=== PATIENT | female | born 1930 | race Caucasian/White ===

== ENCOUNTER 2016-07-08 09:33 | Emergency (ER) | payer MEDICARE, MEDICAID ==
[2016-07-08 10:26] LABS: Hematocrit 36 % (35-47); Hemoglobin 11.8 g/dl (12.0-16.0); Mean Corpuscular HGB Conc 33 g/dl (31-36); Mean Corpuscular Hemoglobin 29 pg (27-31); Mean Corpuscular Volume 89 fL (80-97); Mean Platelet Volume 9 um3 (7.4-10.4); Red Blood Count 4.03 10^6/ul (4.0-5.4); Red Cell Distribution Width 14 % (10.5-15); White Blood Count 5.6 10^3/ul (3.5-10.8)
[2016-07-08 10:39] LABS: BUN/Creatinine Ratio 20.6 (8-20); EGFR Non-African American 54.7 (>60); Potassium 4.4 mmol/L (3.5-5.0)
[2016-07-08 10:40] LABS: Albumin 3.8 g/dL (3.2-5.2); C Reactive Protein 6.3 mg/L (< 5.00); Calcium 9.4 mg/dL (8.6-10.3); EGFR African American 70.4 (>60); Globulin 3.1 g/dL (2-4); Total Bilirubin 0.4 mg/dL (0.2-1.0); Total Protein 6.9 g/dL (6.4-8.9)
[2016-07-08 10:47] LABS: Urine Bacteria Absent (Absent); Urine Bilirubin Negative (Negative); Urine Glucose Negative (Negative); Urine Nitrite Negative (Negative)
[2016-07-08 12:39] VITALS: BP 162/62
--- NOTE | 2016-07-08 12:41 | ED ---
Eduard Puentes SooYoung, scribed for Saad Haque MD on 07/08/16 at 1001 . GI/ HPI - HPI Summary HPI Summary: A 85 y/o F presents to ED with c/o ongoing urinary retention for past one to two weeks. Associated sx include a few episodes of dysuria. Pt is generally concerned about the retention being symptomatic of something more serious. Last urination was at 0400 and was a nml amount. She's had 3-4 cups of coffee and has not urinated. She states she feels "perfectly comfortable." Denies CP, edema , SOB, hematuria, back or abd pains, fever, chills. Pt sees Dr. Lutz. Non- drinker. - History of Current Complaint Chief Complaint: EDUrogenitalProblems Time Seen by Provider: 07/08/16 09:48 Stated Complaint: UNABLE TO URINATE Hx Obtained From: Patient Onset/Duration: Started Weeks Ago, Still Present Pain Intensity: 4 Associated Signs and Symptoms: Positive: Dysuria - few episodes, Other: - neg: edema, SOB,. Negative: Back Pain, Fever, Hematuria, Chills, Abdominal Pain, Chest Pain - Allergy/Home Medications Allergies/Adverse Reactions: Allergies Allergy/AdvReac Type Severity Reaction Status Date / Time Aspirin Allergy Severe Anaphylatic Verified 09/15/14 02:53 Shock Prochlorperazine Allergy Severe seizure Verified 09/15/14 02:53 [From Compazine] Bee Venom Allergy Anaphylatic Verified 09/15/14 02:53 Shock NSAIDs Allergy Anaphylatic Verified 09/15/14 02:53 Shock DUST AND MOLD Allergy Runny Nose Uncoded 09/15/14 02:53 PMH/Surg Hx/FS Hx/Imm Hx Previously Healthy: No Endocrine/Hematology History: Reports: Hx Diabetes, Hx Thyroid Disease, Hx Anemia Denies: Hx Anticoagulant Therapy Cardiovascular History: Reports: Hx Hypercholesterolemia, Hx Hypertension Denies: Hx Pacemaker/ICD Respiratory History: Reports: Hx Asthma, Hx Chronic Bronchitis, Hx Chronic Obstructive Pulmonary Disease (COPD), Hx Pneumonia, Hx Seasonal Allergies, Hx Sleep Apnea - does not wear bipap at night, Other Respiratory Problems/ Disorders - PNA, SLEEP APNEA GI History: Reports: Other GI Disorders - 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 History: Denies: Hx Kidney Stones, Hx Renal Disease Musculoskeletal History: Reports: Hx Orthopedic Injury - 01/08/2012 R ankle Fx, 03/19/2012 R ankle Fx, 03/21/2012 L ankle Fx, Other Musculoskeletal History - Bilateral rotator cuff injuries, poor use of UE bilateral Denies: Hx Rheumatoid Arthritis, Hx Osteoporosis Sensory History: Reports: Hx Cataracts, Hx Contacts or Glasses - for reading Opthamlomology History: Reports: Hx Cataracts, Hx Contacts or Glasses - for reading Neurological History: Denies: Hx Dementia, Hx Seizures, Other Neuro Impairments/Disorders Psychiatric History: Reports: Hx Anxiety, Hx Depression Denies: Hx Attention Deficit Hyperactivity Disorder, Hx Suicide Attempt, Hx Substance Abuse - Cancer History Hx Chemotherapy: No Hx Radiation Therapy: No - Surgical History Surgery Procedure, Year, and Place: R Ankle fracture, 2011 and 2012 Bilateral. right forearm fx and left forearm fx. left big toe had hammertoe. hysterectomy 1974. nasal polyps 1977 Hx Anesthesia Reactions: No - Immunization History Date of Tetanus Vaccine: Unsure Date of Influenza Vaccine: 2012 Infectious Disease History: Denies: Hx Clostridium Difficile, Hx Hepatitis, Hx Human Immunodeficiency Virus (HIV), Hx Shingles, Hx Tuberculosis, Traveled Outside the [place] in Last 30 Days - Family History Known Family History: Positive: Other - neg Breast CA Family History: No FHx of breast cancer. - Social History Occupation: Retired Lives: [facility] [employer] Alcohol Use: None Hx Substance Use: No Substance Use Type: Reports: None Hx Tobacco Use: Yes Smoking Status (MU): Former Smoker Type: Cigarettes Review of Systems Negative: Fever, Chills Negative: Chest Pain Negative: Abdominal Pain Positive: dysuria - few episodes, other - pos: urinary retention. Negative: hematuria Positive: Other - neg: back pain. Negative: Edema All Other Systems Reviewed And Are Negative: Yes Physical Exam - Summary Physical Exam Summary: The patient is well-nourished in no acute distress and in no acute pain. The skin is warm and dry and skin color reflects adequate perfusion. HEENT: The head is normocephalic and atraumatic. The pupils are equal and reactive. The conjunctivae are clear and without drainage. Nares are patent and without drainage. Mouth reveals moist mucous membranes and the throat is without erythema and exudate. The external ears are intact. The ear canals are patent and without drainage. The tympanic membranes are intact. Neck is supple with full range of motion and non-tender. There are no carotid bruits. There is no neck vein distension. Respiratory: Chest is non-tender. Lungs are clear to auscultation and breath sounds are symmetrical and equal. Cardiovascular: Hear is regular rate and rhythm. There is no murmur or rub auscultated. There is no peripheral edema and pulses are symmetrical and equal. Abdomen: The abdomen is soft and non-tender. There are normal bowel sounds heard in all four quadrants and there is no organomegaly palpated. BLADDER NOT DISTENDED. Musculoskeletal: There is no back pain noted. Extremities are non-tender with full range of motion. There is good capillary refill. MILD PERIPHERAL EDEMA, No calf tenderness elicited. Neurological: Patient is alert and oriented to person, place and time. The patient has symmetrical motor strength in all four extremities. Cranial nerves are grossly intact. Deep tendon reflexes are symmetrical and equal in all four extremities. Psychiatric: The patient has an appropriate affect and does not exhibit any anxiety or depression. Triage Information Reviewed: Yes Vital Signs On Initial Exam: Initial Vitals Temp Pulse Resp BP Pulse Ox 97.1 F 79 16 153/96 99 07/08/16 09:36 07/08/16 09:36 07/08/16 09:36 07/08/16 09:36 07/08/16 09:36 Vital Signs Reviewed: Yes Diagnostics - Vital Signs Vital Signs Temp Pulse Resp BP Pulse Ox 07/08/16 09:36 97.1 F 79 16 153/96 99 - Laboratory Lab Results: Lab Results 07/08/16 07/08/16 07/08/16 Range/Units 10:20 10:20 10:20 WBC 5.6 (3.5-10.8) 10^3/ul RBC 4.03 (4.0-5.4) 10^6/ul Hgb 11.8 L (12.0-16.0) g/dl Hct 36 (35-47) % MCV 89 (80-97) fL MCH 29 (27-31) pg MCHC 33 (31-36) g/dl RDW 14 (10.5-15) % Plt Count 223 (150-450) 10^3/ul MPV 9 (7.4-10.4) um3 Neut % (Auto) 65.0 (38-83) % Lymph % (Auto) 24.4 L (25-47) % Bryan % (Auto) 8.4 (1-9) % Eos % (Auto) 1.2 (0-6) % Baso % (Auto) 1.0 (0-2) % Absolute Neuts (auto) 3.6 (1.5-7.7) 10^3/ul Absolute Lymphs (auto) 1.4 (1.0-4.8) 10^3/ul Absolute Monos (auto) 0.5 (0-0.8) 10^3/ul Absolute Eos (auto) 0.1 (0-0.6) 10^3/ul Absolute Basos (auto) 0.1 (0-0.2) 10^3/ul Absolute Nucleated RBC 0 10^3/ul Nucleated RBC % 0 Sodium 133 (133-145) mmol/L Potassium 4.4 (3.5-5.0) mmol/L Chloride 100 L (101-111) mmol/L Carbon Dioxide 26 (22-32) mmol/L Anion Gap 7 (2-11) mmol/L BUN 20 (6-24) mg/dL Creatinine 0.97 H (0.51-0.95) mg/dL Est GFR ( Amer) 70.4 (>60) Est GFR (Non-Af Amer) 54.7 (>60) BUN/Creatinine Ratio 20.6 H (8-20) Glucose 147 H (70-100) mg/dL Lactic Acid 1.9 (0.5-2.0) mmol/L Calcium 9.4 (8.6-10.3) mg/dL Total Bilirubin 0.40 (0.2-1.0) mg/dL AST 15 (13-39) U/L ALT 13 (7-52) U/L Alkaline Phosphatase 64 (34-104) U/L C-Reactive Protein 6.30 H (< 5.00) mg/L Total Protein 6.9 (6.4-8.9) g/dL Albumin 3.8 (3.2-5.2) g/dL Globulin 3.1 (2-4) g/dL Albumin/Globulin Ratio 1.2 (1-3) Urine Color Urine Appearance Urine pH (5-9) Ur Specific [place] (1.010-1.030) Urine Protein (Negative) Urine Ketones (Negative) Urine Blood (Negative) Urine Nitrate (Negative) Urine Bilirubin (Negative) Urine Urobilinogen (Negative) Ur Leukocyte Esterase (Negative) Urine WBC (Auto) (Absent) Urine RBC (Auto) (Absent) Ur Squamous Epith Cells (Absent) Urine Bacteria (Absent) Urine Glucose (Negative) Urine Ascorbic Acid (Negative) 07/08/16 Range/Units 10:30 WBC (3.5-10.8) 10^3/ul RBC (4.0-5.4) 10^6/ul Hgb (12.0-16.0) g/dl Hct (35-47) % MCV (80-97) fL MCH (27-31) pg MCHC (31-36) g/dl RDW (10.5-15) % Plt Count (150-450) 10^3/ul MPV (7.4-10.4) um3 Neut % (Auto) (38-83) % Lymph % (Auto) (25-47) % Bryan % (Auto) (1-9) % Eos % (Auto) (0-6) % Baso % (Auto) (0-2) % Absolute Neuts (auto) (1.5-7.7) 10^3/ul Absolute Lymphs (auto) (1.0-4.8) 10^3/ul Absolute Monos (auto) (0-0.8) 10^3/ul Absolute Eos (auto) (0-0.6) 10^3/ul Absolute Basos (auto) (0-0.2) 10^3/ul Absolute Nucleated RBC 10^3/ul Nucleated RBC % Sodium (133-145) mmol/L Potassium (3.5-5.0) mmol/L Chloride (101-111) mmol/L Carbon Dioxide (22-32) mmol/L Anion Gap (2-11) mmol/L BUN (6-24) mg/dL Creatinine (0.51-0.95) mg/dL Est GFR ( Amer) (>60) Est GFR (Non-Af Amer) (>60) BUN/Creatinine Ratio (8-20) Glucose (70-100) mg/dL Lactic Acid (0.5-2.0) mmol/L Calcium (8.6-10.3) mg/dL Total Bilirubin (0.2-1.0) mg/dL AST (13-39) U/L ALT (7-52) U/L Alkaline Phosphatase (34-104) U/L C-Reactive Protein (< 5.00) mg/L Total Protein (6.4-8.9) g/dL Albumin (3.2-5.2) g/dL Globulin (2-4) g/dL Albumin/Globulin Ratio (1-3) Urine Color Yellow Urine Appearance Clear Urine pH 6.0 (5-9) Ur Specific [place] 1.012 (1.010-1.030) Urine Protein Negative (Negative) Urine Ketones Negative (Negative) Urine Blood Negative (Negative) Urine Nitrate Negative (Negative) Urine Bilirubin Negative (Negative) Urine Urobilinogen Negative (Negative) Ur Leukocyte Esterase Trace H (Negative) Urine WBC (Auto) Trace(0-5/hpf) (Absent) Urine RBC (Auto) 3+(>10/hpf) H (Absent) Ur Squamous Epith Cells Present H (Absent) Urine Bacteria Absent (Absent) Urine Glucose Negative (Negative) Urine Ascorbic Acid * H (Negative) Result Diagrams: 07/08/16 10:20 07/08/16 10:20 Lab Statement: Any lab studies that have been ordered have been reviewed, and results considered in the medical decision making process. Re-Evaluation - Re-Evaluation 1 Re-Evaluation Time: 12:23 Change: Unchanged Comment: RECHECKED AND REVIEWED LABS/UA. PT WANTS TO START ABX. GIGU Course/Dx - Course Course Of Treatment: Pt is an 85 y/o F with a few episodes of dysuria and concerns about urinary retention over the past two weeks. Last urination was at 0400 and was a nml amount. She is "perfectly comfortable." Denies CP, edema, SOB , hematuria, back or abd pains, fever, chills. UA shows traces of luekocytes esterase, 3+ RBC, and asorbic acid present. CRP is 6.3. Possibly early UTI. Discussed results with pt, she prefers to start the abx. Will D/C home with Nedra and f/u with Dr. Lutz. Pt voiced understanding. - Diagnoses Differential Diagnoses - Female: Dehydration, Urinary Tract Infection, Other - renal failure, urinary retention Provider Diagnoses: UTI (urinary tract infection), Dehydration Discharge - Discharge Plan Condition: Stable Disposition: HOME Prescriptions: Ciprofloxacin TAB* [Cipro 500 MG TAB*] 500 mg PO BID #14 tab Patient Education Materials: Ciprofloxacin (By mouth), Urinary Traction Infection in Older Adults (ED) Referrals: Beckie Prasad [Primary Care Provider] - Arielle Lutz MD [Medical Doctor] - As Soon As Possible Additional Instructions: Please return to the ED if you experience new or worsening symptoms. FOLLOW UP WITH YOUR PRIMARY CARE PROVIDER, DR. LUTZ. Lab Results - Lab Results Lab Results: 07/08/16 07/08/16 07/08/16 10:20 10:20 10:20 WBC 5.6 RBC 4.03 Hgb 11.8 L Hct 36 MCV 89 MCH 29 MCHC 33 RDW 14 Plt Count 223 MPV 9 Neut % (Auto) 65.0 Lymph % (Auto) 24.4 L Bryan % (Auto) 8.4 Eos % (Auto) 1.2 Baso % (Auto) 1.0 Absolute Neuts (auto) 3.6 Absolute Lymphs (auto) 1.4 Absolute Monos (auto) 0.5 Absolute Eos (auto) 0.1 Absolute Basos (auto) 0.1 Absolute Nucleated RBC 0 Nucleated RBC % 0 Sodium 133 Potassium 4.4 Chloride 100 L Carbon Dioxide 26 Anion Gap 7 BUN 20 Creatinine 0.97 H Est GFR ( Amer) 70.4 Est GFR (Non-Af Amer) 54.7 BUN/Creatinine Ratio 20.6 H Glucose 147 H Lactic Acid 1.9 Calcium 9.4 Total Bilirubin 0.40 AST 15 ALT 13 Alkaline Phosphatase 64 C-Reactive Protein 6.30 H Total Protein 6.9 Albumin 3.8 Globulin 3.1 Albumin/Globulin Ratio 1.2 Urine Color Urine Appearance Urine pH Ur Specific [place] Urine Protein Urine Ketones Urine Blood Urine Nitrate Urine Bilirubin Urine Urobilinogen Ur Leukocyte Esterase Urine WBC (Auto) Urine RBC (Auto) Ur Squamous Epith Cells Urine Bacteria Urine Glucose Urine Ascorbic Acid 07/08/16 10:30 WBC RBC Hgb Hct MCV MCH MCHC RDW Plt Count MPV Neut % (Auto) Lymph % (Auto) Bryan % (Auto) Eos % (Auto) Baso % (Auto) Absolute Neuts (auto) Absolute Lymphs (auto) Absolute Monos (auto) Absolute Eos (auto) Absolute Basos (auto) Absolute Nucleated RBC Nucleated RBC % Sodium Potassium Chloride Carbon Dioxide Anion Gap BUN Creatinine Est GFR ( Amer) Est GFR (Non-Af Amer) BUN/Creatinine Ratio Glucose Lactic Acid Calcium Total Bilirubin AST ALT Alkaline Phosphatase C-Reactive Protein Total Protein Albumin Globulin Albumin/Globulin Ratio Urine Color Yellow Urine Appearance Clear Urine pH 6.0 Ur Specific [place] 1.012 Urine Protein Negative Urine Ketones Negative Urine Blood Negative Urine Nitrate Negative Urine Bilirubin Negative Urine Urobilinogen Negative Ur Leukocyte Esterase Trace H Urine WBC (Auto) Trace(0-5/hpf) Urine RBC (Auto) 3+(>10/hpf) H Ur Squamous Epith Cells Present H Urine Bacteria Absent Urine Glucose Negative Urine Ascorbic Acid * H The documentation as recorded by the Eduard mcnamara SooYoung accurately reflects the service I personally performed and the decisions made by , Saad Haque MD.
== END 2016-07-08 12:39 | disposition home or self-care (01) ==
LOC: ED 09:33
DX: N39.0 Urinary tract infection, site not specified (principal); E86.0 Dehydration; R30.0 Dysuria; R33.9 Retention of urine, unspecified; Z87.891 Personal history of nicotine dependence
CPT/HCPCS: 36415; 80053; 81003; 81015; 83605; 85025; 86140; 87086; 99283

== ENCOUNTER 2017-03-01 15:04 | Emergency (ER) | payer MEDICARE, MEDICAID ==
--- NOTE | 2017-03-01 16:19 | RAD ---
HISTORY: Weakness, dizziness COMPARISONS: December 04, 2013 TECHNIQUE: Multiple contiguous axial CT scans were obtained of the head without intravenous contrast. FINDINGS: HEMORRHAGE/INFARCT: There is no hemorrhage or acute infarct. MASSES/SHIFT: There is no mass or shift. EXTRA-AXIAL SPACES: There are no extra-axial fluid collections. SULCI AND VENTRICLES: The sulci and ventricles are normal in size and position for the patient's stated age. CEREBRUM: There is hypoattenuation of the periventricular and subcortical white matter. BRAINSTEM: There are no focal parenchymal abnormalities. CEREBELLUM: There are no focal parenchymal abnormalities. VESSELS: The vessels are grossly normal. PARANASAL SINUSES: There is opacification of the left maxillary sinus with osteitis of the surrounding bone consistent with chronic sinusitis ORBITS: The orbits are unremarkable. BONES AND SOFT TISSUE: No bone or soft tissue abnormalities are noted. OTHER: None IMPRESSION: NO ACUTE INTRACRANIAL PATHOLOGY. CHRONIC SMALL VESSEL ISCHEMIC CHANGES.
--- NOTE | 2017-03-01 16:22 | RAD ---
HISTORY: Weakness, dizziness COMPARISONS: January 28, 2016, September 03, 2014 VIEWS: 1: frontal portable view of the chest at 4:15 PM FINDINGS: LINES AND TUBES: None. CARDIOMEDIASTINAL SILHOUETTE: The cardiomediastinal silhouette is normal for portable technique. PLEURA: The costophrenic angles are sharp. No pleural abnormalities are noted. LUNG PARENCHYMA: There is hyperinflation. There is a questionable, 0.8 cm nodular density overlying the right upper lung. ABDOMEN: The upper abdomen is clear. There is no subphrenic gas. BONES AND SOFT TISSUES: No bone or soft tissue abnormalities are noted. IMPRESSION: COPD WITH QUESTIONABLE RIGHT UPPER LOBE LUNG NODULE. RECOMMEND CORRELATION WITH PA AND LATERAL VIEWS OF THE CHEST OR CT OF THE CHEST
[2017-03-01 16:39] LABS: Hematocrit 38 % (35-47); Mean Corpuscular HGB Conc 34 g/dl (31-36); Mean Corpuscular Hemoglobin 31 pg (27-31); Mean Corpuscular Volume 90 fL (80-97); Mean Platelet Volume 9 um3 (7.4-10.4); Red Blood Count 4.21 10^6/ul (4.0-5.4); Red Cell Distribution Width 14 % (10.5-15); White Blood Count 7.2 10^3/ul (3.5-10.8)
[2017-03-01 16:47] LABS: Albumin 3.9 g/dL (3.2-5.2); BUN/Creatinine Ratio 17.3 (8-20); Calcium 9.4 mg/dL (8.6-10.3); EGFR African American 64.8 (>60); EGFR Non-African American 50.4 (>60); Globulin 3.3 g/dL (2-4); Potassium 4.1 mmol/L (3.5-5.0); Total Bilirubin 0.3 mg/dL (0.2-1.0); Total Protein 7.2 g/dL (6.4-8.9)
[2017-03-01 16:49] LABS: Troponin I 0.01 ng/mL (<0.04)
[2017-03-01] MEDS: NS 0.9% 1000 ML*IV.FLUID IV ONE (17:05)
[2017-03-01 17:58] LABS: Urine Bacteria Absent (Absent); Urine Bilirubin Negative (Negative); Urine Glucose Negative (Negative); Urine Nitrite Negative (Negative)
--- NOTE | 2017-03-01 18:50 | ED ---
Serge Puentes Gabriel, scribed for Sy Menard MD on 03/01/17 at 1548 . Complex/Multi-Sys Presentation - HPI Summary HPI Summary: This patient is a 86 year old F BIBA to [facility] with a chief complaint of weakness since this morning. Patient denies dizziness, ABD pain, n/v/d, rhinorrhea, and sore throat. Patient states she has had a hard time ambulating this morning and felt like she was falling to one side. Patient just recently finished a course on antibiotics for a UTI and lives in a half-way. - History Of Current Complaint Chief Complaint: EDWeakness Time Seen by Provider: 03/01/17 15:33 Hx Obtained From: Patient Onset/Duration: Lasting Hours - this morning, Still Present Timing: Constant Severity Currently: Mild Severity Initially: Mild Associated Signs And Symptoms: Positive: Weakness - Allergies/Home Medications Allergies/Adverse Reactions: Allergies Allergy/AdvReac Type Severity Reaction Status Date / Time Aspirin Allergy Severe Anaphylatic Verified 09/15/14 02:53 Shock Prochlorperazine Allergy Severe seizure Verified 09/15/14 02:53 [From Compazine] Bee Venom Allergy Anaphylatic Verified 09/15/14 02:53 Shock NSAIDs Allergy Anaphylatic Verified 09/15/14 02:53 Shock DUST AND MOLD Allergy Runny Nose Uncoded 09/15/14 02:53 Home Medications: Home Medications Acetaminophen TAB* [Tylenol TAB*] 325 mg PO Q4H PRN 03/01/17 [History Confirmed 03/01/17] Albuterol 2.5MG/3ML (0.083%)* [Ventolin 2.5 MG/3 ML NEB.INDIRA*] 2.5 mg INH Q8HR PRN 03/01/17 [History Confirmed 03/01/17] Alendronate TAB (NF) [Fosamax TAB (NF)] 10 mg PO DAILY 03/01/17 [History Confirmed 03/01/17] Apple Cider Vinegar 1,200 mg PO DAILY 03/01/17 [History Confirmed 03/01/17] [id number]-[id number]-Islc [Calcium & Magnesium + Zin 334-134-5 mg] 2 tab PO DAILY 03/01/17 [History Confirmed 03/01/17] Cranberry (Vaccinium Macrocarp [Cranberry] 810 mg PO DAILY 03/01/17 [History Confirmed 03/01/17] Docusate CAP* [Colace Cap*] 200 mg PO BEDTIME 03/01/17 [History Confirmed ] Epinephrine [Epipen 2-Beck] 0.3 mg IM ONCE PRN 03/01/17 [History Confirmed ] Fluticasone HFA 110 mcg(NF) [Flovent HFA 110 mcg(NF)] 2 puff INH BID 03/01/17 [ History Confirmed 03/01/17] Fluticasone NASAL SPRAY 50MCG* [Flonase NASAL SPRAY 50MCG*] 2 spray BOTH NARES DAILY 03/01/17 [History Confirmed 03/01/17] Levothyroxine TAB* [Synthroid TAB*] 50 mcg PO DAILY 03/01/17 [History Confirmed 03/01/17] Meclizine TAB* [Antivert 12.5 TAB*] 12.5 - 25 mg PO TID 03/01/17 [History Confirmed 03/01/17] Multivitamins/Minerals TAB* [Theragran/minerals TAB*] 1 tab PO DAILY 03/01/17 [ History Confirmed 03/01/17] [place]-3 Fatty Acids (Nf) [Fish Oil (NF)] 350 - 400 mg PO DAILY 03/01/17 [ History Confirmed 03/01/17] Polyethylene Glycol 3350* [Miralax*] 17 gm PO DAILY 03/01/17 [History Confirmed 03/01/17] QUEtiapine TAB* [SEROquel TAB*] 400 mg PO BEDTIME 03/01/17 [History Confirmed ] Saline NASAL SPRAY 0.65%* [Sodium Chloride 0.65% Nasal [place]*] 1 spray BOTH NARES DAILY PRN 03/01/17 [History Confirmed 03/01/17] Sertraline* [Zoloft*] 150 mg PO DAILY 03/01/17 [History Confirmed 03/01/17] Tumeric 500 mg PO DAILY 03/01/17 [History Confirmed 03/01/17] Zinc [Zinc Methionate] 50 mg PO DAILY 03/01/17 [History Confirmed 03/01/17] PMH/Surg Hx/FS Hx/Imm Hx Previously Healthy: No Endocrine/Hematology History: Reports: Hx Diabetes, Hx Thyroid Disease, Hx Anemia Denies: Hx Anticoagulant Therapy Cardiovascular History: Reports: Hx Hypercholesterolemia, Hx Hypertension Denies: Hx Pacemaker/ICD Respiratory History: Reports: Hx Asthma, Hx Chronic Bronchitis, Hx Chronic Obstructive Pulmonary Disease (COPD), Hx Pneumonia, Hx Seasonal Allergies, Hx Sleep Apnea - does not wear bipap at night, Other Respiratory Problems/ Disorders - PNA, SLEEP APNEA GI History: Reports: Other GI Disorders - 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 History: Denies: Hx Kidney Stones, Hx Renal Disease Musculoskeletal History: Reports: Hx Orthopedic Injury - 01/08/2012 R ankle Fx, 03/19/2012 R ankle Fx, 03/21/2012 L ankle Fx, Other Musculoskeletal History - Bilateral rotator cuff injuries, poor use of UE bilateral Denies: Hx Rheumatoid Arthritis, Hx Osteoporosis Sensory History: Reports: Hx Cataracts, Hx Contacts or Glasses - for reading Opthamlomology History: Reports: Hx Cataracts, Hx Contacts or Glasses - for reading Neurological History: Denies: Hx Dementia, Hx Seizures, Other Neuro Impairments/Disorders Psychiatric History: Reports: Hx Anxiety, Hx Depression Denies: Hx Attention Deficit Hyperactivity Disorder, Hx Suicide Attempt, Hx Substance Abuse - Cancer History Hx Chemotherapy: No Hx Radiation Therapy: No - Surgical History Surgery Procedure, Year, and Place: R Ankle fracture, 2011 and 2013 Bilateral. right forearm fx and left forearm fx. left big toe had hammertoe. hysterectomy 1974. nasal polyps 1977 Hx Anesthesia Reactions: No - Immunization History Date of Tetanus Vaccine: Unsure Date of Influenza Vaccine: 2012 Infectious Disease History: No Infectious Disease History: Denies: Hx Clostridium Difficile, Hx Hepatitis, Hx Human Immunodeficiency Virus (HIV), Hx Shingles, Hx Tuberculosis, Traveled Outside the [place] in Last 30 Days - Family History Known Family History: Positive: Other - neg Breast CA Family History: No FHx of breast cancer. - Social History Alcohol Use: None Hx Substance Use: No Substance Use Type: Reports: None Hx Tobacco Use: Yes Smoking Status (MU): Former Smoker Type: Cigarettes Review of Systems Negative: Sore Throat, Nasal Discharge Negative: Abdominal Pain, Vomiting, Diarrhea, Nausea Neurological: Negative - dizziness Positive: Weakness All Other Systems Reviewed And Are Negative: Yes Physical Exam - Summary Physical Exam Summary: Appearance: Well appearing, no pain distress, patient is weight bare but shuffling gate Skin: warm, dry, reflects adequate perfusion Head/face: normal Eyes: EOMI, EMILY Pupils are small but reactive ENT: Mucous membranes are dry Neck: supple, non-tender Respiratory: CTA, breath sounds present. Diminished breath sounds Cardiovascular: RRR, pulses symmetrical, grade 3 murmur Abdomen: non-tender, soft Bowel: present Musculoskeletal: normal, strength/ROM intact, No LE edema Neuro: normal, sensory motor intact, A&Ox3 No focal deficits or weakness Triage Information Reviewed: Yes Vital Signs On Initial Exam: Initial Vitals Temp Pulse Resp BP Pulse Ox 97.5 F 86 18 137/61 98 03/01/17 15:06 03/01/17 15:06 03/01/17 15:06 03/01/17 15:06 03/01/17 15:06 Vital Signs Reviewed: Yes - [place] Coma Scale Coma Scale Total: 15 Diagnostics - Vital Signs Vital Signs Temp Pulse Resp BP Pulse Ox 03/01/17 15:06 97.5 F 86 18 137/61 98 - Laboratory Lab Results: Lab Results 03/01/17 03/01/17 03/01/17 Range/Units 16:20 16:20 16:20 WBC 7.2 (3.5-10.8) 10^3/ul RBC 4.21 (4.0-5.4) 10^6/ul Hgb 13.0 (12.0-16.0) g/dl Hct 38 (35-47) % MCV 90 (80-97) fL MCH 31 (27-31) pg MCHC 34 (31-36) g/dl RDW 14 (10.5-15) % Plt Count 277 (150-450) 10^3/ul MPV 9 (7.4-10.4) um3 Neut % (Auto) 69.1 (38-83) % Lymph % (Auto) 21.1 L (25-47) % Mccreary % (Auto) 8.0 (1-9) % Eos % (Auto) 1.1 (0-6) % Baso % (Auto) 0.7 (0-2) % Absolute Neuts (auto) 5.0 (1.5-7.7) 10^3/ul Absolute Lymphs (auto) 1.5 (1.0-4.8) 10^3/ul Absolute Monos (auto) 0.6 (0-0.8) 10^3/ul Absolute Eos (auto) 0.1 (0-0.6) 10^3/ul Absolute Basos (auto) 0.1 (0-0.2) 10^3/ul Absolute Nucleated RBC 0 10^3/ul Nucleated RBC % 0 Sodium 136 (133-145) mmol/L Potassium 4.1 (3.5-5.0) mmol/L Chloride 103 (101-111) mmol/L Carbon Dioxide 28 (22-32) mmol/L Anion Gap 5 (2-11) mmol/L BUN 18 (6-24) mg/dL Creatinine 1.04 H (0.51-0.95) mg/dL Est GFR ( Amer) 64.8 (>60) Est GFR (Non-Af Amer) 50.4 (>60) BUN/Creatinine Ratio 17.3 (8-20) Glucose 103 H (70-100) mg/dL Lactic Acid 0.9 (0.5-2.0) mmol/L Calcium 9.4 (8.6-10.3) mg/dL Total Bilirubin 0.30 (0.2-1.0) mg/dL AST 16 (13-39) U/L ALT 13 (7-52) U/L Alkaline Phosphatase 71 (34-104) U/L Troponin I 0.01 (<0.04) ng/mL Total Protein 7.2 (6.4-8.9) g/dL Albumin 3.9 (3.2-5.2) g/dL Globulin 3.3 (2-4) g/dL Albumin/Globulin Ratio 1.2 (1-3) Urine Color Urine Appearance Urine pH (5-9) Ur Specific [place] (1.010-1.030) Urine Protein (Negative) Urine Ketones (Negative) Urine Blood (Negative) Urine Nitrate (Negative) Urine Bilirubin (Negative) Urine Urobilinogen (Negative) Ur Leukocyte Esterase (Negative) Urine WBC (Auto) (Absent) Urine RBC (Auto) (Absent) Ur Squamous Epith Cells (Absent) Urine Bacteria (Absent) Urine Glucose (Negative) Urine Ascorbic Acid (Negative) 03/01/17 Range/Units 17:31 WBC (3.5-10.8) 10^3/ul RBC (4.0-5.4) 10^6/ul Hgb (12.0-16.0) g/dl Hct (35-47) % MCV (80-97) fL MCH (27-31) pg MCHC (31-36) g/dl RDW (10.5-15) % Plt Count (150-450) 10^3/ul MPV (7.4-10.4) um3 Neut % (Auto) (38-83) % Lymph % (Auto) (25-47) % Mccreary % (Auto) (1-9) % Eos % (Auto) (0-6) % Baso % (Auto) (0-2) % Absolute Neuts (auto) (1.5-7.7) 10^3/ul Absolute Lymphs (auto) (1.0-4.8) 10^3/ul Absolute Monos (auto) (0-0.8) 10^3/ul Absolute Eos (auto) (0-0.6) 10^3/ul Absolute Basos (auto) (0-0.2) 10^3/ul Absolute Nucleated RBC 10^3/ul Nucleated RBC % Sodium (133-145) mmol/L Potassium (3.5-5.0) mmol/L Chloride (101-111) mmol/L Carbon Dioxide (22-32) mmol/L Anion Gap (2-11) mmol/L BUN (6-24) mg/dL Creatinine (0.51-0.95) mg/dL Est GFR ( Amer) (>60) Est GFR (Non-Af Amer) (>60) BUN/Creatinine Ratio (8-20) Glucose (70-100) mg/dL Lactic Acid (0.5-2.0) mmol/L Calcium (8.6-10.3) mg/dL Total Bilirubin (0.2-1.0) mg/dL AST (13-39) U/L ALT (7-52) U/L Alkaline Phosphatase (34-104) U/L Troponin I (<0.04) ng/mL Total Protein (6.4-8.9) g/dL Albumin (3.2-5.2) g/dL Globulin (2-4) g/dL Albumin/Globulin Ratio (1-3) Urine Color Yellow Urine Appearance Clear Urine pH 6.0 (5-9) Ur Specific [place] 1.012 (1.010-1.030) Urine Protein Negative (Negative) Urine Ketones Negative (Negative) Urine Blood Negative (Negative) Urine Nitrate Negative (Negative) Urine Bilirubin Negative (Negative) Urine Urobilinogen Negative (Negative) Ur Leukocyte Esterase Trace H (Negative) Urine WBC (Auto) Trace(0-5/hpf) (Absent) Urine RBC (Auto) Absent (Absent) Ur Squamous Epith Cells Present H (Absent) Urine Bacteria Absent (Absent) Urine Glucose Negative (Negative) Urine Ascorbic Acid * H (Negative) Result Diagrams: 03/01/17 16:20 03/01/17 16:20 Lab Statement: Any lab studies that have been ordered have been reviewed, and results considered in the medical decision making process. Re-Evaluation - Re-Evaluation First Eval Re-Evaluation Time: 17:01 Change: Unchanged - Patient is still unable to support her own weight. Complex Multi-Symp Course/Dx Course Of Treatment: Pt with recent deterioration and inability to walk. Some "dizziness" and clinically appears dry. Recent UTI. No infectious source found. Dry, hydrated but without much benefit to gait. NIHSS 0, shuffling/wide based gate. High risk for fall. - Diagnoses Provider Diagnoses: Dehydration, Leg weakness, Vertigo - Physician Notifications Discussed Care Of Patient With: Arielle Carr Time Discussed With Above Provider: 18:13 Instructed by Provider To: Other - Dr. Carr was informed of the patient's situation and she believes they should be admitted. Discharge - Discharge Plan Condition: Fair Disposition: ADMITTED TO [facility] Referrals: Arielle Carr MD [Primary Care Provider] - Consult Consult: 1816: We discussed patient care with Dr. Lynn, hospitalist and they agreed to admit The documentation as recorded by the Serge mcnamara Gabriel accurately reflects the service I personally performed and the decisions made by me, Sy Menard MD.
--- NOTE | 2017-03-01 19:40 | ED ---
Roberto Puentes Tiffany, scribed for Jon Leblanc on 03/01/17 at 1915 . Re-Evaluation - Re-Evaluation First Eval Re-Evaluation Time: 17:01 Change: Unchanged - Patient is still unable to support her own weight. Course/Dx - Course Course Of Treatment: Dr. Lynn (hospitalist) evaluated the patient and he recommended discharge. He discussed this with the patient. She is agreeable to be discharged. The patient is stable. - Diagnoses Provider Diagnoses: Dehydration, Leg weakness, Vertigo, Dizziness - Provider Notifications Time Discussed With Above Provider: 18:13 Instructed by Provider To: Other - Dr. Carr was informed of the patient's situation and she believes they should be admitted. The documentation as recorded by the Roberto mcnamara Tiffany accurately reflects the service I personally performed and the decisions made by Deana byrne Emmanuel.
[2017-03-01 21:27] VITALS: BP 112/72
--- NOTE | 2017-03-01 22:19 | CONS ---
[facility] MEDICINE CONSULTATION REPORT: DATE OF CONSULT: 03/01/17 PROVIDER: Mary Garcia NP ATTENDING PHYSICIAN: Dr. Menard in the ER. CONSULTING DOCTOR: Long Lynn MD REASON FOR CONSULT: Weakness. HISTORY OF PRESENT ILLNESS: Ms. Rizzo is an 86-year-old female that presented to the emergency room after at approximately 10 o'clock this morning she developed bilateral leg weakness and had difficulty ambulating. During her emergency room stay, she was given IV fluids and re-hydration. Earlier in the emergency room stay, they attempted to ambulate her and was unsuccessful. In interviewing the patient, she states that she is feeling better, she feels that she has more strength in her legs. We ambulated her with a wheeled walker, which she uses all the time at home. She was able to ambulate in her room and out into the pak with a steady gait unassisted with the wheeled walker. She states that she feels better and would like to go home at this time. She does report that she was recently treated for UTI with Cipro which she finished 2-3 days ago. She states that her urinary symptoms since the treatment have all resolved. She denies any nausea, vomiting or diarrhea. Denies any abdominal pain. Denies any dysuria, frequency, urgency, or burning with urination. She denies any cough or respiratory symptoms. She denies any shortness of breath. She currently states that she feels that she can return home at this time. PAST MEDICAL HISTORY: 1. COPD. 2. Diabetes mellitus. 3. Sleep apnea. 4. History of anxiety, treated. 5. Gastroesophageal reflux disease. 6. Osteoporosis. 7. Hypertension. 8. Allergic rhinitis. 9. Allergy to insects. 10. Restless leg syndrome. 11. History of depression. 12. Recurrent urinary tract infections. PAST SURGICAL HISTORY: Includes: 1. Vaginal hysterectomy. 2. Bilateral cataract extractions. 3. Incision of lipoma on the left arm. 4. Multiple cystoscopies with transurethral collagen injections. 5. Surgery for nasal polyps. 6. Lumpectomy, right breast benign, left breast was also benign. 7. Left foot surgery. HOME MEDICATIONS: 1. Albuterol 2.5 mg inhaler q.8 hours p.r.n. 2. EpiPen 0.3 IM p.r.n. 3. Jbphh-3 fatty acids 350 to 400 mg p.o. daily. 4. Multivitamin 1 tablet p.o. daily. 5. Acetaminophen 325 mg p.o. p.r.n. 6. Saline nasal spray 1 spray both nares p.r.n. daily. 7. Calcium, magnesium and zinc 2 tabs p.o. daily. 8. Cranberry 810 mg p.o. daily. 9. Turmeric 500 mg p.o. daily. 10. Apple cider vinegar 1200 mg p.o. daily. 11. Zinc 50 mg p.o. daily. 12. Docusate 200 mg at bedtime. 13. MiraLAX 17 g p.o. daily. 14. Lisinopril 10 mg p.o. daily. 15. Simvastatin 20 mg p.o. q.p.m. 16. Levothyroxine 50 mcg p.o. daily. 17. Seroquel 400 mg p.o. at bedtime. 18. Fosamax 10 mg p.o. daily. 19. Fluticasone 2 puffs inhaled b.i.d. 20. Sertraline 150 mg p.o. daily. 21. Meclizine 12.5 to 25 mg p.o. t.i.d. 22. Fluticasone nasal spray 50 mcg 2 sprays both nares daily. 23. Singulair 10 mg p.o. daily. 24. Minipress cap 3 mg p.o. at bedtime. 25. Alprazolam Xanax 0.125 p.o. daily p.r.n. ALLERGIES: She is allergic to MOLD, YEAST and DUST. She has allergy to ASPIRIN , PROCHLORPERAZINE, BEE VENOM, NSAIDS caused anaphylactic reaction, COMPAZINE caused Seizures. ASPIRIN caused anaphylaxis. FAMILY HISTORY: Positive for heart disease, stroke and Parkinson's disease. SOCIAL HISTORY: The patient is a former smoker. She quit 11 years old. She does not drink alcohol. She does drink coffee 2 cups of coffee and 2 cups of tea a day. She denies any illicit drug use. REVIEW OF SYSTEMS: She denies any fever, chills or sweats. HEENT: She denies any rhinorrhea, sore throat or ear pain. Cardiac: She has had no chest pain or edema. Respiratory: She denies any shortness of breath or cough or respiratory symptoms. GI: She denies nausea, vomiting or diarrhea. She denies any abdominal pain. : She denies any gross hematuria or dysuria. She denies frequency or burning. Neuro: There is no focal weakness or sensory loss. She denies any visual complaints. She denies any dysphagia. She denies any arthralgias or myalgias. Skin: There are no rashes or lesions. Psych: She denies any depression or anxiety at this time. PHYSICAL EXAM: General: At this time Ms. Rizzo is an 86- year-old female. She is sitting up in bed. She appears to be in no acute distress. She moves all of her extremities. Vital signs: Temperature was 97.5, blood pressure is 163/96, heart rate was 82 , respirations are 16, O2 sat is 96% on room air. HEENT: Head atraumatic normocephalic. EYES: Extraocular eye movements are intact. Oral Mucosa is dry, there appears to be dried pill fragments noted to the soft palate. There is no oropharyngeal erythema. Neck: Supple Heart: S1, S2. There are no murmurs, rubs or gallops and it is regular. Lungs are clear to auscultation bilaterally with no accessory muscle use and good aeration. Abdomen is soft and nontender. Bowel sounds are positive x4. Extremities: She moves all extremities. There is no cyanosis or edema. Neurological: She is alert and oriented x3. There is no facial asymmetry or focal weakness noted. Skin is intact. DIAGNOSTIC STUDIES/LAB DATA: WBC is 7.2, RBC is 4.21, hemoglobin 13, hematocrit 38, platelet count is 277. Sodium is 136, potassium 4.1, chloride 103, carbon dioxide is 28, anion gap is 5, BUN is 18, creatinine is 1.04, glucose is 103, lactic acid 0.9, calcium 9.4. Troponin was 0.01. Urine pH was 6, specific gravity was 1.021. Urine protein, ketones, blood, nitrites, bilirubin, urine bilirubin were all negative. Urine leuko esterase was trace. Urine wbc's were trace. Urine rbc's were absent. Squamous epithelial cells were present. Urine bacteria was negative. Urine glucose was negative and ascorbic acid was high. CT of the head. Radiologist's Impression: There is no acute intracranial pathology, chronic small vessel ischemic changes. Chest x-ray, COPD with right upper lobe lung nodule, recommend correlation with PA and lateral views of the chest or a CT of the chest. Electrocardiogram, she is in a sinus rhythm at a rate of 81. IMPRESSION AND PLAN: Ms. Rizzo is an 86-year-old female that presented to the emergency room today with bilateral lower leg weakness. This started at approximately 10 o'clock this morning. She received IV hydration in the emergency room and reports that she now feels better. An initial attempt to walk the patient earlier in the ER was difficult and she had to walk with assist. I did repeat ambulation evaluation we were able to get her up and walk her in the ER and she was able to ambulate with her wheeled walker unassisted, which she currently uses at home. She states that she feels well enough and strong enough to go home. Our recommendations are as follows: Weakness, questionable dehydration. The patient received IV hydration in the emergency room and she now feels better after the hydration she feels that her strength is improving. She wishes to go home at this time. She walked unassisted with a wheeled walker. I feel at this time she can be discharged home. She has a safety plan. She does currently live at [employer] and she does have on a Life Alert that she wears around her neck. She feels that she is safe to go home. She does have food provided to her by [email or web address]. I recommended to her to increase oral hydration and continue with eating and I also recommended if she felt weak or anything changed to her in the night that she should come back to the emergency room. I recommend that she follow up with her primary care provider, Dr. Arielle Carr, within the next week for reevaluation. She was also notified of chest x-ray findings of a possible nodule in her right upper lung and the need to have follow up evaluation with her primary care provider and possible repeat imaging. TIME SPENT: Approximately 60 minutes were spent on this consultation of this patient, more than half of the time was spent at the bedside reviewing the events leading to her hospital to her visit to the emergency room, performing a physical exam, and reviewing my plan of care. I have discussed this case with Dr. Long Lynn and he is in agreement with my plan. MARY GARCAI, VARNISHING UNIT OPERATOR [id number]/[facility] #: [id number] [facility]ANEOmid
== END 2017-03-01 21:25 | disposition home or self-care (01) ==
LOC: ED 15:04
DX: E86.0 Dehydration (principal); R53.1 Weakness; R42 Dizziness and giddiness; J44.9 Chronic obstructive pulmonary disease, unspecified
CPT/HCPCS: 36415; 70450; 71010; 80053; 81003; 81015; 83605; 84484; 85025; 87040; 87077; 87086; 87186; 93005; 96360; 99283

== ENCOUNTER 2017-03-13 01:53 | Emergency (ER) | payer MEDICAID, MEDICARE ==
[2017-03-13] MEDS ORDERED: NS 0.9% 1000 ML* 1,000 ML IV ONE (02:24)
[2017-03-13] MEDS ORDERED: Loperamide CAP* 2 MG PO ONE (02:24)
[2017-03-13 02:49] LABS: ABS Basophils 0 10^3/ul (0-0.2); ABS Eosinophils 0.1 10^3/ul (0-0.6); ABS Lymphocytes 1.3 10^3/ul (1.0-4.8); ABS Monocytes 0.6 10^3/ul (0-0.8); ABS Neutrophils 3.1 10^3/ul (1.5-7.7); ABS Nucleated RBC 0 10^3/ul; Eosinophil % 2.5 % (0-6); Hematocrit 34 % (35-47); Hemoglobin 11.6 g/dl (12.0-16.0); Lymphocyte % 25.3 % (25-47); Mean Corpuscular HGB Conc 34 g/dl (31-36); Mean Corpuscular Hemoglobin 30 pg (27-31); Mean Corpuscular Volume 90 fL (80-97); Mean Platelet Volume 8 um3 (7.4-10.4); Nucleated Red Blood Cells % 0.1; Platelet Count 237 10^3/ul (150-450); Red Cell Distribution Width 14 % (10.5-15); White Blood Count 5.1 10^3/ul (3.5-10.8)
[2017-03-13 03:16] LABS: EGFR Non-African American 40.4 (>60)
[2017-03-13 04:08] VITALS: BP 128/79
--- NOTE | 2017-03-15 05:59 | ED ---
Serge Puentes Gabriel, scribed for Alvina Beaulieu MD on 03/13/17 at 0229 . GI/ HPI - HPI Summary HPI Summary: This patient is a 86 year old F BIBA to [facility] with a chief complaint of weakness since 1600 yesterday. Patient reports diarrhea and a fall. Patient denies n/v. Patient believes the weakness may be due to dehydration because she has made no effort to replace the water she lost. - History of Current Complaint Chief Complaint: EDWeakness Time Seen by Provider: 03/13/17 02:17 Stated Complaint: GENERAL ILLNESS Hx Obtained From: Patient Onset/Duration: Started Days Ago - 1, Still Present Timing: Constant Severity: Mild Current Severity: Mild Pain Intensity: 0 Associated Signs and Symptoms: Positive: Negative - n/v, Other: - weakness and diarrhea - Allergy/Home Medications Allergies/Adverse Reactions: Allergies Allergy/AdvReac Type Severity Reaction Status Date / Time Aspirin Allergy Severe Anaphylatic Verified 09/15/14 02:53 Shock Prochlorperazine Allergy Severe seizure Verified 09/15/14 02:53 [From Compazine] Bee Venom Allergy Anaphylatic Verified 09/15/14 02:53 Shock NSAIDs Allergy Anaphylatic Verified 09/15/14 02:53 Shock DUST AND MOLD Allergy Runny Nose Uncoded 09/15/14 02:53 PMH/Surg Hx/FS Hx/Imm Hx Endocrine/Hematology History: Reports: Hx Diabetes, Hx Thyroid Disease, Hx Anemia Denies: Hx Anticoagulant Therapy Cardiovascular History: Reports: Hx Hypercholesterolemia, Hx Hypertension Denies: Hx Pacemaker/ICD Respiratory History: Reports: Hx Asthma, Hx Chronic Bronchitis, Hx Chronic Obstructive Pulmonary Disease (COPD), Hx Pneumonia, Hx Seasonal Allergies, Hx Sleep Apnea - does not wear bipap at night, Other Respiratory Problems/ Disorders - PNA, SLEEP APNEA GI History: Reports: Other GI Disorders - 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 History: Denies: Hx Kidney Stones, Hx Renal Disease Musculoskeletal History: Reports: Hx Orthopedic Injury - 01/08/2012 R ankle Fx, 03/19/2012 R ankle Fx, 03/21/2012 L ankle Fx, Other Musculoskeletal History - Bilateral rotator cuff injuries, poor use of UE bilateral Denies: Hx Rheumatoid Arthritis, Hx Osteoporosis Sensory History: Reports: Hx Cataracts, Hx Contacts or Glasses - for reading Opthamlomology History: Reports: Hx Cataracts, Hx Contacts or Glasses - for reading Neurological History: Denies: Hx Dementia, Hx Seizures, Other Neuro Impairments/Disorders Psychiatric History: Reports: Hx Anxiety, Hx Depression Denies: Hx Attention Deficit Hyperactivity Disorder, Hx Suicide Attempt, Hx Substance Abuse - Cancer History Hx Chemotherapy: No Hx Radiation Therapy: No - Surgical History Surgery Procedure, Year, and Place: R Ankle fracture, 2012 and 2013 Bilateral. right forearm fx and left forearm fx. left big toe had hammertoe. hysterectomy 1974. nasal polyps 1977 Hx Anesthesia Reactions: No - Immunization History Date of Tetanus Vaccine: Unsure Date of Influenza Vaccine: 2012 Infectious Disease History: No Infectious Disease History: Denies: Hx Clostridium Difficile, Hx Hepatitis, Hx Human Immunodeficiency Virus (HIV), Hx Shingles, Hx Tuberculosis, Traveled Outside the [place] in Last 30 Days - Family History Known Family History: Positive: Other - neg Breast CA Family History: No FHx of breast cancer. - Social History Alcohol Use: None Hx Substance Use: No Substance Use Type: Reports: None Hx Tobacco Use: Yes Smoking Status (MU): Former Smoker Type: Cigarettes Review of Systems Positive: Diarrhea. Negative: Vomiting, Nausea Positive: Weakness All Other Systems Reviewed And Are Negative: Yes Physical Exam - Summary Physical Exam Summary: VITAL SIGNS: Reviewed. GENERAL: Patient is a well-developed and nourished female who is lying comfortable in the stretcher. Patient is not in any acute respiratory distress. HEAD AND FACE: No signs of trauma. No ecchymosis, hematomas or skull depressions. No sinus tenderness. EYES: PERRLA, EOMI x 2, No injected conjunctiva, no nystagmus. EARS: Hearing grossly intact. Ear canals and tympanic membranes are within normal limits. MOUTH: Oropharynx within normal limits. NECK: Supple, trachea is midline, no adenopathy, no JVD, no carotid bruit, no c- spine tenderness, neck with full ROM. CHEST: Symmetric, no tenderness at palpation LUNGS: Clear to auscultation bilaterally. No wheezing or crackles. CVS: Regular rate and rhythm, S1 and S2 present, no murmurs or gallops appreciated. ABDOMEN: Soft, non-tender. No signs of distention. No rebound no guarding, and no masses palpated. Bowel sounds are hyperactvie EXTREMITIES: FROM in all major joints, no edema, no cyanosis or clubbing. NEURO: Alert and oriented x 3. No acute neurological deficits. Speech is normal and follows commands. SKIN: Dry and warm Triage Information Reviewed: Yes Vital Signs On Initial Exam: Initial Vitals Temp Pulse Resp BP Pulse Ox 97.6 F 91 17 121/68 97 03/13/17 01:59 03/13/17 01:59 03/13/17 01:59 03/13/17 01:59 03/13/17 01:59 Vital Signs Reviewed: Yes - Mona Coma Scale Coma Scale Total: 15 Diagnostics - Vital Signs Vital Signs Temp Pulse Resp BP Pulse Ox 03/13/17 02:07 89 26 122/67 93 03/13/17 01:59 97.6 F 91 17 121/68 97 - Laboratory Result Diagrams: 03/13/17 02:40 03/13/17 02:40 Lab Statement: Any lab studies that have been ordered have been reviewed, and results considered in the medical decision making process. GIGU Course/Dx - Course Assessment/Plan: This patient is a 86 year old F BIBA to [facility] with a chief complaint of weakness since 1600 yesterday. Patient reports diarrhea and a fall. Patient denies n/v. Patient believes the weakness may be due to dehydration because she has made no effort to replace the water she lost.. Test results with no significant abnormalities. Patient will be discharged with follow up PCP in one day. The patient is agreeable with this plan. - Diagnoses Provider Diagnoses: Diarrhea Discharge - Discharge Plan Condition: Stable Disposition: HOME Patient Education Materials: Dehydration (ED), Acute Diarrhea (ED), Chronic Diarrhea (ED) Referrals: Arielle Carr MD [Primary Care Provider] - 1 Day Additional Instructions: RETURN TO EMERGENCY DEPARTMENT FOR ANY NEW OR WORSENING SYMPTOMS The documentation as recorded by the Serge mcnamara Gabriel accurately reflects the service I personally performed and the decisions made by , Alvina Beaulieu MD.
== END 2017-03-13 03:50 | disposition home or self-care (01) ==
LOC: ED 01:53
DX: R19.7 Diarrhea, unspecified (principal); Z87.891 Personal history of nicotine dependence; E11.9 Type 2 diabetes mellitus without complications; Z86.79 Personal history of other diseases of the circulatory system; Z87.09 Personal history of other diseases of the respiratory system
CPT/HCPCS: 36415; 80053; 85025; 96360; 99282; A9270-GY

== ENCOUNTER 2017-05-01 23:30 | Emergency (ER) | payer MEDICARE ==
[2017-05-02] MEDS ORDERED: NS 0.9% 1000 ML* 1,000 ML IV ONE (00:39)
[2017-05-02 01:24] LABS: ABS Basophils 0.1 10^3/ul (0-0.2); ABS Eosinophils 0.1 10^3/ul (0-0.6); ABS Lymphocytes 1.1 10^3/ul (1.0-4.8); ABS Monocytes 0.7 10^3/ul (0-0.8); ABS Neutrophils 6.4 10^3/ul (1.5-7.7); ABS Nucleated RBC 0 10^3/ul; Eosinophil % 0.9 % (0-6); Hematocrit 33 % (35-47); Hemoglobin 11.1 g/dl (12.0-16.0); Lymphocyte % 13.3 % (25-47); Mean Corpuscular HGB Conc 33 g/dl (31-36); Mean Corpuscular Hemoglobin 30 pg (27-31); Mean Corpuscular Volume 91 fL (80-97); Mean Platelet Volume 9 um3 (7.4-10.4); Nucleated Red Blood Cells % 0; Platelet Count 207 10^3/ul (150-450); Red Blood Count 3.67 10^6/ul (4.0-5.4); Red Cell Distribution Width 16 % (10.5-15); White Blood Count 8.3 10^3/ul (3.5-10.8)
[2017-05-02 01:37] LABS: EGFR Non-African American 46.7 (>60)
[2017-05-02 04:21] VITALS: BP 145/63
--- NOTE | 2017-05-02 06:07 | ED ---
Vera Puentes Nilda, scribed for Sy Menard MD on 05/02/17 at 0143 . Neurological HPI - HPI Summary HPI Summary: This patient is an 86 year old F BIBA with a chief complaint of acute constant weakness while sitting in chair at 2130. She states she fell trying to get out of her chair and called EMS. The patient rates the pain 0/10 in severity. Symptoms aggravated by and alleviated by nothing. Patient reports dizziness and that during initial evaluation EMS told her she had decreased BP. Patient denies dysuria, abnormal urinary symptoms, abnormal ROM in UE and LE, head injury, cough, and melena. Medications for HTN, but no blood thinners. - History of Current Complaint Chief Complaint: EDWeakness Stated Complaint: GENERAL WEAKNESS Time Seen by Provider: 05/02/17 00:28 Hx Obtained From: Patient Onset/Duration: Sudden Onset, Started hours ago, Still Present Timing: Constant Neurological Deficit Location: Generalized Pain Intensity: 0 Pain Scale Used: 0-10 Numeric Character: Weak Aggravating: Nothing Alleviating: Nothing Associated Signs and Symptoms: Positive: Weakness, Dizziness - Allergy/Home Medications Allergies/Adverse Reactions: Allergies Allergy/AdvReac Type Severity Reaction Status Date / Time MS Aspirin [Aspirin] Allergy Severe Anaphylatic Verified 09/15/14 02:53 Shock MS Prochlorperazine Allergy Severe seizure Verified 09/15/14 02:53 [From Compazine] MS Bee Venom [Bee Venom] Allergy Anaphylatic Verified 09/15/14 02:53 Shock MS NSAIDs [NSAIDs] Allergy Anaphylatic Verified 09/15/14 02:53 Shock DUST AND MOLD Allergy Runny Nose Uncoded 09/15/14 02:53 PMH/Surg Hx/FS Hx/Imm Hx Endocrine/Hematology History: Reports: Hx Diabetes, Hx Thyroid Disease, Hx Anemia Denies: Hx Anticoagulant Therapy Cardiovascular History: Reports: Hx Hypercholesterolemia, Hx Hypertension Denies: Hx Pacemaker/ICD Respiratory History: Reports: Hx Asthma, Hx Chronic Bronchitis, Hx Chronic Obstructive Pulmonary Disease (COPD), Hx Pneumonia, Hx Seasonal Allergies, Hx Sleep Apnea - does not wear bipap at night, Other Respiratory Problems/ Disorders - PNA, SLEEP APNEA GI History: Reports: Other GI Disorders - 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 History: Denies: Hx Kidney Stones, Hx Renal Disease Musculoskeletal History: Reports: Hx Orthopedic Injury - 01/08/2012 R ankle Fx, 03/19/2012 R ankle Fx, 03/21/2012 L ankle Fx, Other Musculoskeletal History - Bilateral rotator cuff injuries, poor use of UE bilateral Denies: Hx Rheumatoid Arthritis, Hx Osteoporosis Sensory History: Reports: Hx Cataracts, Hx Contacts or Glasses - for reading Opthamlomology History: Reports: Hx Cataracts, Hx Contacts or Glasses - for reading Neurological History: Denies: Hx Dementia, Hx Seizures, Other Neuro Impairments/Disorders Psychiatric History: Reports: Hx Anxiety, Hx Depression Denies: Hx Attention Deficit Hyperactivity Disorder, Hx Suicide Attempt, Hx Substance Abuse - Cancer History Hx Chemotherapy: No Hx Radiation Therapy: No - Surgical History Surgery Procedure, Year, and Place: R Ankle fracture, 2011 and 2013 Bilateral. right forearm fx and left forearm fx. left big toe had hammertoe. hysterectomy 1974. nasal polyps 1977 Hx Anesthesia Reactions: No - Immunization History Date of Tetanus Vaccine: Unsure Date of Influenza Vaccine: 2012 Infectious Disease History: No Infectious Disease History: Denies: Hx Clostridium Difficile, Hx Hepatitis, Hx Human Immunodeficiency Virus (HIV), Hx Shingles, Hx Tuberculosis, Traveled Outside the [place] in Last 30 Days - Family History Known Family History: Positive: Other - neg Breast CA Family History: No FHx of breast cancer. - Social History Alcohol Use: None Hx Substance Use: No Substance Use Type: Reports: None Hx Tobacco Use: Yes Smoking Status (MU): Former Smoker Type: Cigarettes Review of Systems Positive: Other - decreased BP (per EMS) Negative: Cough Positive: Other - negative melena Positive: other - negative abnormal urinary symptoms. Negative: dysuria Negative: Decreased ROM Neurological: Other - dizziness, fall; negative head injury Positive: Weakness All Other Systems Reviewed And Are Negative: Yes Physical Exam - Summary Physical Exam Summary: Appearance: Well appearing, no pain distress Skin: warm, dry, reflects adequate perfusion Head/face: normal Eyes: EOMI, EMILY ENT: normal except for dry mucous membrane Neck: supple, non-tender Respiratory: CTA, breath sounds present Cardiovascular: RRR, pulses symmetrical Abdomen: non-tender, soft Bowel sounds: present Musculoskeletal: strength/ROM intact, excoriation on left pollard and abrasion Neuro: sensory motor intact, A&Ox3, NIH=0, No focal deficit, Generalized weakness Triage Information Reviewed: Yes Vital Signs On Initial Exam: Initial Vitals Temp Pulse Resp BP Pulse Ox 97.3 F 77 20 106/44 94 05/01/17 23:41 05/01/17 23:41 05/01/17 23:41 05/01/17 23:41 05/01/17 23:41 Vital Signs Reviewed: Yes Diagnostics - Vital Signs Vital Signs Temp Pulse Resp BP Pulse Ox 05/01/17 23:43 77 94 05/01/17 23:41 97.3 F 77 20 106/44 94 - Laboratory Lab Results: Lab Results 05/02/17 Range/Units 01:02 WBC 8.3 (3.5-10.8) 10^3/ul RBC 3.67 L (4.0-5.4) 10^6/ul Hgb 11.1 L (12.0-16.0) g/dl Hct 33 L (35-47) % MCV 91 (80-97) fL MCH 30 (27-31) pg MCHC 33 (31-36) g/dl RDW 16 H (10.5-15) % Plt Count 207 (150-450) 10^3/ul MPV 9 (7.4-10.4) um3 Neut % (Auto) 77.3 (38-83) % Lymph % (Auto) 13.3 L (25-47) % [place] % (Auto) 7.9 (1-9) % Eos % (Auto) 0.9 (0-6) % Baso % (Auto) 0.6 (0-2) % Absolute Neuts (auto) 6.4 (1.5-7.7) 10^3/ul Absolute Lymphs (auto) 1.1 (1.0-4.8) 10^3/ul Absolute Monos (auto) 0.7 (0-0.8) 10^3/ul Absolute Eos (auto) 0.1 (0-0.6) 10^3/ul Absolute Basos (auto) 0.1 (0-0.2) 10^3/ul Absolute Nucleated RBC 0 10^3/ul Nucleated RBC % 0 Result Diagrams: 05/02/17 01:02 05/02/17 01:02 Lab Statement: Any lab studies that have been ordered have been reviewed, and results considered in the medical decision making process. - Radiology CXR Radiology Interpretation Completed By: ED Physician - no acute changes, unchanged from previous. - EKG 0037 Cardiac Rate: NL EKG Rhythm: Sinus Rhythm - [address] Segment: Normal EKG Interpretation: nl axis, long QTc at 492 msec NIH Scale - NIH Scale Level of Consciousness: Alert/Keenly Responsive Ask Patient the Month and His/Her Age: Both Correct Ask Pt to Open/Close Eyes and Clerk To Justice/Release Non-Paretic Hand: Both Correctly Best Gaze (Only Horizontal Eye Movement): Normal Visual Field Testing: No Visual Loss Facial Paresis-Pt to Smile & Close Eyes or Grimace Symmetry: Normal/Symmetrical Motor Function - Right Arm: No Drift-Holds 10 Seconds Motor Function - Left Arm: No Drift-Holds 10 Seconds Motor Function - Right Leg: No Drift-Holds 10 Seconds Motor Function - Left Leg: No Drift-Holds 10 Seconds Limb Ataxia-Must be out of Proportion to Weakness Present: Absent Sensory (Use Pinprick to Test Arms/Legs/Trunk/Face): Normal Best Language (Describe Picture, Name Items): No Aphasia Dysarthria (Read Several Words): Normal Extinction and Inattention: No Abnormality Total Score: 0 Re-Evaluation - Re-Evaluation First Eval Re-Evaluation Time: 03:09 Comment: Pt is ambulating, doing well on her feet, and wishes to go home. Pt states she felt back to normal while walking and asks to go home. Course/Dx - Course Course Of Treatment: non-descript gen weakness without focality. Dry MM. Improved significantly in the ED with IVF. Labs at baseline. Up and walking at baseline. Pt wishes to d/c. F/U closely with PMD. Assessment/Plan: An EKG reveals NSR, 79 bpm, nl ST, nl axis, and long QTc at 492 msec. CXR reveals no acute changes, unchanged from previous. - Diagnoses Provider Diagnoses: Generalized weakness, Dehydration, Diabetes mellitus type 2 Discharge - Discharge Plan Condition: Good Disposition: HOME Patient Education Materials: Dehydration (ED), Weakness (ED) Referrals: Arielle Carr MD [Primary Care Provider] - Additional Instructions: Call for an appt first thing in the morning. Return immediately with new symptoms, weakness, fall, worse or other concerns as discussed. The documentation as recorded by the Vera mcnamara Nilda accurately reflects the service I personally performed and the decisions made by Sailaja byrne Kirk, MD.
--- NOTE | 2017-05-02 07:58 | RAD ---
INDICATION: Weakness. COMPARISON: Comparison is made with prior chest x-ray study from March 01, 2017. TECHNIQUE: A portable view of the chest was obtained. FINDINGS: Cardiac and mediastinal contours appear to be within normal limits. The lungs are underinflated and clear. No pleural effusion is seen. IMPRESSION: NO EVIDENCE FOR ACUTE DISEASE.
== END 2017-05-02 03:22 | disposition home or self-care (01) ==
LOC: ED 23:30
DX: R53.1 Weakness (principal); E86.0 Dehydration; E11.9 Type 2 diabetes mellitus without complications; Z87.891 Personal history of nicotine dependence; Z88.6 Allergy status to analgesic agent
CPT/HCPCS: 36415; 71045; 80053; 83605; 83735; 83880; 84443; 84484; 85025; 87502; 93005; 99283

== ENCOUNTER 2017-06-23 15:57 | Inpatient (IN) | payer MEDICARE, MEDICAID ==
--- NOTE | 2017-06-23 20:04 | RAD ---
INDICATION: Preoperative radiograph. Clinical signs of infection at the first metatarsophalangeal joint. COMPARISON: None. TECHNIQUE: 3 views of the left foot were obtained. FINDINGS: Postsurgical changes include medullary screws spanning the left great toe metatarsophalangeal joint. The bones are diffusely demineralized. There is valgus deformity of the metatarsophalangeal joints involving the second, third and fourth toes. There is no definite acute fracture or dislocation. IMPRESSION: POSTOPERATIVE AND DEGENERATIVE CHANGES DESCRIBED ABOVE.
--- NOTE | 2017-06-23 20:05 | RAD ---
INDICATION: Preoperative chest x-ray. COMPARISON: Most recent comparison chest x-rays dated May 02, 2017 TECHNIQUE: PA and lateral views of the chest were obtained. FINDINGS: The heart and mediastinum are normal in size and contour. The lungs are grossly clear. There is no evidence of large pleural effusion. Visualized bones are normal for the patient's age. There is no radiographic evidence of free air beneath the diaphragm IMPRESSION: No radiographic evidence of acute cardiopulmonary disease.
[2017-06-23 20:23] LABS: ABS Basophils 0.1 10^3/ul (0-0.2); ABS Eosinophils 0.2 10^3/ul (0-0.6); ABS Lymphocytes 2.1 10^3/ul (1.0-4.8); ABS Monocytes 0.6 10^3/ul (0-0.8); ABS Neutrophils 3.6 10^3/ul (1.5-7.7); ABS Nucleated RBC 0 10^3/ul; Eosinophil % 2.5 % (0-6); Hematocrit 37 % (35-47); Hemoglobin 12.3 g/dl (12.0-16.0); Lymphocyte % 32.1 % (25-47); Mean Corpuscular HGB Conc 33 g/dl (31-36); Mean Corpuscular Hemoglobin 30 pg (27-31); Mean Corpuscular Volume 90 fL (80-97); Mean Platelet Volume 8.5 um3 (7.4-10.4); Nucleated Red Blood Cells % 0.1; Platelet Count 258 10^3/ul (150-450); Red Blood Count 4.08 10^6/ul (4.0-5.4); Red Cell Distribution Width 16 % (10.5-15); White Blood Count 6.5 10^3/ul (3.5-10.8)
[2017-06-23 20:27] LABS: INR 0.92 (0.77-1.02)
[2017-06-23 20:36] LABS: EGFR Non-African American 52.1 (>60)
[2017-06-23] MEDS ORDERED: Vancomycin(*) 1,000 MG in NS 0.9% 250 ML* 250 ML IVPB ONE (20:38)
[2017-06-23] MEDS ORDERED: NS 0.9% 250 ML* 250 ML ONE (20:54)
[2017-06-23] MEDS ORDERED: Vancomycin(*) 1,000 MG BAG/ADDV IVPB ONE (20:58)
[2017-06-23 23:07] LABS: Urine Appearance Clear; Urine Blood Negative (Negative); Urine Color Yellow; Urine Ketones Negative (Negative); Urine Protein Negative (Negative); Urine Specific Gravity 1.017 (1.010-1.030); Urine Urobilinogen Negative (Negative)
[2017-06-23] MEDS ORDERED: ALPRAZolam TAB* 0.25 MG PO PRN (23:32)
[2017-06-23] MEDS ORDERED: Saline NASAL SPRAY 0.65%* BTL BOTH NARES PRN (23:32)
[2017-06-23] MEDS ORDERED: Ondansetron INJ* 2 MG/ML VIAL IV PRN (23:39)
[2017-06-23] MEDS ORDERED: Vancomycin per Pharmacy* NOTE FOLLOW UP SCH (23:45)
--- NOTE | 2017-06-23 23:48 | HP ---
H&P (Free Text) History and Physical: PCP: Candido Carr MD Date/Time: 06/23/20172029 CC: L 1st toe redness, pain HPI: Mrs Rizzo is an 86YO female HX COPD, HTN who reports stubbing her L 1st toe on furniture at home ~10 days ago. It continued to be painful, red, and swollen leading her to see her physical fitness teacher who placed her on amoxicillin clavulanate and then switched to doxycycline after a wound culture obtained grew MRSA. However, she has not adequately responded to treatment and so was advised by her physical fitness teacher to come to the ED for further evaluation and consideration of IV ABX. The situation is complicated by 2 pins in the phalanxes of the toe from an old hammertoe surgery, the head of one which appears to have caused callosities on the toe medially and is associated with a pustule which was unroofed and cultured in the ED. PMedHx COPD on 2L oxygen HS HTN steroid induced hyperglycemia JESENIA not on CPAP hypothyroidism restless leg syndrome GERD depression anxiety seasonal allergies osteoporosis Ambulatory Orders Lisinopril TAB* [Prinivil TAB 10 MG*] 10 mg PO DAILY 01/05/12 Montelukast Sodium TAB* [Singulair TAB*] 10 mg PO DAILY 01/05/12 Prazosin CAP* [Minipress CAP*] 3 mg PO BEDTIME 01/05/12 ALPRAZolam TAB* [Xanax TAB*] 0.125 mg PO DAILY PRN 09/14/14 Simvastatin TAB(NF) [Zocor 20 MG (NF)] 20 mg PO QPM 09/14/14 Acetaminophen TAB* [Tylenol TAB*] 325 mg PO Q4H PRN 03/01/17 Albuterol 2.5MG/3ML (0.083%)* [Ventolin 2.5 MG/3 ML NEB.INDIRA*] 2.5 mg INH Q8HR PRN 03/01/17 Alendronate TAB (NF) [Fosamax TAB (NF)] 10 mg PO DAILY 03/01/17 Calcium Carb/Mag Ox/Zinc Sulf [Calcium & Magnesium + Zin 334-134-5 mg] 2 tab PO DAILY 03/01/17 Cider Vinegar [Apple Cider Vinegar] 1,200 mg PO DAILY 03/01/17 Docusate CAP* [Colace Cap*] 200 mg PO BEDTIME 03/01/17 EPINEPHrine [Epipen 2-Beck] 0.3 mg IM ONCE PRN 03/01/17 Fluticasone HFA 110 mcg(NF) [Flovent HFA 110 mcg(NF)] 2 puff INH BID 03/01/17 Fluticasone NASAL SPRAY 50MCG* [Flonase NASAL SPRAY 50MCG*] 2 spray BOTH NARES DAILY 03/01/17 Multivitamins/Minerals TAB* [Theragran/minerals TAB*] 1 tab PO DAILY 03/01/17 [place]-3 Fatty Acids (Nf) [Fish Oil (NF)] 350 - 400 mg PO DAILY 03/01/17 QUEtiapine TAB* [SEROquel TAB*] 400 mg PO BEDTIME 03/01/17 Saline NASAL SPRAY 0.65%* [Sodium Chloride 0.65% Nasal [place]*] 1 spray BOTH NARES DAILY PRN 03/01/17 Sertraline* [Zoloft*] 150 mg PO DAILY 03/01/17 DOXYcycline CAP(*) [DOXYcycline 100MG CAP(*)] 100 mg PO BID 06/23/17 Levothyroxine TAB* [Synthroid TAB*] 75 mcg PO MOTUWETHFRSA 06/23/17 Levothyroxine TAB* [Synthroid TAB*] 150 mcg PO .Sundays06/23/17 Zinc 50 mg PO DAILY 06/23/17 Allergies MS Aspirin [Aspirin] Allergy (Severe, Verified 09/15/14 02:53) Anaphylatic Shock MS Prochlorperazine [From Compazine] Allergy (Severe, Verified 09/15/14 02:53) seizure MS Bee Venom [Bee Venom] Allergy (Verified 09/15/14 02:53) Anaphylatic Shock MS NSAIDs [NSAIDs] Allergy (Verified 09/15/14 02:53) Anaphylatic Shock DUST AND MOLD Allergy (Uncoded 09/15/14 02:53) Runny Nose PSurgHx OU cataracts nasal polypectomy hysterectomy lipoma excision LUE hammertoe repair L 1st toe SocHx: quit smoking >20 years ago, no alcohol or recreational drugs; lives at [facility] independent living; DNR trial of intubation code status FamHx: reviewed & non-contributory ROS: as above, otherwise reviewed and all were negative vitals: Vital Signs Temp 36.3 C 06/23/17 23:59 Pulse 81 06/24/17 00:18 Resp 16 06/24/17 00:18 BP 156/60 06/23/17 23:59 Pulse Ox 98 06/24/17 00:18 Constitutional: NAD, normally developed, overweight elderly white female HEENM: atraumatic; sclera/conjunctiva: anicteric/clear; hearing: clinically intact; oropharynx: clear mucosa moist Neck: soft tissue: non-tender; thyroid: normal Pulmonary: clear to auscultation bilaterally, good aeration, no accessory muscle use CV: RR/RR, normal S1S2, no carotid bruit, no jugular venous distention, 2+ B DP/ PT, trace BLE edema Abdominal: soft, non-distended, non-tender, no rebound/guarding/rigidity, normoactive bowel sounds, no hepatosplenomegaly or masses, no costovertebral angle tenderness Musculoskeletal: general: L toes laterally deviated Integumental: L 1st toe lightly erythematous with medial callosities x2 with an unroofed pustule, no induration or active drainage/malodor Psychiatric orientation: AA&O to PPS affect: calm mood: cooperative eye contact: good content: reliable responses: timely insight: fair Testing: Lab Results 06/23/17 06/23/17 06/23/17 Range/Units 20:05 20:05 20:05 WBC 6.5 (3.5-10.8) 10^3/ul RBC 4.08 (4.0-5.4) 10^6/ul Hgb 12.3 (12.0-16.0) g/dl Hct 37 (35-47) % MCV 90 (80-97) fL MCH 30 (27-31) pg MCHC 33 (31-36) g/dl RDW 16 H (10.5-15) % Plt Count 258 (150-450) 10^3/ul MPV 8.5 (7.4-10.4) um3 Neut % (Auto) 55.8 (38-83) % Lymph % (Auto) 32.1 (25-47) % [place] % (Auto) 8.6 H (0-7) % Eos % (Auto) 2.5 (0-6) % Baso % (Auto) 1.0 (0-2) % Absolute Neuts (auto) 3.6 (1.5-7.7) 10^3/ul Absolute Lymphs (auto) 2.1 (1.0-4.8) 10^3/ul Absolute Monos (auto) 0.6 (0-0.8) 10^3/ul Absolute Eos (auto) 0.2 (0-0.6) 10^3/ul Absolute Basos (auto) 0.1 (0-0.2) 10^3/ul Absolute Nucleated RBC 0 10^3/ul Nucleated RBC % 0.1 INR (Anticoag Therapy) 0.92 (0.77-1.02) APTT (26.0-36.3) seconds Sodium 138 L (139-145) mmol/L Potassium 3.9 (3.5-5.0) mmol/L Chloride 103 (101-111) mmol/L Carbon Dioxide 27 (22-32) mmol/L Anion Gap 8 (2-11) mmol/L BUN 24 (6-24) mg/dL Creatinine 1.01 H (0.51-0.95) mg/dL Est GFR ( Amer) 67.0 (>60) Est GFR (Non-Af Amer) 52.1 (>60) BUN/Creatinine Ratio 23.8 H (8-20) Glucose 99 (70-100) mg/dL Lactic Acid (0.5-2.0) mmol/L Calcium 9.2 (8.6-10.3) mg/dL Total Bilirubin 0.30 (0.2-1.0) mg/dL AST 18 (13-39) U/L ALT 14 (7-52) U/L Alkaline Phosphatase 72 (34-104) U/L C-Reactive Protein 5.24 H (< 5.00) mg/L Total Protein 7.1 (6.4-8.9) g/dL Albumin 4.0 (3.2-5.2) g/dL Globulin 3.1 (2-4) g/dL Albumin/Globulin Ratio 1.3 (1-3) Urine Color Urine Appearance Urine pH (5-9) Ur Specific Home (1.010-1.030) Urine Protein (Negative) Urine Ketones (Negative) Urine Blood (Negative) Urine Nitrate (Negative) Urine Bilirubin (Negative) Urine Urobilinogen (Negative) Ur Leukocyte Esterase (Negative) Urine Glucose (Negative) Urine Ascorbic Acid (Negative) 06/23/17 06/23/17 06/24/17 Range/Units 20:05 22:45 00:15 WBC (3.5-10.8) 10^3/ul RBC (4.0-5.4) 10^6/ul Hgb (12.0-16.0) g/dl Hct (35-47) % MCV (80-97) fL MCH (27-31) pg MCHC (31-36) g/dl RDW (10.5-15) % Plt Count (150-450) 10^3/ul MPV (7.4-10.4) um3 Neut % (Auto) (38-83) % Lymph % (Auto) (25-47) % [place] % (Auto) (0-7) % Eos % (Auto) (0-6) % Baso % (Auto) (0-2) % Absolute Neuts (auto) (1.5-7.7) 10^3/ul Absolute Lymphs (auto) (1.0-4.8) 10^3/ul Absolute Monos (auto) (0-0.8) 10^3/ul Absolute Eos (auto) (0-0.6) 10^3/ul Absolute Basos (auto) (0-0.2) 10^3/ul Absolute Nucleated RBC 10^3/ul Nucleated RBC % INR (Anticoag Therapy) (0.77-1.02) APTT 32.8 (26.0-36.3) seconds Sodium (139-145) mmol/L Potassium (3.5-5.0) mmol/L Chloride (101-111) mmol/L Carbon Dioxide (22-32) mmol/L Anion Gap (2-11) mmol/L BUN (6-24) mg/dL Creatinine (0.51-0.95) mg/dL Est GFR ( Amer) (>60) Est GFR (Non-Af Amer) (>60) BUN/Creatinine Ratio (8-20) Glucose (70-100) mg/dL Lactic Acid 0.8 (0.5-2.0) mmol/L Calcium (8.6-10.3) mg/dL Total Bilirubin (0.2-1.0) mg/dL AST (13-39) U/L ALT (7-52) U/L Alkaline Phosphatase (34-104) U/L C-Reactive Protein (< 5.00) mg/L Total Protein (6.4-8.9) g/dL Albumin (3.2-5.2) g/dL Globulin (2-4) g/dL Albumin/Globulin Ratio (1-3) Urine Color Yellow Urine Appearance Clear Urine pH 7.0 (5-9) Ur Specific Home 1.017 (1.010-1.030) Urine Protein Negative (Negative) Urine Ketones Negative (Negative) Urine Blood Negative (Negative) Urine Nitrate Negative (Negative) Urine Bilirubin Negative (Negative) Urine Urobilinogen Negative (Negative) Ur Leukocyte Esterase Negative (Negative) Urine Glucose Negative (Negative) Urine Ascorbic Acid * A (Negative) 06/24/17 Range/Units 00:15 WBC (3.5-10.8) 10^3/ul RBC (4.0-5.4) 10^6/ul Hgb (12.0-16.0) g/dl Hct (35-47) % MCV (80-97) fL MCH (27-31) pg MCHC (31-36) g/dl RDW (10.5-15) % Plt Count (150-450) 10^3/ul MPV (7.4-10.4) um3 Neut % (Auto) (38-83) % Lymph % (Auto) (25-47) % [place] % (Auto) (0-7) % Eos % (Auto) (0-6) % Baso % (Auto) (0-2) % Absolute Neuts (auto) (1.5-7.7) 10^3/ul Absolute Lymphs (auto) (1.0-4.8) 10^3/ul Absolute Monos (auto) (0-0.8) 10^3/ul Absolute Eos (auto) (0-0.6) 10^3/ul Absolute Basos (auto) (0-0.2) 10^3/ul Absolute Nucleated RBC 10^3/ul Nucleated RBC % INR (Anticoag Therapy) (0.77-1.02) APTT (26.0-36.3) seconds Sodium (139-145) mmol/L Potassium (3.5-5.0) mmol/L Chloride (101-111) mmol/L Carbon Dioxide (22-32) mmol/L Anion Gap (2-11) mmol/L BUN 24 (6-24) mg/dL Creatinine 1.07 H (0.51-0.95) mg/dL Est GFR ( Amer) 62.7 (>60) Est GFR (Non-Af Amer) 48.7 (>60) BUN/Creatinine Ratio (8-20) Glucose (70-100) mg/dL Lactic Acid (0.5-2.0) mmol/L Calcium (8.6-10.3) mg/dL Total Bilirubin (0.2-1.0) mg/dL AST (13-39) U/L ALT (7-52) U/L Alkaline Phosphatase (34-104) U/L C-Reactive Protein (< 5.00) mg/L Total Protein (6.4-8.9) g/dL Albumin (3.2-5.2) g/dL Globulin (2-4) g/dL Albumin/Globulin Ratio (1-3) Urine Color Urine Appearance Urine pH (5-9) Ur Specific Home (1.010-1.030) Urine Protein (Negative) Urine Ketones (Negative) Urine Blood (Negative) Urine Nitrate (Negative) Urine Bilirubin (Negative) Urine Urobilinogen (Negative) Ur Leukocyte Esterase (Negative) Urine Glucose (Negative) Urine Ascorbic Acid (Negative) ECG, personally reviewed: NSR rate 71, no ischemia CXR, personally reviewed: IMPRESSION: No radiographic evidence of acute cardiopulmonary disease. XRY L foot, personally reviewed: FINDINGS: Postsurgical changes include medullary screws spanning the left great toe metatarsophalangeal joint. The bones are diffusely demineralized. There is valgus deformity of the metatarsophalangeal joints involving the second, third and fourth toes. There is no definite acute fracture or dislocation. Impression: 86F presenting with L 1st toe infection culture positive for MRSA overlying 2 medullary screws spanning the L 1st MPJ DIAGNOSIS & PLAN Primary L 1st toe infection culture positive for MRSA overlying 2 medullary screws spanning the L 1st MPJ : IV vancomycin : consider bone scan in AM to evaluate for osteomyelitis : blood CX : supportive care Secondary COPD on 2L oxygen HS : continue albuterol, fluticasone HTN : continue lisinopril & prazosin HLD : continue simvastatin hypothyroidism : continue levothyroxine depression : continue quetiapine & sertaline anxiety : continue alprazolam seasonal allergies : continue montelukast Admission Rational: inpatient for IV ABX and IVFs for an infection failed outpatient therapy DVTp: heparin SQ Code Status: DNR/trial of intubation HCP: daughterLeah
[2017-06-23] MEDS: QUEtiapine TAB* 100 MG PO SCH (23:55)
[2017-06-23] MEDS: NS 0.9% 1000 ML* 1,000 ML IV SCH (23:57)
[2017-06-24] MEDS: Albuterol 2.5 MG/3 ML NEB.SOL* (0.083%) INH PRN ×2 (00:05→13:25)
[2017-06-24 01:06] LABS: EGFR Non-African American 48.7 (>60)
[2017-06-24] MEDS: Levothyroxine TAB* 75 MCG TAB PO SCH (05:28)
[2017-06-24] MEDS: Heparin VIAL(*) 5000 UNITS/ML VIAL (FIVE THOUSAND) SUBCUT SCH ×3 (05:29→21:14)
[2017-06-24] MEDS: Omeprazole CAP* 20 MG PO SCH (05:29)
[2017-06-24 07:18] LABS: Hematocrit 34 % (35-47); Hemoglobin 11.8 g/dl (12.0-16.0); Mean Corpuscular HGB Conc 35 g/dl (31-36); Mean Corpuscular Hemoglobin 31 pg (27-31); Mean Corpuscular Volume 89 fL (80-97); Mean Platelet Volume 8.4 um3 (7.4-10.4); Platelet Count 233 10^3/ul (150-450); Red Blood Count 3.83 10^6/ul (4.0-5.4); Red Cell Distribution Width 15 % (10.5-15); White Blood Count 6.2 10^3/ul (3.5-10.8)
[2017-06-24 07:37] LABS: EGFR Non-African American 55.9 (>60)
[2017-06-24] MEDS: Vancomycin(*) 1,000 MG in NS 0.9% 250 ML* 250 ML IVPB SCH ×2 (10:03→21:13)
[2017-06-24] MEDS: Sertraline* 100 MG TAB PO SCH (10:04)
[2017-06-24] MEDS: Montelukast Sodium TAB* 10 MG PO SCH (10:04)
[2017-06-24] MEDS: Lisinopril TAB* 10 MG PO SCH (10:04)
[2017-06-24] MEDS: Atorvastatin* 10 MG TAB PO SCH (18:44)
[2017-06-24] MEDS: ALPRAZolam TAB* 0.25 MG PO PRN (18:57)
[2017-06-24] MEDS: Albuterol 2.5 MG/3 ML NEB.SOL* (0.083%) INH SCH ×2 (19:15→19:20)
[2017-06-24] MEDS: Mometasone 220 MCG MDI INH SCH (19:15)
[2017-06-24] MEDS: Prazosin CAP* 1 MG PO SCH (21:13)
[2017-06-24] MEDS: QUEtiapine TAB* 100 MG PO SCH (21:14)
[2017-06-24] MEDS: Docusate CAP* 100 MG PO SCH (21:14)
[2017-06-25] MEDS: NS 0.9% 1000 ML* 1,000 ML IV SCH (02:06)
[2017-06-25] MEDS: Heparin VIAL(*) 5000 UNITS/ML VIAL (FIVE THOUSAND) SUBCUT SCH ×3 (05:25→22:14)
[2017-06-25] MEDS: Omeprazole CAP* 20 MG PO SCH (05:26)
[2017-06-25] MEDS: Levothyroxine TAB* 75 MCG TAB PO SCH (05:40)
[2017-06-25 06:22] LABS: ABS Basophils 0.1 10^3/ul (0-0.2); ABS Eosinophils 0.2 10^3/ul (0-0.6); ABS Monocytes 0.5 10^3/ul (0-0.8); ABS Neutrophils 3.5 10^3/ul (1.5-7.7); ABS Nucleated RBC 0 10^3/ul; Eosinophil % 2.8 % (0-6); Hematocrit 37 % (35-47); Hemoglobin 12.3 g/dl (12.0-16.0); Mean Corpuscular HGB Conc 33 g/dl (31-36); Mean Corpuscular Hemoglobin 30 pg (27-31); Mean Corpuscular Volume 90 fL (80-97); Mean Platelet Volume 8.7 um3 (7.4-10.4); Nucleated Red Blood Cells % 0.1; Platelet Count 232 10^3/ul (150-450); Red Blood Count 4.12 10^6/ul (4.0-5.4); Red Cell Distribution Width 15 % (10.5-15); White Blood Count 6.1 10^3/ul (3.5-10.8)
[2017-06-25 06:42] LABS: EGFR Non-African American 61.1 (>60)
[2017-06-25 06:44] LABS: Vancomycin Trough 17.5 mcg/mL
[2017-06-25] MEDS: Albuterol 2.5 MG/3 ML NEB.SOL* (0.083%) INH SCH ×2 (07:30→20:16)
[2017-06-25] MEDS ORDERED: Vancomycin Trough Check NOTE FOLLOW UP ONE (08:30)
[2017-06-25] MEDS: Lisinopril TAB* 10 MG PO SCH (08:41)
[2017-06-25] MEDS: Montelukast Sodium TAB* 10 MG PO SCH (08:41)
[2017-06-25] MEDS: Sertraline* 100 MG TAB PO SCH (08:41)
[2017-06-25] MEDS: ALPRAZolam TAB* 0.25 MG PO PRN (08:42)
[2017-06-25] MEDS: Vancomycin(*) 750 MG in NS 0.9% 250 ML* 250 ML IVPB SCH ×2 (10:15→22:19)
[2017-06-25] MEDS: Vancomycin(*) 1,000 MG in NS 0.9% 250 ML* 250 ML IVPB SCH (10:18)
--- NOTE | 2017-06-25 11:43 | ED ---
Louis Puentes Rebecca, scribed for Sy Menard MD on 06/23/17 at 1911 . Lower Extremity - HPI Summary HPI Summary: Pt is an 86 y/o F who presents to ED, referred by her square cutter, c/o L foot swelling and erythema. Sx have been present for 3 days and were initially treated by her square cutter with Augmentin, though she is now on Doxycycline. Reports symptoms are not worsening, but rather persisting. Associated pain is discrete to the L toe and mild, ranked 2/10. Sx aggravated by palpation, alleviated by nothing. Denies fever, chills, diaphoresis, nausea, and CP. Has an appointment with her square cutter on Sunday (4 days from today). PSHx hardware placement 6 years ago in the great toe - pt reports they were supposed to be removed, though they are still in place. No PMHx DM per pt, though nurse' s triage notes "diet controlled diabetes." - History of Current Complaint Chief Complaint: EDExtremityLower Stated Complaint: LT FOOT POSS INFECTION Time Seen by Provider: 06/23/17 19:04 Hx Obtained From: Patient Onset/Duration: Days - 3 days Severity Currently: Mild Pain Intensity: 2 Pain Scale Used: 0-10 Numeric Location: Is Discrete @ - L great toe Associated Signs And Symptoms: Positive: Swelling, Redness Aggravating Factor(s): Other - Palpation Alleviating Factor(s): Nothing - Allergies/Home Medications Allergies/Adverse Reactions: Allergies Allergy/AdvReac Type Severity Reaction Status Date / Time MS Aspirin [Aspirin] Allergy Severe Anaphylatic Verified 06/24/17 04:09 Shock MS Prochlorperazine Allergy Severe seizure Verified 06/24/17 04:09 [From Compazine] MS Bee Venom [Bee Venom] Allergy Anaphylatic Verified 06/24/17 05:14 Shock MS NSAIDs [NSAIDs] Allergy Anaphylatic Verified 06/24/17 04:09 Shock DUST AND MOLD Allergy Mild Runny Nose Uncoded 06/24/17 05:13 Home Medications: Home Medications DOXYcycline CAP(*) [DOXYcycline 100MG CAP(*)] 100 mg PO BID 06/23/17 [History Confirmed 06/23/17] Levothyroxine TAB* [Synthroid TAB*] 75 mcg PO MOTUWETHFRSA 06/23/17 [History Confirmed 06/23/17] Levothyroxine TAB* [Synthroid TAB*] 150 mcg PO .Sundays06/23/17 [History Confirmed 06/23/17] Zinc 50 mg PO DAILY 06/23/17 [History Confirmed 06/23/17] PMH/Surg Hx/FS Hx/Imm Hx Endocrine/Hematology History: Reports: Hx Diabetes, Hx Thyroid Disease, Hx Anemia Denies: Hx Anticoagulant Therapy Cardiovascular History: Reports: Hx Hypercholesterolemia, Hx Hypertension Denies: Hx Pacemaker/ICD Respiratory History: Reports: Hx Asthma, Hx Chronic Bronchitis, Hx Chronic Obstructive Pulmonary Disease (COPD), Hx Pneumonia, Hx Seasonal Allergies, Hx Sleep Apnea - does not wear bipap at night, Other Respiratory Problems/ Disorders - PNA, SLEEP APNEA GI History: Reports: Other GI Disorders - 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 History: Denies: Hx Kidney Stones, Hx Renal Disease Musculoskeletal History: Reports: Hx Orthopedic Injury - 01/08/2012 R ankle Fx, 03/19/2012 R ankle Fx, 03/21/2012 L ankle Fx, Other Musculoskeletal History - Bilateral rotator cuff injuries, poor use of UE bilateral Denies: Hx Rheumatoid Arthritis, Hx Osteoporosis Sensory History: Reports: Hx Cataracts, Hx Contacts or Glasses - for reading Opthamlomology History: Reports: Hx Cataracts, Hx Contacts or Glasses - for reading Neurological History: Denies: Hx Dementia, Hx Seizures, Other Neuro Impairments/Disorders Psychiatric History: Reports: Hx Anxiety, Hx Depression Denies: Hx Attention Deficit Hyperactivity Disorder, Hx Suicide Attempt, Hx Substance Abuse - Cancer History Hx Chemotherapy: No Hx Radiation Therapy: No - Surgical History Surgery Procedure, Year, and Place: R Ankle fracture, 2011 and 2012 Bilateral. right forearm fx and left forearm fx. left big toe had hammertoe. hysterectomy 1974. nasal polyps 1977 Hx Anesthesia Reactions: No - Immunization History Date of Tetanus Vaccine: Unsure Date of Influenza Vaccine: 2012 Infectious Disease History: No Infectious Disease History: Denies: Hx Clostridium Difficile, Hx Hepatitis, Hx Human Immunodeficiency Virus (HIV), Hx Shingles, Hx Tuberculosis, Traveled Outside the [place] in Last 30 Days - Family History Known Family History: Positive: Other - neg Breast CA Family History: No FHx of breast cancer. - Social History Alcohol Use: None Hx Substance Use: No Substance Use Type: Reports: None Hx Tobacco Use: Yes Smoking Status (MU): Former Smoker Type: Cigarettes Review of Systems Negative: Fever, Chills, Skin Diaphoresis Negative: Chest Pain Negative: Nausea Positive: Other - L great toe swelling, erythema, and pain All Other Systems Reviewed And Are Negative: Yes Physical Exam - Summary Physical Exam Summary: Appearance: Well appearing, no pain distress Skin: warm, dry, her left great toe has erythema and warmth through the MTP joint, with a pustule on the lateral aspect of the MTP joint. The pustule was opened with a Q-Tip and there is a void that is about 3 mm in diameter. Head/face: normal Eyes: EOMI, EMILY ENT: normal Neck: supple, non-tender Respiratory: CTA, breath sounds present Cardiovascular: RRR, pulses symmetrical Abdomen: non-tender, soft Bowel Sounds: present Musculoskeletal: normal, strength/ROM intact Neuro: normal, sensory motor intact, A&Ox3 Triage Information Reviewed: Yes Vital Signs On Initial Exam: Initial Vitals Temp Pulse Resp BP Pulse Ox 97.8 F 80 17 142/65 98 06/23/17 16:05 06/23/17 16:05 06/23/17 16:05 06/23/17 16:05 06/23/17 16:05 Vital Signs Reviewed: Yes Diagnostics - Vital Signs Vital Signs Temp Pulse Resp BP Pulse Ox 06/23/17 16:05 97.8 F 80 17 142/65 98 - Laboratory Lab Results: Lab Results 06/23/17 06/23/17 06/23/17 Range/Units 20:05 20:05 20:05 WBC 6.5 (3.5-10.8) 10^3/ul RBC 4.08 (4.0-5.4) 10^6/ul Hgb 12.3 (12.0-16.0) g/dl Hct 37 (35-47) % MCV 90 (80-97) fL MCH 30 (27-31) pg MCHC 33 (31-36) g/dl RDW 16 H (10.5-15) % Plt Count 258 (150-450) 10^3/ul MPV 8.5 (7.4-10.4) um3 Neut % (Auto) 55.8 (38-83) % Lymph % (Auto) 32.1 (25-47) % [place] % (Auto) 8.6 H (0-7) % Eos % (Auto) 2.5 (0-6) % Baso % (Auto) 1.0 (0-2) % Absolute Neuts (auto) 3.6 (1.5-7.7) 10^3/ul Absolute Lymphs (auto) 2.1 (1.0-4.8) 10^3/ul Absolute Monos (auto) 0.6 (0-0.8) 10^3/ul Absolute Eos (auto) 0.2 (0-0.6) 10^3/ul Absolute Basos (auto) 0.1 (0-0.2) 10^3/ul Absolute Nucleated RBC 0 10^3/ul Nucleated RBC % 0.1 INR (Anticoag Therapy) 0.92 (0.77-1.02) Sodium 138 L (139-145) mmol/L Potassium 3.9 (3.5-5.0) mmol/L Chloride 103 (101-111) mmol/L Carbon Dioxide 27 (22-32) mmol/L Anion Gap 8 (2-11) mmol/L BUN 24 (6-24) mg/dL Creatinine 1.01 H (0.51-0.95) mg/dL Est GFR ( Amer) 67.0 (>60) Est GFR (Non-Af Amer) 52.1 (>60) BUN/Creatinine Ratio 23.8 H (8-20) Glucose 99 (70-100) mg/dL Lactic Acid (0.5-2.0) mmol/L Calcium 9.2 (8.6-10.3) mg/dL Total Bilirubin 0.30 (0.2-1.0) mg/dL AST 18 (13-39) U/L ALT 14 (7-52) U/L Alkaline Phosphatase 72 (34-104) U/L C-Reactive Protein 5.24 H (< 5.00) mg/L Total Protein 7.1 (6.4-8.9) g/dL Albumin 4.0 (3.2-5.2) g/dL Globulin 3.1 (2-4) g/dL Albumin/Globulin Ratio 1.3 (1-3) //18 Range/Units 20:05 WBC (3.5-10.8) 10^3/ul RBC (4.0-5.4) 10^6/ul Hgb (12.0-16.0) g/dl Hct (35-47) % MCV (80-97) fL MCH (27-31) pg MCHC (31-36) g/dl RDW (10.5-15) % Plt Count (150-450) 10^3/ul MPV (7.4-10.4) um3 Neut % (Auto) (38-83) % Lymph % (Auto) (25-47) % [place] % (Auto) (0-7) % Eos % (Auto) (0-6) % Baso % (Auto) (0-2) % Absolute Neuts (auto) (1.5-7.7) 10^3/ul Absolute Lymphs (auto) (1.0-4.8) 10^3/ul Absolute Monos (auto) (0-0.8) 10^3/ul Absolute Eos (auto) (0-0.6) 10^3/ul Absolute Basos (auto) (0-0.2) 10^3/ul Absolute Nucleated RBC 10^3/ul Nucleated RBC % INR (Anticoag Therapy) (0.77-1.02) Sodium (139-145) mmol/L Potassium (3.5-5.0) mmol/L Chloride (101-111) mmol/L Carbon Dioxide (22-32) mmol/L Anion Gap (2-11) mmol/L BUN (6-24) mg/dL Creatinine (0.51-0.95) mg/dL Est GFR ( Amer) (>60) Est GFR (Non-Af Amer) (>60) BUN/Creatinine Ratio (8-20) Glucose (70-100) mg/dL Lactic Acid 0.8 (0.5-2.0) mmol/L Calcium (8.6-10.3) mg/dL Total Bilirubin (0.2-1.0) mg/dL AST (13-39) U/L ALT (7-52) U/L Alkaline Phosphatase (34-104) U/L C-Reactive Protein (< 5.00) mg/L Total Protein (6.4-8.9) g/dL Albumin (3.2-5.2) g/dL Globulin (2-4) g/dL Albumin/Globulin Ratio (1-3) Result Diagrams: 06/25/17 05:51 06/25/17 05:51 Lab Statement: Any lab studies that have been ordered have been reviewed, and results considered in the medical decision making process. - Radiology Foot XR Xray Interpretation: No Acute Changes - POSTOPERATIVE AND DEGENERATIVE CHANGES DESCRIBED ABOVE. ED physician reviewed this radiology report. Radiology Interpretation Completed By: Radiologist CXR Xray Interpretation: No Acute Changes - No radiographic evidence of acute cardiopulmonary disease. ED physician reviewed this radiology report. Radiology Interpretation Completed By: Radiologist - EKG 1933 Cardiac Rate: NL - 71 bpm EKG Rhythm: Sinus Rhythm ST Segment: Normal EKG Interpretation: Incomplete LBBB, normal axis, normal ST Lower Extremity Course/Dx - Course Course Of Treatment: pt with known MRSA from outpt culture. On doxycycline. Now with pustule immediately over the head of an implanted screw. Concern for infected hardware. Start IV vanco. Discussed with hospitalist who will admit. - Diagnoses Provider Diagnoses: Cellulitis of left foot, MRSA (methicillin resistant Staphylococcus aureus), Infected hardware in left lower extremity - Physician Notifications Discussed Care Of Patient With: Srinivas Easton Time Discussed With Above Provider: 20:36 Instructed by Provider To: Other - Accepts pt for admission Discharge - Sign-Out/Discharge Documenting (check all that apply): Discharge - Admitted - Discharge Plan Condition: Fair Disposition: ADMITTED TO [facility] documentation as recorded by the Louis mcnamara Rebecca accurately reflects the service I personally performed and the decisions made by , Sy Menard MD.
--- NOTE | 2017-06-25 14:10 | RAD ---
INDICATION: Infection left great toe. Comparison: Correlation is made with prior chest study of the left foot from June 23, 2017. Technique: The patient was given an intravenous injection of 20.8 mCi of technetium 99m HDP, and a 3 phase bone scan was performed with attention to the feet. In addition, whole body images were obtained in the anterior and posterior projections. FINDINGS: There is increased perfusion, blood flow activity and moderately intense activity on delayed images in the region of the left great toe. It is difficult to assess whether this activity centered at the interphalangeal or metatarsophalangeal region on the images obtained. The patient is status post fusion of the left first metatarsal phalangeal joint which is visualized on the x-ray study. There are 2 surgical screws present. There is osteolysis around the distal portion of one of the screws at the level of the lateral base of the proximal phalanx. There is also moderate activity in the right midfoot region on the delayed images likely related to arthritic change. There is also a moderately intense area of activity present laterally in the left ankle region likely within the fibula. Recommend x-ray correlation. There is increased activity present bilaterally within the shoulders right greater than left as well as within the knees suggestive of arthritic change. There is also activity within the region of the paranasal sinuses suspicious for sinusitis. There is normal bilateral renal activity. IMPRESSION: 1. FINDINGS SUGGESTIVE OF OSTEOMYELITIS IN THE LEFT GREAT TOE DESCRIBED ABOVE. 2. INCREASED ACTIVITY IN THE DISTAL LEFT FIBULA, RECOMMEND X-RAY CORRELATION. 3. ACTIVITY WITHIN THE REGION OF THE PARANASAL SINUSES SUGGESTIVE OF SINUSITIS THIS CAN BE EVALUATED WITH X-RAY OR CT IMAGING CLINICALLY NEEDED. 4. INCREASED ACTIVITY WITHIN THE SHOULDERS, KNEES AND RIGHT FOOT MOST CONSISTENT WITH ARTHRITIC CHANGE. CPT II Codes: 3570F
[2017-06-25] MEDS: Atorvastatin* 10 MG TAB PO SCH (18:26)
[2017-06-25] MEDS: Mometasone 220 MCG MDI INH SCH (20:17)
[2017-06-25] MEDS: Docusate CAP* 100 MG PO SCH (22:13)
[2017-06-25] MEDS: QUEtiapine TAB* 100 MG PO SCH (22:13)
[2017-06-25] MEDS: Prazosin CAP* 1 MG PO SCH (22:13)
[2017-06-26 05:19] LABS: ABS Basophils 0.1 10^3/ul (0-0.2); ABS Eosinophils 0.2 10^3/ul (0-0.6); ABS Lymphocytes 1.6 10^3/ul (1.0-4.8); ABS Monocytes 0.5 10^3/ul (0-0.8); ABS Neutrophils 2.8 10^3/ul (1.5-7.7); ABS Nucleated RBC 0 10^3/ul; Eosinophil % 3.3 % (0-6); Hematocrit 33 % (35-47); Hemoglobin 11.3 g/dl (12.0-16.0); Lymphocyte % 31.5 % (25-47); Mean Corpuscular HGB Conc 34 g/dl (31-36); Mean Corpuscular Hemoglobin 30 pg (27-31); Mean Corpuscular Volume 89 fL (80-97); Mean Platelet Volume 8.4 um3 (7.4-10.4); Nucleated Red Blood Cells % 0.1; Platelet Count 210 10^3/ul (150-450); Red Blood Count 3.74 10^6/ul (4.0-5.4); Red Cell Distribution Width 15 % (10.5-15); White Blood Count 5.2 10^3/ul (3.5-10.8)
[2017-06-26] MEDS: Levothyroxine TAB* 75 MCG TAB PO SCH (05:36)
[2017-06-26] MEDS: Heparin VIAL(*) 5000 UNITS/ML VIAL (FIVE THOUSAND) SUBCUT SCH ×3 (05:36→22:46)
[2017-06-26] MEDS: Omeprazole CAP* 20 MG PO SCH (05:36)
[2017-06-26] MEDS: Albuterol 2.5 MG/3 ML NEB.SOL* (0.083%) INH SCH ×2 (07:44→19:49)
[2017-06-26] MEDS: Sertraline* 100 MG TAB PO SCH (09:17)
[2017-06-26] MEDS: NS 0.9% 1000 ML* 1,000 ML IV SCH (09:17)
[2017-06-26] MEDS: Lisinopril TAB* 10 MG PO SCH (09:18)
[2017-06-26] MEDS: Montelukast Sodium TAB* 10 MG PO SCH (09:46)
[2017-06-26] MEDS: Vancomycin(*) 750 MG in NS 0.9% 250 ML* 250 ML IVPB SCH ×2 (10:23→21:13)
[2017-06-26] MEDS: ALPRAZolam TAB* 0.25 MG PO PRN (10:30)
--- NOTE | 2017-06-26 14:18 | RAD ---
Indication: Osteomyelitis at the LEFT great toe. Increased activity on bone scan at the distal LEFT fibula for which x-ray correlation suggested. Comparison: June 25, 2017 bone scan. March 21, 2012 radiographs. Technique: AP and lateral views LEFT lower leg. Report: Healed fracture at the distal metaphysis of the fibula corresponding with acute fracture site on the 2013 radiographs. No new fracture, osteolysis, or osteosclerosis, or periosteal reaction evident. Mild nonfocal soft tissue swelling. Normal articular alignment. 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 IMPRESSION: Increased activity on bone scan from June 25, 2017 is nonspecific. No residual osseous remodeling would be expected from the remote fracture of 2012 to account for the uptake. A new radiographic occult stress reaction or early additional osteomyelitis site are possible.
--- NOTE | 2017-06-26 15:19 | CONS ---
CONSULTATION REPORT: DATE OF CONSULT: 06/26/17 CHIEF COMPLAINT: Left great toe infection. HISTORY OF PRESENT ILLNESS: Ms. Rizzo is an 86-year-old female who presented to [facility] Emergency Room after a 10-day history of a swollen painful left toe. She reports that roughly 10 days ago, she stubbed her toe at home and her left great toe became red and swollen. She went in to see her rollway worker Dr. Richardson who placed her on Augmentin and then switched her to doxycycline after wound culture. Patient was sent into the emergency room after cellulitis crept proximal past the demarcated line. Patient states that she did not have any known fever or chills. Over the past 6 years, she has had intermittent drainage over the medial aspect of her left 1st toe seemingly over the site of 2 screws, which replaced the treatment of hammertoe roughly 6 years ago. The patient states that she has had pain as well as intermittent drainage from this area ever since. She has seen several doctors including rollway worker for this issue, but has never been treated with antibiotics. Patient denies a history of heart attack, stroke, or blood clots. She has had surgery in the past and tolerating the anesthesia without any difficulties. PAST MEDICAL HISTORY: Includes COPD with p.r.n. oxygen; hypertension; steroid- induced hyperglycemia; sleep apnea, not on CPAP; hypothyroidism; rest legs syndrome; depression; anxiety; seasonal allergies and osteoporosis. MEDICATION LIST: The patient states that she lost her medication list at home. She was by Dr. Arielle Carr this morning who she believes can provide a more accurate medication list. ALLERGIES: ASPIRIN, anaphylaxis. COMPAZINE, seizure. BEE VENOM, anaphylaxis. NSAIDS, anaphylaxis. DUST and MOLD, runny nose. PAST SURGICAL HISTORY: Cataracts; nasal polypectomy; hysterectomy; lipoma excision, left upper extremity; hammertoe repair, left 1st toe. Patient any difficulty with anesthesia in the past. SOCIAL HISTORY: Former smoker, quit 20 years ago. No alcohol or drug use. Patient lives at [facility] in the independent living section. She walks independently, though does require use of a walker. REVIEW OF SYSTEMS: Patient denies any fever or chills. HEENT: Denies headache or changes in vision. Cardiac: Denies any chest pain or irregular beats. Respiratory: Denies any shortness of breath. Has COPD at baseline. Denies any cough. : Denies any nausea, vomiting, diarrhea. Neuro: Confirms sensation of bilateral lower extremities is intact. Skin: Confirms erythema and pain of the left great toe. Musculoskeletal: Confirms hammertoe surgery of the left great toe roughly 6 years ago. Hematology: Denies any history of blood clots. PHYSICAL EXAM: Vital Signs: Temperature 98.4 temporal, pulse 72, respiratory rate 18, oxygen saturation 97, blood pressure 150/70. General: Patient is well appearing, she is in no acute distress. Heart: S1 and S2 with grade 2 to 3/6 systolic murmur. Respiratory: Clear to auscultation bilaterally. Left Lower Extremity: Patient's left great toe is with mild erythema throughout the left great toe extending roughly 5 inches distally without any streaking of the foot. Patient is tender over this entire area though not exquisitely so. She does have 2 scabbed over lesions just distal to the MTP, approximately where screw heads are stated to be, though they are not palpable. This area is not currently draining but patient reports that it was draining previously. She is able to wiggle her toes. Capillary refill is brisk within 2 seconds. Dorsalis pedis pulse and posterior tibial pulses are intact 2+. Bilateral calves are supple, nontender without erythema or edema. DIAGNOSTIC STUDIES/LAB DATA: White blood cell count 5.2, hemoglobin 11.3, hematocrit 33, sed rate 33. CRP 4.47. Bone scan of the left lower extremity demonstrates osteomyelitis of the great toe. ASSESSMENT: Osteomyelitis of the left great toe. PLAN: Continue IV antibiotics. ID consultation. We will discuss case with Dr. Long Vines. AGA DOMINGUEZ [id number]/[facility] #: [id number] [place]
--- NOTE | 2017-06-26 16:09 | CONS ---
CONSULTATION REPORT: DATE OF CONSULT: 06/26/17 REQUESTING PHYSICIAN: Dr. Carr. CONSULTING SERVICE: Infectious Disease. REASON FOR CONSULT: Left great toe infection. IMPRESSION: 1. Left great toe cellulitis, myositis and osteomyelitis, chronic and hardware associated infection due to fixation screws present there. A wound culture adjacent to one of the heads of the screws growing methicillin-resistant Staphylococcus aureus. 2. History of left 1st metatarsophalangeal joint fusion a few years ago. 3. Chronic obstructive pulmonary disease. 4. Hypothyroidism. RECOMMENDATIONS: Agree with vancomycin, goal trough 15 to 20 and Orthopedics evaluation for the possibility of incision, debridement and removal of hardware. We discussed she will likely require long course of antibiotics to cover for bone infection and hardware infection. HISTORY OF PRESENT ILLNESS: This is an 86-year-old woman with a history of left 1st MTP joint fusion a few years ago, has had some issues with pain and what she thinks is hardware protrusion over the years and then had the onset of left great toe swelling and redness over the last couple of weeks. She was treated by her supervisor rework, Dr. Alvarado, with Augmentin and then an area on the medial great toe of her MTP joint opened up and drained some purulent fluid, which was sent for culture and is growing MRSA, so she was switched to doxycycline before she came here. Another culture of that wound was taken on admission. The Gram stain shows gram-positive cocci and the culture is growing MRSA. She is tolerating vancomycin while here. The redness is slightly improved. She had a CRP of 5 initially, is down to 4. She had a bone scan that showed some nonspecific uptake in the left great toe. She has had no fevers, chills, or sweats. PAST MEDICAL HISTORY: 1. COPD, on 2 L supplement oxygen. 2. Hypertension. 3. Steroid-induced hyperglycemia. 4. Obstructive sleep apnea, on CPAP. 5. Hypothyroidism. 6. Restless legs syndrome. 7. Gastroesophageal reflux disease. 8. Depression. 9. Anxiety. 10. Seasonal allergies. 11. Osteoporosis. MEDICATIONS: 1. Tylenol. 2. Alprazolam as needed. 3. Lipitor. 4. Docusate. 5. Heparin subcutaneous injection. 6. Levothyroxine. 7. Lisinopril. 8. Singulair. 9. Omeprazole. 10. Prazosin. 11. Quetiapine. 12. Sertraline. 13. Vancomycin 750 mg every 12 hours. ALLERGIES: ASPIRIN. FAMILY HISTORY: No recurrent infections. SOCIAL HISTORY: She lives in [facility]. She is a nonsmoker. No travel. No sick contacts. REVIEW OF SYSTEMS: All negative to a 14-point review of systems except as noted above. PHYSICAL EXAM: Vital Signs: Temperature 37, heart rate 70, respiratory rate 18 , blood pressure 150/70, oxygen saturation 97% on room air. In general, she is awake, not in distress. Neurologic: She is awake, oriented x3. Follows all commands. Sensation is intact to light touch in both feet. HEENT: There is no conjunctival hemorrhage. Oropharynx is without lesions. Neck is supple without mass. Lymph Nodes: There is no inguinal, axillary, or epitrochlear lymphadenopathy. Heart has regular rate and rhythm without murmurs, rubs, or gallops. Lungs are clear to auscultation bilaterally. Abdomen: Soft, nontender, nondistended. There are bowel sounds present. Skin: There is no rash or splinter hemorrhages. Musculoskeletal: There is diffuse edema, erythema, mild warmth of the left great toe and medial 1st MTP joint, which was nontender. There is a small 2 mm open area of the skin with small eschar. There is no crepitus or fluctuance. LABORATORY DATA: Creatinine 0.8. White blood cell count 5, hemoglobin 13, platelets 210. Vancomycin trough 15. Please see impressions and recommendations as outlined above. Thanks for asking me to see Ms. Rizzo in consultation. [id number]/[facility] #: [id number] [facility]
[2017-06-26] MEDS ORDERED: Conjugated Estrogens VAG CM* 42.5 gm TUBE VAGINAL SCH (16:30)
[2017-06-26] MEDS: Atorvastatin* 10 MG TAB PO SCH (17:45)
[2017-06-26] MEDS: Mometasone 220 MCG MDI INH SCH (20:49)
[2017-06-26] MEDS: QUEtiapine TAB* 100 MG PO SCH (21:14)
[2017-06-26] MEDS: Prazosin CAP* 1 MG PO SCH (21:17)
[2017-06-26] MEDS: Docusate CAP* 100 MG PO SCH (21:17)
[2017-06-26] MEDS: Conjugated Estrogens VAG CM* 42.5 gm TUBE VAGINAL SCH (21:21)
[2017-06-27] MEDS: Omeprazole CAP* 20 MG PO SCH (07:10)
[2017-06-27] MEDS: Heparin VIAL(*) 5000 UNITS/ML VIAL (FIVE THOUSAND) SUBCUT SCH ×3 (07:10→22:29)
[2017-06-27] MEDS: Levothyroxine TAB* 75 MCG TAB PO SCH (07:33)
[2017-06-27] MEDS: Albuterol 2.5 MG/3 ML NEB.SOL* (0.083%) INH SCH ×2 (08:16→20:51)
[2017-06-27] MEDS: Sertraline* 100 MG TAB PO SCH (08:53)
[2017-06-27] MEDS: Montelukast Sodium TAB* 10 MG PO SCH (08:53)
[2017-06-27] MEDS: Lisinopril TAB* 10 MG PO SCH (08:53)
[2017-06-27] MEDS ORDERED: Vancomycin Trough Check NOTE FOLLOW UP ONE (09:30)
--- NOTE | 2017-06-27 09:44 | PN ---
Progress Note - Progress Note Date of Service: 06/27/17 SOAP: Subjective: CC: toe infection HPI: 86 year old woman with hx left 1st MTP fusion in distant past now with red great toe and medial forefoot; redness improving. No pain, fever, rash, or diarrhea. Objective: Vital Signs Temp 36.6 C 06/27/17 08:16 Pulse 87 06/27/17 08:16 Resp 21 06/27/17 08:16 BP 150/89 06/27/17 08:16 Pulse Ox 96 06/27/17 08:16 Intake & Output 06/26/17 06/27/17 06/27/17 18:59 06:59 18:59 Intake Total 1317 100 230 Output Total 300 Balance 1317 -200 230 Intake: IV Fluids 547 100 ABX - VANCOMYCIN 272 NS (0.9%) 275 100 Oral 770 0 230 Output: Urine 300 Other: Estimated Void Medium # Bowel Movements 0 # Voids 1 2 General: Awake, no distress HEENT:PERRL, MMM Heart:RRR no murmur Lungs:CTA BL Abd:+BS NTND soft Skin: no rash MSK: Left great toe medial erythema, no edema or tenderness; sensation intact to light touch Microbiology 06/24/17 00:15 Aerobic Blood Culture - Preliminary Blood Venous No Growth Day 3 Anaerobic Blood Culture - Preliminary No Growth Day 3 06/23/17 20:05 Aerobic Blood Culture - Preliminary Blood Venous No Growth Day 3 Anaerobic Blood Culture - Preliminary No Growth Day 3 Assessment: 1. left great toe osteomyelitis, hardware related infection, cellulitis which is improving 2. COPD Plan: 1. continue vancomycin; ortho consultation for ?hardware removal Discussed with Dr Carr 25 minutes floor time >50% in counseling regarding possible need for hardware removal in addition to long chain beamer antibiotics
[2017-06-27] MEDS: Vancomycin(*) 750 MG in NS 0.9% 250 ML* 250 ML IVPB SCH ×2 (10:40→22:29)
--- NOTE | 2017-06-27 12:33 | PN ---
Progress Note - Progress Note Date of Service: 06/27/17 Note: Please see Solange Jean Baptiste's consultation note for full history and physical. I saw and evaluated Ms. Rizzo today. She had a left first MTP fusion years ago. She reports she has had intermittent problems with prominent screw heads. most recently, she had an opening over the screw heads and drainage. This did appear to be purulent drainage per report. She was admitted to the hospital and started on IV antibiotics. A bone scan showed nonspecific uptake in the area of the great toe. Orthopedics was consulted with the request of removing the hardware to help with clearance of the infection. Ms. Rizzo reports that she has wanted a hardware removal for years, and is extremely happy that it is now being addressed. On exam today, there are no skin openings at the hallux. no drainage or purulence. Very minimal erythema. The screw heads are prominently palpable under the skin. I discussed doing a hardware removal and I&D with Ms. Rizzo. She was ecstatic with this. We discussed the risks and benefits of surgery at length. We also discussed the risk of persistent infection and need for further surgery. She expressed her desire to move forward with surgery tomorrow. She will be n.p.o. at midnight. All of her questions were answered. Chetan Mirza MD
[2017-06-27] MEDS: Albuterol 2.5 MG/3 ML NEB.SOL* (0.083%) INH PRN (15:18)
[2017-06-27] MEDS: Atorvastatin* 10 MG TAB PO SCH (17:28)
[2017-06-27] MEDS: ALPRAZolam TAB* 0.25 MG PO PRN ×2 (17:28→22:27)
[2017-06-27] MEDS: Mometasone 220 MCG MDI INH SCH (20:51)
[2017-06-27] MEDS: Docusate CAP* 100 MG PO SCH (22:25)
[2017-06-27] MEDS: QUEtiapine TAB* 100 MG PO SCH (22:25)
[2017-06-27] MEDS: Prazosin CAP* 1 MG PO SCH (22:26)
[2017-06-28] MEDS: Albuterol 2.5 MG/3 ML NEB.SOL* (0.083%) INH PRN ×2 (04:27→17:43)
[2017-06-28] MEDS: Omeprazole CAP* 20 MG PO SCH (06:26)
[2017-06-28] MEDS: Levothyroxine TAB* 75 MCG TAB PO SCH (06:26)
[2017-06-28] MEDS: Albuterol 2.5 MG/3 ML NEB.SOL* (0.083%) INH SCH ×3 (07:54→19:39)
[2017-06-28] MEDS ORDERED: fentaNYL* 50 MCG/ML 2 ML VIAL (100 MCG VIAL) ONE (08:28)
[2017-06-28] MEDS ORDERED: Midazolam* 1 MG/ML 2 ML VIAL (2 MG) ONE (08:28)
[2017-06-28] MEDS ORDERED: Bupivacaine 0.5%* 50 ML VIAL ONE (08:46)
[2017-06-28] MEDS ORDERED: Naloxone* 0.4 MG/ML 1 ML VIAL IV PRN ×2 (08:56→09:53)
[2017-06-28] MEDS ORDERED: Ondansetron INJ* 2 MG/ML VIAL ONE (09:22)
[2017-06-28] MEDS ORDERED: Propofol* 10 MG/ML 20 ML BTL IV PUSH ONE ×2 (09:22)
--- NOTE | 2017-06-28 10:12 | OP ---
Operative Report - Blank - Operative Report Date of Operation: 06/28/17 Note: PATIENT: Clare Rizzo DATE OF : 1930 DATE OF SURGERY: 06/28/2017 SURGEON: Chetan Mirza MD BOAT MASTER: AGA Wasserman, whos assistance was necessary for positioning, retraction, help with instrumentation, and closure. ANESTHESIOLOGIST: Dr. Buckley PREOPERATIVE DIAGNOSIS: Left foot hallux infection with painful and infected retained hardware POSTOPERATIVE DIAGNOSIS: Left foot hallux infection with painful and infected retained hardware OPERATION: 1. Left foot hallux, removal of implants, deep. 2. Left foot hallux irrigation and debridement ANESTHESIA: MAC + local anesthetic IMPLANTS: none implanted. 2 screws removed. TOURNIQUET TIME: Less than 1 hour with an ankle Esmarch tourniquet SPECIMENS: Deep cultures sent to micro ESTIMATED BLOOD LOSS: minimal COMPLICATIONS: none STATUS: Stable from the operating room to the recovery room and then back to the hospital floor INDICATIONS FOR PROCEDURE: Melissa had a prior left 1st MTP fusion. She has had persistent pain at the hardware and developed an infection with a draining sinus tract. Both operative and non operative treatment alternatives were reviewed. Further, the nature and risks of surgery were reviewed in careful detail, in the office as well as the pre-operative holding area. Our discussions regarding the risks of surgery included, but were not limited to, persistent infection, wound problems, nerve injury, neuroma, RSD, persistent symptoms, blood clot, need for further surgery , failure of the surgery, and even the remote chance of catastrophic complication, including loss of limb. DESCRIPTION OF PROCEDURE: The patient was seen in the preoperative holding unit and informed written consent was obtained. The appropriate extremity was marked. The patient was then brought to the operating room and carefully positioned on the operating room table. Anesthesia was induced. All bony prominences were padded with great care. A chlorhexidine based pre-scrub was performed followed by a chloraprep prep and drape in standard sterile fashion. A surgical safety pause was then conducted in which we confirmed the appropriate patient, extremity, planned procedure, availability of equipment, indication and administration of prophylactic antibiotics, and DVT prophylaxis in the form of a compression boot on the non-surgical extremity. We began by placing an ankle Esmarch tourniquet. I utilized fluoroscopy to localize the hardware. A 3 cm incision was made medially at the hallux MTP joint. The incision was carried down to the level of the bone. The screw heads were exposed. The proximal, antegrade screw, was easily removed with a screwdriver. The distal, retrograde screw, and a strip screw head. I utilized a reverse threading bit from the [employer] screw removal set to remove this screw. Fluoroscopy was utilized to confirm that all the hardware was removed in its entirety. I then sharply ellipsed out the draining sinus tract with a 15 blade scalpel. This carried down to level of bone. All nonviable-appearing tissue was sharply excised through the dermal layer, the fascial layer, down to the periosteum and bone. There was no gross purulence. The wounds were then copiously irrigated. After this, all remaining tissue appeared healthy and viable. The bone was of good quality and not obviously osteomyelitic. The wounds were then closed in a layered fashion utilizing 3-0 Monocryl and 3-0 nylon for the skin. A sterile dressing was then applied. The patient was then awakened from anesthesia and transferred to the recovery room in stable condition. There were no complications. All needle and sponge counts were correct at the end of the case. ATTESTATION: I attest I was present and scrubbed and performed the critical portions of the procedure myself. POSTOPERATIVE PLAN: The plan is to remove the sutures in 2 weeks. She will remain heel weightbearing until the sutures are out. Antibiotics will be guided by the infectious disease service.
[2017-06-28] MEDS: Vancomycin(*) 750 MG in NS 0.9% 250 ML* 250 ML IVPB SCH ×2 (11:14→22:37)
[2017-06-28] MEDS: Montelukast Sodium TAB* 10 MG PO SCH (11:19)
[2017-06-28] MEDS: Sertraline* 100 MG TAB PO SCH (11:19)
[2017-06-28] MEDS: Lisinopril TAB* 10 MG PO SCH (11:19)
[2017-06-28] MEDS: ALPRAZolam TAB* 0.25 MG PO PRN (12:18)
--- NOTE | 2017-06-28 14:41 | RAD ---
INDICATION: Left foot removal of hardware. COMPARISON: Comparison is made with a prior x-ray study of the left foot from June 23, 2017. TECHNIQUE: 3.2 seconds of intermittent fluoroscopic guidance were provided and 2 spot films of the left foot were obtained in the operating room. FINDINGS: There has been removal of the 2 surgical screws spanning the first metatarsal-phalangeal joint. IMPRESSION: INTRAOPERATIVE CONTROL FILMS. CPT II Codes: G9500
[2017-06-28] MEDS ORDERED: ALPRAZolam TAB* 0.25 MG ONE (17:52)
[2017-06-28] MEDS: ALPRAZolam TAB* 0.25 MG PO SCH ×2 (17:58→23:32)
[2017-06-28] MEDS: Atorvastatin* 10 MG TAB PO SCH (17:59)
[2017-06-28] MEDS: Mometasone 220 MCG MDI INH SCH (19:39)
[2017-06-28] MEDS: Prazosin CAP* 1 MG PO SCH (20:56)
[2017-06-28] MEDS: QUEtiapine TAB* 100 MG PO SCH (20:56)
[2017-06-28] MEDS: Docusate CAP* 100 MG PO SCH (20:56)
[2017-06-28] MEDS: Conjugated Estrogens VAG CM* 42.5 gm TUBE VAGINAL SCH (20:59)
[2017-06-29] MEDS: NS 0.9% 1000 ML* 1,000 ML IV SCH (04:23)
[2017-06-29] MEDS: Omeprazole CAP* 20 MG PO SCH (06:20)
[2017-06-29] MEDS: ALPRAZolam TAB* 0.25 MG PO SCH ×4 (06:20→23:20)
[2017-06-29] MEDS: Levothyroxine TAB* 75 MCG TAB PO SCH (06:21)
[2017-06-29] MEDS: Albuterol 2.5 MG/3 ML NEB.SOL* (0.083%) INH SCH ×2 (07:24→20:19)
[2017-06-29] MEDS: Sertraline* 100 MG TAB PO SCH (08:11)
[2017-06-29] MEDS: Montelukast Sodium TAB* 10 MG PO SCH (08:11)
[2017-06-29] MEDS: Lisinopril TAB* 10 MG PO SCH (08:11)
--- NOTE | 2017-06-29 08:34 | PN ---
Progress Note - Progress Note Date of Service: 06/29/17 SOAP: Subjective: 86 y/o female s/p I&D, removal of hardware 06/[address] Mirza. Patient in goos spirits, no questions re: surgery, some pain at medial foot, otherwise no complaints/ concerns. VSS, afebrile overnight. Objective: General- Well appearing, NAD, AO Sitting on commode easily. MSK- LLE- DF/PF +, Surgical dressing intact, no drainage, odor noted, neg homans , no induration/ erythema above CHALINO. Vital Signs Temp 98.1 F 06/29/17 07:48 Pulse 74 06/29/17 07:48 Resp 16 06/29/17 08:19 BP 151/64 06/29/17 07:48 Pulse Ox 98 06/29/17 08:19 Intake & Output 06/28/17 06/29/17 06/29/17 18:59 06:59 18:59 Intake Total 860 1562 Output Total 200 Balance 860 1362 Intake: IV Fluids 500 1052 LR 500 NS (0.9%) 1052 IVPB 510 ABX - VANCOMYCIN 510 Oral 360 0 Output: Urine 200 Other: Estimated Void Medium Medium # Bowel Movements 1 Estimated Stool Amount Small # Voids 1 1 Assessment: Stable 86 y/o female s/p I&D, removal of hardware 06/[address] Mirza. Plan: - DVT prophylaxis- able to walk, none needed - Continue PT/ OT - Follow up with Dr. Mirza within 10-14 days - H&H - stable - post-op IV ABX - Vanco for + MRSA wound cx's, blood cx's remain no growth - heel weightbearing Acetaminophen (Tylenol Tab*) 650 mg PO Q6H PRN PRN Reason: FEVER/PAIN Albuterol (Ventolin 2.5 Mg/3 Ml Neb.Sridevi*) 2.5 mg INH Q8HR PRN PRN Reason: SOB/WHEEZING Last Admin: 06/28/17 17:43 Dose: 2.5 mg Albuterol (Ventolin 2.5 Mg/3 Ml Neb.Sridevi*) 2.5 mg INH BID FOUZIA Last Admin: 06/29/17 07:24 Dose: 2.5 mg Alprazolam (Xanax Tab*) 0.25 mg PO Q6H FOUZIA Last Admin: 06/29/17 06:20 Dose: 0.25 mg Atorvastatin Calcium (Lipitor*) 10 mg PO QPM [facility] Last Admin: 06/28/17 17:59 Dose: 10 mg Docusate Sodium (Colace Cap*) 200 mg PO BEDTIME [facility] Last Admin: 06/28/17 20:56 Dose: 200 mg Estrogens Conjugated (Premarin Vag Cream*) 0.5 applic VAGINAL TuThSa@2100 [facility] Last Admin: 06/28/17 20:59 Dose: 0.5 applic Sodium Chloride (Ns 0.9% 1000 Ml*) 1,000 mls @ 50 mls/hr IV PER RATE [facility] Last Admin: 06/29/17 04:23 Dose: 50 mls/hr Vancomycin HCl 750 mg/ Sodium (Chloride) 250 mls @ 166.667 mls/hr IVPB Q12H [facility] Last Admin: 06/28/17 22:37 Dose: 166.667 mls/hr Levothyroxine Sodium (Synthroid Tab*) 75 mcg PO MoTuWeThFrSa@0600 [facility] Last Admin: 06/29/17 06:21 Dose: 75 mcg Levothyroxine Sodium (Synthroid Tab*) 150 mcg PO Rodriguez@0600 [facility] Last Admin: 06/24/17 05:28 Dose: 150 mcg Lisinopril (Prinivil Tab*) 10 mg PO DAILY [facility] Last Admin: 06/29/17 08:11 Dose: 10 mg Mometasone Furoate (Asmanex 220 Mcg Mdi *) 2 puff INH QPM [facility] Last Admin: 06/28/17 19:39 Dose: 2 puff Montelukast Sodium (Singulair Tab*) 10 mg PO DAILY [facility] Last Admin: 06/29/17 08:11 Dose: 10 mg Naloxone HCl (Narcan*) 0.08 mg IV Q2M PRN PRN Reason: severe induced resp depression Stop: 06/29/17 08:55 Naloxone HCl (Narcan*) 0.08 mg IV Q2M PRN PRN Reason: severe induced resp depression Stop: 06/29/17 09:52 Omeprazole (Prilosec Cap*) 20 mg PO DAILY@0600 [facility] Last Admin: 06/29/17 06:20 Dose: 20 mg Ondansetron HCl (Zofran Inj*) 4 mg IV Q6H PRN PRN Reason: NAUSEA Pharmacy Consult (Vancomycin Per Pharmacy*) 1 note FOLLOW UP .VANC PER PHARMACY [facility] Pharmacy Profile Note (Vancomycin Trough Check) 1 note FOLLOW UP 09 ONE Stop: 06/29/17 09:01 Prazosin HCl (Minipress Cap*) 3 mg PO BEDTIME [facility] Last Admin: 06/28/17 20:56 Dose: 3 mg Quetiapine Fumarate (Seroquel Tab*) 400 mg PO BEDTIME [facility] Last Admin: 06/28/17 20:56 Dose: 400 mg Sertraline HCl (Zoloft*) 150 mg PO DAILY [facility] Last Admin: 06/29/17 08:11 Dose: 150 mg Sodium Chloride (Sodium Chloride 0.65% Nasal [place]*) 1 spray BOTH NARES DAILY PRN PRN Reason: CONGESTION Last Admin: 06/29/17 08:11 Dose: 1 spray
[2017-06-29] MEDS ORDERED: Vancomycin Trough Check NOTE FOLLOW UP ONE (09:00)
[2017-06-29 09:21] LABS: EGFR Non-African American 69.2 (>60)
[2017-06-29] MEDS: Vancomycin(*) 500 MG in NS 0.9% 250 ML* 250 ML IVPB SCH ×2 (11:23→23:19)
[2017-06-29] MEDS: Vancomycin(*) 750 MG in NS 0.9% 250 ML* 250 ML IVPB SCH (11:32)
[2017-06-29] MEDS: Albuterol 2.5 MG/3 ML NEB.SOL* (0.083%) INH PRN (16:38)
[2017-06-29] MEDS: Atorvastatin* 10 MG TAB PO SCH (17:59)
[2017-06-29] MEDS: Mometasone 220 MCG MDI INH SCH (20:19)
[2017-06-29] MEDS: Acetaminophen TAB* 325 MG PO PRN (20:41)
[2017-06-29] MEDS: Prazosin CAP* 1 MG PO SCH (20:42)
[2017-06-29] MEDS: Docusate CAP* 100 MG PO SCH (20:42)
[2017-06-29] MEDS: QUEtiapine TAB* 100 MG PO SCH (20:42)
[2017-06-30] MEDS: NS 0.9% 1000 ML* 1,000 ML IV SCH (03:10)
[2017-06-30] MEDS: Acetaminophen TAB* 325 MG PO PRN (05:36)
[2017-06-30] MEDS: ALPRAZolam TAB* 0.25 MG PO SCH ×3 (05:36→20:36)
[2017-06-30] MEDS: Omeprazole CAP* 20 MG PO SCH (05:36)
[2017-06-30] MEDS: Levothyroxine TAB* 75 MCG TAB PO SCH (05:36)
[2017-06-30] MEDS: Lisinopril TAB* 10 MG PO SCH (07:40)
[2017-06-30] MEDS: Sertraline* 100 MG TAB PO SCH (07:40)
[2017-06-30] MEDS: Montelukast Sodium TAB* 10 MG PO SCH (07:40)
--- NOTE | 2017-06-30 09:34 | PN ---
Progress Note - Progress Note Date of Service: 06/30/17 SOAP: Subjective: Pt is doing well. Pain is controlled. Reports SOB d/t COPD, Denies CP, F/C, calf pain Objective: PE: 86 y/o WDWN F NAD, sitting comfortably in bed LLE- dressing changed, inc c/d/i, + DF/PF ankle, calf soft NT, NVI Vital Signs Temp Pulse Resp BP Pulse Ox 97.6 F 75 18 143/58 97 06/30/17 07:34 06/30/17 07:50 06/30/17 07:50 06/30/17 07:34 06/30/17 07:50 Laboratory Results - last 24 hr 06/29/17 08:51 Vancomycin Trough 20.0 Assessment: Stable 86 y/o female left great toe osteomyelitis, s/p I&D, removal of hardware 06/[address] Mirza. POD 2 Plan: - DVT prophylaxis- able to walk, none needed - Continue PT/ OT - Follow up with Dr. Mirza within 10-14 days - post-op IV ABX - Vanco for + MRSA wound cx's, blood cx's remain no growth - heel weightbearing - daily dressing changes - orthopedically stable for DC when medically stable
[2017-06-30] MEDS ORDERED: Albuterol HFA INHALER* 8 gm MDI INH PRN (10:41)
[2017-06-30] MEDS ORDERED: ALPRAZolam TAB* 0.25 MG PO PRN (11:29)
[2017-06-30] MEDS: Albuterol 2.5 MG/3 ML NEB.SOL* (0.083%) INH SCH ×4 (11:43→20:51)
[2017-06-30] MEDS: Vancomycin(*) 500 MG in NS 0.9% 250 ML* 250 ML IVPB SCH ×2 (11:53→23:42)
[2017-06-30] MEDS: Atorvastatin* 10 MG TAB PO SCH (16:42)
[2017-06-30] MEDS: Prazosin CAP* 1 MG PO SCH (20:35)
[2017-06-30] MEDS: QUEtiapine TAB* 100 MG PO SCH (20:35)
[2017-06-30] MEDS: Docusate CAP* 100 MG PO SCH (20:36)
[2017-06-30] MEDS: Mometasone 220 MCG MDI INH SCH (20:37)
[2017-06-30] MEDS: Conjugated Estrogens VAG CM* 42.5 gm TUBE VAGINAL SCH (20:38)
[2017-07-01] MEDS: Levothyroxine TAB* 75 MCG TAB PO SCH (05:53)
[2017-07-01] MEDS: Omeprazole CAP* 20 MG PO SCH (05:53)
[2017-07-01] MEDS: Lisinopril TAB* 10 MG PO SCH (07:42)
[2017-07-01] MEDS: Sertraline* 100 MG TAB PO SCH (07:42)
[2017-07-01] MEDS: Montelukast Sodium TAB* 10 MG PO SCH (07:42)
[2017-07-01] MEDS: Albuterol 2.5 MG/3 ML NEB.SOL* (0.083%) INH SCH ×3 (08:35→17:30)
--- NOTE | 2017-07-01 09:03 | PN ---
Progress Note - Progress Note Date of Service: 07/01/17 SOAP: Subjective: Pt is doing well. Pain controlled. No CP. Improved SOB. No calf pain, F/C. Objective: PE: 86 y/o F NAD, sitting comfortably in bed, A&Ox3 LLE- dressing c/d/i, able DF/PF ankle, calf soft NT, +2 DP pulse, SILT distally Vital Signs Temp Pulse Resp BP Pulse Ox 98.1 F 77 22 154/66 93 07/01/17 07:36 07/01/17 08:39 07/01/17 08:39 07/01/17 07:36 07/01/17 08:39 Assessment: Stable 86 y/o female left great toe osteomyelitis, s/p I&D, removal of hardware 06/[address] Mirza. POD 3 Plan: - DVT prophylaxis- able to walk, none needed - Continue PT/ OT - Follow up with Dr. Mirza within 10-14 days - Cont Abx per ID - heel weightbearing - daily dressing changes - orthopedically stable for DC when medically stable
[2017-07-01] MEDS: NS 0.9% 1000 ML* 1,000 ML IV SCH (09:29)
[2017-07-01 10:56] LABS: EGFR Non-African American 68.2 (>60)
[2017-07-01] MEDS: Vancomycin(*) 500 MG in NS 0.9% 250 ML* 250 ML IVPB SCH ×2 (11:10→23:02)
[2017-07-01 11:17] LABS: Vancomycin Trough 13.7 mcg/mL
[2017-07-01] MEDS: Albuterol 2.5 MG/3 ML NEB.SOL* (0.083%) INH PRN ×3 (13:05→22:32)
[2017-07-01] MEDS: Atorvastatin* 10 MG TAB PO SCH (17:13)
[2017-07-01] MEDS: Mometasone 220 MCG MDI INH SCH (17:30)
[2017-07-01] MEDS: QUEtiapine TAB* 100 MG PO SCH (22:06)
[2017-07-01] MEDS: Prazosin CAP* 1 MG PO SCH (22:06)
[2017-07-01] MEDS: ALPRAZolam TAB* 0.25 MG PO SCH (22:07)
[2017-07-01] MEDS: Docusate CAP* 100 MG PO SCH (22:08)
[2017-07-02] MEDS: Omeprazole CAP* 20 MG PO SCH (05:49)
[2017-07-02] MEDS: Levothyroxine TAB* 75 MCG TAB PO SCH (05:49)
[2017-07-02] MEDS: Albuterol 2.5 MG/3 ML NEB.SOL* (0.083%) INH SCH (06:01)
--- NOTE | 2017-07-02 09:03 | PN ---
Progress Note - Progress Note Date of Service: 07/02/17 SOAP: Subjective: 86 y/o female s/p I&D, removal of hardware 06/[address] Mirza. Patient reports minimal pain, very happy overall with progress. DR. Carreno following. VSS, afebrile overnight. Objective: General- Well appearing, NAD, resting in bed comfortably. MSK- Dressing removed, incision c/d/i, no drainage, minmal erythema around suture sites, no drainage noted, no odor, non-TTP, DP pulse 2+, redressed. Vital Signs Temp 97.2 F 07/02/17 07:56 Pulse 78 07/02/17 10:08 Resp 17 07/02/17 10:08 BP 160/68 07/02/17 07:56 Pulse Ox 93 07/02/17 10:08 Intake & Output 07/01/17 07/02/17 07/02/17 18:59 06:59 18:59 Intake Total 1332 823 350 Balance 1332 823 350 Intake: IV Fluids 233 552 NS (0.9%) 233 552 IVPB 269 271 ABX - VANCOMYCIN 269 271 Oral 830 350 Other: Estimated Void Medium Medium # Bowel Movements 0 # Voids 3 2 Assessment: Stable 86 y/o female s/p I&D, removal of hardware 06/[address] Mirza. Plan: - DVT prophylaxis- able to walk, none needed - Continue PT/ OT - Follow up with Dr. Mirza within 10-14 days - H&H - stable - post-op IV ABX - Vanco for + MRSA wound cx's, blood cx's remain no growth - ID rec'ing 2 weeks vanco followed by [facility]. - heel weightbearing - discussed with patient. - Possible D/C to PMRU Acetaminophen (Tylenol Tab*) 650 mg PO Q6H PRN PRN Reason: FEVER/PAIN Last Admin: 06/30/17 05:36 Dose: 650 mg Albuterol (Ventolin Hfa Inhaler*) 2 puff INH Q4H PRN PRN Reason: SHORTNESS OF BREATH Last Admin: 06/30/17 20:37 Dose: 2 puff Albuterol (Ventolin 2.5 Mg/3 Ml Neb.Sridevi*) 2.5 mg INH 0800,1600 FOUZIA Last Admin: 07/02/17 06:01 Dose: 2.5 mg Albuterol (Ventolin 2.5 Mg/3 Ml Neb.Sridevi*) 2.5 mg INH Q4H PRN PRN Reason: SOB/WHEEZING Last Admin: 07/02/17 10:08 Dose: 2.5 mg Alprazolam (Xanax Tab*) 0.25 mg PO Q6H PRN PRN Reason: ANXIETY Last Admin: 07/02/17 06:02 Dose: 0.25 mg Alprazolam (Xanax Tab*) 0.25 mg PO BEDTIME [facility] Last Admin: 07/01/17 22:07 Dose: 0.25 mg Atorvastatin Calcium (Lipitor*) 10 mg PO QPM [facility] Last Admin: 07/01/17 17:13 Dose: 10 mg Docusate Sodium (Colace Cap*) 200 mg PO BEDTIME [facility] Last Admin: 07/01/17 22:08 Dose: 200 mg Estrogens Conjugated (Premarin Vag Cream*) 0.5 applic VAGINAL TuThSa@2100 [facility] Last Admin: 06/30/17 20:38 Dose: 0.5 applic Sodium Chloride (Ns 0.9% 1000 Ml*) 1,000 mls @ 50 mls/hr IV PER RATE [facility] Last Admin: 07/01/17 09:29 Dose: 50 mls/hr Vancomycin HCl 750 mg/ Sodium (Chloride) 250 mls @ 166.667 mls/hr IVPB Q12H [facility] Levothyroxine Sodium (Synthroid Tab*) 75 mcg PO MoTuWeThFrSa@0600 [facility] Last Admin: 07/02/17 05:49 Dose: 75 mcg Levothyroxine Sodium (Synthroid Tab*) 150 mcg PO Rodriguez@0600 [facility] Last Admin: 07/01/17 05:53 Dose: 150 mcg Lisinopril (Prinivil Tab*) 10 mg PO DAILY [facility] Last Admin: 07/02/17 10:20 Dose: 10 mg Mometasone Furoate (Asmanex 220 Mcg Mdi *) 2 puff INH QPM [facility] Last Admin: 07/01/17 17:30 Dose: 2 puff Montelukast Sodium (Singulair Tab*) 10 mg PO DAILY [facility] Last Admin: 07/02/17 10:20 Dose: 10 mg Omeprazole (Prilosec Cap*) 20 mg PO DAILY@0600 [facility] Last Admin: 07/02/17 05:49 Dose: 20 mg Ondansetron HCl (Zofran Inj*) 4 mg IV Q6H PRN PRN Reason: NAUSEA Pharmacy Consult (Vancomycin Per Pharmacy*) 1 note FOLLOW UP .VANC PER PHARMACY [facility] Prazosin HCl (Minipress Cap*) 3 mg PO BEDTIME [facility] Last Admin: 07/01/17 22:06 Dose: 3 mg Quetiapine Fumarate (Seroquel Tab*) 400 mg PO BEDTIME [facility] Last Admin: 07/01/17 22:06 Dose: 400 mg Sertraline HCl (Zoloft*) 150 mg PO DAILY [facility] Last Admin: 07/02/17 10:21 Dose: 150 mg Sodium Chloride (Sodium Chloride 0.65% Nasal [place]*) 1 spray BOTH NARES DAILY PRN PRN Reason: CONGESTION Last Admin: 06/29/17 08:11 Dose: 1 spray
--- NOTE | 2017-07-02 10:01 | PN ---
Progress Note - Progress Note Date of Service: 07/02/17 SOAP: Subjective: CC: toe infection HPI: 86 year old woman with hx left 1st MTP fusion in distant past admitted with red great toe and medial forefoot; had I&D and hardware removal No pain, fever, rash, or diarrhea. Appetite is good. Objective: Vital Signs Temp 36.2 C 07/02/17 07:56 Pulse 81 07/02/17 07:56 Resp 24 07/02/17 07:56 BP 160/68 07/02/17 07:56 Pulse Ox 92 07/02/17 07:56 Intake & Output 07/01/17 07/02/17 07/02/17 18:59 06:59 18:59 Intake Total 1332 823 350 Balance 1332 823 350 Intake: IV Fluids 233 552 NS (0.9%) 233 552 IVPB 269 271 ABX - VANCOMYCIN 269 271 Oral 830 350 Other: Estimated Void Medium Medium # Bowel Movements 0 # Voids 3 2 General: Awake, no distress HEENT:PERRL, MMM Heart:RRR no murmur Lungs:CTA BL Abd:+BS NTND soft Skin: no rash MSK: Left foot wrapped Laboratory Results - last 24 hr 07/01/17 10:32 BUN 15 Creatinine 0.80 Est GFR ( Amer) 87.7 Est GFR (Non-Af Amer) 68.2 Vancomycin Trough 13.7 Assessment: 1. left great toe chronic osteomyelitis, hardware related infection, cellulitis. Hardware is removed. 2. COPD Plan: 1. continue vancomycin goal tr 15-20 day 11/23; then PO antibiotics for 6 weeks ( doxycycline 100 mg po bid). Discussed with Dr Carr
[2017-07-02] MEDS: Albuterol 2.5 MG/3 ML NEB.SOL* (0.083%) INH PRN (10:08)
[2017-07-02] MEDS: Lisinopril TAB* 10 MG PO SCH (10:20)
[2017-07-02] MEDS: Montelukast Sodium TAB* 10 MG PO SCH (10:20)
[2017-07-02] MEDS: Sertraline* 100 MG TAB PO SCH (10:21)
[2017-07-02] MEDS ORDERED: Vancomycin Trough Check NOTE FOLLOW UP ONE (10:30)
[2017-07-02 12:45] VITALS: BP 153/74
[2017-07-02] MEDS: Vancomycin(*) 500 MG in NS 0.9% 250 ML* 250 ML IVPB SCH (14:04)
[2017-07-02] MEDS ORDERED: Vancomycin(*) 750 MG in NS 0.9% 250 ML* 250 ML IVPB SCH (15:00)
== END 2017-07-02 14:13 | DRG 504 ==
LOC: ED 15:57 → MED 20:37
PROVIDERS: ADMIT Hospitalist; ATTEND Internal Medicine Geriatric Medicine
PROC: 0SPN04Z Removal of Internal Fixation Device from Left Metatarsal-Phalangeal Joint, Open Approach (ICD-10-PCS; 2017-06-28)
PROC: 0QBR0ZZ Excision of Left Toe Phalanx, Open Approach (ICD-10-PCS; principal; 2017-06-28 08:45)
DX: T84.69XA Infection and inflammatory reaction due to internal fixation device of other site, initial encounter (principal); M86.8X8 Other osteomyelitis, other site; E11.69 Type 2 diabetes mellitus with other specified complication; I10 Essential (primary) hypertension; J44.9 Chronic obstructive pulmonary disease, unspecified; K58.9 Irritable bowel syndrome, unspecified; F32.9 Major depressive disorder, single episode, unspecified; F41.9 Anxiety disorder, unspecified; B95.62 Methicillin resistant Staphylococcus aureus infection as the cause of diseases classified elsewhere; G47.33 Obstructive sleep apnea (adult) (pediatric); E03.9 Hypothyroidism, unspecified; K21.9 Gastro-esophageal reflux disease without esophagitis; M81.0 Age-related osteoporosis without current pathological fracture; G25.81 Restless legs syndrome; E78.5 Hyperlipidemia, unspecified; J30.2 Other seasonal allergic rhinitis; Z66 Do not resuscitate; L03.032 Cellulitis of left toe; E66.9 Obesity, unspecified; Z88.6 Allergy status to analgesic agent; Z91.030 Bee allergy status; Z88.8 Allergy status to other drugs, medicaments and biological substances; Z91.048 Other nonmedicinal substance allergy status; Z87.891 Personal history of nicotine dependence; Z99.81 Dependence on supplemental oxygen; Z98.42 Cataract extraction status, left eye; Z98.41 Cataract extraction status, right eye; Z90.710 Acquired absence of both cervix and uterus; Z68.27 Body mass index [BMI] 27.0-27.9, adult; Z98.1 Arthrodesis status
CPT/HCPCS: 36415; 71046; 76000; 78315; 80048; 80053; 80202; 81003; 82565; 83605; 84520; 85025; 85027; 85610; 85652; 85730; 86140; 87040; 87070; 87073; 87077; 87186; 87205; 87640; 87641; 88300; 93005; 94640; 94760; 99283; A9270-GY; A9503; G8978-GP-CJ; G8978-GP-CK; G8979-GP-CH; G8979-GP-CI; G8981-GP-CJ; G8981-GP-CK; G8982-GP-CH; G8982-GP-CI; G8987-GO-CL; G8988-GO-CI; J1644; J2250; J2405; J2704; J3010; J3370

== ENCOUNTER 2017-07-02 10:13 | Inpatient (IN) | payer MEDICARE, MEDICAID ==
[2017-07-02] MEDS ORDERED: Acetaminophen TAB* 325 MG PO PRN (15:49)
[2017-07-02] MEDS ORDERED: Senna TAB PO PRN (15:49)
[2017-07-02] MEDS ORDERED: Magnesium Hydroxide LIQ* 30 ML UDC PO PRN (15:49)
[2017-07-02] MEDS: Albuterol 2.5 MG/3 ML NEB.SOL* (0.083%) INH SCH (17:03)
[2017-07-02] MEDS: Atorvastatin* 10 MG TAB PO SCH (17:18)
[2017-07-02] MEDS: Vancomycin(*) 750 MG in NS 0.9% 250 ML* 250 ML IVPB SCH (17:46)
[2017-07-02] MEDS: Mometasone 220 MCG MDI INH SCH (17:56)
[2017-07-02] MEDS: ALPRAZolam TAB* 0.25 MG PO SCH (19:15)
[2017-07-02] MEDS: Prazosin CAP* 1 MG PO SCH (20:43)
[2017-07-02] MEDS: QUEtiapine TAB* 100 MG PO SCH (20:43)
[2017-07-02] MEDS: Heparin VIAL(*) 5000 UNITS/ML VIAL (FIVE THOUSAND) SUBCUT SCH (20:48)
[2017-07-02] MEDS: Docusate CAP* 100 MG PO SCH (20:48)
[2017-07-02] MEDS: Albuterol 2.5 MG/3 ML NEB.SOL* (0.083%) INH PRN (20:59)
--- NOTE | 2017-07-02 21:07 | HP ---
HISTORY AND PHYSICAL: DATE OF ADMISSION: 07/02/17 REASON FOR ADMISSION: Left foot osteomyelitis. HISTORY OF PRESENT ILLNESS: Clare Rizzo is an 86-year-old female. She has a medical history significant for COPD as well as sleep apnea and gastroesophageal reflux disease. The patient about 6 years ago had surgery on her left foot. She had a fusion of her first toe. She has had pain in her toe ever since. She has seen multiple podiatrists, none of whom have been willing to operate on her. The patient stubbed her left first toe on the furniture at home somewhere around 06/10/17. It continued to be painful, red and swollen. She saw her pasteurizer who placed her on amoxicillin. A wound culture was obtained on 06/20/17, which grew out MRSA. She was switched to doxycycline. By 06/23/17; however, the patient was not responding adequately to antibiotics and was sent to the emergency room for consideration of IV antibiotics. The patient had her original toe fusion done for a hammer toe surgery. The patient was admitted to the hospital. She was seen in consultation by Dr. Garza from the Orthopedics. The feeling of Orthopedics was that she needed IV antibiotics and that Dr. Vines or Kayla should be consulted. The patient was taken to the operating room on 06/28/[address] Garza. She had removal of the implants of her left first great toe along with irrigation and debridement. Postoperatively, the patient was continued on antibiotics. The patient was slow to mobilize, however. She was felt to have physical therapy and occupational therapy needs. She is on day 9 of 14 of vancomycin. She is now being admitted for inpatient rehab since she might return to independent living. PAST MEDICAL HISTORY: Significant for the aforementioned COPD. She is on multiple inhalers at home. She has a history of sleep apnea, but does not use a CPAP. Hypothyroidism, restless leg syndrome, gastroesophageal reflux disease, anxiety. CURRENT MEDICATIONS: Include: 1. Albuterol nebulizer. 2. She is on Xanax. 3. Lipitor. 4. Premarin vaginal cream. 5. Synthroid. 6. Lisinopril. 7. Asmanex. 8. Singulair. 9. Prilosec. 10. IV vancomycin. 11. Minipress. 12. Seroquel. 13. Zoloft. ALLERGIES: The patient has allergy listed to ASPIRIN. SOCIAL HISTORY: She is a nonsmoker, nondrinker. She lives by herself in an apartment in [facility] It is completely accessible. She does have a four wheeled walker that she uses prior to admission. REVIEW OF SYSTEMS: The patient reports no current shortness of breath or chest pain. PHYSICAL EXAMINATION VITAL SIGNS: The patient's temperature is 98.4, blood pressure is 170/65, pulse is 80, respirations 18. HEENT: Her extraocular movements are intact. Tongue is midline. NECK: Supple. LUNGS: Lungs sound clear to auscultation bilaterally. HEART: Heart sounds are regular. S1, S2 are audible. ABDOMEN: Soft and nontender. EXTREMITIES: Her left foot has a wound, which is clean and wrapped. NEUROLOGIC: The patient is awake, alert, and oriented. Muscle strength is about 5/5 except around the right foot and ankle, which is 3/5 secondary to pain. FUNCTIONAL EXAM: The patient transfers with min assist. ASSESSMENT: Osteomyelitis of left foot status post removal of implants. PLAN: Integrate her into a comprehensive and therapeutic rehab program with the following goals: 1. Physical Therapy will work with the patient. They are going to work on functional transfer training and ambulation training with a walker. 2. Occupational Therapy will see the patient, work on her activities of daily living including toileting and toilet transfers. 3. Heparin for DVT prophylaxis. 4. Adequate analgesia. 5. Her bowels will be regulated. 6. We will continue her medications for asthma including the albuterol nebulizer as well as Asmanex. 7. Continue medications for anxiety and depression including Zoloft and Seroquel and Xanax. 8. Continue antibiotics per infectious disease service. 9. Family training as appropriate. 10. Home with appropriate services. ESTIMATED LENGTH OF STAY: 7 to 10 days. [id number]/[facility] #: [id number] [facility]ITAL[facility]
[2017-07-03] MEDS: Albuterol 2.5 MG/3 ML NEB.SOL* (0.083%) INH PRN ×2 (04:46→22:16)
[2017-07-03] MEDS: Vancomycin(*) 750 MG in NS 0.9% 250 ML* 250 ML IVPB SCH ×2 (04:50→17:49)
[2017-07-03] MEDS: ALPRAZolam TAB* 0.25 MG PO PRN ×2 (05:24→13:33)
[2017-07-03] MEDS: Levothyroxine TAB* 75 MCG TAB PO SCH (07:11)
[2017-07-03] MEDS: Omeprazole CAP* 20 MG PO SCH (07:11)
[2017-07-03] MEDS: Sertraline* 50 MG TAB PO SCH (08:55)
[2017-07-03] MEDS: Lisinopril TAB* 10 MG PO SCH (08:55)
[2017-07-03] MEDS: Docusate CAP* 100 MG PO SCH ×2 (08:55→20:58)
[2017-07-03] MEDS: Montelukast Sodium TAB* 10 MG PO SCH (08:55)
[2017-07-03] MEDS: Heparin VIAL(*) 5000 UNITS/ML VIAL (FIVE THOUSAND) SUBCUT SCH ×2 (08:59→21:06)
[2017-07-03] MEDS: Albuterol 2.5 MG/3 ML NEB.SOL* (0.083%) INH SCH ×2 (09:02→16:22)
--- NOTE | 2017-07-03 12:26 | PMRUTEAM ---
PMRU: Team Meeting Current Status: Nursing: Current Status Skin Deviations [Left Lower Incision Foot] Skin Deviations [Bilateral Other Foot] Skin Deviation Description [ drsg intact Left Lower Foot] Skin Deviation Description [ dry skin Bilateral Foot] Bladder Current Status voiding Bowel Current Status last bm 07/01. Nutrition Current Status adequate Medication Current Status needs reinforcement Physical Therapy: Current Status Bed Mobility Assistance Mod Assist Transfer Moblility Assistance Mod Assist Ambulation Assistance Mod Assist Ambulation Assistive Devices Rolling Walker Stairs Assistance Not Tested Occupational Therapy: Current Status Upper Body Dressing Supervision Lower Body Dressing Max Asst Bathing Mod Assist Toileting Max Asst Shower Transfer Contact Guard Assist Rec Therapy: Current Status Summary of Assessment and RT services introduced, assessment to be entered Clinical Impression today. Pt. is very interested in leisure activities while on the unit. Bright and interactive during sessions. Treatment Goals Pt. will engage in leisure activities while on the unit. Treatment Plan Enter RT assessment. Encourage involvement in RT services while on the unit. Social Work: Current Status Discharge Plan return home with home care svs and family support Potential for Family Training TBD Anticipated Discharge Home Destination Discharge With home care svs and family support Nutrition: Current Status Monitoring new admission; nutrition assessment planned 07/12 per NDS protocol. Pt on regular diet; eating relatively well, no skin breakdown, regular BMs, and with unremarkable labs. Initial goals as outlined below. Goals: Occupational Therapy: Initial Goals Goals to be Completed in (Days 7-10 ) Upper Body Bathing Routine Independent Lower Body Bathing Routine Modified Independent with Upper Body Dressing Routine Independent Lower Body Dressing Routine Modified Independent with Toilet Hygeine and Clothing Modified Independent with Management Routine Toilet Transfer Routine Modified Independent with Step-In Shower Transfer Supervision/Set Up Routine Functional Transfers for ADL Modified Independent with Grooming Routine Independent Feeding Routine Independent Nursing: Goals Bladder Goal independent Bowel Goal independent Nutrition Goal 100% of all meals Medication Goal independent Nutrition: Goals Intervention Goals 1. adequate po intake to maintain stable wt, hydration, and lean body mass 2. maintain regular bowel pattern without c/o constipation or diarrhea 3. skin integrity will be maintained without evidence of breakdown Social Work: Goals Discharge Plan return home with home care svs and family support Potential for Family Training TBD Anticipated Discharge Home Destination Discharge With home care svs and family support Care Plan: Care Plan ADL's - Improve/Maintain Start: 07/03/17 12:00 Freq: DAILY Status: Active Target: Protocol: Activity Type Activity Date Activity User E-Sign Co-Sign Detail Recorded Client Recorded Date Recorded By Document 07/03/17 12:00 [id number] [id number] 07/03/17 12:01 [id number] 07/03/17 12:00 PMRU Outcome: ADL's/ADL Transfers Orders/Interventions Occupational Therapy Evaluation & Treatment Communication Tool in Patient Room Patient to receive OT 5x/wk for 60-120 Therex min/day Self Care Management Group Therapy UE/LE ADL's with Assist Yes: mod I ADL Transfers with Assist Yes: mod I Toileting: Transfers,Clothing Management Yes: mod I ,Hygeine w/Assist Light Kitchen/Laundry w/Assist Yes Progression Toward Outcome/Goals Progressing Outcome/Goals Met Pt presents with decreased endurance, SOB with minimal exertion, 2L of O2, balance deficits, L heel WB status, generalized weakness, and limited shoulder abduction (L worse than right) that affect her ability to complete bathing, dressing, toileting, toilet transfers and showering. Pt would benefit from skilled OT intervention as part of an acute rehab protocol to maximize independence with ADLs and ADL transfers. Pt is agreeable to OT POC and PMRU POC. She is excited and grateful to be on the unit. Cardiovascular- Improve/Maintain Start: 07/02/17 18:15 Freq: DAILY Status: Active Target: Protocol: Activity Type Activity Date Activity User E-Sign Co-Sign Detail Recorded Client Recorded Date Recorded By Document 07/03/17 01:16 [id number] [id number] 07/03/17 01:22 [id number] 07/03/17 01:16 PMRU Outcome: Cardiovascular Vital Signs q Shift for 48hrs Then BID Yes Daily Weight Ordered No Current Cardiovascular Outcome/Goal Maintain/ Achieve Baseline HR, BP , Perfusion Maintain/ Achieve Hemodynamic Stability Discharge Planning - Improve/Maintain Start: 07/02/17 18:15 Freq: DAILY Status: Active Target: Protocol: Activity Type Activity Date Activity User E-Sign Co-Sign Detail Recorded Client Recorded Date Recorded By Document 07/03/17 01:16 [id number] [email or web address] 07/03/17 01:22 [id number] 07/03/17 01:16 PMRU Outcome: Discharge Planning Update Patient Family No Outcome/Goals Demonstrates Understanding of Discharge Plan /GI-Improve/Maintain Start: 07/02/17 18:15 Freq: DAILY Status: Active Target: Protocol: Activity Type Activity Date Activity User E-Sign Co-Sign Detail Recorded Client Recorded Date Recorded By Document 07/03/17 01:16 [id number] 07/03/17 01:22 [id number] 07/03/17 01:16 PMRU Outcome: Genitourinary/ Gastrointestinal Genitourinary- Outcome/Goals Maintain/ Achieve Urinary Continence Gastrointestinal-Outcome/Goals Maintain/ Achieve Bowel Regularity in Accordance with Pt's Baseline Prevent Constipation Neurological- Improve/Maintain Start: 07/02/17 18:15 Freq: DAILY Status: Active Target: Protocol: Activity Type Activity Date Activity User E-Sign Co-Sign Detail Recorded Client Recorded Date Recorded By Document 07/03/17 01:16 [id number] [id number] 07/03/17 01:22 [id number] 07/03/17 01:16 PMRU Outcome: Neurological Weakness/Aphasia Weakness Left Side Outcome/Goals Maintain/ Achieve Baseline Neurological Status Maintain/ Improve Strength/ROM Respiratory - Improve/Maintain Start: 07/02/17 18:15 Freq: DAILY Status: Active Target: Protocol: Activity Type Activity Date Activity User E-Sign Co-Sign Detail Recorded Client Recorded Date Recorded By Document 07/03/17 01:16 [id number] 07/03/17 01:22 [id number] 07/03/17 01:16 PMRU Outcome: Respiratory Does Patient Have a Trach No Outcome/Goals Maintain/ Improve O2 Sat per MD Order Maintain/ Improve Activity Tolerance Outcome/Goals Met Comment O2 in place at 2L Safety- Improve/Maintain Start: 07/02/17 18:15 Freq: DAILY Status: Active Target: Protocol: Activity Type Activity Date Activity User E-Sign Co-Sign Detail Recorded Client Recorded Date Recorded By Document 07/03/17 01:16 [id number] [id number] 07/03/17 01:22 [id number] 07/03/17 01:16 PMRU Outcome: Safety Outcome/Goals Remain Free of Injury or Harm Prevent Falls/ Injury Medicine Note: Length of Stay: 7 days Anticipated Discharge Destination: Home Tentative Discharge Date: July 10, 2017 Discharged to: Home
--- NOTE | 2017-07-03 16:30 | PN ---
Progress Note Date of Service: 07/03/17 Note: ANYA STAUFFER was visited. Therapy notes read and reviewed. I met with Anya. She notes SOB. Her daughter thinks she is more SOB than usual. She was not on anticoagulation on the floor. Will order CTA. Verified MOLST with patient. Current Medications: Active Medications Generic Name Dose Route Start Last Admin Trade Name Freq PRN Reason Stop Dose Admin Acetaminophen 650 mg 07/02/17 15:49 Tylenol Tab* PO Q6H PRN FEVER/PAIN Albuterol 2.5 mg 07/03/17 08:00 07/03/17 16:22 Ventolin 2.5 Mg/3 Ml Neb.Sridevi* INH 2.5 mg 0800,1600 FOUZIA Administration Albuterol 2.5 mg 07/02/17 16:27 07/03/17 04:46 Ventolin 2.5 Mg/3 Ml Neb.Sridevi* INH 2.5 mg Q4H PRN Administration SOB/WHEEZING Alprazolam 0.25 mg 07/02/17 21:00 07/02/17 19:15 Xanax Tab* PO 0.25 mg 2100 FOUZIA Administration Alprazolam 0.25 mg 07/02/17 19:51 07/03/17 13:33 Xanax Tab* PO 0.25 mg Q8H PRN Administration ANXIETY Atorvastatin Calcium 10 mg 07/02/17 17:00 07/02/17 17:18 Lipitor* PO 10 mg 1700 FOUZIA Administration Docusate Sodium 100 mg 07/02/17 21:00 07/03/17 08:55 Colace Cap* PO 100 mg BID FOUZIA Administration Estrogens Conjugated 0.5 applic 07/03/17 21:00 Premarin Vag Cream* VAGINAL TuThSa@2100 [facility] Heparin Sodium (Porcine) 1 ml 07/03/17 06:00 07/03/17 07:08 Heparin Flush Picc/Ml/Cvc(*) FLUSH 1 ml 0600,1800 [facility] Administration Protocol Heparin Sodium (Porcine) 5,000 units 07/02/17 21:00 07/03/17 08:59 Heparin Vial(*) SUBCUT 5,000 units Q12HR FOUZIA Administration Vancomycin HCl 750 mg/ Sodium 250 mls @ 166.667 mls/hr 07/02/17 17:00 04:50 Chloride IVPB 166.667 mls/hr Q12H FOUZIA Administration As Directed Levothyroxine Sodium 75 mcg 07/03/17 06:00 07/03/17 07:11 Synthroid Tab* PO 75 mcg MoTuWeThFrSa@0600 FOUZIA Administration Levothyroxine Sodium 150 mcg 07/08/17 06:00 Synthroid Tab* PO Rodriguez@0600 FOUZIA Lisinopril 10 mg 07/03/17 09:00 07/03/17 08:55 Prinivil Tab* PO 10 mg DAILY FOUZIA Administration Magnesium Hydroxide 30 ml 07/02/17 15:49 Milk Of Magnesia Liq* PO Q6H PRN CONSTIPATION Mometasone Furoate 2 puff 07/02/17 18:00 07/02/17 17:56 Asmanex 220 Mcg Mdi * INH 2 puff QPM FOUZIA Administration Montelukast Sodium 10 mg 07/03/17 09:00 07/03/17 08:55 Singulair Tab* PO 10 mg DAILY FOUZIA Administration Omeprazole 20 mg 07/03/17 06:00 07/03/17 07:11 Prilosec Cap* PO 20 mg DAILY@0600 FOUZIA Administration Pharmacy Profile Note 1 note 07/04/17 16:30 Vancomycin Trough Check FOLLOW UP 07/04/17 16:31 1030 ONE Prazosin HCl 3 mg 07/02/17 21:00 07/02/17 20:43 Minipress Cap* PO 3 mg 2100 FOUZIA Administration Quetiapine Fumarate 400 mg 07/02/17 21:00 07/02/17 20:43 Seroquel Tab* PO 400 mg BEDTIME FOUZIA Administration Senna 2 tab 07/02/17 15:49 Senokot Tab* PO BEDTIME PRN CONSTIPATION Sertraline HCl 150 mg 07/03/17 09:00 07/03/17 08:55 Zoloft* PO 150 mg DAILY FOUZIA Administration Vital Signs: Vital Signs Temp Pulse Resp BP Pulse Ox 98.2 F 77 20 175/90 97 07/03/17 16:19 07/03/17 16:24 07/03/17 16:24 07/03/17 16:19 07/03/17 16:24 Exam: LUNGS: Decreased air movement HEART: Reg rhythm ABDOMEN: Soft EXTREMITIES: Left foot wound clean NEUROLOGIC: alert, able to move 4 extremities, no focal weakness Assessment/Plan: 1. Left foot osteomyelitis, s/p removal of hardware: IV Vanco, day 12/23, then doxycycline, per Dr. Damon. PT/OT. Heel WB 2. COPD: Albuterol nebs/Asmanex 3. SOB: Will check CTA of chest. May need pulm consult if CTA neg 4. DVT Prophylaxis: Heparin S/Q 5. Advanced Directives: Has MOLST. DNR 6. Hypothyroidism: Synthroid 7. Anxiety: Xanax PRN/Seroquel/Zoloft 07/03/17 16:34
[2017-07-03] MEDS ORDERED: Iodixanol* (CONTRAST) 320 MG/ML 100 ML SDV IV ONE (16:39)
[2017-07-03] MEDS: Atorvastatin* 10 MG TAB PO SCH (16:52)
--- NOTE | 2017-07-03 18:04 | RAD ---
Indication: COPD. Foot surgery Contrast: Administered 69.1 ml of VISAPAQUE 320 mg/ml CTA of the chest was performed after IV contrast administration. Coronal and sagittal reconstructed images were obtained. The pulmonary arterial tree is well opacified. There are no filling defects present to suggest pulmonary embolus. The thoracic aorta demonstrates no evidence of aneurysmal dilatation or aortic dissection. No significant mediastinal or hilar adenopathy is noted. Cardiomegaly is noted. Bilateral pleural effusions are noted. IVs or atelectasis is noted. There is alveolar and interstitial edema present. Underlying CHF and vascular congestion should BE considered. The visualized abdominal organs are unremarkable. IMPRESSION: No evidence of pulmonary embolus is noted. Bilateral pleural effusion with chronic interstitial disease as well as alveolar consolidation which May represent CHF.
[2017-07-03] MEDS: Mometasone 220 MCG MDI INH SCH (19:50)
[2017-07-03] MEDS: QUEtiapine TAB* 100 MG PO SCH (20:56)
[2017-07-03] MEDS: Prazosin CAP* 1 MG PO SCH (20:56)
[2017-07-03] MEDS: ALPRAZolam TAB* 0.25 MG PO SCH (20:58)
[2017-07-03] MEDS: Conjugated Estrogens VAG CM* 42.5 gm TUBE VAGINAL SCH (21:04)
[2017-07-04] MEDS: Albuterol 2.5 MG/3 ML NEB.SOL* (0.083%) INH PRN ×3 (04:36→21:24)
[2017-07-04] MEDS: Vancomycin(*) 750 MG in NS 0.9% 250 ML* 250 ML IVPB SCH ×2 (05:05→16:43)
[2017-07-04 05:34] LABS: ABS Basophils 0 10^3/ul (0-0.2); ABS Eosinophils 0.2 10^3/ul (0-0.6); ABS Lymphocytes 1.6 10^3/ul (1.0-4.8); ABS Monocytes 0.7 10^3/ul (0-0.8); ABS Neutrophils 4.6 10^3/ul (1.5-7.7); ABS Nucleated RBC 0 10^3/ul; Eosinophil % 3.3 % (0-6); Hematocrit 31 % (35-47); Hemoglobin 10.4 g/dl (12.0-16.0); Lymphocyte % 22.1 % (25-47); Mean Corpuscular HGB Conc 33 g/dl (31-36); Mean Corpuscular Hemoglobin 30 pg (27-31); Mean Corpuscular Volume 90 fL (80-97); Mean Platelet Volume 9.5 um3 (7.4-10.4); Nucleated Red Blood Cells % 0; Platelet Count 203 10^3/ul (150-450); Red Blood Count 3.48 10^6/ul (4.0-5.4); Red Cell Distribution Width 15 % (10.5-15); White Blood Count 7.1 10^3/ul (3.5-10.8)
[2017-07-04 05:52] LABS: EGFR Non-African American 70.2 (>60)
[2017-07-04] MEDS: Omeprazole CAP* 20 MG PO SCH (06:50)
[2017-07-04] MEDS: Levothyroxine TAB* 75 MCG TAB PO SCH (06:50)
[2017-07-04] MEDS: Sertraline* 50 MG TAB PO SCH (07:34)
[2017-07-04] MEDS: Docusate CAP* 100 MG PO SCH ×2 (07:34→21:01)
[2017-07-04] MEDS: Lisinopril TAB* 10 MG PO SCH (07:34)
[2017-07-04] MEDS: Montelukast Sodium TAB* 10 MG PO SCH (07:34)
[2017-07-04] MEDS: Heparin VIAL(*) 5000 UNITS/ML VIAL (FIVE THOUSAND) SUBCUT SCH ×2 (07:38→21:02)
[2017-07-04] MEDS: Albuterol 2.5 MG/3 ML NEB.SOL* (0.083%) INH SCH ×2 (07:51→15:45)
[2017-07-04] MEDS ORDERED: Furosemide TAB* 20 MG PO ONE (10:15)
[2017-07-04] MEDS ORDERED: Vancomycin Trough Check NOTE FOLLOW UP ONE (16:30)
[2017-07-04] MEDS: Atorvastatin* 10 MG TAB PO SCH (16:43)
--- NOTE | 2017-07-04 18:29 | PN ---
Progress Note Date of Service: 07/04/17 Note: ANYA STAUFFER was visited. Therapy notes read and reviewed. She was SOB yesterday and since arrival on Sunday. A CTA of the chest did not show a PE, did suggest some volume overload. She was given Lasix and is starting to diurese. Sounds better today Current Medications: Active Medications Generic Name Dose Route Start Last Admin Trade Name Freq PRN Reason Stop Dose Admin Acetaminophen 650 mg 07/02/17 15:49 Tylenol Tab* PO Q6H PRN FEVER/PAIN Albuterol 2.5 mg 07/03/17 08:00 07/04/17 15:45 Ventolin 2.5 Mg/3 Ml Neb.Sridevi* INH 2.5 mg 0800,1600 FOUZIA Administration Albuterol 2.5 mg 07/02/17 16:27 07/04/17 14:07 Ventolin 2.5 Mg/3 Ml Neb.Sridevi* INH 2.5 mg Q4H PRN Administration SOB/WHEEZING Alprazolam 0.25 mg 07/02/17 21:00 07/03/17 20:58 Xanax Tab* PO 0.25 mg 2100 FOUZIA Administration Alprazolam 0.25 mg 07/02/17 19:51 07/03/17 13:33 Xanax Tab* PO 0.25 mg Q8H PRN Administration ANXIETY Atorvastatin Calcium 10 mg 07/02/17 17:00 07/04/17 16:43 Lipitor* PO 10 mg 1700 FOUZIA Administration Docusate Sodium 100 mg 07/02/17 21:00 07/04/17 07:34 Colace Cap* PO 100 mg BID FOUZIA Administration Estrogens Conjugated 0.5 applic 07/03/17 21:00 07/03/17 21:04 Premarin Vag Cream* VAGINAL 0.5 applic TuThSa@2100 FOUZIA Administration Furosemide 40 mg 07/05/17 09:00 Lasix Tab* PO DAILY FOUZIA Heparin Sodium (Porcine) 1 ml 07/03/17 06:00 07/04/17 06:48 Heparin Flush Picc/Ml/Cvc(*) FLUSH 1 ml 0600,1800 FOUZIA Administration Protocol Heparin Sodium (Porcine) 5,000 units 07/02/17 21:00 07/04/17 07:38 Heparin Vial(*) SUBCUT 5,000 units Q12HR FOUZIA Administration Vancomycin HCl 750 mg/ Sodium 250 mls @ 166.667 mls/hr 07/02/17 17:00 16:43 Chloride IVPB 166.667 mls/hr Q12H FOUZIA Administration As Directed Levothyroxine Sodium 75 mcg 07/03/17 06:00 07/04/17 06:50 Synthroid Tab* PO 75 mcg MoTuWeThFrSa@0600 FOUZIA Administration Levothyroxine Sodium 150 mcg 07/08/17 06:00 Synthroid Tab* PO Rodriguez@0600 FOUZIA Lisinopril 10 mg 07/03/17 09:00 07/04/17 07:34 Prinivil Tab* PO 10 mg DAILY FOUZIA Administration Magnesium Hydroxide 30 ml 07/02/17 15:49 Milk Of Magnesia Liq* PO Q6H PRN CONSTIPATION Mometasone Furoate 2 puff 07/02/17 18:00 07/03/17 19:50 Asmanex 220 Mcg Mdi * INH 2 puff QPM FOUZIA Administration Montelukast Sodium 10 mg 07/03/17 09:00 07/04/17 07:34 Singulair Tab* PO 10 mg DAILY FOUZIA Administration Omeprazole 20 mg 07/03/17 06:00 07/04/17 06:50 Prilosec Cap* PO 20 mg DAILY@0600 FOUZIA Administration Prazosin HCl 3 mg 07/02/17 21:00 07/03/17 20:56 Minipress Cap* PO 3 mg 2100 FOUZIA Administration Quetiapine Fumarate 400 mg 07/02/17 21:00 07/03/17 20:56 Seroquel Tab* PO 400 mg BEDTIME FOUZIA Administration Senna 2 tab 07/02/17 15:49 Senokot Tab* PO BEDTIME PRN CONSTIPATION Sertraline HCl 150 mg 07/03/17 09:00 07/04/17 07:34 Zoloft* PO 150 mg DAILY FOUZIA Administration Vital Signs: Vital Signs Temp Pulse Resp BP Pulse Ox 98.4 F 80 22 169/78 97 07/04/17 16:37 07/04/17 16:37 07/04/17 16:37 07/04/17 16:37 07/04/17 18:08 Lab Results: Laboratory Results - last 24 hr 07/04/17 07/04/17 07/04/17 04:50 04:50 16:05 WBC 7.1 RBC 3.48 L Hgb 10.4 L Hct 31 L MCV 90 MCH 30 MCHC 33 RDW 15 Plt Count 203 MPV 9.5 Neut % (Auto) 64.2 Lymph % (Auto) 22.1 L [place] % (Auto) 9.8 H Eos % (Auto) 3.3 Baso % (Auto) 0.6 Absolute Neuts (auto) 4.6 Absolute Lymphs (auto) 1.6 Absolute Monos (auto) 0.7 Absolute Eos (auto) 0.2 Absolute Basos (auto) 0 Absolute Nucleated RBC 0 Nucleated RBC % 0 Sodium 140 Potassium 3.5 Chloride 107 Carbon Dioxide 24 Anion Gap 9 BUN 12 Creatinine 0.78 Est GFR ( Amer) 90.3 Est GFR (Non-Af Amer) 70.2 BUN/Creatinine Ratio 15.4 Glucose 131 H Calcium 8.8 Total Bilirubin 0.50 AST 16 ALT 36 Alkaline Phosphatase 80 Total Protein 6.3 L Albumin 3.5 Globulin 2.8 Albumin/Globulin Ratio 1.3 Vancomycin Trough 14.1 Exam: LUNGS: Better air movement, some basilar rales on left HEART: Reg rhythm ABDOMEN: Soft EXTREMITIES: Left foot wound clean NEUROLOGIC: alert, able to move 4 extremities, no focal weakness Assessment/Plan: 1. Left foot osteomyelitis, s/p removal of hardware: IV Vanco, day 01/23, then doxycycline, per Dr. Damon. PT/OT. Heel WB 2. COPD: Albuterol nebs/Asmanex 3. SOB: CTA of chest as noted. Will diurese and look for improvement. May need pulm consult 4. DVT Prophylaxis: Heparin S/Q 5. Advanced Directives: Has MOLST. DNR 6. Hypothyroidism: Synthroid 7. Anxiety: Xanax PRN/Seroquel/Zoloft 8. CHF: diuresis 07/04/17 18:30
[2017-07-04] MEDS: Mometasone 220 MCG MDI INH SCH (18:33)
[2017-07-04] MEDS: QUEtiapine TAB* 100 MG PO SCH (21:01)
[2017-07-04] MEDS: Prazosin CAP* 1 MG PO SCH (21:01)
[2017-07-04] MEDS: ALPRAZolam TAB* 0.25 MG PO SCH (21:02)
[2017-07-05] MEDS: Vancomycin(*) 750 MG in NS 0.9% 250 ML* 250 ML IVPB SCH ×2 (04:06→16:37)
[2017-07-05] MEDS: Omeprazole CAP* 20 MG PO SCH (06:28)
[2017-07-05] MEDS: Levothyroxine TAB* 75 MCG TAB PO SCH (06:28)
[2017-07-05] MEDS: Montelukast Sodium TAB* 10 MG PO SCH (07:40)
[2017-07-05] MEDS: Albuterol 2.5 MG/3 ML NEB.SOL* (0.083%) INH SCH ×2 (07:40→17:01)
[2017-07-05] MEDS: Sertraline* 50 MG TAB PO SCH (07:40)
[2017-07-05] MEDS: Lisinopril TAB* 10 MG PO SCH (07:40)
[2017-07-05] MEDS: Docusate CAP* 100 MG PO SCH ×2 (07:40→20:11)
[2017-07-05] MEDS: Heparin VIAL(*) 5000 UNITS/ML VIAL (FIVE THOUSAND) SUBCUT SCH ×2 (07:42→20:21)
[2017-07-05] MEDS: Furosemide TAB* 40 MG PO SCH (08:09)
[2017-07-05] MEDS: ALPRAZolam TAB* 0.25 MG PO PRN (10:35)
[2017-07-05] MEDS: Atorvastatin* 10 MG TAB PO SCH (16:37)
[2017-07-05] MEDS: Albuterol 2.5 MG/3 ML NEB.SOL* (0.083%) INH PRN (16:55)
--- NOTE | 2017-07-05 17:04 | PN ---
Progress Note Date of Service: 07/05/17 Note: ANYA STAUFFER was visited. Therapy notes read and reviewed. Her breathing is much better after diuresis. She no longer feels the choking feeling when she walks. Will check BMP in am. Her BP has been running high Current Medications: Active Medications Generic Name Dose Route Start Last Admin Trade Name Freq PRN Reason Stop Dose Admin Acetaminophen 650 mg 07/02/17 15:49 Tylenol Tab* PO Q6H PRN FEVER/PAIN Albuterol 2.5 mg 07/03/17 08:00 07/05/17 17:01 Ventolin 2.5 Mg/3 Ml Neb.Sridevi* INH 2.5 mg 0800,1600 FOUZIA Administration Albuterol 2.5 mg 07/02/17 16:27 07/04/17 21:24 Ventolin 2.5 Mg/3 Ml Neb.Sridevi* INH 2.5 mg Q4H PRN Administration SOB/WHEEZING Alprazolam 0.25 mg 07/02/17 21:00 07/04/17 21:02 Xanax Tab* PO 0.25 mg 2100 FOUZIA Administration Alprazolam 0.25 mg 07/02/17 19:51 07/05/17 10:35 Xanax Tab* PO 0.25 mg Q8H PRN Administration ANXIETY Amlodipine Besylate 5 mg 07/06/17 09:00 Norvasc Tab* PO DAILY FOUZIA Atorvastatin Calcium 10 mg 07/02/17 17:00 07/05/17 16:37 Lipitor* PO 10 mg 1700 FOUZIA Administration Docusate Sodium 100 mg 07/02/17 21:00 07/05/17 07:40 Colace Cap* PO 100 mg BID FOUZIA Administration Estrogens Conjugated 0.5 applic 07/03/17 21:00 07/03/17 21:04 Premarin Vag Cream* VAGINAL 0.5 applic TuThSa@2100 FOUZIA Administration Furosemide 40 mg 07/05/17 09:00 07/05/17 08:09 Lasix Tab* PO 40 mg DAILY FOUZIA Administration Heparin Sodium (Porcine) 1 ml 07/03/17 06:00 07/05/17 06:26 Heparin Flush Picc/Ml/Cvc(*) FLUSH 1 ml 0600,1800 FOUZIA Administration Protocol Heparin Sodium (Porcine) 5,000 units 07/02/17 21:00 07/05/17 07:42 Heparin Vial(*) SUBCUT 5,000 units Q12HR FOUZIA Administration Vancomycin HCl 750 mg/ Sodium 250 mls @ 166.667 mls/hr 07/02/17 17:00 16:37 Chloride IVPB 166.667 mls/hr Q12H FOUZIA Administration As Directed Levothyroxine Sodium 75 mcg 07/03/17 06:00 07/05/17 06:28 Synthroid Tab* PO 75 mcg MoTuWeThFrSa@0600 FOUZIA Administration Levothyroxine Sodium 150 mcg 07/08/17 06:00 Synthroid Tab* PO Rodriguez@0600 FOUZIA Lisinopril 10 mg 07/03/17 09:00 07/05/17 07:40 Prinivil Tab* PO 10 mg DAILY FOUZIA Administration Magnesium Hydroxide 30 ml 07/02/17 15:49 Milk Of Magnesia Liq* PO Q6H PRN CONSTIPATION Mometasone Furoate 2 puff 07/02/17 18:00 07/04/17 18:33 Asmanex 220 Mcg Mdi * INH 2 puff QPM FOUZIA Administration Montelukast Sodium 10 mg 07/03/17 09:00 07/05/17 07:40 Singulair Tab* PO 10 mg DAILY FOUZIA Administration Omeprazole 20 mg 07/03/17 06:00 07/05/17 06:28 Prilosec Cap* PO 20 mg DAILY@0600 FOUZIA Administration Prazosin HCl 3 mg 07/02/17 21:00 07/04/17 21:01 Minipress Cap* PO 3 mg 2100 FOUZIA Administration Quetiapine Fumarate 400 mg 07/02/17 21:00 07/04/17 21:01 Seroquel Tab* PO 400 mg BEDTIME FOUZIA Administration Senna 2 tab 07/02/17 15:49 Senokot Tab* PO BEDTIME PRN CONSTIPATION Sertraline HCl 150 mg 07/03/17 09:00 07/05/17 07:40 Zoloft* PO 150 mg DAILY FOUZIA Administration Vital Signs: Vital Signs Temp Pulse Resp BP Pulse Ox 98.3 F 73 28 182/79 95 07/05/17 16:31 07/05/17 16:31 07/05/17 16:31 07/05/17 16:31 07/05/17 16:31 Exam: LUNGS: Better air movement, some basilar rales on left HEART: Reg rhythm ABDOMEN: Soft EXTREMITIES: Left foot wound clean NEUROLOGIC: alert, able to move 4 extremities, no focal weakness Assessment/Plan: 1. Left foot osteomyelitis, s/p removal of hardware: IV Vanco, day 02/22, then doxycycline, per Dr. Damon. PT/OT. Heel WB 2. COPD: Albuterol nebs/Asmanex 3. SOB: CTA of chest as noted. Improving after diuresis. 4. DVT Prophylaxis: Heparin S/Q 5. Advanced Directives: Has MOLST. DNR 6. Hypothyroidism: Synthroid 7. Anxiety: Xanax PRN/Seroquel/Zoloft 8. CHF: diuresis 9. HTN: add norvasc 07/05/17 17:04 07/05/17 17:05
[2017-07-05] MEDS: Mometasone 220 MCG MDI INH SCH (18:21)
[2017-07-05] MEDS: Prazosin CAP* 1 MG PO SCH (20:11)
[2017-07-05] MEDS: QUEtiapine TAB* 100 MG PO SCH (20:11)
[2017-07-05] MEDS: ALPRAZolam TAB* 0.25 MG PO SCH (20:11)
[2017-07-05] MEDS: Conjugated Estrogens VAG CM* 42.5 gm TUBE VAGINAL SCH (20:20)
[2017-07-06] MEDS: Vancomycin(*) 750 MG in NS 0.9% 250 ML* 250 ML IVPB SCH ×2 (05:20→17:06)
[2017-07-06] MEDS: Levothyroxine TAB* 75 MCG TAB PO SCH (05:46)
[2017-07-06] MEDS: Omeprazole CAP* 20 MG PO SCH (05:46)
[2017-07-06 07:07] LABS: EGFR Non-African American 61.9 (>60)
[2017-07-06] MEDS: amLODIPine TAB* 5 MG PO SCH (07:34)
[2017-07-06] MEDS: Lisinopril TAB* 10 MG PO SCH (07:34)
[2017-07-06] MEDS: Docusate CAP* 100 MG PO SCH ×2 (07:34→21:01)
[2017-07-06] MEDS: Montelukast Sodium TAB* 10 MG PO SCH (07:34)
[2017-07-06] MEDS: Sertraline* 50 MG TAB PO SCH (07:35)
[2017-07-06] MEDS: Heparin VIAL(*) 5000 UNITS/ML VIAL (FIVE THOUSAND) SUBCUT SCH ×2 (07:37→21:01)
[2017-07-06] MEDS: Furosemide TAB* 40 MG PO SCH (07:43)
[2017-07-06] MEDS: Albuterol 2.5 MG/3 ML NEB.SOL* (0.083%) INH SCH ×2 (08:09→15:55)
[2017-07-06] MEDS: ALPRAZolam TAB* 0.25 MG PO PRN (11:07)
--- NOTE | 2017-07-06 11:46 | PN ---
Progress Note - Progress Note Date of Service: 07/06/17 SOAP: Subjective: CC: toe infection HPI: 86 year old woman with hx left 1st MTP fusion in distant past admitted with red great toe and medial forefoot; had I&D and hardware removal. No pain, fever, rash, or diarrhea. Appetite is good. Making progress with PT. Objective: Vital Signs Temp 36.7 C 07/06/17 05:55 Pulse 76 07/06/17 08:05 Resp 20 07/06/17 11:07 BP 156/70 07/06/17 05:55 Pulse Ox 97 07/06/17 05:55 Intake & Output 07/05/17 07/06/17 07/06/17 18:59 06:59 18:59 Intake Total 720 240 Output Total 1 Balance 720 -1 240 Intake: Oral 720 240 Output: # Incontinent Voids 1 Other: Estimated Void Medium Large Large Estimated Stool Amount Medium # Voids 1 1 General: Awake, no distress HEENT:PERRL, MMM Heart:RRR no murmur Lungs:CTA BL Abd:+BS NTND soft Skin: no rash MSK: Left toe no erythema; incision intact Laboratory Results - last 24 hr 07/06/17 06:16 Sodium 142 Potassium 3.7 Chloride 105 Carbon Dioxide 31 Anion Gap 6 BUN 11 Creatinine 0.87 Est GFR ( Amer) 79.6 Est GFR (Non-Af Amer) 61.9 BUN/Creatinine Ratio 12.6 Glucose 128 H Calcium 8.8 Assessment: 1. left great toe chronic osteomyelitis, hardware related infection, cellulitis. Hardware is removed. 2. COPD Plan: 1. continue vancomycin goal tr 15-20 day ; then doxycycline 100 mg po bid for 6 weeks 25 minutes floor time >50% discussing antibiotic plans and monitoring for her toe infection
--- NOTE | 2017-07-06 15:54 | PN ---
Progress Note Date of Service: 07/06/17 Note: ANYA STAUFFER was visited. Therapy notes read and reviewed. She is breathing better. Discussed her case with the therapy staff. She will not make it home by July 10. New d/c date is July 13. Appreciate Dr. Damon's note Current Medications: Active Medications Generic Name Dose Route Start Last Admin Trade Name Freq PRN Reason Stop Dose Admin Acetaminophen 650 mg 07/02/17 15:49 07/06/17 11:06 Tylenol Tab* PO 650 mg Q6H PRN Administration FEVER/PAIN Albuterol 2.5 mg 07/03/17 08:00 07/06/17 08:09 Ventolin 2.5 Mg/3 Ml Neb.Sridevi* INH 2.5 mg 0800,1600 FOUZIA Administration Albuterol 2.5 mg 07/02/17 16:27 07/04/17 21:24 Ventolin 2.5 Mg/3 Ml Neb.Sridevi* INH 2.5 mg Q4H PRN Administration SOB/WHEEZING Alprazolam 0.25 mg 07/02/17 21:00 07/05/17 20:11 Xanax Tab* PO 0.25 mg 2100 FOUZIA Administration Alprazolam 0.25 mg 07/02/17 19:51 07/06/17 11:07 Xanax Tab* PO 0.25 mg Q8H PRN Administration ANXIETY Amlodipine Besylate 5 mg 07/06/17 09:00 07/06/17 07:34 Norvasc Tab* PO 5 mg DAILY FOUZIA Administration Atorvastatin Calcium 10 mg 07/02/17 17:00 07/05/17 16:37 Lipitor* PO 10 mg 1700 FOUZIA Administration Docusate Sodium 100 mg 07/02/17 21:00 07/06/17 07:34 Colace Cap* PO 100 mg BID FOUZIA Administration Doxycycline Hyclate 100 mg 07/07/17 21:00 Vibramycin Cap(*) PO BID FOUZIA Estrogens Conjugated 0.5 applic 07/03/17 21:00 07/05/17 20:20 Premarin Vag Cream* VAGINAL 0.5 applic TuThSa@2100 FOUZIA Administration Furosemide 40 mg 07/05/17 09:00 07/06/17 07:43 Lasix Tab* PO 40 mg DAILY FOUZIA Administration Heparin Sodium (Porcine) 1 ml 07/03/17 06:00 07/06/17 07:18 Heparin Flush Picc/Ml/Cvc(*) FLUSH 1 ml 0600,1800 FOUZIA Administration Protocol Heparin Sodium (Porcine) 5,000 units 07/02/17 21:00 07/06/17 07:37 Heparin Vial(*) SUBCUT 5,000 units Q12HR FOUZIA Administration Vancomycin HCl 750 mg/ Sodium 250 mls @ 166.667 mls/hr 07/02/17 17:00 05:20 Chloride IVPB 07/07/17 12:00 166.667 mls/hr Q12H FOUZIA Administration As Directed Levothyroxine Sodium 75 mcg 07/03/17 06:00 07/06/17 05:46 Synthroid Tab* PO 75 mcg MoTuWeThFrSa@0600 FOUZIA Administration Levothyroxine Sodium 150 mcg 07/08/17 06:00 Synthroid Tab* PO Rodriguez@0600 FOUZIA Lisinopril 10 mg 07/03/17 09:00 07/06/17 07:34 Prinivil Tab* PO 10 mg DAILY FOUZIA Administration Magnesium Hydroxide 30 ml 07/02/17 15:49 Milk Of Magnesia Liq* PO Q6H PRN CONSTIPATION Mometasone Furoate 2 puff 07/02/17 18:00 07/05/17 18:21 Asmanex 220 Mcg Mdi * INH 2 puff QPM FOUZIA Administration Montelukast Sodium 10 mg 07/03/17 09:00 07/06/17 07:34 Singulair Tab* PO 10 mg DAILY FOUZIA Administration Omeprazole 20 mg 07/03/17 06:00 07/06/17 05:46 Prilosec Cap* PO 20 mg DAILY@0600 FOUZIA Administration Prazosin HCl 3 mg 07/02/17 21:00 07/05/17 20:11 Minipress Cap* PO 3 mg 2100 FOUZIA Administration Quetiapine Fumarate 400 mg 07/02/17 21:00 07/05/17 20:11 Seroquel Tab* PO 400 mg BEDTIME FOUZIA Administration Senna 2 tab 07/02/17 15:49 Senokot Tab* PO BEDTIME PRN CONSTIPATION Sertraline HCl 150 mg 07/03/17 09:00 07/06/17 07:35 Zoloft* PO 150 mg DAILY FOUZIA Administration Vital Signs: Vital Signs Temp Pulse Resp BP Pulse Ox 98.1 F 76 20 156/70 97 07/06/17 05:55 07/06/17 08:05 07/06/17 14:20 07/06/17 05:55 07/06/17 05:55 Lab Results: Laboratory Results - last 24 hr 07/06/17 06:16 Sodium 142 Potassium 3.7 Chloride 105 Carbon Dioxide 31 Anion Gap 6 BUN 11 Creatinine 0.87 Est GFR ( Amer) 79.6 Est GFR (Non-Af Amer) 61.9 BUN/Creatinine Ratio 12.6 Glucose 128 H Calcium 8.8 Exam: LUNGS: Good air movement, some basilar rales on left HEART: Reg rhythm ABDOMEN: Soft EXTREMITIES: Left foot wound clean NEUROLOGIC: alert, able to move 4 extremities, no focal weakness Assessment/Plan: 1. Left foot osteomyelitis, s/p removal of hardware: IV Vanco, day 13/14, then doxycycline, per Dr. Damon. PT/OT. Heel WB 2. COPD: Albuterol nebs/Asmanex 3. SOB: CTA of chest as noted. Improving after diuresis. 4. DVT Prophylaxis: Heparin S/Q 5. Advanced Directives: Has MOLST. DNR 6. Hypothyroidism: Synthroid 7. Anxiety: Xanax PRN/Seroquel/Zoloft 8. CHF: diuresis 9. HTN: add norvasc 07/06/17 15:54
[2017-07-06] MEDS: Atorvastatin* 10 MG TAB PO SCH (17:04)
[2017-07-06] MEDS: Mometasone 220 MCG MDI INH SCH (20:57)
[2017-07-06] MEDS: ALPRAZolam TAB* 0.25 MG PO SCH (21:00)
[2017-07-06] MEDS: Prazosin CAP* 1 MG PO SCH (21:02)
[2017-07-06] MEDS: QUEtiapine TAB* 100 MG PO SCH (21:02)
[2017-07-07] MEDS: Vancomycin(*) 750 MG in NS 0.9% 250 ML* 250 ML IVPB SCH (04:57)
[2017-07-07] MEDS: Omeprazole CAP* 20 MG PO SCH (05:17)
[2017-07-07] MEDS: Levothyroxine TAB* 75 MCG TAB PO SCH (05:18)
[2017-07-07] MEDS: Albuterol 2.5 MG/3 ML NEB.SOL* (0.083%) INH SCH ×2 (07:56→15:07)
[2017-07-07] MEDS: Docusate CAP* 100 MG PO SCH ×2 (08:46→22:03)
[2017-07-07] MEDS: amLODIPine TAB* 5 MG PO SCH (08:46)
[2017-07-07] MEDS: Heparin VIAL(*) 5000 UNITS/ML VIAL (FIVE THOUSAND) SUBCUT SCH ×2 (08:46→22:07)
[2017-07-07] MEDS: Montelukast Sodium TAB* 10 MG PO SCH (08:46)
[2017-07-07] MEDS: Furosemide TAB* 40 MG PO SCH (08:46)
[2017-07-07] MEDS: Lisinopril TAB* 10 MG PO SCH (08:46)
[2017-07-07] MEDS: Sertraline* 50 MG TAB PO SCH (08:46)
--- NOTE | 2017-07-07 12:38 | PN ---
Progress Note Date of Service: 07/07/17 Note: ANYA STAUFFER was visited. Therapy notes read and reviewed. She is finished with IV Vanco per Dr. Damon. Now on PO Doxycycline. Her breathing is slowly improving Current Medications: Active Medications Generic Name Dose Route Start Last Admin Trade Name Freq PRN Reason Stop Dose Admin Acetaminophen 650 mg 07/02/17 15:49 07/06/17 11:06 Tylenol Tab* PO 650 mg Q6H PRN Administration FEVER/PAIN Albuterol 2.5 mg 07/03/17 08:00 07/07/17 07:56 Ventolin 2.5 Mg/3 Ml Neb.Sridevi* INH 2.5 mg 0800,1600 FOUZIA Administration Albuterol 2.5 mg 07/02/17 16:27 07/04/17 21:24 Ventolin 2.5 Mg/3 Ml Neb.Sridevi* INH 2.5 mg Q4H PRN Administration SOB/WHEEZING Alprazolam 0.25 mg 07/02/17 21:00 07/06/17 21:00 Xanax Tab* PO 0.25 mg 2100 FOUZIA Administration Alprazolam 0.25 mg 07/02/17 19:51 07/06/17 11:07 Xanax Tab* PO 0.25 mg Q8H PRN Administration ANXIETY Amlodipine Besylate 5 mg 07/06/17 09:00 07/07/17 08:46 Norvasc Tab* PO 5 mg DAILY FOUZIA Administration Atorvastatin Calcium 10 mg 07/02/17 17:00 07/06/17 17:04 Lipitor* PO 10 mg 1700 FOUZIA Administration Docusate Sodium 100 mg 07/02/17 21:00 07/07/17 08:46 Colace Cap* PO 100 mg BID FOUZIA Administration Doxycycline Hyclate 100 mg 07/07/17 21:00 Vibramycin Cap(*) PO BID FOUZIA Estrogens Conjugated 0.5 applic 07/03/17 21:00 07/05/17 20:20 Premarin Vag Cream* VAGINAL 0.5 applic TuThSa@2100 FOUZIA Administration Furosemide 40 mg 07/05/17 09:00 07/07/17 08:46 Lasix Tab* PO 40 mg DAILY FOUZIA Administration Heparin Sodium (Porcine) 1 ml 07/03/17 06:00 07/07/17 06:40 Heparin Flush Picc/Ml/Cvc(*) FLUSH 1 ml 0600,1800 FOUZIA Administration Protocol Heparin Sodium (Porcine) 5,000 units 07/02/17 21:00 07/07/17 08:46 Heparin Vial(*) SUBCUT 5,000 units Q12HR FOUZIA Administration Levothyroxine Sodium 75 mcg 07/03/17 06:00 07/07/17 05:18 Synthroid Tab* PO 75 mcg MoTuWeThFrSa@0600 FOUZIA Administration Levothyroxine Sodium 150 mcg 07/08/17 06:00 Synthroid Tab* PO Rodriguez@0600 FOUZIA Lisinopril 10 mg 07/03/17 09:00 07/07/17 08:46 Prinivil Tab* PO 10 mg DAILY FOUZIA Administration Magnesium Hydroxide 30 ml 07/02/17 15:49 Milk Of Magnesia Liq* PO Q6H PRN CONSTIPATION Mometasone Furoate 2 puff 07/02/17 18:00 07/06/17 20:57 Asmanex 220 Mcg Mdi * INH 2 puff QPM FOUZIA Administration Montelukast Sodium 10 mg 07/03/17 09:00 07/07/17 08:46 Singulair Tab* PO 10 mg DAILY FOUZIA Administration Omeprazole 20 mg 07/03/17 06:00 07/07/17 05:17 Prilosec Cap* PO 20 mg DAILY@0600 FOUZIA Administration Prazosin HCl 3 mg 07/02/17 21:00 07/06/17 21:02 Minipress Cap* PO 3 mg 2100 FOUZIA Administration Quetiapine Fumarate 400 mg 07/02/17 21:00 07/06/17 21:02 Seroquel Tab* PO 400 mg BEDTIME FOUZIA Administration Senna 2 tab 07/02/17 15:49 Senokot Tab* PO BEDTIME PRN CONSTIPATION Sertraline HCl 150 mg 07/03/17 09:00 07/07/17 08:46 Zoloft* PO 150 mg DAILY FOUZIA Administration Vital Signs: Vital Signs Temp Pulse Resp BP Pulse Ox 97.8 F 80 17 160/57 97 07/07/17 05:20 07/07/17 07:58 07/07/17 08:00 07/07/17 05:20 07/07/17 08:00 Exam: LUNGS: Good air movement, some basilar rales on left HEART: Reg rhythm ABDOMEN: Soft EXTREMITIES: Left foot wound clean NEUROLOGIC: alert, able to move 4 extremities, no focal weakness Assessment/Plan: 1. Left foot osteomyelitis, s/p removal of hardware: Finished IV Vanco, now on doxycycline, per Dr. Damon. PT/OT. Heel WB 2. COPD: Albuterol nebs/Asmanex 3. SOB: CTA of chest as noted. Improving after diuresis. 4. DVT Prophylaxis: Heparin S/Q 5. Advanced Directives: Has MOLST. DNR 6. Hypothyroidism: Synthroid 7. Anxiety: Xanax PRN/Seroquel/Zoloft 8. CHF: diuresis 9. HTN: added norvasc 07/07/17 12:38
[2017-07-07] MEDS: Atorvastatin* 10 MG TAB PO SCH (17:07)
[2017-07-07] MEDS: Mometasone 220 MCG MDI INH SCH (17:40)
[2017-07-07] MEDS: Conjugated Estrogens VAG CM* 42.5 gm TUBE VAGINAL SCH (20:30)
[2017-07-07] MEDS: ALPRAZolam TAB* 0.25 MG PO SCH (22:03)
[2017-07-07] MEDS: Prazosin CAP* 1 MG PO SCH (22:04)
[2017-07-07] MEDS: DOXYcycline CAP(*) 100 MG PO SCH (22:04)
[2017-07-07] MEDS: QUEtiapine TAB* 100 MG PO SCH (22:05)
[2017-07-08] MEDS ORDERED: Levothyroxine TAB* 150 MCG TAB PO SCH (06:00)
[2017-07-08] MEDS: Omeprazole CAP* 20 MG PO SCH (06:19)
[2017-07-08] MEDS: Albuterol 2.5 MG/3 ML NEB.SOL* (0.083%) INH SCH ×2 (08:01→15:35)
--- NOTE | 2017-07-08 08:19 | PN ---
Progress Note Date of Service: 07/08/17 Note: ANYA STAUFFER was visited. Nursing notes read and reviewed. She is breathing a little easier. Current Medications: Active Medications Generic Name Dose Route Start Last Admin Trade Name Freq PRN Reason Stop Dose Admin Acetaminophen 650 mg 07/02/17 15:49 07/06/17 11:06 Tylenol Tab* PO 650 mg Q6H PRN Administration FEVER/PAIN Albuterol 2.5 mg 07/03/17 08:00 07/08/17 08:01 Ventolin 2.5 Mg/3 Ml Neb.Sridevi* INH 2.5 mg 0800,1600 FOUZIA Administration Albuterol 2.5 mg 07/02/17 16:27 07/04/17 21:24 Ventolin 2.5 Mg/3 Ml Neb.Sridevi* INH 2.5 mg Q4H PRN Administration SOB/WHEEZING Alprazolam 0.25 mg 07/02/17 21:00 07/07/17 22:03 Xanax Tab* PO 0.25 mg 2100 FOUZIA Administration Alprazolam 0.25 mg 07/02/17 19:51 07/06/17 11:07 Xanax Tab* PO 0.25 mg Q8H PRN Administration ANXIETY Amlodipine Besylate 5 mg 07/06/17 09:00 07/07/17 08:46 Norvasc Tab* PO 5 mg DAILY FOUZIA Administration Atorvastatin Calcium 10 mg 07/02/17 17:00 07/07/17 17:07 Lipitor* PO 10 mg 1700 FOUZIA Administration Docusate Sodium 100 mg 07/02/17 21:00 07/07/17 22:03 Colace Cap* PO 100 mg BID FOUZIA Administration Doxycycline Hyclate 100 mg 07/07/17 21:00 07/07/17 22:04 Vibramycin Cap(*) PO 100 mg BID FOUZIA Administration Estrogens Conjugated 0.5 applic 07/03/17 21:00 07/07/17 20:30 Premarin Vag Cream* VAGINAL 0.5 applic TuThSa@2100 FOUZIA Administration Furosemide 40 mg 07/05/17 09:00 07/07/17 08:46 Lasix Tab* PO 40 mg DAILY FOUZIA Administration Heparin Sodium (Porcine) 1 ml 07/03/17 06:00 07/08/17 06:20 Heparin Flush Picc/Ml/Cvc(*) FLUSH 1 ml 0600,1800 FOUZIA Administration Protocol Heparin Sodium (Porcine) 5,000 units 07/02/17 21:00 07/07/17 22:07 Heparin Vial(*) SUBCUT 5,000 units Q12HR FOUZIA Administration Levothyroxine Sodium 75 mcg 07/03/17 06:00 07/07/17 05:18 Synthroid Tab* PO 75 mcg MoTuWeThFrSa@0600 FOUZIA Administration Levothyroxine Sodium 150 mcg 07/08/17 06:00 07/08/17 06:19 Synthroid Tab* PO 150 mcg Rodriguez@0600 FOUZIA Administration Lisinopril 10 mg 07/03/17 09:00 07/07/17 08:46 Prinivil Tab* PO 10 mg DAILY FOUZIA Administration Magnesium Hydroxide 30 ml 07/02/17 15:49 Milk Of Magnesia Liq* PO Q6H PRN CONSTIPATION Mometasone Furoate 2 puff 07/02/17 18:00 07/07/17 17:40 Asmanex 220 Mcg Mdi * INH 2 puff QPM FOUZIA Administration Montelukast Sodium 10 mg 07/03/17 09:00 07/07/17 08:46 Singulair Tab* PO 10 mg DAILY FOUZIA Administration Omeprazole 20 mg 07/03/17 06:00 07/08/17 06:19 Prilosec Cap* PO 20 mg DAILY@0600 FOUZIA Administration Prazosin HCl 3 mg 07/02/17 21:00 07/07/17 22:04 Minipress Cap* PO 3 mg 2100 FOUZIA Administration Quetiapine Fumarate 400 mg 07/02/17 21:00 07/07/17 22:05 Seroquel Tab* PO 400 mg BEDTIME FOUZIA Administration Senna 2 tab 07/02/17 15:49 Senokot Tab* PO BEDTIME PRN CONSTIPATION Sertraline HCl 150 mg 07/03/17 09:00 07/07/17 08:46 Zoloft* PO 150 mg DAILY FOUZIA Administration Vital Signs: Vital Signs Temp Pulse Resp BP Pulse Ox 98.5 F 80 14 146/62 95 07/08/17 06:27 07/08/17 08:02 07/08/17 08:02 07/08/17 06:37 07/08/17 08:02 Exam: LUNGS: Good air movement, some basilar rales on left HEART: Reg rhythm ABDOMEN: Soft EXTREMITIES: Left foot wound clean NEUROLOGIC: alert, able to move 4 extremities, no focal weakness Assessment/Plan: 1. Left foot osteomyelitis, s/p removal of hardware: On doxycycline, per Dr. Damon. PT/OT. Heel WB 2. COPD: Albuterol nebs/Asmanex 3. SOB: CTA of chest as noted. Improving after diuresis. 4. DVT Prophylaxis: Heparin S/Q 5. Advanced Directives: Has MOLST. DNR 6. Hypothyroidism: Synthroid 7. Anxiety: Xanax PRN/Seroquel/Zoloft 8. CHF: diuresis 9. HTN: added norvasc 07/08/17 08:20
[2017-07-08] MEDS: DOXYcycline CAP(*) 100 MG PO SCH ×2 (09:16→21:24)
[2017-07-08] MEDS: Sertraline* 50 MG TAB PO SCH (09:16)
[2017-07-08] MEDS: Montelukast Sodium TAB* 10 MG PO SCH (09:16)
[2017-07-08] MEDS: Docusate CAP* 100 MG PO SCH ×2 (09:16→21:24)
[2017-07-08] MEDS: Lisinopril TAB* 10 MG PO SCH (09:16)
[2017-07-08] MEDS: amLODIPine TAB* 5 MG PO SCH (09:16)
[2017-07-08] MEDS: Furosemide TAB* 40 MG PO SCH (09:16)
[2017-07-08] MEDS: Heparin VIAL(*) 5000 UNITS/ML VIAL (FIVE THOUSAND) SUBCUT SCH ×2 (09:22→21:25)
[2017-07-08] MEDS: Atorvastatin* 10 MG TAB PO SCH (16:56)
[2017-07-08] MEDS: Mometasone 220 MCG MDI INH SCH (17:46)
[2017-07-08] MEDS: QUEtiapine TAB* 100 MG PO SCH (21:22)
[2017-07-08] MEDS: ALPRAZolam TAB* 0.25 MG PO SCH (21:23)
[2017-07-08] MEDS: Prazosin CAP* 1 MG PO SCH (21:24)
[2017-07-09] MEDS: Levothyroxine TAB* 75 MCG TAB PO SCH (05:32)
[2017-07-09] MEDS: Omeprazole CAP* 20 MG PO SCH (05:32)
[2017-07-09] MEDS: Docusate CAP* 100 MG PO SCH ×2 (08:50→20:18)
[2017-07-09] MEDS: Furosemide TAB* 40 MG PO SCH (08:50)
[2017-07-09] MEDS: amLODIPine TAB* 5 MG PO SCH (08:50)
[2017-07-09] MEDS: DOXYcycline CAP(*) 100 MG PO SCH ×2 (08:50→20:17)
[2017-07-09] MEDS: Lisinopril TAB* 10 MG PO SCH (08:50)
[2017-07-09] MEDS: Montelukast Sodium TAB* 10 MG PO SCH (08:50)
[2017-07-09] MEDS: Sertraline* 50 MG TAB PO SCH (08:50)
[2017-07-09] MEDS: Heparin VIAL(*) 5000 UNITS/ML VIAL (FIVE THOUSAND) SUBCUT SCH ×2 (08:50→20:22)
[2017-07-09] MEDS: Albuterol 2.5 MG/3 ML NEB.SOL* (0.083%) INH SCH ×2 (09:05→15:45)
--- NOTE | 2017-07-09 16:51 | PN ---
Progress Note Date of Service: 07/09/17 Note: ANYA STAUFFER was visited. Therapy notes read and reviewed. She seems to be breathing well. She feels pretty good. Current Medications: Active Medications Generic Name Dose Route Start Last Admin Trade Name Freq PRN Reason Stop Dose Admin Acetaminophen 650 mg 07/02/17 15:49 07/06/17 11:06 Tylenol Tab* PO 650 mg Q6H PRN Administration FEVER/PAIN Albuterol 2.5 mg 07/03/17 08:00 07/09/17 15:45 Ventolin 2.5 Mg/3 Ml Neb.Sridevi* INH 2.5 mg 0800,1600 FOUZIA Administration Albuterol 2.5 mg 07/02/17 16:27 07/04/17 21:24 Ventolin 2.5 Mg/3 Ml Neb.Sridevi* INH 2.5 mg Q4H PRN Administration SOB/WHEEZING Alprazolam 0.25 mg 07/02/17 21:00 07/08/17 21:23 Xanax Tab* PO 0.25 mg 2100 FOUZIA Administration Alprazolam 0.25 mg 07/02/17 19:51 07/06/17 11:07 Xanax Tab* PO 0.25 mg Q8H PRN Administration ANXIETY Amlodipine Besylate 5 mg 07/06/17 09:00 07/09/17 08:50 Norvasc Tab* PO 5 mg DAILY FOUZIA Administration Atorvastatin Calcium 10 mg 07/02/17 17:00 07/08/17 16:56 Lipitor* PO 10 mg 1700 FOUZIA Administration Docusate Sodium 100 mg 07/02/17 21:00 07/09/17 08:50 Colace Cap* PO 100 mg BID FOZUIA Administration Doxycycline Hyclate 100 mg 07/07/17 21:00 07/09/17 08:50 Vibramycin Cap(*) PO 100 mg BID FOUZIA Administration Estrogens Conjugated 0.5 applic 07/03/17 21:00 07/07/17 20:30 Premarin Vag Cream* VAGINAL 0.5 applic TuThSa@2100 FOUZIA Administration Furosemide 40 mg 07/05/17 09:00 07/09/17 08:50 Lasix Tab* PO 40 mg DAILY FOUZIA Administration Heparin Sodium (Porcine) 1 ml 07/03/17 06:00 07/09/17 05:32 Heparin Flush Picc/Ml/Cvc(*) FLUSH 1 ml 0600,1800 FOUZIA Administration Protocol Heparin Sodium (Porcine) 5,000 units 07/02/17 21:00 07/09/17 08:50 Heparin Vial(*) SUBCUT 5,000 units Q12HR FOUZIA Administration Levothyroxine Sodium 75 mcg 07/03/17 06:00 07/09/17 05:32 Synthroid Tab* PO 75 mcg MoTuWeThFrSa@0600 FOUZIA Administration Levothyroxine Sodium 150 mcg 07/08/17 06:00 07/08/17 06:19 Synthroid Tab* PO 150 mcg Rodriguez@0600 FOUZIA Administration Lisinopril 10 mg 07/03/17 09:00 07/09/17 08:50 Prinivil Tab* PO 10 mg DAILY FOUZIA Administration Magnesium Hydroxide 30 ml 07/02/17 15:49 Milk Of Magnesia Liq* PO Q6H PRN CONSTIPATION Mometasone Furoate 2 puff 07/02/17 18:00 07/08/17 17:46 Asmanex 220 Mcg Mdi * INH 2 puff QPM FOUZIA Administration Montelukast Sodium 10 mg 07/03/17 09:00 07/09/17 08:50 Singulair Tab* PO 10 mg DAILY FOUZIA Administration Omeprazole 20 mg 07/03/17 06:00 07/09/17 05:32 Prilosec Cap* PO 20 mg DAILY@0600 FOUZIA Administration Prazosin HCl 3 mg 07/02/17 21:00 07/08/17 21:24 Minipress Cap* PO 3 mg 2100 FOUZIA Administration Quetiapine Fumarate 400 mg 07/02/17 21:00 07/08/17 21:22 Seroquel Tab* PO 400 mg BEDTIME FOUZIA Administration Senna 2 tab 07/02/17 15:49 Senokot Tab* PO BEDTIME PRN CONSTIPATION Sertraline HCl 150 mg 07/03/17 09:00 07/09/17 08:50 Zoloft* PO 150 mg DAILY FOUZIA Administration Vital Signs: Vital Signs Temp Pulse Resp BP Pulse Ox 98.0 F 68 24 136/62 97 07/09/17 16:19 07/09/17 16:19 07/09/17 16:19 07/09/17 16:19 07/09/17 16:19 Exam: LUNGS: Good air movement, some basilar rales on left HEART: Reg rhythm ABDOMEN: Soft EXTREMITIES: Left foot wound clean NEUROLOGIC: alert, able to move 4 extremities, no focal weakness Assessment/Plan: 1. Left foot osteomyelitis, s/p removal of hardware: On doxycycline, per Dr. Damon. PT/OT. Heel WB 2. COPD: Albuterol nebs/Asmanex 3. SOB: CTA of chest as noted. Improving after diuresis. 4. DVT Prophylaxis: Heparin S/Q 5. Advanced Directives: Has MOLST. DNR 6. Hypothyroidism: Synthroid 7. Anxiety: Xanax PRN/Seroquel/Zoloft 8. CHF: diuresis 9. HTN: added norvasc 07/09/17 16:52
[2017-07-09] MEDS: Atorvastatin* 10 MG TAB PO SCH (17:27)
[2017-07-09] MEDS: Mometasone 220 MCG MDI INH SCH (19:01)
[2017-07-09] MEDS: QUEtiapine TAB* 100 MG PO SCH (20:17)
[2017-07-09] MEDS: Prazosin CAP* 1 MG PO SCH (20:17)
[2017-07-10] MEDS: Omeprazole CAP* 20 MG PO SCH (05:48)
[2017-07-10] MEDS: Levothyroxine TAB* 75 MCG TAB PO SCH (05:48)
[2017-07-10] MEDS: Albuterol 2.5 MG/3 ML NEB.SOL* (0.083%) INH SCH ×2 (08:21→15:01)
[2017-07-10] MEDS: Furosemide TAB* 40 MG PO SCH (08:34)
[2017-07-10] MEDS: Heparin VIAL(*) 5000 UNITS/ML VIAL (FIVE THOUSAND) SUBCUT SCH ×2 (08:34→20:25)
[2017-07-10] MEDS: amLODIPine TAB* 5 MG PO SCH (08:34)
[2017-07-10] MEDS: Docusate CAP* 100 MG PO SCH ×2 (08:34→20:26)
[2017-07-10] MEDS: DOXYcycline CAP(*) 100 MG PO SCH ×2 (08:34→20:25)
[2017-07-10] MEDS: Montelukast Sodium TAB* 10 MG PO SCH (08:35)
[2017-07-10] MEDS: Lisinopril TAB* 10 MG PO SCH (08:35)
[2017-07-10] MEDS: Sertraline* 50 MG TAB PO SCH (08:35)
--- NOTE | 2017-07-10 12:35 | PMRUTEAM ---
PMRU: Team Meeting Current Status: Nursing: Current Status Skin Deviations [Left Lower Incision Foot] Skin Deviations [Bilateral Other Foot] Skin Deviation Description [ drsg in place, healing well, sutures in place Left Lower Foot] Skin Deviation Description [ dusky Bilateral Foot] Bladder Current Status voiding Bowel Current Status last bm 07/09 Nutrition Current Status adequate Medication Current Status needs reinforcement Physical Therapy: Current Status Bed Mobility Assistance Supervision Transfer Moblility Assistance Supervision Transfer/Bed Mobility Rolling Walker Recommended Devices Ambulation Assistance Supervision Ambulation Assistive Devices Rolling Walker Number of Feet Patient 150' Ambulated Stairs Assistance Supervision Stairs Recommended Devices Two Rails Number of Stairs 5 Curb Not Tested Occupational Therapy: Current Status Upper Body Dressing Supervision Lower Body Dressing Min Assist Bathing Contact Guard Assist Toileting Min Assist Toilet Transfer Contact Guard Assist Shower Transfer Contact Guard Assist Eating Ind with Adaptive Equip Rec Therapy: Current Status Summary of Assessment and Pt. has been bright and engaged in leisure Clinical Impression sessions on the unit. Pt. enjoys watching TV and working on word puzzles in the afternoons. Treatment Goals Pt. will engage in leisure activities while on the unit. Treatment Plan Encourage involvement in RT services while on the unit. Social Work: Current Status Discharge Plan return home with home care svs Potential for Family Training n/a Anticipated Discharge Home Destination Discharge With home care svs from [facility] Nutrition: Current Status Monitoring Pt on regular diet, continues to eat well (75-100 % of meals). Regular BMs (last BM 07/09). No skin breakdown per nursing assessments. No new labs since last note. Initial goals as outlined below; will follow and provide initial nutrition assessment per protocol (07/12). Goals: Physical Therapy: Initial Goals Bed Mobility Assistance Independent Transfer Mobility Assistance Independent Transfer/Bed Mobility Rolling Walker Recommended Devices Ambulation Independent Ambulation Recommended Devices Rolling Walker Ambulation Distance 150 Stairs Assistance Independent Stair Recommended Devices Two Rails Number of Stairs 5 Physical Therapy: Updated Goals Bed Mobility Assistance Independent Transfer Mobility Assistance Independent Transfer/Bed Mobility Rolling Walker Recommended Devices Ambulation Assistance Independent Ambulation Assistive Devices Rolling Walker Ambulation Distance (ft) 150 Stairs Assistance Independent Stairs Recommended Devices Two Rails Number of Stairs 5 Occupational Therapy: Initial Goals Goals to be Completed in (Days 7-10 ) Upper Body Bathing Routine Independent Lower Body Bathing Routine Modified Independent with Upper Body Dressing Routine Independent Lower Body Dressing Routine Modified Independent with Toilet Hygeine and Clothing Modified Independent with Management Routine Toilet Transfer Routine Modified Independent with Step-In Shower Transfer Supervision/Set Up Routine Functional Transfers for ADL Modified Independent with Grooming Routine Independent Feeding Routine Independent Nursing: Goals Bladder Goal independent Bowel Goal independent Nutrition Goal 100% of all meals Medication Goal independent Nutrition: Goals Intervention Goals 1. adequate po intake to maintain stable wt, hydration, and lean body mass 2. maintain regular bowel pattern without c/o constipation or diarrhea 3. skin integrity will be maintained without evidence of breakdown Social Work: Goals Discharge Plan return home with home care svs Potential for Family Training n/a Anticipated Discharge Home Destination Discharge With home care svs from [facility] Care Plan: Care Plan ADL's - Improve/Maintain Start: 07/03/17 12:00 Freq: DAILY@1200 Status: Active Target: Protocol: Activity Type Activity Date Activity User E-Sign Co-Sign Detail Recorded Client Recorded Date Recorded By Document 07/09/17 14:27 [id number] [id number] 07/09/17 14:27 [id number] 07/09/17 14:27 PMRU Outcome: ADL's/ADL Transfers Orders/Interventions Occupational Therapy Evaluation & Treatment Communication Tool in Patient Room Patient to receive OT 5x/wk for 60-120 Therex min/day Self Care Management Group Therapy UE/LE ADL's with Assist Yes: mod I ADL Transfers with Assist Yes: mod I Toileting: Transfers,Clothing Management Yes: mod I ,Hygeine w/Assist Light Kitchen/Laundry w/Assist Yes Progression Toward Outcome/Goals Progressing Outcome/Goals Met Pt made notable gains with LB dressing and bathing today. Endurance improving slightly. [ End ] Cardiovascular- Improve/Maintain Start: 07/02/17 18:15 Freq: DAILY@1200 Status: Active Target: Protocol: Activity Type Activity Date Activity User E-Sign Co-Sign Detail Recorded Client Recorded Date Recorded By Document 07/09/17 23:39 [id number] [id number] 07/09/17 23:39 [id number] 07/09/17 23:39 PMRU Outcome: Cardiovascular Vital Signs q Shift for 48hrs Then BID Yes Daily Weight Ordered No Current Cardiovascular Outcome/Goal Maintain/ Achieve Baseline HR, BP , Perfusion Free of Abnormal Cardiac Symptoms Progression Toward Outcome/Goal Progressing Discharge Planning - Improve/Maintain Start: 07/02/17 18:15 Freq: DAILY@1200 Status: Active Target: Protocol: Activity Type Activity Date Activity User E-Sign Co-Sign Detail Recorded Client Recorded Date Recorded By Document 07/08/17 19:37 [id number] [email or web address] 07/08/17 19:38 [id number] 07/08/17 19:37 PMRU Outcome: Discharge Planning Update Patient Family No Outcome/Goals Demonstrates Understanding of Discharge Plan Progression Toward Outcome/Goals Progressing /GI-Improve/Maintain Start: 07/02/17 18:15 Freq: DAILY@1200 Status: Active Target: Protocol: Activity Type Activity Date Activity User E-Sign Co-Sign Detail Recorded Client Recorded Date Recorded By Document 07/09/17 23:39 [id number] [email or web address] 07/09/17 23:39 [id number] 07/09/17 23:39 PMRU Outcome: Genitourinary/ Gastrointestinal Genitourinary- Outcome/Goals Remain Free of Hospital- Acquired UTI Gastrointestinal-Outcome/Goals Maintain/ Achieve Bowel Regularity in Accordance with Pt's Baseline Prevent Constipation Laxatives as Ordered Progression Toward Outcome/Goals - Progressing Progression Toward Outcome/Goals - GI Progressing Mobility- Improve/Maintain Start: 07/02/17 18:15 Freq: DAILY@1200 Status: Active Target: Protocol: Activity Type Activity Date Activity User E-Sign Co-Sign Detail Recorded Client Recorded Date Recorded By Document 07/07/17 18:00 [id number] [email or web address] 07/08/17 09:55 [id number] 07/07/17 18:00 PMRU Outcome: Mobility Physical Therapy Evaluation and Yes Treatment Activity OOB with Assistance Yes WBAT Yes Device Yes Assistance Yes Patient to be seen 5x/wk for 60-120 min/ Therex day for: Mobility Training Gait Training Balance Outcome/Goals Maintain/ Achieve Baseline Mobility Status Improve Mobility Status Demonstrates Proper Use of Assistive Devices Free from Complications of Immobility Progression Toward Outcome/Goals Progressing Bed Mobility Yes: independent Transfers Yes: independent with rolling walker Gait x ft Yes: independent with rolling walker 150' Up/Down Stairs Yes: independent up/ down 5 stairs Neurological- Improve/Maintain Start: 07/02/17 18:15 Freq: DAILY@1200 Status: Active Target: Protocol: Activity Type Activity Date Activity User E-Sign Co-Sign Detail Recorded Client Recorded Date Recorded By Document 07/09/17 23:39 [id number] [id number] 07/09/17 23:39 [id number] 07/09/17 23:39 PMRU Outcome: Neurological Weakness/Aphasia Weakness Left Side Outcome/Goals Maintain/ Achieve Baseline Neurological Status Maintain/ Improve Strength/ROM Progression Toward Outcome/Goals Progressing Respiratory - Improve/Maintain Start: 07/02/17 18:15 Freq: DAILY@1200 Status: Active Target: Protocol: Activity Type Activity Date Activity User E-Sign Co-Sign Detail Recorded Client Recorded Date Recorded By Document 07/09/17 23:39 [id number] [email or web address] 07/09/17 23:39 [id number] 07/09/17 23:39 PMRU Outcome: Respiratory Does Patient Have a Trach No Outcome/Goals Maintain/ Improve O2 Sat per MD Order Maintain/ Improve Baseline Respiratory Status Maintain/ Improve Activity Tolerance Prevent Pneumonia/ Atelectasis Progression Toward Outcome/Goals Progressing Safety- Improve/Maintain Start: 07/02/17 18:15 Freq: DAILY@1200 Status: Complete Target: Protocol: Activity Type Activity Date Activity User E-Sign Co-Sign Detail Recorded Client Recorded Date Recorded By Document 07/06/17 09:32 [id number] [id number] 07/06/17 09:33 [id number] 07/06/17 09:32 PMRU Outcome: Safety Outcome/Goals Remain Free of Injury or Harm Prevent Falls/ Injury Progression Toward Outcome/Goals Progressing Outcome/Goals Met Remain Free of Injury or Harm Medicine Note: Length of Stay: 3 days Anticipated Discharge Destination: Home Tentative Discharge Date: 07/13/17 Discharged to: home
--- NOTE | 2017-07-10 16:25 | PN ---
Progress Note Date of Service: 07/10/17 Note: ANYA STAUFFER was visited. Therapy notes read and reviewed. She was discussed in interdisicplinary team rounds. Breathing better. Will check on whether she needs home oxygen Current Medications: Active Medications Generic Name Dose Route Start Last Admin Trade Name Freq PRN Reason Stop Dose Admin Acetaminophen 650 mg 07/02/17 15:49 07/06/17 11:06 Tylenol Tab* PO 650 mg Q6H PRN Administration FEVER/PAIN Albuterol 2.5 mg 07/03/17 08:00 07/10/17 15:01 Ventolin 2.5 Mg/3 Ml Neb.Sridevi* INH 2.5 mg 0800,1600 FOUZIA Administration Albuterol 2.5 mg 07/02/17 16:27 07/04/17 21:24 Ventolin 2.5 Mg/3 Ml Neb.Sridevi* INH 2.5 mg Q4H PRN Administration SOB/WHEEZING Amlodipine Besylate 5 mg 07/06/17 09:00 07/10/17 08:34 Norvasc Tab* PO 5 mg DAILY FOUZIA Administration Atorvastatin Calcium 10 mg 07/02/17 17:00 07/09/17 17:27 Lipitor* PO 10 mg 1700 FOUZIA Administration Docusate Sodium 100 mg 07/02/17 21:00 07/10/17 08:34 Colace Cap* PO 100 mg BID FOUZIA Administration Doxycycline Hyclate 100 mg 07/07/17 21:00 07/10/17 08:34 Vibramycin Cap(*) PO 100 mg BID FOUZIA Administration Estrogens Conjugated 0.5 applic 07/03/17 21:00 07/07/17 20:30 Premarin Vag Cream* VAGINAL 0.5 applic TuThSa@2100 FOUZIA Administration Furosemide 40 mg 07/05/17 09:00 07/10/17 08:34 Lasix Tab* PO 40 mg DAILY FOUZIA Administration Heparin Sodium (Porcine) 1 ml 07/03/17 06:00 07/10/17 05:48 Heparin Flush Picc/Ml/Cvc(*) FLUSH 1 ml 0600,1800 FOUZIA Administration Protocol Heparin Sodium (Porcine) 5,000 units 07/02/17 21:00 07/10/17 08:34 Heparin Vial(*) SUBCUT 5,000 units Q12HR FOUZIA Administration Levothyroxine Sodium 75 mcg 07/03/17 06:00 07/10/17 05:48 Synthroid Tab* PO 75 mcg MoTuWeThFrSa@0600 FOUZIA Administration Levothyroxine Sodium 150 mcg 07/08/17 06:00 07/08/17 06:19 Synthroid Tab* PO 150 mcg Rodriguez@0600 FOUZIA Administration Lisinopril 10 mg 07/03/17 09:00 07/10/17 08:35 Prinivil Tab* PO 10 mg DAILY FOUZIA Administration Magnesium Hydroxide 30 ml 07/02/17 15:49 Milk Of Magnesia Liq* PO Q6H PRN CONSTIPATION Mometasone Furoate 2 puff 07/02/17 18:00 07/09/17 19:01 Asmanex 220 Mcg Mdi * INH 2 puff QPM FOUZIA Administration Montelukast Sodium 10 mg 07/03/17 09:00 07/10/17 08:35 Singulair Tab* PO 10 mg DAILY FOUZIA Administration Omeprazole 20 mg 07/03/17 06:00 07/10/17 05:48 Prilosec Cap* PO 20 mg DAILY@0600 FOUZIA Administration Prazosin HCl 3 mg 07/02/17 21:00 07/09/17 20:17 Minipress Cap* PO 3 mg 2100 FOUZIA Administration Quetiapine Fumarate 400 mg 07/02/17 21:00 07/09/17 20:17 Seroquel Tab* PO 400 mg BEDTIME FOUZIA Administration Senna 2 tab 07/02/17 15:49 Senokot Tab* PO BEDTIME PRN CONSTIPATION Sertraline HCl 150 mg 07/03/17 09:00 07/10/17 08:35 Zoloft* PO 150 mg DAILY OFUZIA Administration Vital Signs: Vital Signs Temp Pulse Resp BP Pulse Ox 98.1 F 75 28 138/55 91 07/10/17 16:12 07/10/17 16:12 07/10/17 16:12 07/10/17 16:12 07/10/17 16:12 Exam: LUNGS: Good air movement, some basilar rales on left HEART: Reg rhythm ABDOMEN: Soft EXTREMITIES: Left foot wound clean NEUROLOGIC: alert, able to move 4 extremities, no focal weakness Assessment/Plan: 1. Left foot osteomyelitis, s/p removal of hardware: On doxycycline, per Dr. Damon. PT/OT. Heel WB 2. COPD: Albuterol nebs/Asmanex 3. SOB: CTA of chest as noted. Improving after diuresis. 4. DVT Prophylaxis: Heparin S/Q 5. Advanced Directives: Has MOLST. DNR 6. Hypothyroidism: Synthroid 7. Anxiety: Xanax PRN/Seroquel/Zoloft 8. CHF: diuresis 9. HTN: added norvasc 07/10/17 16:25
[2017-07-10] MEDS: Atorvastatin* 10 MG TAB PO SCH (17:00)
[2017-07-10] MEDS: Mometasone 220 MCG MDI INH SCH (17:14)
[2017-07-10] MEDS: Conjugated Estrogens VAG CM* 42.5 gm TUBE VAGINAL SCH (20:25)
[2017-07-10] MEDS: Prazosin CAP* 1 MG PO SCH (20:25)
[2017-07-10] MEDS: QUEtiapine TAB* 100 MG PO SCH (20:26)
[2017-07-11] MEDS: Omeprazole CAP* 20 MG PO SCH (06:01)
[2017-07-11] MEDS: Levothyroxine TAB* 75 MCG TAB PO SCH (06:02)
[2017-07-11 06:45] LABS: ABS Basophils 0 10^3/ul (0-0.2); ABS Eosinophils 0.3 10^3/ul (0-0.6); ABS Lymphocytes 1.8 10^3/ul (1.0-4.8); ABS Monocytes 0.7 10^3/ul (0-0.8); ABS Neutrophils 5.3 10^3/ul (1.5-7.7); ABS Nucleated RBC 0 10^3/ul; Eosinophil % 3.5 % (0-6); Hematocrit 37 % (35-47); Hemoglobin 12.3 g/dl (12.0-16.0); Lymphocyte % 22.2 % (25-47); Mean Corpuscular HGB Conc 33 g/dl (31-36); Mean Corpuscular Hemoglobin 30 pg (27-31); Mean Corpuscular Volume 89 fL (80-97); Nucleated Red Blood Cells % 0; Platelet Count 247 10^3/ul (150-450); Red Blood Count 4.14 10^6/ul (4.0-5.4); Red Cell Distribution Width 15 % (10.5-15); White Blood Count 8.1 10^3/ul (3.5-10.8)
[2017-07-11 07:03] LABS: EGFR Non-African American 50.4 (>60)
[2017-07-11] MEDS: DOXYcycline CAP(*) 100 MG PO SCH ×2 (08:28→20:59)
[2017-07-11] MEDS: Sertraline* 50 MG TAB PO SCH (08:28)
[2017-07-11] MEDS: Lisinopril TAB* 10 MG PO SCH (08:28)
[2017-07-11] MEDS: Heparin VIAL(*) 5000 UNITS/ML VIAL (FIVE THOUSAND) SUBCUT SCH ×2 (08:28→21:00)
[2017-07-11] MEDS: amLODIPine TAB* 5 MG PO SCH (08:28)
[2017-07-11] MEDS: Docusate CAP* 100 MG PO SCH ×2 (08:28→20:59)
[2017-07-11] MEDS: Montelukast Sodium TAB* 10 MG PO SCH (08:28)
[2017-07-11] MEDS: Furosemide TAB* 40 MG PO SCH (08:28)
[2017-07-11] MEDS: Albuterol 2.5 MG/3 ML NEB.SOL* (0.083%) INH SCH ×2 (09:03→17:21)
[2017-07-11] MEDS ORDERED: ALPRAZolam TAB* 0.25 MG PO PRN (15:16)
[2017-07-11] MEDS: Mometasone 220 MCG MDI INH SCH (16:45)
[2017-07-11] MEDS: Atorvastatin* 10 MG TAB PO SCH (17:04)
[2017-07-11] MEDS: Albuterol 2.5 MG/3 ML NEB.SOL* (0.083%) INH PRN (17:24)
--- NOTE | 2017-07-11 18:07 | PN ---
Progress Note Date of Service: 07/11/17 Note: ANYA STAUFFER was visited. Therapy notes read and reviewed. She wishes to go home tomorrow. I spoke with therapists and they think she is ready. She is off oxygen. BUN/Cr rising and will stop Lasix Current Medications: Active Medications Generic Name Dose Route Start Last Admin Trade Name Freq PRN Reason Stop Dose Admin Acetaminophen 650 mg 07/02/17 15:49 07/06/17 11:06 Tylenol Tab* PO 650 mg Q6H PRN Administration FEVER/PAIN Albuterol 2.5 mg 07/03/17 08:00 07/11/17 17:21 Ventolin 2.5 Mg/3 Ml Neb.Sridevi* INH Not Given 0800,1600 FOUZIA Albuterol 2.5 mg 07/02/17 16:27 07/11/17 17:24 Ventolin 2.5 Mg/3 Ml Neb.Sridevi* INH 2.5 mg Q4H PRN Administration SOB/WHEEZING Alprazolam 0.25 mg 07/11/17 15:16 07/11/17 15:35 Xanax Tab* PO 0.25 mg Q8H PRN Administration ANXIETY Amlodipine Besylate 5 mg 07/06/17 09:00 07/11/17 08:28 Norvasc Tab* PO 5 mg DAILY FOUZIA Administration Atorvastatin Calcium 10 mg 07/02/17 17:00 07/11/17 17:04 Lipitor* PO 10 mg 1700 FOUZIA Administration Docusate Sodium 100 mg 07/02/17 21:00 07/11/17 08:28 Colace Cap* PO 100 mg BID FOUZIA Administration Doxycycline Hyclate 100 mg 07/07/17 21:00 07/11/17 08:28 Vibramycin Cap(*) PO 100 mg BID FOUZIA Administration Estrogens Conjugated 0.5 applic 07/03/17 21:00 07/10/17 20:25 Premarin Vag Cream* VAGINAL 0.5 applic TuThSa@2100 FOUZIA Administration Heparin Sodium (Porcine) 1 ml 07/03/17 06:00 07/11/17 06:01 Heparin Flush Picc/Ml/Cvc(*) FLUSH 1 ml 0600,1800 FOUZIA Administration Protocol Heparin Sodium (Porcine) 5,000 units 07/02/17 21:00 07/11/17 08:28 Heparin Vial(*) SUBCUT 5,000 units Q12HR FOUZIA Administration Levothyroxine Sodium 75 mcg 07/03/17 06:00 07/11/17 06:02 Synthroid Tab* PO 75 mcg MoTuWeThFrSa@0600 FOUZIA Administration Levothyroxine Sodium 150 mcg 07/08/17 06:00 07/08/17 06:19 Synthroid Tab* PO 150 mcg Rodriguez@0600 FOUZIA Administration Lisinopril 10 mg 07/03/17 09:00 07/11/17 08:28 Prinivil Tab* PO 10 mg DAILY FOUZIA Administration Magnesium Hydroxide 30 ml 07/02/17 15:49 Milk Of Magnesia Liq* PO Q6H PRN CONSTIPATION Mometasone Furoate 2 puff 07/02/17 18:00 07/11/17 16:45 Asmanex 220 Mcg Mdi * INH 2 puff QPM FOUZIA Administration Montelukast Sodium 10 mg 07/03/17 09:00 07/11/17 08:28 Singulair Tab* PO 10 mg DAILY FOUZIA Administration Omeprazole 20 mg 07/03/17 06:00 07/11/17 06:01 Prilosec Cap* PO 20 mg DAILY@0600 FOUZIA Administration Prazosin HCl 3 mg 07/02/17 21:00 07/10/17 20:25 Minipress Cap* PO 3 mg 2100 FOUZIA Administration Quetiapine Fumarate 400 mg 07/02/17 21:00 07/10/17 20:26 Seroquel Tab* PO 400 mg BEDTIME FOUZIA Administration Senna 2 tab 07/02/17 15:49 Senokot Tab* PO BEDTIME PRN CONSTIPATION Sertraline HCl 150 mg 07/03/17 09:00 07/11/17 08:28 Zoloft* PO 150 mg DAILY FOUZIA Administration Vital Signs: Vital Signs Temp Pulse Resp BP Pulse Ox 98.2 F 79 24 136/60 98 07/11/17 15:00 07/11/17 15:00 07/11/17 15:35 07/11/17 15:00 07/11/17 16:00 Lab Results: Laboratory Results - last 24 hr 07/11/17 07/11/17 06:27 06:27 WBC 8.1 RBC 4.14 Hgb 12.3 Hct 37 MCV 89 MCH 30 MCHC 33 RDW 15 Plt Count 247 MPV 9.0 Neut % (Auto) 65.8 Lymph % (Auto) 22.2 L [place] % (Auto) 8.2 H Eos % (Auto) 3.5 Baso % (Auto) 0.3 Absolute Neuts (auto) 5.3 Absolute Lymphs (auto) 1.8 Absolute Monos (auto) 0.7 Absolute Eos (auto) 0.3 Absolute Basos (auto) 0 Absolute Nucleated RBC 0 Nucleated RBC % 0 Sodium 142 Potassium 4.2 Chloride 105 Carbon Dioxide 28 Anion Gap 9 BUN 29 H Creatinine 1.04 H Est GFR ( Amer) 64.8 Est GFR (Non-Af Amer) 50.4 BUN/Creatinine Ratio 27.9 H Glucose 124 H Calcium 9.4 Total Bilirubin 0.30 AST 23 ALT 27 Alkaline Phosphatase 94 Total Protein 7.2 Albumin 4.0 Globulin 3.2 Albumin/Globulin Ratio 1.3 Exam: LUNGS: Clear HEART: Reg rhythm ABDOMEN: Soft EXTREMITIES: Left foot wound clean NEUROLOGIC: alert, able to move 4 extremities, no focal weakness Assessment/Plan: 1. Left foot osteomyelitis, s/p removal of hardware: On doxycycline, per Dr. Damon. PT/OT. Heel WB 2. COPD: Albuterol nebs/Asmanex 3. SOB: CTA of chest as noted. Improved after diuresis. 4. DVT Prophylaxis: Heparin S/Q 5. Advanced Directives: Has MOLST. DNR 6. Hypothyroidism: Synthroid 7. Anxiety: Xanax PRN/Seroquel/Zoloft 8. CHF: diuresis successful. D/C Lasix 9. HTN: added norvasc 07/11/17 18:08
[2017-07-11] MEDS: Prazosin CAP* 1 MG PO SCH (21:00)
[2017-07-11] MEDS: QUEtiapine TAB* 100 MG PO SCH (21:00)
[2017-07-12] MEDS: Omeprazole CAP* 20 MG PO SCH (05:10)
[2017-07-12] MEDS: Levothyroxine TAB* 75 MCG TAB PO SCH (05:10)
[2017-07-12 05:17] VITALS: BP 140/68
[2017-07-12] MEDS: Docusate CAP* 100 MG PO SCH (09:11)
[2017-07-12] MEDS: Heparin VIAL(*) 5000 UNITS/ML VIAL (FIVE THOUSAND) SUBCUT SCH (09:11)
[2017-07-12] MEDS: amLODIPine TAB* 5 MG PO SCH (09:11)
[2017-07-12] MEDS: DOXYcycline CAP(*) 100 MG PO SCH (09:11)
[2017-07-12] MEDS: Lisinopril TAB* 10 MG PO SCH (09:11)
[2017-07-12] MEDS: Sertraline* 50 MG TAB PO SCH (09:12)
[2017-07-12] MEDS: Montelukast Sodium TAB* 10 MG PO SCH (09:12)
[2017-07-12] MEDS: Albuterol 2.5 MG/3 ML NEB.SOL* (0.083%) INH SCH (11:00)
--- NOTE | 2017-07-13 10:52 | DS ---
CC: Dr. Arielle Carr * DISCHARGE SUMMARY: DATE OF ADMISSION: 07/02/17 DATE OF DISCHARGE: 07/12/17 DISCHARGE DIAGNOSES: 1. Osteomyelitis of left foot, status post removal of hardware. 2. Chronic obstructive pulmonary disease. 3. Congestive heart failure. 4. Hypothyroidism. 5. Anxiety. 6. Sleep apnea. 7. Restless leg syndrome. 8. Gastroesophageal reflux disease. HISTORY OF ILLNESS AND HOSPITAL COURSE: For complete history of the events leading up to her rehab stay, please see the history and physical dictated by me on 07/02/17. While on the rehab unit, the patient continued her treatment for osteomyelitis. She finished up with her IV vancomycin and was switched over to oral doxycycline. The patient began doxycycline on 07/07/17 and is to remain on it for 6 weeks. The patient was quite short of breath on admission. A CT angiogram was done to rule out a pulmonary embolus. No pulmonary embolus was seen. However, there was alveolar and interstitial edema present. It was felt that these findings were consistent with underlying congestive heart failure and vascular congestion. The patient was subsequently put on Lasix and diuresed significantly. She was able to get off supplemental oxygen and her breathing improved a great deal. The patient was seen by both Physical and Occupational Therapy and made good gains with both disciplines. With physical therapy at the time of admission, the patient required max assist to do a transfer. She was mod assist to ambulate, was able to ambulate about 2 feet with occupational therapy. She was max assist for lower body dressing, supervision for upper body dressing, max assist for toileting, min assist for toilet transfers. By the time of discharge, the patient was independent in transfers, independently ambulating 150 feet with a rolling four-wheeled walker. She was independent in toilet transfers, independent in toileting. The patient was discharged home to her apartment in [facility] on 07/12/17. DISCHARGE DIET: Heart healthy. DISCHARGE MEDICATIONS: 1. Albuterol nebulizer 2.5 mg at 8 o'clock in the morning and 4 p.m. 2. Xanax 0.25 mg every 8 hours as needed. 3. Norvasc 5 mg daily. 4. Premarin vaginal cream, applied vaginally Tuesdays, and Saturdays. 5. Doxycycline 100 mg orally twice a day. 6. Synthroid 150 mcg orally on Kevyn mornings. 7. Synthroid 75 mcg daily on Sunday, Sunday, Sunday, . Sunday and Sunday mornings. 8. Lisinopril 10 mg daily. 9. Singulair 10 mg daily. 10. Omeprazole 20 mg daily. 11. Minipress 3 mg at bedtime. 12. Seroquel 400 mg at bedtime. 13. Zoloft 150 mg daily. SERVICES AFTER DISCHARGE: Through visiting nurse service. The patient will have home nursing and home physical therapy. Followup with Dr. Arielle Carr in 1 to [address] Reji Damon in [address] Long Walden in 1 week. [id number]/[facility] #: [id number] MTDD
== END 2017-07-12 13:00 | disposition home health service (06) | DRG 541 ==
LOC: PMRU 14:05
PROVIDERS: ADMIT Physical Medicine & Rehabilitation; ATTEND Physical Medicine & Rehabilitation
PROC: F07Z5ZZ Bed Mobility Treatment (ICD-10-PCS; principal; 2017-07-02)
PROC: F07Z9ZZ Gait Training/Functional Ambulation Treatment (ICD-10-PCS; 2017-07-02)
PROC: F07Z8ZZ Transfer Training Treatment (ICD-10-PCS; 2017-07-02)
PROC: F08Z0ZZ Bathing/Showering Techniques Treatment (ICD-10-PCS; 2017-07-02)
PROC: F08Z1ZZ Dressing Techniques Treatment (ICD-10-PCS; 2017-07-02)
PROC: F08Z3ZZ Feeding/Eating Treatment (ICD-10-PCS; 2017-07-02)
DX: M86.8X7 Other osteomyelitis, ankle and foot (principal); Z47.2 Encounter for removal of internal fixation device; J44.9 Chronic obstructive pulmonary disease, unspecified; I50.9 Heart failure, unspecified; E03.9 Hypothyroidism, unspecified; F41.9 Anxiety disorder, unspecified; G47.30 Sleep apnea, unspecified; G25.81 Restless legs syndrome; K21.9 Gastro-esophageal reflux disease without esophagitis; Z79.899 Other long term (current) drug therapy; Z88.6 Allergy status to analgesic agent; R06.02 Shortness of breath; Z66 Do not resuscitate; I11.0 Hypertensive heart disease with heart failure
CPT/HCPCS: 36415; 71275; 80048; 80053; 80202; 85025; 94640; 94760; A9270-GY; J1644; J3370; Q9967

== ENCOUNTER 2017-07-15 00:33 | Emergency (ER) | payer MEDICARE, MEDICAID ==
[2017-07-15 01:18] VITALS: BP 112/49
--- NOTE | 2017-07-15 01:21 | ED ---
Herminia Puentes Emily, scribed for Alvina Beaulieu MD on 07/15/17 at 0103 . Complex/Multi-Sys Presentation - HPI Summary HPI Summary: This patient is an 86 year old F BIBA to [facility] with a chief complaint of slurred speech that began [employer]. The patient rates the pain 0/10 in severity. Symptoms aggravated by nothing. Symptoms alleviated by nothing. Pt reports that neighbor called EMS for not being herself tonight. Pt reports taking 400 mg of Seroquel, and that is the reason for her symptoms. - History Of Current Complaint Chief Complaint: EDGeneral Time Seen by Provider: 07/15/17 00:43 Hx Obtained From: Patient Onset/Duration: Sudden Onset, Lasting Hours, Resolved Timing: Constant Severity Currently: Mild Severity Initially: Mild Aggravating Factor(s): Nothing Alleviating Factor(s): Nothing - Allergies/Home Medications Allergies/Adverse Reactions: Allergies Allergy/AdvReac Type Severity Reaction Status Date / Time aspirin Allergy Severe Anaphylatic Verified 06/25/17 11:44 Shock bee venom protein (honey bee) Allergy Severe Anaphylatic Verified 06/25/17 11:44 Shock NSAIDS (Non-Steroidal Allergy Severe Anaphylatic Verified 06/25/17 11:44 Anti-Inflamma Shock prochlorperazine Allergy Severe SEIZURE Verified 06/25/17 11:44 DUST AND MOLD Allergy Mild Runny Nose Uncoded 06/24/17 05:13 PMH/Surg Hx/FS Hx/Imm Hx Previously Healthy: No Endocrine/Hematology History: Reports: Hx Diabetes, Hx Thyroid Disease, Hx Anemia Denies: Hx Anticoagulant Therapy Cardiovascular History: Reports: Hx Hypercholesterolemia, Hx Hypertension Denies: Hx Pacemaker/ICD Respiratory History: Reports: Hx Asthma, Hx Chronic Bronchitis, Hx Chronic Obstructive Pulmonary Disease (COPD), Hx Pneumonia, Hx Seasonal Allergies, Hx Sleep Apnea - does not wear bipap at night, Other Respiratory Problems/ Disorders - PNA, SLEEP APNEA GI History: Reports: Other GI Disorders - 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 History: Denies: Hx Kidney Stones, Hx Renal Disease Musculoskeletal History: Reports: Hx Orthopedic Injury - 01/08/2012 R ankle Fx, 03/19/2012 R ankle Fx, 03/21/2012 L ankle Fx, Other Musculoskeletal History - Bilateral rotator cuff injuries, poor use of UE bilateral Denies: Hx Rheumatoid Arthritis, Hx Osteoporosis Sensory History: Reports: Hx Cataracts, Hx Contacts or Glasses - for reading Denies: Hx Hearing Aid Opthamlomology History: Reports: Hx Cataracts, Hx Contacts or Glasses - for reading Neurological History: Denies: Hx Dementia, Hx Seizures, Other Neuro Impairments/Disorders Psychiatric History: Reports: Hx Anxiety, Hx Depression Denies: Hx Attention Deficit Hyperactivity Disorder, Hx Suicide Attempt, Hx Substance Abuse - Cancer History Hx Chemotherapy: No Hx Radiation Therapy: No - Surgical History Surgery Procedure, Year, and Place: R Ankle fracture, 2012 and 2013 Bilateral. right forearm fx and left forearm fx. left big toe had hammertoe. hysterectomy 1974. nasal polyps 1977 Hx Anesthesia Reactions: No - Immunization History Date of Tetanus Vaccine: Unsure Date of Influenza Vaccine: 2012 Infectious Disease History: No Infectious Disease History: Denies: Hx Clostridium Difficile, Hx Hepatitis, Hx Human Immunodeficiency Virus (HIV), Hx Shingles, Hx Tuberculosis, Traveled Outside the [place] in Last 30 Days - Family History Known Family History: Positive: Other - neg Breast CA Family History: No FHx of breast cancer. - Social History Occupation: Retired Lives: Alone Alcohol Use: None Hx Substance Use: No Substance Use Type: Reports: None Hx Tobacco Use: Yes Smoking Status (MU): Former Smoker Type: Cigarettes Review of Systems Negative: Fever Positive: Slurred Speech All Other Systems Reviewed And Are Negative: Yes Physical Exam - Summary Physical Exam Summary: VITAL SIGNS: Reviewed. GENERAL: ~Patient is a well-developed and nourished female who is lying comfortable in the stretcher. Patient is not in any acute respiratory distress. HEAD AND FACE: No signs of trauma. No ecchymosis, hematomas or skull depressions. No sinus tenderness. EYES: PERRLA, EOMI x 2, No injected conjunctiva, no nystagmus. EARS: Hearing grossly intact. Ear canals and tympanic membranes are within normal limits. MOUTH: Oropharynx within normal limits. NECK: Supple, trachea is midline, no adenopathy, no JVD, no carotid bruit, no c- spine tenderness, neck with full ROM. CHEST: Symmetric, no tenderness at palpation LUNGS: Decreased breath sounds bilaterally. No wheezing or crackles. CVS: Regular rate and rhythm, S1 and S2 present, no murmurs or gallops appreciated. ABDOMEN: Soft, non-tender. No signs of distention. No rebound no guarding, and no masses palpated. Bowel sounds are normal. EXTREMITIES: FROM in all major joints, no edema, no cyanosis or clubbing. Hussain bandage on her L ankle NEURO: Alert and oriented x 3. No acute neurological deficits. Speech is normal and follows commands. SKIN: Dry and warm Triage Information Reviewed: Yes Vital Signs On Initial Exam: Initial Vitals Temp Pulse Resp BP Pulse Ox 97.3 F 86 19 126/65 90 07/15/17 00:40 07/15/17 00:40 07/15/17 00:40 07/15/17 00:40 07/15/17 00:40 Vital Signs Reviewed: Yes Diagnostics - Vital Signs Vital Signs Temp Pulse Resp BP Pulse Ox 07/15/17 00:40 97.3 F 86 19 126/65 90 - Laboratory Lab Statement: Any lab studies that have been ordered have been reviewed, and results considered in the medical decision making process. Complex Multi-Symp Course/Dx Course Of Treatment: Took Seroquel, neighbor woke her up. Pt has no complaints and is anxious to go home. I will discharge her home. - Diagnoses Provider Diagnoses: Medication adverse effect Discharge - Sign-Out/Discharge Documenting (check all that apply): Discharge/Admit/Transfer - Discharge home - Discharge Plan Condition: Stable Disposition: HOME Referrals: Arielle Carr MD [Primary Care Provider] - 2 Days Additional Instructions: RETURN TO THE EMERGENCY DEPARTMENT FOR NEW OR WORSENING SYMPTOMS The documentation as recorded by the Herminia mcnamara Emily accurately reflects the service I personally performed and the decisions made by me, Alvina Beaulieu MD.
== END 2017-07-15 01:19 | disposition home or self-care (01) ==
LOC: ED 00:33
DX: T43.595A Adverse effect of other antipsychotics and neuroleptics, initial encounter (principal); Y92.9 Unspecified place or not applicable
CPT/HCPCS: 99282

== ENCOUNTER 2017-07-20 14:34 | Emergency (ER) | payer MEDICAID, MEDICARE ==
[2017-07-20] MEDS ORDERED: NS 0.9% 1000 ML* 1,000 ML IV ONE (15:19)
--- NOTE | 2017-07-20 15:45 | RAD ---
Indication: Weakness. Single frontal view of the chest performed at 1534 hours was reviewed. Comparison is made with previous exam dated June 23, 2017.. No mediastinal shift is noted. Heart is of normal size and configuration. Interstitial edema consistent with vascular congestion is noted. No alveolar consolidation is noted. IMPRESSION: MILD VASCULAR CONGESTION.
[2017-07-20 15:58] LABS: ABS Basophils 0.1 10^3/ul (0-0.2); ABS Eosinophils 0.2 10^3/ul (0-0.6); ABS Lymphocytes 1.2 10^3/ul (1.0-4.8); ABS Monocytes 0.8 10^3/ul (0-0.8); ABS Neutrophils 7.8 10^3/ul (1.5-7.7); ABS Nucleated RBC 0 10^3/ul; Eosinophil % 1.5 % (0-6); Hematocrit 37 % (35-47); Hemoglobin 12.6 g/dl (12.0-16.0); Lymphocyte % 11.9 % (25-47); Mean Corpuscular HGB Conc 34 g/dl (31-36); Mean Corpuscular Hemoglobin 30 pg (27-31); Mean Corpuscular Volume 88 fL (80-97); Mean Platelet Volume 9.3 um3 (7.4-10.4); Nucleated Red Blood Cells % 0; Platelet Count 272 10^3/ul (150-450); Red Blood Count 4.21 10^6/ul (4.0-5.4); Red Cell Distribution Width 15 % (10.5-15); White Blood Count 10.1 10^3/ul (3.5-10.8)
--- NOTE | 2017-07-20 16:09 | RAD ---
INDICATION: Weakness COMPARISON: CT brain March 01, 2017 TECHNIQUE: Noncontrast axial source images were acquired from the skull base to the vertex. FINDINGS: Ventricles/sulci: There is cortical atrophy with compensatory dilatation of the CSF spaces. Brain parenchyma: There is periventricular and subcortical white matter change compatible with chronic ischemia. Intracranial hemorrhage:None. Extra-axial spaces: There are no abnormal extra axial fluid collections or evidence of extra-axial mass. Calvarium: There is no calvarial fracture or other calvarial abnormality. Scalp: There is no evidence of scalp or extracalvarial soft tissue abnormality. Paranasal sinuses/mastoid: The paranasal sinuses and mastoid air cells are clear. Other: None. IMPRESSION: NO ACUTE INTRACRANIAL FINDINGS. 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
[2017-07-20 16:20] LABS: EGFR Non-African American 48.2 (>60)
[2017-07-20 17:43] LABS: Urine Appearance Cloudy; Urine Blood Negative (Negative); Urine Color Yellow; Urine Ketones Trace (Negative); Urine Protein Negative (Negative); Urine Specific Gravity 1.012 (1.010-1.030); Urine Urobilinogen Negative (Negative)
[2017-07-20] MEDS ORDERED: Sulfamethox/Trimethoprim DS 800/160* TAB PO ONE (18:16)
--- NOTE | 2017-07-20 18:27 | ED ---
Bowen Puentes Angela, scribed for Manuel Angeles MD on 07/20/17 at 1521 . Adult Trauma - HPI Summary HPI Summary: This pt is a 86 y/o female presenting to [facility] via EMS for a fall today. Pt reports she was talking to one of her friends and was moving to a chair when she fell down. Pt notes head strike. Denies LOC. She states she is able to remember everything about her fall. Pt currently c/o headache. Denies dizziness , lightheadedness, chest pain, SOB. Pt lives in an apartment at [facility]. Today she states she had milk and half a PB&J sandwich. Denies tobacco and alcohol use. Per nurse's note, pt is currently on Doxycycline for a recent foot injury. PMHx includes thyroid disease, diabetes, HTN. - History of Current Complaint Chief Complaint: EDGeneral Stated Complaint: FALL Hx Obtained From: Patient Mechanism of Injury: Fall Loss of Consciousness: no loss of consciousness Onset/Duration: Started Hours Ago, Traumatic, Still Present Current Severity: Mild Pain Intensity: 0 Pain Scale Used: 0-10 Numeric Location: Head Aggravating Factor(s): Nothing Alleviating Factor(s): Nothing Associated Signs & Symptoms: Positive: Other: - NEG: dizziness. Negative: Loss of Consciousness - Additional Pertinent History Primary Care Physician: [id number] - Allergy/Home Medications Allergies/Adverse Reactions: Allergies Allergy/AdvReac Type Severity Reaction Status Date / Time aspirin Allergy Severe Anaphylatic Verified 06/25/17 11:44 Shock bee venom protein (honey bee) Allergy Severe Anaphylatic Verified 06/25/17 11:44 Shock NSAIDS (Non-Steroidal Allergy Severe Anaphylatic Verified 06/25/17 11:44 Anti-Inflamma Shock prochlorperazine Allergy Severe SEIZURE Verified 06/25/17 11:44 DUST AND MOLD Allergy Mild Runny Nose Uncoded 06/24/17 05:13 Home Medications: Home Medications Acetaminophen TAB* [Tylenol TAB*] 650 mg PO Q4H PRN 07/20/17 [History Confirmed 07/20/17] Albuterol 2.5MG/3ML (0.083%)* [Ventolin 2.5 MG/3 ML NEB.INDIRA*] 2.5 mg INH TID PRN 07/20/17 [History Confirmed 07/20/17] Albuterol HFA INHALER* [Ventolin HFA Inhaler*] 2 puff INH Q4H PRN 07/20/17 [ History Confirmed 07/20/17] Cetirizine* [ZyrTEC 10 MG TAB*] 10 mg PO DAILY 07/20/17 [History Confirmed 07/20] Cholecalciferol (Vitamin D3) [Vitamin D3] 1,000 unit PO EVERY OTHER DAY [History Confirmed 07/20/17] Clobetasol Propionate/Emoll [Clobetasol Propionate Emo] 0.05 % TOPICAL BID 07/20 [History Confirmed 07/20/17] Cranberry 800 mg PO DAILY 07/20/17 [History Confirmed 07/20/17] Meclizine TAB* [Antivert 12.5 TAB*] 12.5 - 25 mg PO TID 07/20/17 [History Confirmed 07/20/17] OXcarbazepine TAB(*) [Trileptal 300 mg TAB(*)] 900 mg PO BEDTIME 07/20/17 [ History Confirmed 07/20/17] Polyethylene Glycol 3350* [Miralax*] 17 gm PO DAILY PRN 07/20/17 [History Confirmed 07/20/17] Turmeric Root Extract [Turmeric] 500 mg PO DAILY 07/20/17 [History Confirmed 01/27] traMADol TAB* [Ultram*] 50 mg PO Q4HR PRN 07/20/17 [History Confirmed 07/20/17] PMH/Surg Hx/FS Hx/Imm Hx Endocrine/Hematology History: Reports: Hx Diabetes, Hx Thyroid Disease, Hx Anemia Denies: Hx Anticoagulant Therapy Cardiovascular History: Reports: Hx Hypercholesterolemia, Hx Hypertension Denies: Hx Pacemaker/ICD Respiratory History: Reports: Hx Asthma, Hx Chronic Bronchitis, Hx Chronic Obstructive Pulmonary Disease (COPD), Hx Pneumonia, Hx Seasonal Allergies, Hx Sleep Apnea - does not wear bipap at night, Other Respiratory Problems/ Disorders - PNA, SLEEP APNEA GI History: Reports: Hx Gastroesophageal Reflux Disease, Other GI Disorders - 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 History: Denies: Hx Kidney Stones, Hx Renal Disease Musculoskeletal History: Reports: Hx Orthopedic Injury - 01/08/2012 R ankle Fx, 03/19/2012 R ankle Fx, 03/21/2012 L ankle Fx, Other Musculoskeletal History - Bilateral rotator cuff injuries, poor use of UE bilateral Denies: Hx Rheumatoid Arthritis, Hx Osteoporosis Sensory History: Reports: Hx Cataracts, Hx Contacts or Glasses - for reading Denies: Hx Hearing Aid Opthamlomology History: Reports: Hx Cataracts, Hx Contacts or Glasses - for reading Neurological History: Denies: Hx Dementia, Hx Seizures, Other Neuro Impairments/Disorders Psychiatric History: Reports: Hx Anxiety, Hx Depression Denies: Hx Attention Deficit Hyperactivity Disorder, Hx Suicide Attempt, Hx Substance Abuse - Cancer History Hx Chemotherapy: No Hx Radiation Therapy: No - Surgical History Surgery Procedure, Year, and Place: R Ankle fracture, 2011 and 2012 Bilateral. right forearm fx and left forearm fx. left big toe had hammertoe. hysterectomy 1974. nasal polyps 1977 Hx Anesthesia Reactions: No - Immunization History Date of Tetanus Vaccine: Unsure Date of Influenza Vaccine: 2012 Infectious Disease History: No Infectious Disease History: Denies: Hx Clostridium Difficile, Hx Hepatitis, Hx Human Immunodeficiency Virus (HIV), Hx Shingles, Hx Tuberculosis, Traveled Outside the [place] in Last 30 Days - Family History Known Family History: Positive: Other - neg Breast CA Family History: No FHx of breast cancer. - Social History Alcohol Use: None Hx Substance Use: No Substance Use Type: Reports: None Hx Tobacco Use: Yes Smoking Status (MU): Former Smoker Type: Cigarettes Amount Used/How Often: 1ppd Length of Time of Smoking/Using Tobacco: 5-6 years Have You Smoked in the Last Year: No Review of Systems Negative: Fever, Chills Negative: Erythema Negative: Sore Throat Negative: Chest Pain Negative: Shortness Of Breath, Cough Negative: Abdominal Pain, Vomiting, Nausea Negative: dysuria, hematuria Negative: Myalgia, Edema Negative: Rash Neurological: Other - NEG: dizziness, lightheadedness Positive: Headache All Other Systems Reviewed And Are Negative: Yes Physical Exam - Summary Physical Exam Summary: Constitutional: Well-developed, Well-nourished, Alert, Cooperative Skin: Warm, Dry HENT: Normocephalic; No Racoons eyes; No coello's sign; No abrasion; No contusion; No hemotympanum; No maxilla facial tenderness or instability; Dentition are smooth; No dental trauma; No trismus. Dry mucous membranes. Eyes: EOM normal, PERRL Neck: Trachea is midline. No stridor; No JVD; No step off; No posterior cervical spine tenderness Cardio: Rhythm regular, rate normal Heart sounds normal; Intact distal pulses; The pedal pulses are 2+ and symmetric. Radial pulses are 2+ and symmetric. Pulmonary/Chest wall: Effort normal; Breath sounds normal; Equal chest rise; No flail segment; No rib tenderness; No sternal tenderness Abd: Soft, Appearance normal. No distension; No tenderness; No palpable pulsatile mass; No Cullens sign; No Galindo-Turners sign Musculoskeletal: Full ROM and no tenderness at hips, ankles, shoulders, elbows and knees; No joint swelling; No vertebral body tenderness; No paraspinal tenderness; No step off or deformity of the spine; Pelvis is stable to lateral compression and rock Neuro: Alert, Oriented x3, Strength 5/5 all extremities. : No blood at urethral meatus Psych: Mood and affect Normal Triage Information Reviewed: Yes Vital Signs On Initial Exam: Initial Vitals Pulse BP Pulse Ox 81 161/65 93 07/20/17 14:42 07/20/17 14:42 07/20/17 14:42 Vital Signs Reviewed: Yes - Mona Coma Scale Best Eye Response: 4 - Spontaneous Best Motor Response: 6 - Obeys Commands Best Verbal Response: 5 - Oriented Coma Scale Total: 15 Diagnostics - Vital Signs Vital Signs Temp Pulse Resp BP Pulse Ox 07/20/17 14:50 98.1 F 80 20 161/65 93 07/20/17 14:42 81 161/65 93 - Laboratory Result Diagrams: 07/20/17 15:39 07/20/17 15:39 Lab Statement: Any lab studies that have been ordered have been reviewed, and results considered in the medical decision making process. - Radiology Chest XR Xray Interpretation: Positive (See Comments) - IMPRESSION: Mild vascular congestion. Dr. Angeles has reviewed this radiology report. Radiology Interpretation Completed By: Radiologist - CT Brain CT CT Interpretation: No Acute Changes - IMPRESSION: No acute intracranial findings. Age-related atrophy with chronic microvascular ischemic changes. Dr. Angeles has reviewed this radiology report. CT Interpretation Completed By: Radiologist - EKG 15:26 Cardiac Rate: NL - at 81 bpm EKG Rhythm: Sinus Rhythm EKG Interpretation: No STEMI. Re-Evaluation - Re-Evaluation First Eval Re-Evaluation Time: 18:16 Change: Improved Comment: Pt is alert and oriented. She ambulated well in the department without difficulty. She is requesting to go home. Adult Trauma Course/Dx - Course Assessment/Plan: Pt is a 86 y/o female who presents for a fall today. Pt reports she was talking to one of her friends and was moving to a chair when she fell down. Pt notes head strike. Denies LOC. She states she is able to remember everything about her fall. Pt currently c/o headache. Denies dizziness , lightheadedness, chest pain, SOB. Pt lives in an apartment at [facility]. Today she states she had milk and half a PB&J sandwich. Urinalysis is consistent with UTI. Chest XR shows mild vascular congestion. Brain CT reveals no acute intracranial findings. Age-related atrophy with chronic microvascular ischemic changes. In the ED course the pt was given IV fluids. Pt was ambulated in the department without any difficulty. She is requesting to go home, she reports she feels well enough to go home. There are no signs of sepsis. Pt will be discharged home with follow up from Dr. Carr in 2-3 days. She was given a prescription for Bactrim. - Diagnoses Provider Diagnoses: UTI (urinary tract infection), Fall Discharge - Sign-Out/Discharge Documenting (check all that apply): Discharge/Admit/Transfer - Discharge - Discharge Plan Condition: Stable Disposition: HOME Prescriptions: Sulfamethox/Trimethoprim DS* [Bactrim DS 800/160 TAB*] 1 tab PO BID #14 tab Patient Education Materials: Urinary Tract Infection in Women (ED), Fall Prevention for Older Adults (ED) Referrals: Arielle Carr MD [Primary Care Provider] - 2 Days (in 2-3 days.) Additional Instructions: Follow up with Dr. Carr in 2-3 days. RETURN TO THE EMERGENCY DEPARTMENT FOR CHANGING OR WORSENING SYMPTOMS. The documentation as recorded by the Bowen mcnamara Angela accurately reflects the service I personally performed and the decisions made by me, Manuel Angeles MD.
[2017-07-20 18:55] VITALS: BP 174/79
--- NOTE | 2017-07-23 07:28 | PN ---
Progress Note - Progress Note Date of Service: 07/20/17 Note: Pt. was seen in ER 07/20 after a fall. She was dx with UTI and placed on Bactrim. Urine culture today to growing 75-10K proteus susceptible to bactrim. No change in treatment plan needed.
== END 2017-07-20 18:53 | disposition home or self-care (01) ==
LOC: ED 14:34
DX: N39.0 Urinary tract infection, site not specified (principal); R51 Headache; Z91.81 History of falling; Z87.891 Personal history of nicotine dependence
CPT/HCPCS: 36415; 70450; 71045; 80053; 81003; 81015; 83605; 83735; 84443; 84484; 85025; 87077; 87086; 87186; 93005; 99284; A9270-GY

== ENCOUNTER 2017-07-21 11:55 | Inpatient (IN) | payer MEDICARE, MEDICAID ==
[2017-07-21 13:03] LABS: ABS Basophils 0.1 10^3/ul (0-0.2); ABS Eosinophils 0.1 10^3/ul (0-0.6); ABS Lymphocytes 1.4 10^3/ul (1.0-4.8); ABS Monocytes 0.9 10^3/ul (0-0.8); ABS Neutrophils 8.4 10^3/ul (1.5-7.7); ABS Nucleated RBC 0 10^3/ul; Hematocrit 38 % (35-47); Hemoglobin 12.7 g/dl (12.0-16.0); Lymphocyte % 12.5 % (25-47); Mean Corpuscular HGB Conc 34 g/dl (31-36); Mean Corpuscular Hemoglobin 30 pg (27-31); Mean Corpuscular Volume 89 fL (80-97); Nucleated Red Blood Cells % 0; Platelet Count 296 10^3/ul (150-450); Red Blood Count 4.26 10^6/ul (4.0-5.4); Red Cell Distribution Width 15 % (10.5-15); White Blood Count 10.9 10^3/ul (3.5-10.8)
[2017-07-21] MEDS ORDERED: Sulfamethox/Trimethoprim DS 800/160* TAB PO ONE (13:19)
[2017-07-21 13:21] LABS: EGFR Non-African American 52.1 (>60)
[2017-07-21] MEDS ORDERED: Albuterol 2.5 MG/3 ML NEB.SOL* (0.083%) INH ONE (13:21)
--- NOTE | 2017-07-21 13:53 | RAD ---
Indication: Weakness. Single frontal view of the chest performed at 1333 hours was reviewed. Comparison is made with previous exam dated July 20, 2017. No mediastinal shift is noted. Interstitial edema consistent with vascular congestion is noted. No pleural fluid is identified. IMPRESSION: INTERSTITIAL EDEMA CONSISTENT WITH VASCULAR CONGESTION.
[2017-07-21 14:11] LABS: Urine Appearance Cloudy; Urine Blood Negative (Negative); Urine Color Yellow; Urine Ketones Negative (Negative); Urine Protein Negative (Negative); Urine Specific Gravity 1.015 (1.010-1.030); Urine Urobilinogen Negative (Negative)
[2017-07-21] MEDS ORDERED: EPINEPHrine AMP 1 MG/ML IM PRN (17:51)
[2017-07-21] MEDS ORDERED: Polyethylene Glycol 3350* 17 GM PACKET PO PRN (17:54)
[2017-07-21] MEDS ORDERED: Saline NASAL SPRAY 0.65%* BTL BOTH NARES PRN (17:56)
[2017-07-21] MEDS ORDERED: Acetaminophen TAB* 325 MG PO PRN (17:57)
[2017-07-21] MEDS ORDERED: traMADol TAB* 50 MG PO PRN (17:58)
[2017-07-21] MEDS ORDERED: ALPRAZolam TAB* 0.25 MG PO PRN (17:59)
[2017-07-21] MEDS: cefTRIAXone* 1 GM in NS 0.9% 50 ML BAG IVPB SCH (19:34)
--- NOTE | 2017-07-21 20:39 | HP ---
HISTORY AND PHYSICAL: DATE OF ADMISSION: 07/21/17 HISTORY OF PRESENT ILLNESS: Clare Rizzo is an 86-year-old woman admitted with weakness and probable urinary tract infection. The patient has not been feeling well, is very weak. She has had some slight dysuria, but otherwise no significant symptoms of a urinary tract infection. 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 She was treated with vancomycin and then with doxycycline. She was transferred on 07/02/17 to the [facility] unit for rehabilitation. She remained there until 07/12/17. During that admission, she had hypertension and amlodipine was added to her regimen. Previous to that, she was taking lisinopril 10 mg daily. After getting home, she has been in the emergency room on 07/15/17 and 07/20/17, and then again today. She has had 2 falls. On 07/15/17 when she came in to the emergency room, she apparently had taken her bedtime medications and was slow to respond with slow speech and a neighbor called the ambulance. She then came back to the ER yesterday where she was diagnosed with a urinary tract infection. She had fallen. Prior to that, she had gone to [facility] where she was diagnosed with a rib injury but not a fracture. The patient tells me she has fallen twice since being home, the first time she had been to the toilet, stood up to wash her hands at the sink and collapsed against the sink down to the floor. She was able to get herself up. The fall yesterday occurred after she had been standing for about 20 minutes, talking to the disease case manager and nurse at [facility] where she lives. She then turned to get something across the room and lost her balance while walking. She thinks she does not drink enough water. Yesterday, she did not think she need to be admitted and went home. Today, she felt she really could not care for herself. Her daughter, who is a nurse practitioner in the [place] area, told her to go back to the emergency room, which she did. She had been given a prescription for Bactrim for the urinary tract infection, but apparently it was not called in, so she was unable to pick it up and so she came back to the emergency room. She is being admitted at this time. PAST MEDICAL HISTORY: Otherwise significant for the following medical problems: 1. Hypertension (see above). 2. COPD, using nebulizer, recently says she has not been using Flovent. 3. Osteomyelitis from the toe infection as noted above. She is currently on long- term doxycycline. 4. Diet-controlled type 2 diabetes mellitus. 5. History of sleep apnea. 6. History of anxiety. 7. Gastroesophageal reflux disease. 8. Osteoporosis. 9. Allergic rhinitis. 10. History of nightmares. 11. History of restless legs syndrome. 12. History of depression. PAST SURGICAL HISTORY: Prior surgeries include: 1. Vaginal hysterectomy. 2. Bilateral cataract extractions. 3. Excision of lipoma, left arm. 4. Multiple cystoscopies. 5. Transurethral collagen injections. 6. Surgery for nasal polyps. 7. Lumpectomy, right breast, benign; left breast, benign. 8. Left foot surgeries, initially for placement of hardware and subsequently for removal of hardware. CURRENT MEDICATIONS: As follows: 1. Doxycycline 100 mg twice a day. 2. Amlodipine 5 mg daily. 3. Montelukast 10 mg daily. 4. Sertraline 150 mg daily. 5. Levothyroxine 75 mcg 6 days a week and 150 mcg once a week. 6. Alprazolam 0.25 mg one half twice a day and p.r.n. 7. Prazosin 3 mg at h.s. 8. Oxcarbazepine 300 mg 3 at h.s. 9. Lisinopril 10 mg daily. 10. Quetiapine 400 mg q.h.s. 11. Simvastatin 20 mg q.p.m. 12. Alendronate 10 mg daily. 13. Flovent 110 2 puffs twice a day. Pt says she has not been using this recently however. 14. Premarin cream 3 times a week. 15. Also had had various OTC medications in the past including senna, docusate , cranberry, zinc, miralax, turmeric, apple cider vinegar capsules, .omega 3, calcium -magnesium-zinc, vitamins. ALLERGIES: 1. ASPIRIN caused anaphylactic shock. 2. PROCHLORPERAZINE caused seizure. 3. BEE VENOM (anaphylactic shock). 4. NSAIDS (anaphylactic shock). 5. DUST and MOLD (runny nose). HABITS: Tobacco, former smoker, quit over 20 years ago. EtOH, none. FAMILY HISTORY: Noncontributory. SOCIAL AND PERSONAL HISTORY: The patient is . She lives alone at [facility] in an independent unit. She is DNR with a MOLST form. REVIEW OF SYSTEMS: Generally, she is not feeling well. Her appetite is good. Her weight is stable. She denied fevers, chills, or sweats. She feels generally weak. Skin: Negative. HEENT: Negative. Heme: Negative. Endocrine : See above. Breasts: Negative. Nodes: Negative. Chest: See above. Cardiovascular: See above. GI: See above. She had been slightly constipated recently, but her bowel movements are okay now. Musculoskeletal: See above. Neuro: See above. Psychiatric: See above. PHYSICAL EXAMINATION GENERAL: She is an elderly white female, pleasant and cooperative, in no acute distress. Face looks slightly flushed. I do not think she has had her medications today. VITAL SIGNS: Initial blood pressure 184/81, pulse 91, respirations 29, O2 sat 92%, temp 98.9. SKIN: Warm and dry. HEENT: Atraumatic, normocephalic. Full EOMs. Mucous membranes moist. NECK: Supple. CHEST: Clear with slightly diminished breath sounds. HEART: Normal S1, S2. Grade 1 to 2/6 systolic murmur. ABDOMEN: Soft, nontender. There are no masses or organomegaly. Bowel sounds are active. EXTREMITIES: Without cyanosis, clubbing, or edema. Her region of the left great toe is slightly erythematous and tender, but markedly improved from prior to surgery. NEUROLOGIC: Without gross focal or lateralizing signs. DIAGNOSTIC STUDIES/LAB DATA: WBC 10.9, H and H 12.7/38, MCV 89, PLT 296,000. PTT 29.5. Sodium 133, potassium 4.8, chloride 100, CO2 26, BUN and creatinine 23/1.01, glucose 182. Lactic acid 1.4. Rest of a comprehensive metabolic panel was abnormal for an alkaline phosphatase slightly elevated at 106. Troponin was 0. BNP 116. CRP 44.87, which is up from what it was on 06/25/17 when it was 4.47. TSH normal at 1.03. EKG showed normal sinus rhythm. Voltage is increased, otherwise no significant changes since the previous record of 12 lead. Chest x-ray showed interstitial edema consistent with vascular congestion, but on my review of the x-ray, there does not show any significant change, could be scarring. IMPRESSION AND PLAN: The patient with weakness. The 2 main reasons I can see for her being weak or the addition of amlodipine, which might caused her to have orthostatic changes. The other possibility is the urinary tract infection. I am starting her on ceftriaxone. She did get 1 dose of trimethoprim sulfa in the ER. I will follow her C-reactive protein. Orthostatic blood pressures are going to be checked. We will have a physical therapy evaluation. She is DNR per her previous wishes. We will decide on DVT prophylaxis dependent on her course and if she is able to be ambulatory. [id number]/CPS #: [id number] MTDD
[2017-07-21] MEDS ORDERED: Conjugated Estrogens VAG CM* 42.5 gm TUBE VAGINAL SCH (21:00)
[2017-07-21] MEDS: QUEtiapine TAB* 100 MG PO SCH (21:00)
[2017-07-21] MEDS: OXcarbazepine TAB(*) 300 MG PO SCH (21:13)
[2017-07-21] MEDS: Atorvastatin* 10 MG TAB PO SCH (21:14)
[2017-07-21] MEDS: ALPRAZolam TAB* 0.25 MG PO SCH (21:14)
[2017-07-21] MEDS: Prazosin CAP* 1 MG PO SCH (21:15)
[2017-07-21] MEDS: Docusate CAP* 100 MG PO SCH (21:18)
[2017-07-21] MEDS: Albuterol HFA INHALER* 8 gm MDI INH PRN (22:14)
--- NOTE | 2017-07-21 23:47 | ED ---
Nicolas Puentes Elizabeth, scribed for Ghada Bundy MD on 07/21/17 at 1258 . Complex/Multi-Sys Presentation - HPI Summary HPI Summary: This patient is a 86 year old F BIBA to [facility] with a chief complaint of weakness for 1 day. Pt was seen in [facility] 07/20/[address] Angeles and pt requested to be discharged home during that visit. Dr. Angeles discharged the patient with a diagnosis of UTI and with a prescription for Bactrim. Patient notes that she is unable to take care of herself due to weakness and says she was able to fill her prescription at [facility] as it was not called in. (Review of discharge record shows a prescription for Bactrim on the record) Patient reports constipation and shortness of breath. Patient says she forgot to use her nebulizer this morning. Patient denies fever, abd pain, vomiting, or any falls since yesterday. Patient reports that she ate this morning. Pt is able to get up to ambulate to a bedside commode in the ED with assistance and use of a walker. Patient lives by herself in an apartment at [facility]. When in room for initial encounter, O2 was 97%, HR was 91 and BP was 180/79. - History Of Current Complaint Chief Complaint: EDWeakness Time Seen by Provider: 07/21/17 12:28 Hx Obtained From: Patient, EMS Onset/Duration: Gradual Onset, Lasting Days, Worse Since - today Timing: Constant Severity Currently: Moderate Severity Initially: Mild Location: Negative Aggravating Factor(s): nothing Alleviating Factor(s): nothing Associated Signs And Symptoms: Positive: Weakness, SOB - chronic, pt forgot to use her nebulizer this morning, Dysuria. Negative: Vomiting, Fever Related History: Other - was dx'ed UTI in ED yesterday - Allergies/Home Medications Allergies/Adverse Reactions: Allergies Allergy/AdvReac Type Severity Reaction Status Date / Time aspirin Allergy Severe Anaphylatic Verified 07/21/17 12:05 Shock bee venom protein (honey bee) Allergy Severe Anaphylatic Verified 07/21/17 12:05 Shock NSAIDS (Non-Steroidal Allergy Severe Anaphylatic Verified 07/21/17 12:05 Anti-Inflamma Shock prochlorperazine Allergy Severe SEIZURE Verified 07/21/17 12:05 DUST AND MOLD Allergy Mild Runny Nose Uncoded 07/21/17 12:05 PMH/Surg Hx/FS Hx/Imm Hx Previously Healthy: No Endocrine/Hematology History: Reports: Hx Diabetes, Hx Thyroid Disease, Hx Anemia, Other Endocrine/Hematological Disorders - osteopenia Denies: Hx Anticoagulant Therapy Cardiovascular History: Reports: Hx Congestive Heart Failure - diastolic , Hx Hypercholesterolemia, Hx Hypertension, Hx Valvular Heart Disease - aortic stenosis, mitral regurg , Other Cardiovascular Problems/Disorders - incomplete LBBB Denies: Hx Pacemaker/ICD Respiratory History: Reports: Hx Asthma, Hx Chronic Bronchitis, Hx Chronic Obstructive Pulmonary Disease (COPD), Hx Pneumonia, Hx Seasonal Allergies GI History: Reports: Hx Gastroesophageal Reflux Disease History: Denies: Hx Kidney Stones, Hx Renal Disease Musculoskeletal History: Reports: Hx Orthopedic Injury - 01/08/2012 R ankle Fx, 03/19/2012 R ankle Fx, 03/21/2012 L ankle Fx, Other Musculoskeletal History - Bilateral rotator cuff injuries; osteomyelitis left ankle Denies: Hx Rheumatoid Arthritis, Hx Osteoporosis Sensory History: Reports: Hx Cataracts, Hx Contacts or Glasses - for reading Denies: Hx Hearing Aid Opthamlomology History: Reports: Hx Cataracts, Hx Contacts or Glasses - for reading Neurological History: Denies: Hx Dementia, Hx Seizures, Other Neuro Impairments/Disorders Psychiatric History: Reports: Hx Anxiety, Hx Depression, Other Psychiatric Issues/Disorders - hx nightmares Denies: Hx Attention Deficit Hyperactivity Disorder, Hx Suicide Attempt, Hx Substance Abuse - Cancer History Hx Chemotherapy: No Hx Radiation Therapy: No - Surgical History Surgery Procedure, Year, and Place: R Ankle fracture, 2011 and 2012 Bilateral. right forearm fx and left forearm fx. left big toe had hammertoe. hysterectomy 1974. nasal polyps 1977 Hx Anesthesia Reactions: No - Immunization History Date of Tetanus Vaccine: Unsure Date of Influenza Vaccine: 2012 Infectious Disease History: No Infectious Disease History: Denies: Hx Clostridium Difficile, Hx Hepatitis, Hx Human Immunodeficiency Virus (HIV), Hx Shingles, Hx Tuberculosis, Traveled Outside the [place] in Last 30 Days - Family History Known Family History: Positive: Other - neg Breast CA Family History: No FHx of breast cancer. - Social History Lives: Alone Alcohol Use: None Hx Substance Use: No Substance Use Type: Reports: None Hx Tobacco Use: Yes Smoking Status (MU): Former Smoker Type: Cigarettes Amount Used/How Often: 1ppd Length of Time of Smoking/Using Tobacco: 5-6 years Have You Smoked in the Last Year: No Review of Systems Negative: Fever Cardiovascular: Negative Positive: Shortness Of Breath Positive: Other - constipation . Negative: Vomiting, Diarrhea, Nausea Positive: dysuria, pain Musculoskeletal: Negative Skin: Negative Positive: Weakness Psychological: Normal All Other Systems Reviewed And Are Negative: Yes Physical Exam - Summary Physical Exam Summary: Appearance: mildly ill-appearing, moderate pain distress, Well-nourished, short of breath at rest, afebrile Skin: Warm, color reflects adequate perfusion Head: Normal Head/Face inspection, Atraumatic Eyes: Conjunctiva clear ENT: Normal inspection Neck: Supple, no nodes, no JVD. Respiratory: Decreased breathe sounds throughout, intercostal retractions, short of breath at rest Cardio: RRR, No murmur, pulses normal, brisk capillary refill Abdomen: soft, nontender, no masses, no CVAT Bowel sounds: present Musculoskeletal: Strength Intact/ ROM intact. No calf tenderness. No edema. Psychological: Normal Neuro: Alert, muscle tone normal, no focal deficit Triage Information Reviewed: Yes Vital Signs On Initial Exam: Initial Vitals Temp Pulse Resp BP Pulse Ox 98.9 F 90 18 184/81 97 07/21/17 12:19 07/21/17 12:19 07/21/17 12:19 07/21/17 12:19 07/21/17 12:19 Vital Signs Reviewed: Yes Diagnostics - Vital Signs Vital Signs Temp Pulse Resp BP Pulse Ox 07/21/17 12:19 98.9 F 90 18 184/81 97 - Laboratory Result Diagrams: 07/24/17 06:19 07/24/17 06:19 Lab Statement: Any lab studies that have been ordered have been reviewed, and results considered in the medical decision making process. - Radiology CXR Xray Interpretation: Positive (See Comments) - IMPRESSION: INTERSTITIAL EDEMA CONSISTENT WITH VASCULAR CONGESTION. Dr. Bundy has reviewed this report. Radiology Interpretation Completed By: Radiologist - EKG 13:03 Cardiac Rate: NL - at 89 BPM EKG Rhythm: Sinus Rhythm ST Segment: Normal Ectopy: None EKG Interpretation: nml AVIVCT, nml QTC, and nml axis EKG Comparison: No Significant Change - when compared with EKG from 07/20/17 Re-Evaluation - Re-Evaluation first re-eval Re-Evaluation Time: 15:50 Change: Unchanged Comment: Discussed Dr. Carr's plan to admit the patient. Complex Multi-Symp Course/Dx Course Of Treatment: Dr. Carr was notified of patient's arrival in the ED. An EKG at 13:03 reveals sinus rhythm at 89 bpm, nml AVIVCT, nml QTC, and nml axis. No changes when compared with EKG taken on 07/20/17. CXR reveals, per radiologist, interstitial edema consistent with vascular congestion. Dr. Bundy has reviewed this radiology report. In the ED course the patient was given Bactrim PO and an Albuterol neb. Prior urine cultures were reviewed and pt grew proteus mirabilis,sensitive to Bactrim, so started the Bactrim that pt should have started yesterday. Discussed patient care with Dr. Carr at 15:45 and she recommended admitting the patient. Patient was re-evaluated at 15:[address] Huston plan to admit the patient was relayed. Patient will be admitted to [facility] [place] with diagnosis of weakness, poorly controlled hypertension, UTI, poorly controlled diabetes mellitus, and interstitial edema. The patient is agreeable with this plan. - Diagnoses Differential Diagnoses/HQI/PQRI: Metabolic Abnormality, Sepsis, Urinary Tract Infection Provider Diagnoses: Weakness, Hypertension, poor control, UTI (urinary tract infection), Poorly controlled diabetes mellitus, Interstitial edema - Physician Notifications Discussed Care Of Patient With: Arielle Carr Time Discussed With Above Provider: 15:45 Instructed by Provider To: Admit As Inpatient Discharge - Sign-Out/Discharge Documenting (check all that apply): Discharge/Admit/Transfer - Discharge Plan Condition: Stable Disposition: ADMITTED TO [facility] - Billing Disposition and Condition Condition: STABLE Disposition: [facility]P-[facility] [place] [place] The documentation as recorded by the Nicolas mcnamara Elizabeth accurately reflects the service I personally performed and the decisions made by Gregor byrne Barbara J, MD.
[2017-07-22] MEDS ORDERED: Levothyroxine TAB* 150 MCG TAB PO SCH (06:00)
[2017-07-22 06:44] LABS: Hematocrit 36 % (35-47); Hemoglobin 11.8 g/dl (12.0-16.0); Mean Corpuscular HGB Conc 33 g/dl (31-36); Mean Corpuscular Hemoglobin 29 pg (27-31); Mean Corpuscular Volume 89 fL (80-97); Mean Platelet Volume 9.6 um3 (7.4-10.4); Platelet Count 221 10^3/ul (150-450); Red Blood Count 4.03 10^6/ul (4.0-5.4); Red Cell Distribution Width 15 % (10.5-15); White Blood Count 10.2 10^3/ul (3.5-10.8)
[2017-07-22] MEDS: CRANBERRY 800 MG PO SCH (07:49)
[2017-07-22] MEDS: ZINC 50 MG PO SCH (07:50)
[2017-07-22] MEDS: ALPRAZolam TAB* 0.25 MG PO SCH ×2 (08:05→20:01)
[2017-07-22] MEDS: Cetirizine* 10 MG TAB PO SCH (08:06)
[2017-07-22] MEDS: Montelukast Sodium TAB* 10 MG PO SCH (08:06)
[2017-07-22] MEDS: Sertraline* 100 MG TAB PO SCH (08:06)
[2017-07-22] MEDS: Fluticasone NASAL SPRAY 50MCG* 16 gm SPRAY BTL BOTH NARES SCH (08:13)
[2017-07-22] MEDS ORDERED: Lisinopril TAB* 10 MG PO SCH (09:00)
[2017-07-22] MEDS: Albuterol HFA INHALER* 8 gm MDI INH PRN (09:54)
[2017-07-22] MEDS ORDERED: Lisinopril TAB* 10 MG PO ONE (16:30)
[2017-07-22] MEDS: cefTRIAXone* 1 GM in NS 0.9% 50 ML BAG IVPB SCH (17:02)
[2017-07-22] MEDS: Mometasone 220 MCG MDI INH SCH (17:03)
[2017-07-22] MEDS: Albuterol 2.5 MG/3 ML NEB.SOL* (0.083%) INH SCH (19:11)
[2017-07-22] MEDS: OXcarbazepine TAB(*) 300 MG PO SCH (20:02)
[2017-07-22] MEDS: Atorvastatin* 10 MG TAB PO SCH (20:02)
[2017-07-22] MEDS: Docusate CAP* 100 MG PO SCH (20:02)
[2017-07-22] MEDS: Prazosin CAP* 1 MG PO SCH (20:03)
[2017-07-22] MEDS: QUEtiapine TAB* 100 MG PO SCH (20:04)
[2017-07-23] MEDS: Levothyroxine TAB* 75 MCG TAB PO SCH (05:40)
[2017-07-23 06:37] LABS: Hematocrit 34 % (35-47); Hemoglobin 11.7 g/dl (12.0-16.0); Mean Corpuscular HGB Conc 35 g/dl (31-36); Mean Corpuscular Hemoglobin 30 pg (27-31); Mean Corpuscular Volume 88 fL (80-97); Mean Platelet Volume 8.7 um3 (7.4-10.4); Platelet Count 221 10^3/ul (150-450); Red Blood Count 3.85 10^6/ul (4.0-5.4); Red Cell Distribution Width 15 % (10.5-15); White Blood Count 7.9 10^3/ul (3.5-10.8)
[2017-07-23] MEDS: Albuterol 2.5 MG/3 ML NEB.SOL* (0.083%) INH SCH ×2 (07:24→20:39)
[2017-07-23] MEDS: ZINC 50 MG PO SCH (08:31)
[2017-07-23] MEDS: CRANBERRY 800 MG PO SCH (08:31)
[2017-07-23] MEDS: Lisinopril TAB* 10 MG PO SCH (08:33)
[2017-07-23] MEDS: Montelukast Sodium TAB* 10 MG PO SCH (08:33)
[2017-07-23] MEDS: Cetirizine* 10 MG TAB PO SCH (08:34)
[2017-07-23] MEDS: Sertraline* 100 MG TAB PO SCH (08:34)
[2017-07-23] MEDS: ALPRAZolam TAB* 0.25 MG PO SCH ×2 (08:34→20:57)
[2017-07-23] MEDS: Fluticasone NASAL SPRAY 50MCG* 16 gm SPRAY BTL BOTH NARES SCH (08:39)
[2017-07-23] MEDS ORDERED: Meclizine TAB* 12.5 MG PO PRN (16:30)
--- NOTE | 2017-07-23 17:20 | ECHO ---
Patient: ANYA STAUFFER [facility] Rec#: [id number] : 1930 Date: 07/23/2017 Age: 86y Height: 157.48 cm / 62.0 in Weight: 68.04 kg / 150.0 lbs Sex: F BSA: 1.69 Room#: [facility] Admit Date#: 07/21/2017 Type: Inpatient Referring: Arielle Carr MD Reading: Niall Garza MD [place] Hackler[facility] Tran[facility] Ech[facility] Indication: Dyspnea, aortic stenosis BP: 136/52 HR: 84 Rhythm: NSR Findings History: HTN, COPD, JESENIA, DM, osteomyelitis from toe infection, former smoker. Technical Comments: The study quality is fair. Completed at 1655. Left Ventricle: The left ventricular chamber size is normal. Mild concentric left ventricular hypertrophy is observed. There is a prominent septal knuckle. Global left ventricular wall motion and contractility are within normal limits. There is normal left ventricular systolic function. The estimated ejection fraction is 55-60%. Abnormal left ventricular diastolic function is observed. Abnormal left ventricular diastolic filling is observed, consistent with impaired relaxation. Left Atrium: The left atrium is moderately dilated. Right Ventricle: Moderator Band present. The right ventricle is mildly dilated. The right ventricular global systolic function is normal. Right Atrium: The right atrial cavity size is normal. Aortic Valve: The aortic valve structure is not well visualized. Mild aortic leaflet calcification is visualized. Systolic excursion of the aortic valve cusps is reduced. There is no evidence of aortic regurgitation. There is mild to moderate aortic stenosis. The mean gradient of the aortic valve is 12.48 mmHg. The peak instantaneous gradient of the aortic valve is 21.79 mmHg. The aortic valve area, by peak velocities, is calculated at 1.3 cm2. The aortic valve area, by VTI's, is calculated at 1.4 cm2. Mitral Valve: There is mitral annular calcification. The mitral valve leaflets are mildly thickened. There is mild to moderate mitral regurgitation. There is no evidence of mitral stenosis. Tricuspid Valve: The tricuspid valve leaflets are normal. There is mild tricuspid regurgitation. The right ventricular systolic pressure is estimated at 35 mmHg. There is evidence that pulmonary hypertension may be underestimated. There is no tricuspid stenosis. Pulmonic Valve: The pulmonic valve structure is not well visualized. There is a trace pulmonic regurgitation. There is no pulmonic stenosis. Pericardium: There is no significant pericardial effusion. A pericardial fat pad is visualized. Aorta: There is no dilatation of the ascending aorta. There is no dilatation of the aortic arch. The aortic root is normal in size. Pulmonary Artery: The main pulmonary artery is not well visualized. Venous: The inferior vena cava is dilated. There is a greater than 50% respiratory change in the inferior vena cava dimension. Summary: There are no significant changes when compared to the previous study done on 01/30/12 Conclusions Global left ventricular wall motion and contractility are within normal limits. There is normal left ventricular systolic function. The estimated ejection fraction is 55-60%. The right ventricular global systolic function is normal. Systolic excursion of the aortic valve cusps is reduced. There is mild to moderate aortic stenosis. The mean gradient of the aortic valve is 12.48 mmHg. There is mild to moderate mitral regurgitation. There is mild tricuspid regurgitation. The right ventricular systolic pressure is estimated at 35 mmHg. There are no significant changes when compared to the previous study done on 01/30/12 Measurements Name Value Normal Range RVIDd (AP) 2D 3.4 cm (0.9 - 2.6) RVDdMajor (2D) 4.8 cm (2.2 - 4.4) RAd ISD 4CH 4.5 cm (3.4 - 4.9) RA (A4C)W 4.5 cm (2.9 - 4.6) IVSd (2D) 1.2 cm (0.6 - 1) LVPWd (2D) 1.1 cm (0.6 - 1) LVIDd (2D) 4.1 cm (3.6 - 5.4) LVIDs (2D) 2.8 cm - LV FS (2D) 32 % (25 - 45) Aortic Annulus 1.8 cm (1.4 - 2.6) Ao root diameter (2D) 3.3 cm (2.1 - 3.5) Ascending Ao 3.3 cm (2.1 - 3.4) Aortic arch 2.1 cm (1.8 - 3.4) LA dimension (AP) 2D 3.7 cm (2.3 - 3.8) LAd ISD 4CH 4.8 cm (2.9 - 5.3) LA ISD 4CH W 4.3 cm (2.5 - 4.5) Name Value Normal Range LA ESV SP 4CH (A/L) 63 ml - LA ESV SP 2CH (A/L) 119 ml - LA ESV BP (A/L) 93 ml - LA ESV BP (A/L) index 55 ml/m2 - LA ESV SP 4CH (MOD) 59 ml - LA ESV SP 2CH (MOD) 112 ml - Name Value Normal Range MV E-wave Vmax 0.74 m/sec - MV deceleration time 165.7 msec - MV A-wave Vmax 1.18 m/sec - MV E:A ratio 0.63 ratio - LV septal e' Vmax 0.04 m/sec - LV lateral e' Vmax 0.05 m/sec - LV E:e' septal ratio 14.8 ratio - LV E:e' lateral ratio 18.5 ratio - Name Value Normal Range AV Vmax 2.3 m/sec - AV VTI 55 cm - AV peak gradient 21.79 mmHg - AV mean gradient 12.48 mmHg - LVOT diameter 2 cm - LVOT Vmax 0.95 m/sec - LVOT VTI 23.83 cm - LVOT peak gradient 3.65 mmHg - LVOT mean gradient 2.23 mmHg - DOI (VTI) 0.43 ratio - MOISES (continuity Vmax) 1.3 cm2 - MOISES (continuity VTI) 1.4 cm2 - BRANDIE Vmax 1 m/sec - Name Value Normal Range MR Vmax 4.91 m/sec - MR VTI 112.7 cm - MR flow (PISA) 12.19 ml/sec - Name Value Normal Range TR Vmax 2.6 m/sec - TR peak gradient 27 mmHg - RAP 8 mmHg - RVSP 35 mmHg - IVC diameter 2.1 cm - Name Value Normal Range PV Vmax 0.86 m/sec - PV peak gradient 2.96 mmHg -
[2017-07-23] MEDS: cefTRIAXone* 1 GM in NS 0.9% 50 ML BAG IVPB SCH (17:36)
[2017-07-23] MEDS: Mometasone 220 MCG MDI INH SCH (20:39)
[2017-07-23] MEDS: OXcarbazepine TAB(*) 300 MG PO SCH (20:57)
[2017-07-23] MEDS: Prazosin CAP* 1 MG PO SCH (20:58)
[2017-07-23] MEDS: Atorvastatin* 10 MG TAB PO SCH (20:58)
[2017-07-23] MEDS: Docusate CAP* 100 MG PO SCH (20:59)
[2017-07-23] MEDS: QUEtiapine TAB* 100 MG PO SCH (20:59)
[2017-07-24] MEDS: Levothyroxine TAB* 75 MCG TAB PO SCH (05:13)
[2017-07-24 06:42] LABS: Hematocrit 36 % (35-47); Hemoglobin 12.1 g/dl (12.0-16.0); Mean Corpuscular HGB Conc 34 g/dl (31-36); Mean Corpuscular Hemoglobin 30 pg (27-31); Mean Corpuscular Volume 88 fL (80-97); Mean Platelet Volume 8.8 um3 (7.4-10.4); Platelet Count 227 10^3/ul (150-450); Red Blood Count 4.04 10^6/ul (4.0-5.4); Red Cell Distribution Width 15 % (10.5-15); White Blood Count 6.9 10^3/ul (3.5-10.8)
[2017-07-24 06:57] LABS: EGFR Non-African American 63.6 (>60)
[2017-07-24] MEDS: Albuterol 2.5 MG/3 ML NEB.SOL* (0.083%) INH SCH (07:54)
[2017-07-24] MEDS: Cetirizine* 10 MG TAB PO SCH (08:32)
[2017-07-24] MEDS: Montelukast Sodium TAB* 10 MG PO SCH (08:32)
[2017-07-24] MEDS: Sertraline* 100 MG TAB PO SCH (08:32)
[2017-07-24] MEDS: ALPRAZolam TAB* 0.25 MG PO SCH (08:32)
[2017-07-24] MEDS: Lisinopril TAB* 10 MG PO SCH (08:32)
[2017-07-24] MEDS: CRANBERRY 800 MG PO SCH (08:35)
[2017-07-24] MEDS: ZINC 50 MG PO SCH (08:35)
[2017-07-24] MEDS: Fluticasone NASAL SPRAY 50MCG* 16 gm SPRAY BTL BOTH NARES SCH (08:56)
[2017-07-24] MEDS ORDERED: EPINEPHRINE 1 MG/ML 1 ML VIAL IM PRN (11:23)
[2017-07-24 12:43] VITALS: BP 140/57
--- NOTE | 2017-07-25 05:04 | DS ---
CC: [facility] DISCHARGE SUMMARY: DATE OF ADMISSION: 07/21/17 DATE OF DISCHARGE: 07/24/17 DISCHARGE DIAGNOSES: 1. Urinary tract infection. 2. Hypertension. 3. Osteomyelitis of the left foot, status post removal of hardware. 4. Anxiety and depression. 5. Chronic obstructive pulmonary disease/asthma. 6. Hypothyroidism. 7. Hyperlipidemia. 8. History of diastolic heart failure. 9. Mflo-we-phhzzjgv aortic stenosis, myut-ka-jyyonuiw regurgitation with mitral annular calcification. 10. History of restless legs syndrome. 11. History of incomplete left bundle branch block. 12. Osteopenia. 13. Type 2 diabetes mellitus, diet controlled. 14. History of nightmares. HISTORY: Clare Rizzo is an 86-year-old woman admitted with unsteadiness of gait, found to have a urinary tract infection. Please see the dictated admission note for details of the present illness, past medical history, family history, social and personal history, review of systems, and physical examination. LABORATORY DATA: CBC on admission: WBC 10.9, H and H 12.7/38, MCV 89, PLT 296, 000. White count came down to 6.9 on 07/24/17, H and H was 12.1/36, PLT 227, 000 on discharge. PTT 29.5. Chemistries on admission: Sodium 133, potassium 4.8, chloride 100, CO2 of 26, BUN and creatinine 23/1.01, glucose 182. Comprehensive metabolic panel was abnormal for Alkaline phosphatase 106, otherwise normal. TSH normal at 1.03. BNP 116. CRP started at 44.87, came down to 19.52 on the date of discharge. BMP on the date of discharge: Sodium 132, potassium 4.5, chloride 99, CO2 of 25, BUN and creatinine 21/0.85, glucose 162, calcium 9. Magnesium was 2.2 on admission, lactic acid was 1.4 on admission. Urinalysis: Yellow cloudy, specific gravity 1.015; dipstick is positive for 3+ esterase, WBCs 3+, RBCs 1+, squamous epithelial cells present, ascorbic acid present. Urine culture grew out Proteus mirabilis resistant to nitrofurantoin and tetracycline, sensitive to all other antibiotics tested. IMAGING: Chest x-ray showed interstitial edema consistent with vascular congestion. EKG showed sinus rhythm, essentially normal, no significant change. Transthoracic echocardiogram on 07/23/17 showed normal LV function, possible diastolic dysfunction with abnormal E/A ratio, although not listed in the conclusions. Aortic valve area was 1.3 cm, was felt to be mild to moderately stenotic. Mitral valve showed mitral annular calcification with mild -to-moderate mitral regurgitation. Right ventricular systolic pressure 35. No significant change since January 2012. HOSPITAL COURSE: The patient was admitted. She had presented with unsteadiness of gait and falling. It was not clear at first whether it could be due to having started on amlodipine with orthostatic changes or whether it was from the urinary tract infection. She was started on ceftriaxone. She then told me that she had never taken the amlodipine and when her orthostatic blood pressures were checked, they did not show significant drop and were in fact high. Her C-reactive protein came down with treatment of antibiotics. She was DNR per her previous wishes. She was ambulatory. PT evaluation initially thought that she was unsteady. Repeat evaluation felt that her steadiness had improved. By the time of discharge, she felt ready to go home. Her diet is to be usual. Activity is to be as tolerated. DISCHARGE MEDICATIONS: At the time of discharge, she is to be on the following medications: 1. Albuterol via nebulizer twice a day and every 4 hours as needed. 2. Flovent 110 two puffs twice a day (it has been found in the hospital that she had actually not been using this and so this will be restarted). 3. Doxycycline 100 mg twice a day to continue for her osteomyelitis as before. 4. Montelukast 10 mg once a day. 5. Sertraline 150 mg once a day. 6. Levothyroxine 75 mcg 1 pill 6 days a week, 2 pills once a week. 7. Alprazolam 0.25 mg one-half pill twice a day. 8. Prazosin 3 mg at bedtime. 9. Oxcarbazepine 300 mg 3 at bedtime. 10. Lisinopril 10 mg twice a day (this dose was increased while in the hospital because of elevated blood pressures). 11. Quetiapine 400 mg at bedtime. 12. Simvastatin 20 mg each evening. 13. Premarin cream vaginally 3 times a week. 14. Keflex 250 mg twice a day for 4 days. 15. She had been put on omeprazole during her rehab stay after surgery recently. It is not clear that she has been taking this and so this is not being continued as she is asymptomatic in this regard. 16. It also was noted that she had had a prescription for alendronate 10 mg daily, but she had not had it filled recently and she does not recall having taken it. She has not had a recent DEXA scan. This will be readdressed at her next office appointment. New prescriptions are being sent in to [facility] for: 1. Flovent. 2. Lisinopril. 3. Keflex. [facility] will be following her at home. She will follow up with me in about a week. [id number]/[facility] #: [id number] [place]
== END 2017-07-24 15:00 | disposition home health service (06) | DRG 690 ==
LOC: ED 11:55 → MED 15:50
PROVIDERS: ADMIT Internal Medicine Geriatric Medicine; ATTEND Internal Medicine Geriatric Medicine
DX: N39.0 Urinary tract infection, site not specified (principal); M86.672 Other chronic osteomyelitis, left ankle and foot; I11.0 Hypertensive heart disease with heart failure; I50.9 Heart failure, unspecified; F41.8 Other specified anxiety disorders; J44.9 Chronic obstructive pulmonary disease, unspecified; E03.9 Hypothyroidism, unspecified; E78.5 Hyperlipidemia, unspecified; I08.0 Rheumatic disorders of both mitral and aortic valves; G25.81 Restless legs syndrome; I44.7 Left bundle-branch block, unspecified; M85.80 Other specified disorders of bone density and structure, unspecified site; E11.9 Type 2 diabetes mellitus without complications; B96.4 Proteus (mirabilis) (morganii) as the cause of diseases classified elsewhere; Z16.29 Resistance to other single specified antibiotic; G47.30 Sleep apnea, unspecified; M81.0 Age-related osteoporosis without current pathological fracture; Z66 Do not resuscitate; Z79.899 Other long term (current) drug therapy; Z88.6 Allergy status to analgesic agent; Z91.030 Bee allergy status; Z88.8 Allergy status to other drugs, medicaments and biological substances; Z91.048 Other nonmedicinal substance allergy status; Z87.891 Personal history of nicotine dependence
CPT/HCPCS: 36415; 70450; 71045; 80048; 80053; 81003; 81015; 82550; 83605; 83735; 83880; 84443; 84484; 85025; 85027; 85730; 86140; 87077; 87086; 87186; 93005; 93306; 94640; 99284; A9270-GY; G8978-GP-CI; G8978-GP-CK; G8979-GP-CH; G8979-GP-CI; J0171; J0696

== ENCOUNTER 2017-08-16 00:18 | Observation (INO) | payer MEDICAID, MEDICARE ==
[2017-08-16] MEDS ORDERED: NS 0.9% 1000 ML* 1,000 ML IV ONE (00:36)
[2017-08-16 00:53] LABS: ABS Basophils 0.1 10^3/ul (0-0.2); ABS Eosinophils 0.1 10^3/ul (0-0.6); ABS Lymphocytes 1.4 10^3/ul (1.0-4.8); ABS Monocytes 0.6 10^3/ul (0-0.8); ABS Neutrophils 4.8 10^3/ul (1.5-7.7); ABS Nucleated RBC 0 10^3/ul; Eosinophil % 1.1 % (0-6); Hematocrit 33 % (35-47); Hemoglobin 10.8 g/dl (12.0-16.0); Lymphocyte % 20.6 % (25-47); Mean Corpuscular HGB Conc 33 g/dl (31-36); Mean Corpuscular Hemoglobin 30 pg (27-31); Mean Corpuscular Volume 89 fL (80-97); Mean Platelet Volume 8.2 um3 (7.4-10.4); Nucleated Red Blood Cells % 0; Platelet Count 223 10^3/ul (150-450); Red Blood Count 3.66 10^6/ul (4.0-5.4); Red Cell Distribution Width 15 % (10.5-15)
[2017-08-16 01:02] LABS: INR 0.96 (0.77-1.02)
[2017-08-16 01:11] LABS: EGFR Non-African American 48.7 (>60)
--- NOTE | 2017-08-16 02:00 | ED ---
Rosa Elena Puentes Jade, scribed for Alvina Beaulieu MD on 08/16/17 at 0042 . Syncope/Near Syncope - HPI Summary HPI Summary: Pt is an 86 y/o female presenting to the ED c/o syncope s/p fall. As per EMS, they were helping her up from a fall, and she became dizzy after walking and fell again with LOC. Pt is taking Abx for UTI. She states now she feels mildly lightheaded, but denies any pain, incontinence, or vertigo. - History Of Current Complaint Chief Complaint: EDSyncope Time Seen by Provider: 08/16/17 00:23 Hx Obtained From: Patient, EMS Onset/Duration: Sudden Onset, Resolved Context: Witnessed, Loss Of Consciousness Aggravating Factor(s): Position Change Alleviating Factor(s): Nothing Associated Signs And Symptoms: Dizzy, Lightheadedness - Allergies/Home Medications Allergies/Adverse Reactions: Allergies Allergy/AdvReac Type Severity Reaction Status Date / Time aspirin Allergy Severe Anaphylatic Verified 07/21/17 12:05 Shock bee venom protein (honey bee) Allergy Severe Anaphylatic Verified 07/21/17 12:05 Shock NSAIDS (Non-Steroidal Allergy Severe Anaphylatic Verified 07/21/17 12:05 Anti-Inflamma Shock prochlorperazine Allergy Severe SEIZURE Verified 07/21/17 12:05 DUST AND MOLD Allergy Mild Runny Nose Uncoded 07/21/17 12:05 PMH/Surg Hx/FS Hx/Imm Hx Endocrine/Hematology History: Reports: Hx Diabetes, Hx Thyroid Disease, Hx Anemia, Other Endocrine/Hematological Disorders - osteopenia Denies: Hx Anticoagulant Therapy Cardiovascular History: Reports: Hx Congestive Heart Failure - diastolic , Hx Hypercholesterolemia, Hx Hypertension, Hx Valvular Heart Disease - aortic stenosis, mitral regurg , Other Cardiovascular Problems/Disorders - incomplete LBBB Denies: Hx Pacemaker/ICD Respiratory History: Reports: Hx Asthma, Hx Chronic Bronchitis, Hx Chronic Obstructive Pulmonary Disease (COPD), Hx Pneumonia, Hx Seasonal Allergies, Hx Sleep Apnea - does not wear bipap at night, Other Respiratory Problems/ Disorders - PNA, SLEEP APNEA GI History: Reports: Hx Gastroesophageal Reflux Disease, Hx Irritable Bowel, Other GI Disorders - 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 History: Denies: Hx Kidney Stones, Hx Renal Disease Musculoskeletal History: Reports: Hx Orthopedic Injury - 01/08/2012 R ankle Fx, 03/19/2012 R ankle Fx, 03/21/2012 L ankle Fx, Other Musculoskeletal History - Bilateral rotator cuff injuries; osteomyelitis left ankle Denies: Hx Rheumatoid Arthritis, Hx Osteoporosis Sensory History: Reports: Hx Cataracts, Hx Contacts or Glasses - for reading Denies: Hx Hearing Aid Opthamlomology History: Reports: Hx Cataracts, Hx Contacts or Glasses - for reading Neurological History: Denies: Hx Dementia, Hx Seizures, Other Neuro Impairments/Disorders Psychiatric History: Reports: Hx Anxiety, Hx Depression, Other Psychiatric Issues/Disorders - hx nightmares Denies: Hx Attention Deficit Hyperactivity Disorder, Hx Suicide Attempt, Hx Substance Abuse - Cancer History Hx Chemotherapy: No Hx Radiation Therapy: No - Surgical History Surgery Procedure, Year, and Place: R Ankle fracture, 2011 and 2012 Bilateral. right forearm fx and left forearm fx. left big toe had hammertoe. hysterectomy 1974. nasal polyps 1977 Hx Anesthesia Reactions: No - Immunization History Date of Tetanus Vaccine: Unsure Date of Influenza Vaccine: 2012 Infectious Disease History: No Infectious Disease History: Reports: Hx of Known/Suspected MRSA Denies: Hx Clostridium Difficile, Hx Hepatitis, Hx Human Immunodeficiency Virus (HIV), Hx Shingles, Hx Tuberculosis, Traveled Outside the [place] in Last 30 Days - Family History Known Family History: Positive: Other - neg Breast CA Family History: No FHx of breast cancer. - Social History Alcohol Use: None Hx Substance Use: No Substance Use Type: Reports: None Hx Tobacco Use: Yes Smoking Status (MU): Former Smoker Type: Cigarettes Amount Used/How Often: 1ppd Length of Time of Smoking/Using Tobacco: 5-6 years Have You Smoked in the Last Year: No Review of Systems Negative: incontinence Negative: Myalgia Neurological: Other - Dizziness, NEGATIVE vertigo Positive: Syncope All Other Systems Reviewed And Are Negative: Yes Physical Exam - Summary Physical Exam Summary: VITAL SIGNS: Reviewed. GENERAL: ~Patient is a well-developed and nourished female who is lying comfortable in the stretcher. Patient is not in any acute respiratory distress. HEAD AND FACE: No signs of trauma. No ecchymosis, hematomas or skull depressions. No sinus tenderness. EYES: PERRLA, EOMI x 2, No injected conjunctiva, no nystagmus. EARS: Hearing grossly intact. Ear canals and tympanic membranes are within normal limits. MOUTH: Oropharynx within normal limits. NECK: Supple, trachea is midline, no adenopathy, no JVD, no carotid bruit, no c- spine tenderness, neck with full ROM. CHEST: Symmetric, no tenderness at palpation LUNGS: Clear to auscultation bilaterally. No wheezing or crackles. CVS: Regular rate and rhythm, S1 and S2 present, no murmurs or gallops appreciated. ABDOMEN: Soft, non-tender. No signs of distention. No rebound no guarding, and no masses palpated. Bowel sounds are normal. EXTREMITIES: FROM in all major joints, no edema, no cyanosis or clubbing. NEURO: Alert and oriented x 3. No acute neurological deficits. Speech is normal and follows commands. SKIN: Dry and warm Triage Information Reviewed: Yes Vital Signs On Initial Exam: Initial Vitals Pulse Pulse Ox 86 93 08/16/17 00:25 08/16/17 00:25 Vital Signs Reviewed: Yes Diagnostics - Vital Signs Vital Signs Temp Pulse Resp BP Pulse Ox 08/16/17 00:26 97.3 F 83 22 139/53 93 08/16/17 00:25 86 93 - Laboratory Result Diagrams: 08/16/17 00:43 08/16/17 00:43 Lab Statement: Any lab studies that have been ordered have been reviewed, and results considered in the medical decision making process. - Radiology CXR Xray Interpretation: No Acute Changes - No acute disease. Pending official report. Radiology Interpretation Completed By: ED Physician - EKG 0025 Cardiac Rate: NL - 84 bpm EKG Rhythm: Sinus Rhythm EKG Interpretation: Normal interval. Normal axis. No ischemic changes. Course/Dx Assessment/Plan: Pt is an 86 y/o female presenting to the ED c/o syncope s/p fall. As per EMS, they were helping her up from a fall, and she became dizzy after walking and fell again with LOC. Pt is taking Abx for UTI. She states now she feels mildly lightheaded, but denies any pain, incontinence, or vertigo. EKG is sinus rhythm with no ischemic changes. CXR is negative. Blood work was done with results including a troponin of 0.01. Discussed care of pt with Dr. Henderson who accepts for admission. Pt will be admitted with Dx of syncope. Allergies noted. - Diagnoses Provider Diagnoses: Syncope - Physician Notifications Discussed Care of Patient With: Dominique Henderson Time Discussed With Above Provider: 01:41 Instructed by Provider To: Other - Accepts pt for admission. Discharge - Sign-Out/Discharge Documenting (check all that apply): Discharge/Admit/Transfer - Admit - Discharge Plan Condition: Stable Disposition: ADMITTED TO [facility] Referrals: Arielle Carr MD [Primary Care Provider] - The documentation as recorded by the Rosa Elena mcnamara Jade accurately reflects the service I personally performed and the decisions made by , Alvina Beaulieu MD.
[2017-08-16] MEDS ORDERED: Albuterol HFA INHALER* 8 gm MDI INH PRN (02:19)
[2017-08-16] MEDS ORDERED: Acetaminophen TAB* 325 MG PO PRN (02:21)
[2017-08-16] MEDS ORDERED: Dextrose 50% Syringe 50 ML* 25 GM/50 ML SYRINGE IV PUSH PRN (02:22)
[2017-08-16] MEDS ORDERED: NS 0.9% 1000 ML* 1,000 ML IV SCH (02:30)
[2017-08-16] MEDS: Levothyroxine TAB* 75 MCG TAB PO SCH (05:16)
[2017-08-16] MEDS: Heparin VIAL(*) 5000 UNITS/ML VIAL (FIVE THOUSAND) SUBCUT SCH ×3 (05:17→20:38)
[2017-08-16 06:19] LABS: ABS Basophils 0.1 10^3/ul (0-0.2); ABS Eosinophils 0.1 10^3/ul (0-0.6); ABS Lymphocytes 1.8 10^3/ul (1.0-4.8); ABS Monocytes 0.6 10^3/ul (0-0.8); ABS Neutrophils 5.2 10^3/ul (1.5-7.7); ABS Nucleated RBC 0 10^3/ul; Hematocrit 30 % (35-47); Lymphocyte % 23.1 % (25-47); Mean Corpuscular HGB Conc 34 g/dl (31-36); Mean Corpuscular Hemoglobin 30 pg (27-31); Mean Corpuscular Volume 89 fL (80-97); Mean Platelet Volume 7.8 um3 (7.4-10.4); Nucleated Red Blood Cells % 0.1; Platelet Count 216 10^3/ul (150-450); Red Blood Count 3.36 10^6/ul (4.0-5.4); Red Cell Distribution Width 16 % (10.5-15); White Blood Count 7.6 10^3/ul (3.5-10.8)
[2017-08-16 06:35] LABS: EGFR Non-African American 62.7 (>60)
--- NOTE | 2017-08-16 07:58 | RAD ---
Indication: Dizziness. Diastolic congestive heart failure. Chronic obstructive pulmonary disease. History of tobacco use. Comparison: July 21, 2017 chest radiograph and July 03, 2017 CT. Technique: Upright AP 0052 hours Report: Elevated lung volumes and both diffuse mild prominence of the interstitial markings and patchy rarefaction of the mid to upper lung zone interstitial markings. No alveolar infiltrate, suspicious focal pulmonary lesion, or pneumothorax. Probable small bilateral pleural effusions. Upper normal heart size. Mitral valve annulus calcifications. Unremarkable central pulmonary vasculature. IMPRESSION: 1. Stigmata of chronic obstructive pulmonary disease. 2. Probable mild interstitial edema with small associated pleural effusions.
[2017-08-16] MEDS: DOXYcycline CAP(*) 100 MG PO SCH ×2 (09:13→20:37)
[2017-08-16] MEDS: ALPRAZolam TAB* 0.25 MG PO SCH ×2 (09:13→20:38)
[2017-08-16] MEDS: Montelukast Sodium TAB* 10 MG PO SCH (09:13)
[2017-08-16] MEDS: Sertraline* 50 MG TAB PO SCH (09:14)
[2017-08-16] MEDS: Lisinopril TAB* 10 MG PO SCH ×2 (09:14→20:38)
[2017-08-16] MEDS: Insulin LISPRO* 1 UNITS UNIT SUBCUT SCH ×3 (09:17→17:41)
--- NOTE | 2017-08-16 10:57 | HP ---
CC: Dr. Arielle Carr * HISTORY AND PHYSICAL: DATE OF ADMISSION: 08/16/17 TIME OF EVALUATION: 2:08 a.m. PRIMARY CARE PROVIDER: Dr. Arielle Carr. CHIEF COMPLAINT: "I fell". HISTORY OF PRESENT ILLNESS: Ms. Rizzo is an 86-year-old lady with a past medical history of hypertension, COPD, osteomyelitis on long-term doxycycline, diet- controlled type 2 diabetes, sleep apnea, anxiety, GERD, osteoporosis, rhinitis, restless leg syndrome, depression, who is brought into the emergency room by EMS after sustaining a fall at home. The patient was admitted to [facility] from 07/21/17 to 07/24/17 with complaints of unsteadiness of her gait and falling. It was not clear if her fall was secondary to orthostatic changes or urinary tract infection. The patient states she went home and was feeling well. Today, she states that she did not drink a lot of fluids and her son came to visit her to watch the baseball game and she had just a bowl of cereal for dinner planning to eat more later, but never got to do so. She states that she was trying to reach her rollator, but it was a little far and she fell forward. She denies hitting her head or having pain in any of the parts of her body. She states she was unable to stand up so she pushed her life alert button and EMS came to assist her. She states that they were able to get her up but she felt dizzy standing up and was about to fall again. So EMS brought her to the emergency room for further evaluation. She complains of dizziness when changing positions but she denies losing consciousness. She denies fever, chills, nausea, vomiting, diarrhea, cough, shortness of breath , urinary complaints. PAST MEDICAL HISTORY: 1. Hypertension. 2. COPD. 3. Left hallux MRSA osteomyelitis, status post hardware removal. 4. Diet-controlled type 2 diabetes. 5. Obstructive sleep apnea. 6. Anxiety. 7. GERD. 8. Osteoporosis. 9. Allergic rhinitis. 10. History of nightmares. 11. Restless leg syndrome. 12. Depression. PAST SURGICAL HISTORY: 1. Status post vaginal hysterectomy. 2. Status post bilateral cataract extractions. 3. Excision of left arm lipoma. 4. Status post multiple cystoscopies and transurethral collagen injections. 5. Surgery for nasal polyp with removal. 6. Lumpectomy in the right breast was benign. 7. Status post left foot surgery with removal of hardware. MEDICATIONS: The patient does not recall her medications at this time, so I am getting them from her discharge summary from Dr. Arielle Carr on 07/24/17. 1. Albuterol nebulizer twice a day and every 4 hours as needed. 2. Flovent 110 mcg two puffs twice a day. 3. Doxycycline 100 mg twice a day for osteomyelitis. 4. Montelukast 10 mg p.o. once a day. 5. Sertraline 150 mg p.o. once a day. 6. Levothyroxine 75 mcg p.o. on Mondays, Tuesdays, Wednesdays, , Fridays, and Saturdays and 150 mcg on Sundays. 7. Alprazolam 0.25 mg half a tablet twice a day. 8. Prazosin 3 mg p.o. at bedtime. 9. Oxcarbazepine 900 mg p.o. at bedtime. 10. Lisinopril 10 mg twice a day. 11. Seroquel 400 mg p.o. at bedtime. 12. Simvastatin 20 mg p.o. each evening. 13. Premarin vaginal cream vaginally 3 times a week. FAMILY HISTORY: Noncontributory. SOCIAL HISTORY: The patient is a former smoker, she quit over 20 years ago. No history of alcohol abuse. She lives by herself at [facility]. Surrogate decision maker is her daughter, Leah Diamond, phone number is [phone]. REVIEW OF SYSTEMS: A 14-point review of systems was performed and all the pertinent negatives are in the HPI. PHYSICAL EXAMINATION GENERAL: The patient is a pleasant elderly lady, lying in the ED stretcher, not in acute distress. VITAL SIGNS: Temperature 97.3, heart rate is 82, respiratory rate is 17, oxygen saturation 92% on room air, blood pressure is 126/60. HEENT: Pupils are equal. Moist mucous membranes. CHEST: Breath sounds present bilaterally diminished but no added sounds. CVS: Normal S1, S2. Regular rate and rhythm with a 2/6 systolic murmur. ABDOMEN: Soft, nontender. Bowel sounds are present. EXTREMITIES: No clubbing, cyanosis, or edema. No significant erythema of the left great toe. NEURO: She is alert and oriented x3. Able to move all 4 extremities. Face is symmetric. LABORATORY AND IMAGING DATA: The patient had a CBC that showed a WBC of 7, hemoglobin of 10.8, hematocrit of 33, MVC 89, MCH 30, platelets of 223 with 69% neutrophils. INR 0.96, aPTT 28. Sodium was 135, potassium 3.7, chloride 102, bicarb 23, BUN of 25, creatinine of 1.07, glucose of 201, calcium 8.7, magnesium 2.1. LFTs were normal. First troponin was 0.01. BNP was 76. There is no urinalysis done at this time. EKG done 08/16/17 at 12:25 a.m. shows sinus rhythm at 84 beats per minute with minimal ST depressions in V4 to V6. This is slightly changed from her prior one from 07/21/17. Chest x-ray to my read shows no acute pulmonary disease. ASSESSMENT AND PLAN: Ms. Rizzo is an 86-year-old lady with a past medical history of hypertension, chronic obstructive pulmonary disease, left hallux osteomyelitis, diet-controlled type 2 diabetes, sleep apnea, anxiety, gastroesophageal reflux disease, osteoporosis, rhinitis, restless leg syndrome, depression that presented to the emergency room after sustaining a fall at home and complaining of dizziness, but she denies loss of consciousness. 1. Fall versus syncope. The patient states she had a mechanical fall trying to reach her rollator and when EMS arrived and picked her up from the floor she felt dizzy and was about to fall but states that she did not lose consciousness. She thinks she is to blame for her symptoms because she did not drink or eat enough during the day. Orthostatic vital signs were negative in the emergency room. Her hemoglobin is a little lower than her baseline. It was 12 on 07/24/17 and is 10.8 at this time, although the patient denies any signs of bleeding. Her BUN is also slightly elevated at this time from 18 on 08/09/17 and 25 today. This could suggest dehydration but could also be secondary to an upper gastrointestinal bleed. The patient will be admitted to telemetry floor so we can monitor for any arrhythmias. She will receive gentle IV hydration and we will monitor her H and H. This is her second admission in a month with similar complaints, so I am going to request PT/OT evaluation. I am going to repeat her urinalysis as the patient was recently here with a urinary tract infection, treated with antibiotics. Her urine culture upon that admission grew Proteus mirabilis and there is a repeat urine culture done on that was negative. The patient denies any urinary complaints at this time. The patient had an echocardiogram on her last admission on 07/23/17 and it showed an ejection fraction of 55% to 60% with no wall motion abnormalities and [id number] aortic stenosis. 2. Hypertension. It is controlled. We will continue her lisinopril. 3. Hypothyroidism. Her TSH is 3.65. We will continue her levothyroxine. 4. Type 2 diabetes. The patient will be on a consistent carb diet and we will check her fingersticks a.c. and h.s. and cover with a lispro sliding scale. 5. Left hallux MRSA osteomyelitis, status post hardware removal. We will continue doxycycline. 6. DVT prophylaxis: The patient has a score of 3 on the DVT Prophylaxis Risk Assessment Guide. She will be started on subcutaneous heparin. 7. Code status is do not resuscitate and the patient's MOLST form was updated and put in her chart. TIME SPENT: Approximately 55 minutes was spent with patient interview, medical records review, physical examination to complete this admission; more than half of this time was spent [id number] with the patient and coordination of care. This case will be signed out to her primary care provider, Dr. Arielle Carr in the morning. [id number]/[facility] #: [id number] [place]
[2017-08-16] MEDS: Albuterol 2.5 MG/3 ML NEB.SOL* (0.083%) INH SCH ×2 (12:21→19:49)
--- NOTE | 2017-08-16 13:30 | RAD ---
HISTORY: Pleural Effusion COMPARISONS: Chest x-ray dated August 16, 2017, CT dated July 03, 2017, CT dated February 28, 2012 TECHNIQUE: Multiple contiguous axial CT scans of the chest were obtained without intravenous contrast. Coronal and sagittal multiplanar reformations are also submitted for review. FINDINGS: The study is limited by the lack of intravenous contrast. This limits evaluation of the solid organs and vasculature. The patient is also limited by patient breathing motion artifact. NECK AND THYROID: The lower neck and thyroid are unremarkable. CHEST WALL: There is no lower cervical, axillary, or supraclavicular lymphadenopathy by size criteria. HEART AND PERICARDIUM: Coronary and valvular cardiac calcifications are noted. AORTA AND PULMONARY VASCULATURE: There is calcification of the thoracic aorta. The pulmonary vasculature is unremarkable. MEDIASTINUM: There is no mediastinal lymphadenopathy by size criteria. MARLENA: There is no hilar lymphadenopathy by size criteria. AIRWAY AND ESOPHAGUS: The airway is unremarkable, without endobronchial filling defect. The esophagus is grossly normal. LUNG PARENCHYMA: There is biapical centrilobular emphysematous change. There are nodules of the right middle lobe on axial 28 measuring up to 0.4 cm in size. These can be identified on the 2012 examination and are stable. The stability is consistent with benign nodularity. PLEURA: There is no effusion. There is stable right apical pleuroparenchymal scarring. UPPER ABDOMEN: The upper abdomen is unremarkable. BONES AND SOFT TISSUES: Degenerative changes are noted. There is a chronic compression deformity of L1 without osseous retropulsion. OTHER: None. IMPRESSION: 1. EMPHYSEMA. 2. ATHEROSCLEROSIS 3. NO PLEURAL EFFUSION
[2017-08-16 14:17] LABS: Urine Appearance Clear; Urine Blood Negative (Negative); Urine Color Yellow; Urine Ketones Negative (Negative); Urine Protein Negative (Negative); Urine Specific Gravity 1.013 (1.010-1.030); Urine Urobilinogen Negative (Negative)
[2017-08-16] MEDS ORDERED: Mometasone 220 MCG MDI INH SCH (18:00)
[2017-08-16] MEDS ORDERED: Atorvastatin* 10 MG TAB PO SCH (18:00)
[2017-08-16] MEDS ORDERED: ALPRAZolam TAB* 0.25 MG PO PRN (18:20)
[2017-08-16] MEDS ORDERED: OXcarbazepine TAB(*) 300 MG PO SCH (21:00)
[2017-08-16] MEDS ORDERED: QUEtiapine TAB* 100 MG PO SCH (21:00)
[2017-08-16] MEDS ORDERED: Prazosin CAP* 1 MG PO SCH (21:00)
[2017-08-17] MEDS: Heparin VIAL(*) 5000 UNITS/ML VIAL (FIVE THOUSAND) SUBCUT SCH (05:08)
[2017-08-17] MEDS: Levothyroxine TAB* 75 MCG TAB PO SCH (05:08)
[2017-08-17] MEDS: Albuterol 2.5 MG/3 ML NEB.SOL* (0.083%) INH SCH (07:20)
[2017-08-17] MEDS: Insulin LISPRO* 1 UNITS UNIT SUBCUT SCH ×2 (08:06→11:48)
[2017-08-17 08:12] VITALS: BP 145/54
[2017-08-17] MEDS: DOXYcycline CAP(*) 100 MG PO SCH (08:56)
[2017-08-17] MEDS: Sertraline* 50 MG TAB PO SCH (08:56)
[2017-08-17] MEDS: Lisinopril TAB* 10 MG PO SCH (08:56)
[2017-08-17] MEDS: ALPRAZolam TAB* 0.25 MG PO SCH (08:56)
[2017-08-17] MEDS: Montelukast Sodium TAB* 10 MG PO SCH (08:56)
[2017-08-17] MEDS ORDERED: Conjugated Estrogens VAG CM* 42.5 gm TUBE VAGINAL SCH ×2 (09:00→21:00)
[2017-08-17 10:26] LABS: Hematocrit 34 % (35-47)
--- NOTE | 2017-08-18 12:43 | DS ---
DISCHARGE SUMMARY: DATE OF ADMISSION: 08/16/17 DATE OF DISCHARGE: 08/17/17 DISCHARGE DIAGNOSES: 1. Fall in the home due to loss of balance. 2. History of osteomyelitis of the foot. 3. History of recent urinary tract infection. 4. History of anxiety. 5. History of hypertension. 6. Type 2 diabetes mellitus. 7. History of pleural effusions, resolved. 8. Gastroesophageal reflux disease. 9. Allergic rhinitis. 10. Chronic obstructive pulmonary disease. 11. History of sleep apnea. 12. History of nightmares. 13. Restless leg syndrome. 14. Hypothyroidism. 15. Osteopenia. 16. Incomplete bundle branch block. 17. Mild to moderate aortic stenosis. 18. History of diastolic heart failure. 19. Hyperlipidemia. HISTORY: Clare Rizzo is an 86-year-old woman admitted after having fallen at home. Please see the dictated admission note for details of the present illness, past medical history, family history, social and personal history, review of systems, and physical examination. LABORATORY DATA: CBC on 08/16/17: WBC 7.0, H and H 10.8/33, MCV 89, PLT 223, 000. H and H on 08/16/17 was down to 10/30, repeat on 08/17/17 (after IV hydration was stopped) 11/34. INR 0.96, PTT 28 (was normal). Chemistries on admission: Sodium 135, potassium 3.7, chloride 102, CO2 of 23, BUN/creatinine 25/1.07, glucose 201. Rest of her comprehensive metabolic panel was within normal limits except for total protein slightly low at 6.3. BNP normal at 76. Troponins were 0.01, 0, 0.01, 0.01. C-reactive protein was normal at 2.48, TSH was normal at 3.65. Magnesium was normal at 2.1. Smwqu-xt-lecd glucoses were 133, 97, 138, 114, 128. Urinalysis: Yellow clear, specific gravity of 1.013, pH 6. IMAGING: Chest x-ray on 08/16/17 showed stigmata of chronic obstructive pulmonary disease, low probable mild interstitial edema, small associated pleural effusions. CT scan of the chest on 08/16/17 showed emphysema, atherosclerosis, no pleural effusions, previous pleural effusions had resolved. EKG on 08/16/[address]-T wave changes, new since previous EKG, otherwise no significant change. HOSPITAL COURSE: The patient was admitted. She was placed on telemetry. There were no arrhythmias noted on monitoring. Lisinopril was continued for hypertension. Her levothyroxine was continued at the current dose. She was placed on subcutaneous heparin for DVT prophylaxis. She was do not resuscitate and her MOLST form was updated. PT and OT evaluation were requested. PT walked with her and felt that she walked well with walker. The patient denied loss of consciousness. It was felt that she had failed to eat a proper meal and that she had lost her balance due to weakness. She denied syncope. She was also evaluated by Occupational Therapy. The occupational therapist felt that she should eat regularly. She did not feel that she had any acute deficits that would benefit from skilled OT intervention. The patient had no questions or concerns. She states that she appreciated the OT consulting with her. It was felt that she was able to be discharged on 08/17/17 as she had no arrhythmias and it was felt that she had lost her balance, had been weak due to not having eaten properly. DISCHARGE MEDICATIONS: She is being discharged on the following medications. 1. Doxycycline 100 mg twice daily. 2. Lisinopril 10 mg twice daily. 3. Alprazolam 0.125 mg twice daily. 4. Levothyroxine 75 mcg 6 days a week, 150 mcg once a week. 5. Montelukast 10 mg daily. 6. Prazosin 3 mg at h.s. 7. Quetiapine 400 mg at h.s. 8. Sertraline 150 mg daily. 9. Albuterol via nebulizer twice daily and q.4 hours p.r.n. 10. Oxcarbazepine 900 mg at bedtime. 11. Vaginal estrogen 3 times a week. 12. Fluticasone (Flovent) 110 mcg 1 puff twice daily. 13. Simvastatin 20 mg each evening. FOLLOWUP: The patient should follow up with me in about 1 week with a CBC. [id number]/[facility] #: [id number] [facility]
[2017-08-19] MEDS ORDERED: Levothyroxine TAB* 150 MCG TAB PO SCH (06:00)
== END 2017-08-17 12:39 | disposition home or self-care (01) ==
LOC: ED 00:18 → MEDTELE 02:17
PROVIDERS: ADMIT Internal Medicine; ATTEND Internal Medicine Geriatric Medicine
DX: Z91.81 History of falling (principal); Z87.39 Personal history of other diseases of the musculoskeletal system and connective tissue; Z87.440 Personal history of urinary (tract) infections; F41.9 Anxiety disorder, unspecified; I10 Essential (primary) hypertension; E11.8 Type 2 diabetes mellitus with unspecified complications; Z87.09 Personal history of other diseases of the respiratory system; K21.9 Gastro-esophageal reflux disease without esophagitis; T78.40XA Allergy, unspecified, initial encounter; X58.XXXA Exposure to other specified factors, initial encounter; J44.9 Chronic obstructive pulmonary disease, unspecified; G47.30 Sleep apnea, unspecified; G25.81 Restless legs syndrome; E03.9 Hypothyroidism, unspecified; M85.80 Other specified disorders of bone density and structure, unspecified site; I45.4 Nonspecific intraventricular block; I35.0 Nonrheumatic aortic (valve) stenosis; E78.5 Hyperlipidemia, unspecified; I50.32 Chronic diastolic (congestive) heart failure; F32.9 Major depressive disorder, single episode, unspecified; Z87.891 Personal history of nicotine dependence; R55 Syncope and collapse; J43.9 Emphysema, unspecified; I70.90 Unspecified atherosclerosis
CPT/HCPCS: 36415; 71045; 71250; 80048; 80053; 81003; 82550; 83735; 83880; 84443; 84484; 85014; 85018; 85025; 85610; 85730; 86140; 93005; 94640; 96361; 96374; 99285; A9270-GY; G0378; G8978-GP-CI; G8979-GP-CI; G8980-GP-CI; G8987-GO-CI; G8988-GO-CI; G8989-GO-CI; J1644

== ENCOUNTER → 2017-09-13 07:24 | Emergency (ER) | payer MEDICARE, MEDICAID ==
[~2017-09-13 07:24] MED LIST: Acetaminophen TAB* 325 MG PO ONE; Lisinopril TAB* 10 MG PO ONE; Meclizine TAB* 12.5 MG PO ONE; NS 0.9% 1000 ML* 1,000 ML IV ONE; Sulfamethox/Trimethoprim DS 800/160* TAB PO ONE
[2017-09-13 08:22] LABS: ABS Basophils 0.1 10^3/ul (0-0.2); ABS Eosinophils 0.1 10^3/ul (0-0.6); ABS Lymphocytes 1.6 10^3/ul (1.0-4.8); ABS Monocytes 0.5 10^3/ul (0-0.8); ABS Neutrophils 4.4 10^3/ul (1.5-7.7); ABS Nucleated RBC 0 10^3/ul; Eosinophil % 2.1 % (0-6); Hematocrit 36 % (35-47); Hemoglobin 11.9 g/dl (12.0-16.0); Mean Corpuscular HGB Conc 34 g/dl (31-36); Mean Corpuscular Hemoglobin 30 pg (27-31); Mean Corpuscular Volume 90 fL (80-97); Mean Platelet Volume 8.6 um3 (7.4-10.4); Nucleated Red Blood Cells % 0.1; Platelet Count 241 10^3/ul (150-450); Red Blood Count 3.94 10^6/ul (4.00-5.40); Red Cell Distribution Width 16 % (10.5-15); White Blood Count 6.8 10^3/ul (3.5-10.8)
[2017-09-13 08:34] LABS: EGFR Non-African American 59.5 (>60)
[2017-09-13 08:52] LABS: Urine Appearance Cloudy; Urine Blood Negative (Negative); Urine Color Yellow; Urine Ketones Negative (Negative); Urine Protein Negative (Negative); Urine Specific Gravity 1.012 (1.010-1.030); Urine Urobilinogen Negative (Negative)
[2017-09-13 12:26] VITALS: BP 186/87
--- NOTE | 2017-09-16 07:15 | PN ---
Progress Note - Progress Note Date of Service: 09/13/17 Note: Pt. seen in ER 09/13/17 and started on Bactrim for UTI. Final urine culture today is growing >100,000 enterobacter cloacae susceptible to bactrim. No change in treatment plan needed at this time.
--- NOTE | 2017-09-18 06:32 | ED ---
George Puentes Tariq, scribed for Manuel Angeles MD on 09/13/17 at 0748 . Complex/Multi-Sys Presentation - HPI Summary HPI Summary: A 86 y/o female KESHIA presents to ED c/o burning during urination. Additionally c /o headache and dizziness. Pt believes it is a UTI. "haven't had UTI in ages". According to pt, yesterday, she felt dizzy, had back pain (lower and on both sides) and had a headache. Currently, she is not dizzy and the back pain is not present, however the headache progresses. She thinks the headache is present because of the dizziness. Pt denies any appetite changes, sweats, chills, SOB, CP, abdominal pain or change in frequency of urination, however did have back pain. Pt noted that the burning is present when she starts to urinate. She wanted to come in yesterday, however, could not make it. This morning she couldn 't leave her bed because of the dizziness. Pt lives alone. She is currently on several medications. Pt has allergies. - History Of Current Complaint Chief Complaint: EDUrogenitalProblems Time Seen by Provider: 09/13/17 07:28 Hx Obtained From: Patient Onset/Duration: Sudden Onset, Lasting Days - Yesterday, Still Present - Headache and Dysuria Character: Typical Headache Aggravating Factor(s): NOTHING Alleviating Factor(s): NOTHING Associated Signs And Symptoms: Positive: Dizziness, Headache, Back Pain, Dysuria. Negative: SOB, Chest Pain, Abdominal Pain - Allergies/Home Medications Allergies/Adverse Reactions: Allergies Allergy/AdvReac Type Severity Reaction Status Date / Time aspirin Allergy Severe Anaphylatic Verified 07/21/17 12:05 Shock bee venom protein (honey bee) Allergy Severe Anaphylatic Verified 07/21/17 12:05 Shock NSAIDS (Non-Steroidal Allergy Severe Anaphylatic Verified 07/21/17 12:05 Anti-Inflamma Shock prochlorperazine Allergy Severe SEIZURE Verified 07/21/17 12:05 DUST AND MOLD Allergy Mild Runny Nose Uncoded 07/21/17 12:05 PMH/Surg Hx/FS Hx/Imm Hx Endocrine/Hematology History: Reports: Hx Diabetes, Hx Thyroid Disease, Hx Anemia, Other Endocrine/Hematological Disorders - osteopenia Denies: Hx Anticoagulant Therapy Cardiovascular History: Reports: Hx Congestive Heart Failure - diastolic , Hx Hypercholesterolemia, Hx Hypertension, Hx Valvular Heart Disease - aortic stenosis, mitral regurg , Other Cardiovascular Problems/Disorders - incomplete LBBB Denies: Hx Pacemaker/ICD Respiratory History: Reports: Hx Asthma, Hx Chronic Bronchitis, Hx Chronic Obstructive Pulmonary Disease (COPD), Hx Pneumonia, Hx Seasonal Allergies, Hx Sleep Apnea - does not wear bipap at night, Other Respiratory Problems/ Disorders - PNA, SLEEP APNEA GI History: Reports: Hx Gastroesophageal Reflux Disease, Hx Irritable Bowel, Other GI Disorders - 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 History: Denies: Hx Kidney Stones, Hx Renal Disease Musculoskeletal History: Reports: Hx Orthopedic Injury - 01/08/2012 R ankle Fx, 03/19/2012 R ankle Fx, 03/21/2012 L ankle Fx, Other Musculoskeletal History - Bilateral rotator cuff injuries; osteomyelitis left ankle Denies: Hx Rheumatoid Arthritis, Hx Osteoporosis Sensory History: Reports: Hx Cataracts, Hx Contacts or Glasses Denies: Hx Hearing Aid Opthamlomology History: Reports: Hx Cataracts, Hx Contacts or Glasses Neurological History: Denies: Hx Dementia, Hx Seizures, Other Neuro Impairments/Disorders Psychiatric History: Reports: Hx Anxiety, Hx Depression, Other Psychiatric Issues/Disorders - hx nightmares Denies: Hx Attention Deficit Hyperactivity Disorder, Hx Suicide Attempt, Hx Substance Abuse - Cancer History Hx Chemotherapy: No Hx Radiation Therapy: No - Surgical History Surgery Procedure, Year, and Place: R Ankle fracture, 2011 and 2013 Bilateral. right forearm fx and left forearm fx. left big toe had hammertoe. hysterectomy 1974. nasal polyps 1977 Hx Anesthesia Reactions: No - Immunization History Date of Tetanus Vaccine: Unsure Date of Influenza Vaccine: 2012 Infectious Disease History: Yes Infectious Disease History: Reports: Hx of Known/Suspected MRSA Denies: Hx Clostridium Difficile, Hx Hepatitis, Hx Human Immunodeficiency Virus (HIV), Hx Shingles, Hx Tuberculosis, Traveled Outside the [place] in Last 30 Days - Family History Known Family History: Positive: Other - neg Breast CA Family History: No FHx of breast cancer. - Social History Alcohol Use: None Hx Substance Use: No Substance Use Type: Reports: None Hx Tobacco Use: Yes Smoking Status (MU): Former Smoker Type: Cigarettes Amount Used/How Often: 1ppd Length of Time of Smoking/Using Tobacco: 5-6 years Have You Smoked in the Last Year: No Review of Systems Negative: Fever, Chills, Skin Diaphoresis Negative: Erythema Negative: Sore Throat Negative: Chest Pain Negative: Shortness Of Breath, Cough Positive: Other - NEGATIVE: Appetite changes. Negative: Abdominal Pain, Vomiting, Nausea Positive: dysuria, other - NEGATIVE: Changes in urination frequency. Negative: hematuria Positive: Other - POSITIVE: Back pain, not currently.. Negative: Myalgia, Edema Negative: Rash Neurological: Other - POSITIVE: Dizziness Positive: Headache All Other Systems Reviewed And Are Negative: Yes Physical Exam - Summary Physical Exam Summary: Constitutional: Well-developed, Well-nourished, Alert. (-) Distressed Skin: Warm, Dry HENT: Normocephalic; Atraumatic. Dry Mucous Membranes Eyes: Conjunctiva normal Neck: Musculoskeletal ROM normal neck. (-) JVD, (-) Stridor, (-) Tracheal deviation Cardio: Rhythm regular, rate normal, Heart sounds normal; Intact distal pulses; The pedal pulses are 2+ and symmetric. Radial pulses are 2+ and symmetric. (-) Murmur Pulmonary/Chest wall: Effort normal. (-) Respiratory distress, (-) Wheezes, (-) Rales Abd: Soft, (-), epigastric tenderness, (-) Distension, (-) Guarding, (-) Rebound Musculoskeletal: (-) Edema Lymph: (-) Cervical adenopathy Neuro: Alert, Oriented x3 Psych: Mood and affect Normal Triage Information Reviewed: Yes Vital Signs On Initial Exam: Initial Vitals Temp Pulse Resp BP Pulse Ox 97 F 80 18 155/87 95 09/13/17 07:27 09/13/17 07:27 09/13/17 07:27 09/13/17 07:27 09/13/17 07:27 Vital Signs Reviewed: Yes Diagnostics - Vital Signs Vital Signs Temp Pulse Resp BP Pulse Ox 09/13/17 07:27 97 F 80 18 155/87 95 - Laboratory Result Diagrams: 09/13/17 08:00 09/13/17 08:00 Lab Statement: Any lab studies that have been ordered have been reviewed, and results considered in the medical decision making process. - EKG 0803 Cardiac Rate: NL - 74 BPM EKG Rhythm: Sinus Rhythm Re-Evaluation - Re-Evaluation First Eval Re-Evaluation Time: 10:50 Comment: FEELING DIZZY. BP WAS 190 SYSTOLIC. PT WAS MEDICATED. PT ADVISED NOT TO GO HOME IF STILL DIZZY. HX OF CHRONIC VERTIGO. Second Eval Re-Evaluation Time: 11:38 Comment: INSTRUCTED PATIENT TO INCREASE WATER INTAKE. PATIENT IS COMFORTABLE WITH D/C. Complex Multi-Symp Course/Dx Course Of Treatment: DON'T SUSPECT CARDIAC EPIDEMIOLOGY. DEHYDRATION IS SECONDARY TO SUSPECTED UTI. - Diagnoses Provider Diagnoses: Dehydration, UTI (urinary tract infection) Discharge - Sign-Out/Discharge Documenting (check all that apply): Discharge/Admit/Transfer - DISCHARGE - Discharge Plan Condition: Stable Disposition: HOME Prescriptions: Sulfamethox/Trimethoprim DS* [Bactrim DS 800/160 TAB*] 1 tab PO BID #14 tab Patient Education Materials: Dehydration (ED), Urinary Tract Infection in Women (ED) Referrals: Arielle Carr MD [Primary Care Provider] - 3 Days Additional Instructions: RETURN TO THE EMERGENCY DEPARTMENT FOR CHANGING OR WORSENING SYMPTOMS The documentation as recorded by the George mcnamara Tariq accurately reflects the service I personally performed and the decisions made by me, Manuel Angeles MD.
== END | disposition home or self-care (01) ==
LOC: ED 07:24
DX: E86.0 Dehydration (principal); N39.0 Urinary tract infection, site not specified; B96.89 Other specified bacterial agents as the cause of diseases classified elsewhere; R42 Dizziness and giddiness; R51 Headache; E11.9 Type 2 diabetes mellitus without complications; E07.9 Disorder of thyroid, unspecified; D64.9 Anemia, unspecified; I11.0 Hypertensive heart disease with heart failure; I50.9 Heart failure, unspecified; E78.00 Pure hypercholesterolemia, unspecified; I44.7 Left bundle-branch block, unspecified; I35.0 Nonrheumatic aortic (valve) stenosis; I34.0 Nonrheumatic mitral (valve) insufficiency; J44.9 Chronic obstructive pulmonary disease, unspecified; G47.30 Sleep apnea, unspecified; K21.9 Gastro-esophageal reflux disease without esophagitis; F41.9 Anxiety disorder, unspecified; F32.9 Major depressive disorder, single episode, unspecified; Z88.6 Allergy status to analgesic agent; Z91.030 Bee allergy status; Z87.891 Personal history of nicotine dependence
CPT/HCPCS: 36415; 80053; 81003; 81015; 83605; 83735; 84443; 84484; 85025; 87077; 87086; 87186; 93005; 96360; 99283; A9270-GY

== ENCOUNTER → 2017-09-22 11:16 | Emergency (ER) | payer MEDICARE, MEDICAID ==
[~2017-09-22 11:16] MED LIST changes: -Acetaminophen TAB* 325 MG PO ONE; +Albuterol/Ipratropium NEB.SOL* Albuterol 2.5 MG/Ipratropium 0.5 MG 3 ML INH ONE; -Lisinopril TAB* 10 MG PO ONE; -Meclizine TAB* 12.5 MG PO ONE; -NS 0.9% 1000 ML* 1,000 ML IV ONE; -Sulfamethox/Trimethoprim DS 800/160* TAB PO ONE
--- NOTE | 2017-09-22 11:51 | ED ---
Complex/Multi-Sys Presentation - HPI Summary HPI Summary: This patient is an 86 year old M presenting to [facility] with a chief complaint of fatigue since 4 or 5 days ago. This morning she endorses SOB, and worsening fatigue. Denies burning, dysuria, CP. PMHx asthma, UTI, HTN, arthritis, depression. Pt lives alone in [facility]. - History Of Current Complaint Chief Complaint: EDGeneral Time Seen by Provider: 09/22/17 11:38 Hx Obtained From: Patient Onset/Duration: Gradual Onset, Lasting Days Timing: Constant, Days Severity Currently: Mild Severity Initially: Mild Alleviating Factor(s): nebulizer Associated Signs And Symptoms: Positive: SOB. Negative: Chest Pain - Allergies/Home Medications Allergies/Adverse Reactions: Allergies Allergy/AdvReac Type Severity Reaction Status Date / Time aspirin Allergy Severe Anaphylatic Verified 09/22/17 11:25 Shock bee venom protein (honey bee) Allergy Severe Anaphylatic Verified 09/22/17 11:25 Shock NSAIDS (Non-Steroidal Allergy Severe Anaphylatic Verified 09/22/17 11:25 Anti-Inflamma Shock prochlorperazine Allergy Severe SEIZURE Verified 09/22/17 11:25 DUST AND MOLD Allergy Mild Runny Nose Uncoded 09/22/17 11:25 PMH/Surg Hx/FS Hx/Imm Hx Endocrine/Hematology History: Reports: Hx Diabetes, Hx Thyroid Disease, Hx Anemia, Other Endocrine/Hematological Disorders - osteopenia Denies: Hx Anticoagulant Therapy Cardiovascular History: Reports: Hx Congestive Heart Failure - diastolic , Hx Hypercholesterolemia, Hx Hypertension, Hx Valvular Heart Disease - aortic stenosis, mitral regurg , Other Cardiovascular Problems/Disorders - incomplete LBBB Denies: Hx Pacemaker/ICD Respiratory History: Reports: Hx Asthma, Hx Chronic Bronchitis, Hx Chronic Obstructive Pulmonary Disease (COPD), Hx Pneumonia, Hx Seasonal Allergies, Hx Sleep Apnea - does not wear bipap at night, Other Respiratory Problems/ Disorders - PNA, SLEEP APNEA GI History: Reports: Hx Gastroesophageal Reflux Disease, Hx Irritable Bowel, Other GI Disorders - 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 History: Denies: Hx Kidney Stones, Hx Renal Disease Musculoskeletal History: Reports: Hx Orthopedic Injury - 01/08/2012 R ankle Fx, 03/19/2012 R ankle Fx, 03/21/2012 L ankle Fx, Other Musculoskeletal History - Bilateral rotator cuff injuries; osteomyelitis left ankle Denies: Hx Rheumatoid Arthritis, Hx Osteoporosis Sensory History: Reports: Hx Cataracts, Hx Contacts or Glasses Denies: Hx Hearing Aid Opthamlomology History: Reports: Hx Cataracts, Hx Contacts or Glasses EENT History: Denies: Hx Deafness Neurological History: Denies: Hx Dementia, Hx Seizures, Other Neuro Impairments/Disorders Psychiatric History: Reports: Hx Anxiety, Hx Depression, Other Psychiatric Issues/Disorders - hx nightmares Denies: Hx Attention Deficit Hyperactivity Disorder, Hx Suicide Attempt, Hx Substance Abuse - Cancer History Hx Chemotherapy: No Hx Radiation Therapy: No - Surgical History Surgery Procedure, Year, and Place: R Ankle fracture, 2012 and 2013 Bilateral. right forearm fx and left forearm fx. left big toe had hammertoe. hysterectomy 1974. nasal polyps 1977 Hx Anesthesia Reactions: No - Immunization History Date of Tetanus Vaccine: Unsure Date of Influenza Vaccine: 2012 Infectious Disease History: No Infectious Disease History: Reports: Hx of Known/Suspected MRSA Denies: Hx Clostridium Difficile, Hx Hepatitis, Hx Human Immunodeficiency Virus (HIV), Hx Shingles, Hx Tuberculosis, Traveled Outside the [place] in Last 30 Days - Family History Known Family History: Positive: Other - neg Breast CA Family History: No FHx of breast cancer. - Social History Alcohol Use: None Hx Substance Use: No Substance Use Type: Reports: None Hx Tobacco Use: Yes Smoking Status (MU): Former Smoker Type: Cigarettes Amount Used/How Often: 1ppd Length of Time of Smoking/Using Tobacco: 5-6 years Have You Smoked in the Last Year: No Review of Systems Positive: Fatigue Negative: Chest Pain Positive: Shortness Of Breath Negative: burning, dysuria Positive: Weakness All Other Systems Reviewed And Are Negative: Yes Physical Exam - Summary Physical Exam Summary: Appearance: Well appearing, no pain distress Skin: warm, dry, reflects adequate perfusion Head/face: normal Eyes: EOMI, EMILY ENT: normal, mucous membranes moist Neck: supple, non-tender Respiratory: CTA, diminished breath sounds present, no active dyspnea, no wheezes Cardiovascular: RRR, pulses symmetrical and strong, heart sounds regular Abdomen: non-tender, soft Bowel Sounds: present Musculoskeletal: normal, strength/ROM intact, no lower extremity edema Neuro: normal, sensory motor intact, A&Ox3 Triage Information Reviewed: Yes Vital Signs On Initial Exam: Initial Vitals Pulse Resp BP Pulse Ox 84 19 148/71 95 07/14/18 11:21 09/22/17 11:21 09/22/17 11:21 09/22/17 11:21 Vital Signs Reviewed: Yes Diagnostics - Vital Signs Vital Signs Temp Pulse Resp BP Pulse Ox 09/22/17 11:24 98.3 F 83 16 148/71 96 09/22/17 11:21 84 19 148/71 95 - Laboratory Result Diagrams: 09/22/17 12:15 09/22/17 12:15 Lab Statement: Any lab studies that have been ordered have been reviewed, and results considered in the medical decision making process. Re-Evaluation - Re-Evaluation First Eval Re-Evaluation Time: 14:00 Change: Improved Comment: Pt feels fine. discussed discharge. Complex Multi-Symp Course/Dx Course Of Treatment: Patient is a frequent visitor to the ER. She has had multiple comorbidities in the past but today complains only of fatigue. Her laboratories are all within normal limits she is no distress and feeling well after time of observation in the ER. [facility] She'll follow-up with her primary care physician on Sunday. - Diagnoses Differential Diagnoses/HQI/PQRI: Metabolic Abnormality, Urinary Tract Infection , Other - Pneumonia, mental health/loneliness Provider Diagnoses: Fatigue Discharge - Sign-Out/Discharge Documenting (check all that apply): Patient Departure - discharge - Discharge Plan Condition: Improved Disposition: HOME Patient Education Materials: Fatigue (ED) Referrals: Arielle Carr MD [Primary Care Provider] - Additional Instructions: Call Dr. Leger on Sunday to follow-up. They also can arrange home nurse to come out to check on you. Return if worse, fever, new symptoms or other concerns as discussed. - Billing Disposition and Condition Condition: IMPROVED Disposition: Home
[2017-09-22 12:30] LABS: Urine Appearance Clear; Urine Blood Negative (Negative); Urine Color Yellow; Urine Ketones Negative (Negative); Urine Protein Negative (Negative); Urine Specific Gravity 1.014 (1.010-1.030); Urine Urobilinogen Negative (Negative)
[2017-09-22 12:35] LABS: ABS Basophils 0.1 10^3/ul (0-0.2); ABS Eosinophils 0.1 10^3/ul (0-0.6); ABS Lymphocytes 1.6 10^3/ul (1.0-4.8); ABS Monocytes 0.6 10^3/ul (0-0.8); ABS Neutrophils 3.2 10^3/ul (1.5-7.7); ABS Nucleated RBC 0 10^3/ul; Eosinophil % 2.2 % (0-6); Hematocrit 36 % (35-47); Hemoglobin 11.9 g/dl (12.0-16.0); Lymphocyte % 28.6 % (25-47); Mean Corpuscular HGB Conc 33 g/dl (31-36); Mean Corpuscular Hemoglobin 30 pg (27-31); Mean Corpuscular Volume 91 fL (80-97); Mean Platelet Volume 8.5 um3 (7.4-10.4); Nucleated Red Blood Cells % 0.1; Platelet Count 250 10^3/ul (150-450); Red Blood Count 3.95 10^6/ul (4.00-5.40); Red Cell Distribution Width 16 % (10.5-15); White Blood Count 5.6 10^3/ul (3.5-10.8)
[2017-09-22 12:46] LABS: EGFR Non-African American 49.3 (>60)
[2017-09-22 17:55] VITALS: BP 136/105
== END | disposition home or self-care (01) ==
LOC: ED 11:16
DX: R53.83 Other fatigue (principal); I11.0 Hypertensive heart disease with heart failure; I50.30 Unspecified diastolic (congestive) heart failure; Z87.891 Personal history of nicotine dependence; Z88.5 Allergy status to narcotic agent
CPT/HCPCS: 36415; 80048; 81003; 83880; 84484; 85025; 93005; 99284; A9270-GY

== ENCOUNTER 2017-10-18 10:31 | Emergency (ER) | payer MEDICARE, MEDICAID ==
--- NOTE | 2017-10-18 10:48 | ED ---
GI/ HPI - HPI Summary HPI Summary: This is scribe Ed Geri documenting for attending Dr. Eddy Chaparro. 87 y/o female presents to the ED c/o for intermittent burning with urination, mostly in the mornings, for the past 4-5 weeks. Sx not aggravated or alleviated by anything. Denies fevers. Pt seen in the ED 09/13/17 for the same sx, found UTI. Also seen in the ED on 09/22/17. I, Dr. Chaparro, personally performed the services described in this documentation as scribed in my presence and it is both accurate and complete. - History of Current Complaint Chief Complaint: EDUrogenitalProblems Time Seen by Provider: 10/18/17 10:46 Stated Complaint: POSSIBLE UTI Hx Obtained From: Patient Onset/Duration: Started Weeks Ago Timing: Intermittent Pain Intensity: 0 Pain Characteristics: Burning - Additional Pertinent History Primary Care Physician: [id number] - Allergy/Home Medications Allergies/Adverse Reactions: Allergies Allergy/AdvReac Type Severity Reaction Status Date / Time aspirin Allergy Severe Anaphylatic Verified 09/22/17 11:25 Shock bee venom protein (honey bee) Allergy Severe Anaphylatic Verified 09/22/17 11:25 Shock NSAIDS (Non-Steroidal Allergy Severe Anaphylatic Verified 09/22/17 11:25 Anti-Inflamma Shock prochlorperazine Allergy Severe SEIZURE Verified 09/22/17 11:25 DUST AND MOLD Allergy Mild Runny Nose Uncoded 09/22/17 11:25 PMH/Surg Hx/FS Hx/Imm Hx Previously Healthy: No Endocrine/Hematology History: Reports: Hx Diabetes, Hx Thyroid Disease, Hx Anemia, Other Endocrine/Hematological Disorders - osteopenia Denies: Hx Anticoagulant Therapy Cardiovascular History: Reports: Hx Congestive Heart Failure - diastolic , Hx Hypercholesterolemia, Hx Hypertension, Hx Valvular Heart Disease - aortic stenosis, mitral regurg , Other Cardiovascular Problems/Disorders - incomplete LBBB Denies: Hx Pacemaker/ICD Respiratory History: Reports: Hx Asthma, Hx Chronic Bronchitis, Hx Chronic Obstructive Pulmonary Disease (COPD), Hx Pneumonia, Hx Seasonal Allergies, Hx Sleep Apnea - does not wear bipap at night, Other Respiratory Problems/ Disorders - PNA, SLEEP APNEA GI History: Reports: Hx Gastroesophageal Reflux Disease, Hx Irritable Bowel, Other GI Disorders - 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 History: Denies: Hx Kidney Stones, Hx Renal Disease Musculoskeletal History: Reports: Hx Orthopedic Injury - 01/08/2012 R ankle Fx, 03/19/2012 R ankle Fx, 03/21/2012 L ankle Fx, Other Musculoskeletal History - Bilateral rotator cuff injuries; osteomyelitis left ankle Denies: Hx Rheumatoid Arthritis, Hx Osteoporosis Sensory History: Reports: Hx Cataracts, Hx Contacts or Glasses Denies: Hx Deafness, Hx Hearing Aid Opthamlomology History: Reports: Hx Cataracts, Hx Contacts or Glasses Neurological History: Denies: Hx Dementia, Hx Seizures, Other Neuro Impairments/Disorders Psychiatric History: Reports: Hx Anxiety, Hx Depression, Other Psychiatric Issues/Disorders - hx nightmares Denies: Hx Attention Deficit Hyperactivity Disorder, Hx Suicide Attempt, Hx Substance Abuse - Cancer History Hx Chemotherapy: No Hx Radiation Therapy: No - Surgical History Surgery Procedure, Year, and Place: R Ankle fracture, 2011 and 2013 Bilateral. right forearm fx and left forearm fx. left big toe had hammertoe. hysterectomy 1974. nasal polyps 1977 Hx Anesthesia Reactions: No - Immunization History Date of Tetanus Vaccine: Unsure Date of Influenza Vaccine: 2012 Infectious Disease History: No Infectious Disease History: Reports: Hx of Known/Suspected MRSA Denies: Hx Clostridium Difficile, Hx Hepatitis, Hx Human Immunodeficiency Virus (HIV), Hx Shingles, Hx Tuberculosis, Traveled Outside the [place] in Last 30 Days - Family History Known Family History: Positive: Other - neg Breast CA Family History: No FHx of breast cancer. - Social History Alcohol Use: None Hx Substance Use: No Substance Use Type: Reports: None Hx Tobacco Use: Yes Smoking Status (MU): Former Smoker Type: Cigarettes Amount Used/How Often: 1ppd Length of Time of Smoking/Using Tobacco: 5-6 years Have You Smoked in the Last Year: No Review of Systems Constitutional: Negative Eyes: Negative ENT: Negative Cardiovascular: Negative Respiratory: Negative Gastrointestinal: Negative Positive: burning Musculoskeletal: Negative Skin: Negative Neurological: Negative Psychological: Normal All Other Systems Reviewed And Are Negative: Yes Physical Exam - Summary Physical Exam Summary: Appearance: The patient is well-nourished in no acute distress and in no acute pain. Skin: The skin is warm and dry and skin color reflects adequate perfusion. HEENT: The head is normocephalic and atraumatic. The pupils are equal and reactive. The conjunctivae are clear and without drainage. Nares are patent and without drainage. Mouth reveals moist mucous membranes and the throat is without erythema and exudate. The external ears are intact. The ear canals are patent and without drainage. The tympanic membranes are intact. Neck: The neck is supple with full range of motion and non-tender. There are no carotid bruits. There is no neck vein distension. Respiratory: Chest is non-tender. Lungs are clear to auscultation and breath sounds are symmetrical and equal. Cardiovascular: Heart is regular rate and rhythm. There is no murmur or rub auscultated. There is no peripheral edema and pulses are symmetrical and equal. Abdomen: The abdomen is soft and non-tender. There are normal bowel sounds heard in all four quadrants and there is no organomegaly palpated. Musculoskeletal: There is no back tenderness noted. Extremities are non-tender with full range of motion. There is good capillary refill. There is no peripheral edema or calf tenderness elicited. Neurological: Patient is alert and oriented to person, place and time. The patient has symmetrical motor strength in all four extremities. Cranial nerves are grossly intact. Deep tendon reflexes are symmetrical and equal in all four extremities. Psychiatric: The patient has an appropriate affect and does not exhibit any anxiety or depression. Triage Information Reviewed: Yes Vital Signs On Initial Exam: Initial Vitals Temp Pulse Resp BP Pulse Ox 98.6 F 82 20 192/145 99 10/18/17 10:33 10/18/17 10:33 10/18/17 10:33 10/18/17 10:33 10/18/17 10:33 Vital Signs Reviewed: Yes Diagnostics - Vital Signs Vital Signs Temp Pulse Resp BP Pulse Ox 10/18/17 10:33 98.6 F 82 20 192/145 99 - Laboratory Lab Statement: Any lab studies that have been ordered have been reviewed, and results considered in the medical decision making process. GIGU Course/Dx - Course Course Of Treatment: Ms. Rizzo presents with dysuria on first urination in the morning only for several weeks. Her UA was equivocal here and her vital signs were normal. Given them mildness of her symptomatology and the nature of her U/A, I suggested we wait for cultures before prescribing antibiotics. - Diagnoses Provider Diagnoses: Dysuria Discharge - Sign-Out/Discharge Documenting (check all that apply): Patient Departure - Discharge Plan Condition: Stable Disposition: HOME Patient Education Materials: Dysuria (ED) Referrals: Arielle Carr MD [Primary Care Provider] - 4 Days (PLEASE F/U IN 3-5 DAYS) Additional Instructions: URINE CULTURE RESULTS READY IN 2 DAYS RETURN TO THE ED FOR WORSENING SYMPTOMS - Billing Disposition and Condition Condition: STABLE Disposition: Home
[2017-10-18 11:32] LABS: Urine Appearance Cloudy; Urine Blood Negative (Negative); Urine Color Yellow; Urine Ketones Negative (Negative); Urine Protein Negative (Negative); Urine Red Blood Cell Absent (Absent); Urine Specific Gravity 1.015 (1.010-1.030); Urine Urobilinogen Negative (Negative); Urine White Blood Cell 3+(>20/hpf) (Absent)
[2017-10-18 12:24] VITALS: BP 140/90
--- NOTE | 2017-10-20 17:57 | ED ---
Progress - Progress Note Progress Note: Patient's preliminary urine culture reveals greater than 100,000 enteric coccus A Smith. Patient was diagnosed with dysuria. No antibiotics prescribed. Pending final results. Course/Dx - Course Course Of Treatment: Ms. Rizzo presents with dysuria on first urination in the morning only for several weeks. Her UA was equivocal here and her vital signs were normal. Given them mildness of her symptomatology and the nature of her U/A, I suggested we wait for cultures before prescribing antibiotics. - Diagnoses Provider Diagnoses: Dysuria Discharge - Sign-Out/Discharge Documenting (check all that apply): Post-Discharge Follow Up - Discharge Plan Condition: Stable Disposition: HOME Patient Education Materials: Dysuria (ED) Referrals: Arielle Carr MD [Primary Care Provider] - 4 Days (PLEASE F/U IN 3-5 DAYS) Additional Instructions: URINE CULTURE RESULTS READY IN 2 DAYS RETURN TO THE ED FOR WORSENING SYMPTOMS - Billing Disposition and Condition Condition: STABLE Disposition: Home
== END 2017-10-18 12:20 | disposition home or self-care (01) ==
LOC: ED 10:31
DX: R30.0 Dysuria (principal); Z87.440 Personal history of urinary (tract) infections; Z87.891 Personal history of nicotine dependence; Z88.6 Allergy status to analgesic agent; Z88.8 Allergy status to other drugs, medicaments and biological substances
CPT/HCPCS: 81003; 81015; 87077; 87086; 87186; 99282

== ENCOUNTER 2017-11-13 07:40 | Emergency (ER) | payer MEDICARE, MEDICAID ==
[2017-11-13 07:46] VITALS: BP 132/84
[2017-11-13] MEDS ORDERED: Albuterol/Ipratropium NEB.SOL* Albuterol 2.5 MG/Ipratropium 0.5 MG 3 ML INH ONE (08:05)
[2017-11-13 08:24] LABS: Urine Appearance Cloudy; Urine Blood Negative (Negative); Urine Color Yellow; Urine Ketones Negative (Negative); Urine Protein Negative (Negative); Urine Red Blood Cell 1+(3-5/hpf) (Absent); Urine Specific Gravity 1.013 (1.010-1.030); Urine Urobilinogen Negative (Negative); Urine White Blood Cell 3+(>20/hpf) (Absent)
[2017-11-13] MEDS ORDERED: Ciprofloxacin TAB* 500 MG PO ONE (08:53)
--- NOTE | 2017-11-13 09:26 | ED ---
GI/ HPI - HPI Summary HPI Summary: Patient is an 87-year-old female with a history of frequent UTIs approximately 1 per month presenting to the ED with burning with urination and pressure. She states she has been on several antibiotics in the past and the UTIs continue to reoccur. She has not seen a urologist for this yet. She denies any fevers, sweats, chills. She states she is weak, however this is at her baseline and denies any worsening weakness, fatigue, confusion or other symptoms. She states she was last treated with amoxicillin and prior to that ciprofloxacin. Dr. Carr is PCP. - History of Current Complaint Chief Complaint: EDUrogenitalProblems Time Seen by Provider: 11/13/17 07:44 Stated Complaint: POSSIBLE UTI Hx Obtained From: Patient Onset/Duration: Started Days Ago - 1 day ago Timing: Constant Severity: Mild Current Severity: None Pain Intensity: 0 Associated Signs and Symptoms: Positive: UTI Symptoms Aggravating Factor(s): Nothing Alleviating Factor(s): Nothing - Additional Pertinent History Primary Care Physician: SHAHZAD - Allergy/Home Medications Allergies/Adverse Reactions: Allergies Allergy/AdvReac Type Severity Reaction Status Date / Time aspirin Allergy Severe Anaphylatic Verified 09/22/17 11:25 Shock bee venom protein (honey bee) Allergy Severe Anaphylatic Verified 09/22/17 11:25 Shock NSAIDS (Non-Steroidal Allergy Severe Anaphylatic Verified 09/22/17 11:25 Anti-Inflamma Shock prochlorperazine Allergy Severe SEIZURE Verified 09/22/17 11:25 DUST AND MOLD Allergy Mild Runny Nose Uncoded 09/22/17 11:25 PMH/Surg Hx/FS Hx/Imm Hx Previously Healthy: Yes Endocrine/Hematology History: Reports: Hx Diabetes, Hx Thyroid Disease, Hx Anemia, Other Endocrine/Hematological Disorders - osteopenia Denies: Hx Anticoagulant Therapy Cardiovascular History: Reports: Hx Congestive Heart Failure - diastolic , Hx Hypercholesterolemia, Hx Hypertension, Hx Valvular Heart Disease - aortic stenosis, mitral regurg , Other Cardiovascular Problems/Disorders - incomplete LBBB Denies: Hx Pacemaker/ICD Respiratory History: Reports: Hx Asthma, Hx Chronic Bronchitis, Hx Chronic Obstructive Pulmonary Disease (COPD), Hx Pneumonia, Hx Seasonal Allergies, Hx Sleep Apnea - does not wear bipap at night, Other Respiratory Problems/ Disorders - PNA, SLEEP APNEA GI History: Reports: Hx Gastroesophageal Reflux Disease, Hx Irritable Bowel, Other GI Disorders - 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 History: Denies: Hx Kidney Stones, Hx Renal Disease Musculoskeletal History: Reports: Hx Orthopedic Injury - 01/08/2012 R ankle Fx, 03/19/2012 R ankle Fx, 03/21/2012 L ankle Fx, Other Musculoskeletal History - Bilateral rotator cuff injuries; osteomyelitis left ankle Denies: Hx Rheumatoid Arthritis, Hx Osteoporosis Sensory History: Reports: Hx Cataracts, Hx Contacts or Glasses Denies: Hx Deafness, Hx Hearing Aid Opthamlomology History: Reports: Hx Cataracts, Hx Contacts or Glasses Neurological History: Denies: Hx Dementia, Hx Seizures, Other Neuro Impairments/Disorders Psychiatric History: Reports: Hx Anxiety, Hx Depression, Other Psychiatric Issues/Disorders - hx nightmares Denies: Hx Attention Deficit Hyperactivity Disorder, Hx Suicide Attempt, Hx Substance Abuse - Cancer History Hx Chemotherapy: No Hx Radiation Therapy: No - Surgical History Surgery Procedure, Year, and Place: R Ankle fracture, 2011 and 2013 Bilateral. right forearm fx and left forearm fx. left big toe had hammertoe. hysterectomy 1974. nasal polyps 1977 Hx Anesthesia Reactions: No - Immunization History Date of Tetanus Vaccine: Unsure Date of Influenza Vaccine: 2012 Hx Pertussis Vaccination: No Immunizations Up to Date: Yes Infectious Disease History: No Infectious Disease History: Reports: Hx of Known/Suspected MRSA Denies: Hx Clostridium Difficile, Hx Hepatitis, Hx Human Immunodeficiency Virus (HIV), Hx Shingles, Hx Tuberculosis, Traveled Outside the [place] in Last 30 Days - Family History Known Family History: Positive: Other - neg Breast CA Family History: No FHx of breast cancer. - Social History Occupation: Unemployed Lives: With Family Alcohol Use: None Hx Substance Use: No Substance Use Type: Reports: None Hx Tobacco Use: Yes Smoking Status (MU): Former Smoker Type: Cigarettes Amount Used/How Often: 1ppd Length of Time of Smoking/Using Tobacco: 5-6 years Have You Smoked in the Last Year: No Review of Systems Constitutional: Negative Negative: Fever, Chills, Fatigue, Skin Diaphoresis Negative: Palpitations, Chest Pain Negative: Shortness Of Breath, Cough Positive: Other - no cva tenderness. Negative: Abdominal Pain, Vomiting, Diarrhea, Nausea Positive: burning, dysuria, frequency, pain, urgency. Negative: discharge, flank pain, hematuria, incontinence Positive: Arthralgia - back pain only with bending forward Neurological: Negative All Other Systems Reviewed And Are Negative: Yes Physical Exam Triage Information Reviewed: Yes Vital Signs On Initial Exam: Initial Vitals Temp Pulse Resp BP Pulse Ox 98.5 F 89 18 132/84 96 11/13/17 07:44 11/13/17 07:44 11/13/17 07:44 11/13/17 07:44 11/13/17 07:44 Vital Signs Reviewed: Yes Appearance: Positive: Well-Appearing, Well-Nourished Skin: Positive: Warm, Skin Color Reflects Adequate Perfusion Head/Face: Positive: Normal Head/Face Inspection Eyes: Positive: EOMI, EMILY, Conjunctiva Clear Neck: Positive: Supple, No Lymphadenopathy Respiratory/Lung Sounds: Positive: Clear to Auscultation, Breath Sounds Present Cardiovascular: Positive: RRR, Pulses are Symmetrical in both Upper and Lower Extremities Abdomen Description: Positive: Nontender, Soft. Negative: CVA Tenderness (R), CVA Tenderness (L) Bowel Sounds: Positive: Present Musculoskeletal: Positive: Normal, Strength/ROM Intact Neurological: Positive: Sensory/Motor Intact, Alert, Oriented to Person Place, Time, Speech Normal Psychiatric: Positive: Affect/Mood Appropriate Diagnostics - Vital Signs Vital Signs Temp Pulse Resp BP Pulse Ox 11/13/17 09:11 98.5 F 83 16 132/84 99 11/13/17 08:13 83 18 99 11/13/17 07:44 98.5 F 89 18 132/84 96 - Laboratory Lab Results: Lab Results 11/13/17 Range/Units 07:57 Urine Color Yellow Urine Appearance Cloudy Urine pH 6.0 (5-9) Ur Specific [place] 1.013 (1.010-1.030) Urine Protein Negative (Negative) Urine Ketones Negative (Negative) Urine Blood Negative (Negative) Urine Nitrate Positive A (Negative) Urine Bilirubin Negative (Negative) Urine Urobilinogen Negative (Negative) Ur Leukocyte Esterase 3+ A (Negative) Urine WBC (Auto) 3+(>20/hpf) A (Absent) Urine RBC (Auto) 1+(3-5/hpf) A (Absent) Ur Squamous Epith Cells Present A (Absent) Urine Bacteria 1+ A (Absent) Urine Glucose Negative (Negative) Urine Ascorbic Acid * A (Negative) Lab Statement: Any lab studies that have been ordered have been reviewed, and results considered in the medical decision making process. GIGU Course/Dx - Course Course Of Treatment: Urinalysis shows 3+ WBCs and 3+ leukocytes. No CVA tenderness, however patient states she was endorsing some back pain when she bent over to make her bed. She denies any back pain when she is sitting in her chair and denies any currently. This is likely musculoskeletal. She denies any fevers, sweats, chills and vital signs are stable in the ED. She is given ciprofloxacin 500 mg in the ED and prescription sent to her pharmacy. Her previous UTIs organisms grew Enterococcus faecaliss, Enterobacter Cloacae and Proteus Mirabilas. These were all sensitive to differing antibiotics. We will treat with ciprofloxacin at this time, however we'll await cultures for sensitivities and change if needed. Patient is aware we may call her for a change medications. She is to follow-up with Dr. Carr and I have also given her urology referral if symptoms persist. - Diagnoses Provider Diagnoses: UTI (urinary tract infection) Discharge - Sign-Out/Discharge Documenting (check all that apply): Patient Departure - Discharge Plan Condition: Stable Disposition: HOME Prescriptions: Ciprofloxacin TAB* [Cipro 500 MG TAB*] 500 mg PO BID #10 tab Patient Education Materials: Urinary Tract Infection in Older Adults (ED) Referrals: Arielle Carr MD [Primary Care Provider] - Manfred Carrillo MD [Medical Doctor] - Additional Instructions: Please follow up with Dr. Carr I have given you a referral to urology if symptoms persist/worsen Ciprofloxacin twice daily x 5 days - Billing Disposition and Condition Condition: STABLE Disposition: Home
== END 2017-11-13 09:11 | disposition home or self-care (01) ==
LOC: ED 07:40
DX: N39.0 Urinary tract infection, site not specified (principal); Z87.440 Personal history of urinary (tract) infections; Z87.891 Personal history of nicotine dependence; Z88.6 Allergy status to analgesic agent; Z88.8 Allergy status to other drugs, medicaments and biological substances
CPT/HCPCS: 81003; 81015; 87077; 87086; 87186; 99282; A9270-GY

== ENCOUNTER 2017-11-30 23:02 | Inpatient (IN) | payer MEDICARE, MEDICAID ==
[2017-11-30] MEDS ORDERED: Acetaminophen TAB* 325 MG PO ONE (23:10)
--- NOTE | 2017-11-30 23:21 | ED ---
Upper Extremity Pain - HPI Summary HPI Summary: This patient is a 87 year old female BIBA to 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 Patient states that she tried to sit down on a chair, but miscalculated and the chair was not as close to her as she thought. She suffered a mechanical fall and injured her left wrist. The pain is rated 9/10 in severity. Symptoms aggravated by movement.. Symptoms alleviated by nothing. Patient denies any other medical complaints. - History of Current Complaint Stated Complaint: LT WRIST PAIN Time Seen by Provider: 11/30/17 23:07 Hx Obtained From: Patient Mechanism Of Injury: Fall From A Standing Position Onset/Duration: Started Hours Ago, Still Present Timing: Constant Severity Currently: Moderate Pain Location: Wrist - left Aggravating Factor(s): Movement Alleviating Factor(s): Nothing - Allergies/Home Medications Allergies/Adverse Reactions: Allergies Allergy/AdvReac Type Severity Reaction Status Date / Time aspirin Allergy Severe Anaphylatic Verified 09/22/17 11:25 Shock bee venom protein (honey bee) Allergy Severe Anaphylatic Verified 09/22/17 11:25 Shock NSAIDS (Non-Steroidal Allergy Severe Anaphylatic Verified 09/22/17 11:25 Anti-Inflamma Shock prochlorperazine Allergy Severe SEIZURE Verified 09/22/17 11:25 DUST AND MOLD Allergy Mild Runny Nose Uncoded 09/22/17 11:25 Home Medications: Home Medications Albuterol 2.5MG/3ML (0.083%)* [Ventolin 2.5 MG/3 ML NEB.INDIRA*] 2.5 mg INH Q4H PRN 12/01/17 [History Confirmed 12/01/17] Alendronate TAB (NF) [Fosamax TAB (NF)] 10 mg PO DAILY 12/01/17 [History Confirmed 12/01/17] Cetirizine* [ZyrTEC 10 MG TAB*] 10 mg PO DAILY PRN 12/01/17 [History Confirmed 12/01/17] Ipratropium 0.5MG/2.5ML NEB* [Atrovent 0.5 MG NEB.INDIRA*] 0.5 mg INH Q4H PRN 12/01 [History Confirmed 12/01/17] Levothyroxine Sodium 75 mcg PO DAILY 12/01/17 [History Confirmed 09/22/18] PMH/Surg Hx/FS Hx/Imm Hx Previously Healthy: No Endocrine/Hematology History: Reports: Hx Diabetes, Hx Thyroid Disease, Hx Anemia, Other Endocrine/Hematological Disorders - osteopenia Denies: Hx Anticoagulant Therapy Cardiovascular History: Reports: Hx Congestive Heart Failure - diastolic , Hx Hypercholesterolemia, Hx Hypertension, Hx Valvular Heart Disease - aortic stenosis, mitral regurg , Other Cardiovascular Problems/Disorders - incomplete LBBB Denies: Hx Pacemaker/ICD Respiratory History: Reports: Hx Asthma, Hx Chronic Bronchitis, Hx Chronic Obstructive Pulmonary Disease (COPD), Hx Pneumonia, Hx Seasonal Allergies, Hx Sleep Apnea - does not wear bipap at night, Other Respiratory Problems/ Disorders - PNA, SLEEP APNEA GI History: Reports: Hx Gastroesophageal Reflux Disease, Hx Irritable Bowel, Other GI Disorders - 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 History: Denies: Hx Kidney Stones, Hx Renal Disease Musculoskeletal History: Reports: Hx Orthopedic Injury - 01/08/2012 R ankle Fx, 03/19/2012 R ankle Fx, 03/21/2012 L ankle Fx, Other Musculoskeletal History - Bilateral rotator cuff injuries; osteomyelitis left ankle Denies: Hx Rheumatoid Arthritis, Hx Osteoporosis Sensory History: Reports: Hx Cataracts, Hx Contacts or Glasses Denies: Hx Deafness, Hx Hearing Aid Opthamlomology History: Reports: Hx Cataracts, Hx Contacts or Glasses Neurological History: Denies: Hx Dementia, Hx Seizures, Other Neuro Impairments/Disorders Psychiatric History: Reports: Hx Anxiety, Hx Depression, Other Psychiatric Issues/Disorders - hx nightmares Denies: Hx Attention Deficit Hyperactivity Disorder, Hx Suicide Attempt, Hx Substance Abuse - Cancer History Hx Chemotherapy: No Hx Radiation Therapy: No - Surgical History Surgery Procedure, Year, and Place: R Ankle fracture, 2011 and 2012 Bilateral. right forearm fx and left forearm fx. left big toe had hammertoe. hysterectomy 1974. nasal polyps 1977 Hx Anesthesia Reactions: No - Immunization History Date of Tetanus Vaccine: Unsure Date of Influenza Vaccine: 2012 Infectious Disease History: Reports: Hx of Known/Suspected MRSA Denies: Hx Clostridium Difficile, Hx Hepatitis, Hx Human Immunodeficiency Virus (HIV), Hx Shingles, Hx Tuberculosis - Family History Known Family History: Positive: Other - neg Breast CA Family History: No FHx of breast cancer. - Social History Alcohol Use: None Hx Substance Use: No Substance Use Type: Reports: None Hx Tobacco Use: Yes Smoking Status (MU): Former Smoker Type: Cigarettes Amount Used/How Often: 1ppd Length of Time of Smoking/Using Tobacco: 5-6 years Have You Smoked in the Last Year: No Review of Systems Negative: Fever Positive: Other - left wrist pain, left wrist deformation All Other Systems Reviewed And Are Negative: Yes Physical Exam - Summary Physical Exam Summary: Appearance: Well-appearing, Well-nourished, lying in bed comfortable Skin: Warm, dry, no obvious rash Eyes: sclera anicteric, no conjunctival pallor ENT: mucous membranes moist Neck: deferred Respiratory: No signs of respiratory distress Cardiovascular: Appears well perfused, pulses are nml Abdomen: deferred Musculoskeletal: Left wrist with mild deformity consistent with colles fracture Neurological: Awake and alert, mentation is normal, speech is fluent and appropriate Psychiatric: affect is normal, does not appear anxious or depressed Triage Information Reviewed: Yes Vital Signs Reviewed: Yes Procedures - Splinting Left Upper Extremity Location: short arm splint Hand-Made Type: orthoglass Splint: volar Pre-Proc Neuro Vasc Exam: normal Post-Proc Neuro Vasc Exam: normal, unchanged from pre-exam - Joint Reduction Left Joint Reduction Site: wrist (L) Conscious Sedation: No Reduction Attempts: 3 Pre-Procedure NV Exam: Yes Post Joint Reduction Film: post joint reduction XR shows good anatomic alignment Diagnostics - Laboratory Result Diagrams: 12/01/17 02:47 Lab Statement: Any lab studies that have been ordered have been reviewed, and results considered in the medical decision making process. - Radiology Wrist XR Xray Interpretation: Positive (See Comments) - Wrist XR reveals IMPRESSION: comminuted colles fracture with dorsal dislocation. ED physician has reviewed this radiology report. Postreduction films demonstrate markedly improved alignment of the fracture fragments Radiology Interpretation Completed By: ED Physician Course/Dx - Course Assessment/Plan: This patient is a 87 year old female BIBA to 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 She suffered a mechanical fall while attempting to sit in a chair and injured her left wrist. Wrist XR reveals IMPRESSION: comminuted colles fracture with dorsal dislocation. ED physician has reviewed this radiology report. In the ED course the patient was given Acetaminophen 975mg PO, Bupivacaine 0.5% 10mL Inj. We discussed patient care with Dr. Rain (Ortho) at 2337 and they recommended reducing the injury and recommending follow-up in her office on Sunday. Patient will be discharged with a dx of wrist fracture. Patient is advised to follow up with Dr. Rain in 2 days. The patient is agreeable with this plan. Further evaluation by nursing staff demonstrated to the patient is unable to ambulate. Given that she lives on her own in an apartment, she will be unable to go home, and I have discussed the case with the hospitalist about admitting her for consideration of rehabilitation placement. - Diagnoses Provider Diagnoses: Wrist fracture - Physician Notifications Discussed Care of Patient With: Marcella Rain - Orthopedics Time Discussed With Above Provider: 23:37 - We discussed patient care with Dr. Rain (Ortho) at 2337 and they recommended reducing the injury and recommending follow-up in her office on Sunday. Discharge - Sign-Out/Discharge Documenting (check all that apply): Patient Departure - Discharge Plan Condition: Stable Disposition: ADMITTED TO [facility] - Billing Disposition and Condition Condition: STABLE Disposition: Admitted to [facility] - Attestation Statements Document Initiated by Cesilia: Yes Documenting Scribe: Vanessa Hernandez Provider For Whom Cesilia is Documenting (Include Credential): Jeremy Pineda MD Scribe Attestation: Vanessa Puentes scribed for Jeremy Pineda MD on 12/01/17 at 0313. Scribe Documentation Reviewed: Yes Provider Attestation: The documentation as recorded by the Vanessa mcnamara accurately reflects the service I personally performed and the decisions made by me, Jeremy Pineda MD
[2017-11-30] MEDS ORDERED: Bupivacaine 0.5% W/EPI SDV* 30 ML VIAL INJ ONE (23:41)
[2017-12-01] MEDS ORDERED: Cetirizine* 10 MG TAB PO PRN (02:42)
[2017-12-01] MEDS ORDERED: Ipratropium 0.5MG/2.5ML NEB* 0.5 MG/2.5 ML NEB.SOLN INH PRN (02:42)
[2017-12-01 03:01] LABS: ABS Basophils 0.1 10^3/ul (0-0.2); ABS Eosinophils 0 10^3/ul (0-0.6); ABS Lymphocytes 1.1 10^3/ul (1.0-4.8); ABS Monocytes 0.7 10^3/ul (0-0.8); ABS Neutrophils 10.4 10^3/ul (1.5-7.7); ABS Nucleated RBC 0 10^3/ul; Eosinophil % 0.2 % (0-6); Hematocrit 36 % (35-47); Lymphocyte % 8.8 % (25-47); Mean Corpuscular HGB Conc 33 g/dl (31-36); Mean Corpuscular Hemoglobin 31 pg (27-31); Mean Corpuscular Volume 93 fL (80-97); Mean Platelet Volume 8.8 um3 (7.4-10.4); Nucleated Red Blood Cells % 0; Platelet Count 200 10^3/ul (150-450); Red Blood Count 3.91 10^6/ul (4.00-5.40); Red Cell Distribution Width 14 % (10.5-15); White Blood Count 12.3 10^3/ul (3.5-10.8)
[2017-12-01 03:29] LABS: EGFR Non-African American 43.4 (>60)
--- NOTE | 2017-12-01 05:34 | HP ---
CC: Dr. Arielle Carr.* HISTORY AND PHYSICAL: DATE OF ADMISSION: 12/01/17. PRIMARY CARE PROVIDER: Dr. Arielle Carr. CHIEF COMPLAINT: Fall and left wrist pain. HISTORY OF PRESENT ILLNESS: Ms. Rizzo is an 87-year-old female, who presented to the emergency room today with complaints of fall and left wrist pain. The patient states that her son had come over to visit her on the day prior to admission and she noted that after her coffee table had been moved, it is difficult to get around from one end of the table. Her story from here becomes a little bit confusing, but she states that she contacted 911 to move the coffee table so that her son could get around this as he has been having hard time ambulating recently. She states then she went to go sit down in a chair to perhaps wait for the help to arrive. She states that it is the chair that she does not typically sit in and when she sat down she did not realize she was so far way from the chair and she fell straight to the ground. The patient had pain in her wrist and therefore presented to the emergency room for evaluation. The patient was found to have a distal left radius fracture. This was reduced by the ER provider and subsequently splinted. It was felt initially the patient might be able to return to home; however, after learning that she ambulates with a walker the decision was made to admit the patient under observation status as she was unable to bear weight through the left wrist at this time. While I was talking with the patient, she then also goes on to tell me that over the last one month or so she has felt extreme fatigue and has been very sleepy most of the time. She also states over the last few days, she has been short of breath. She denies any cough. She denies any sputum production. PAST MEDICAL HISTORY: 1. Hypertension. 2. COPD. 3. History of MRSA osteomyelitis of the left hallux. 4. Type 2 diabetes that is diet controlled. 5. JESENIA-the patient is supposed to utilize supplemental oxygen with sleep though she does not. 6. Anxiety/depression. 7. GERD. 8. Osteoporosis. 9. Allergic rhinitis. 10. RLS. PAST SURGICAL HISTORY: 1. Left foot surgery with hardware removal. 2. Vaginal hysterectomy. 3. Bilateral cataract extractions. 4. Excision of left arm lipoma. 5. Cystoscopies with transurethral collagen injections. 6. Nasal polyp excision. 7. Right breast lumpectomy. MEDICATIONS: The patient states that her list that she provided me was accurate , however, there was a discrepancy in her Synthroid dosing. This is to be reviewed tomorrow. 1. Fosamax 10 mg p.o. daily. 2. Levothyroxine 75 mcg p.o. daily. 3. Simvastatin 20 mg p.o. q.h.s. 4. Trileptal 900 mg p.o. q.h.s. 5. Xanax 0.25 mg p.o. b.i.d. p.r.n. anxiety. 6. Zoloft 150 mg p.o. daily. 7. Seroquel 400 mg p.o. q.h.s. 8. Prazosin 3 mg p.o. q.h.s. 9. Lisinopril 10 mg p.o. b.i.d. 10. Ipratropium 0.5 mg inhaled q.4 hours p.r.n. shortness of breath. 11. Albuterol one neb inhaled q.4 hours p.r.n. shortness of breath. 12. Cetirizine 10 mg p.o. daily p.r.n. allergic rhinitis. 13. Albuterol two puffs inhaled q.4 hours p.r.n. shortness of breath. 14. Singulair 10 mg p.o. daily. ALLERGIES: ASPIRIN, BEES, NSAIDS, PROCHLORPERAZINE. FAMILY HISTORY: Mom at the age of 95 of "old age." Dad at age of 75. His health history is unknown. SOCIAL HISTORY: The patient is currently a non-smoker though was a former smoker quitting over 20 years ago. The patient becomes very upset when I ask her this question and she will not elaborate any further on this thinking that I am judging her about her past smoking history. She denies any alcohol use. She worked as a litigation legal secretary. She is . She has four children. She indicates that her daughter Leah Diamond would be her healthcare proxy. REVIEW OF SYSTEMS: A complete 11-system review of systems is obtained. Pertinent positives and negatives are as per HPI, and otherwise negative. PHYSICAL EXAMINATION GENERAL: The patient is a well-developed, elderly female seen sitting up in the stretcher in no acute distress. VITAL SIGNS: Blood pressure 108/57, pulse 78, respirations 16, temp 97.3, O2 sat 91% on room air. HEENT: Pupils are equal and round. Extraocular muscles are intact. Oropharynx is clear. Oral mucosa is moist. The patient is edentulous. There is no submandibular, cervical, or supraclavicular adenopathy. Thyroid is not enlarged. No thyroid nodules noted. PULMONARY: There are crackles heard in the bases bilaterally. CARDIAC: Normal S1, S2. Regular rate and rhythm. There is minimal lower extremity pitting edema. There is a 2/6 systolic murmur. ABDOMEN: Bowel sounds are present. Abdomen is soft, nontender and nondistended. MUSCULOSKELETAL: The patient's left wrist is currently splinted. There is full active range of motion of all four extremities. SKIN: Warm and dry. There are no rashes. NEUROLOGIC: Cranial nerves II through XII are grossly intact. Sensation is intact to light touch throughout. Strength is 5/5 and symmetric in both upper and lower extremities bilaterally. PSYCH: The patient is alert. She is oriented x3. She is somewhat of a poor historian. LABORATORY DATA: Pending. These have been ordered after the ER provider's evaluation due to the patient's complaint of shortness of breath. Left wrist x- ray reveals a distal radius fracture. Portable chest x-ray pending-ordered post -ER provider evaluation due to the patient's complaint of shortness of breath. ASSESSMENT AND PLAN: Ms. Rizzo is an 87-year-old female who has a history of hypertension, chronic obstructive pulmonary disease, obstructive sleep apnea and anxiety/depression, who presents to the emergency room with complaints of fall and left wrist pain. 1. Left distal radius fracture. At this point, the patient's fracture has been reduced and she is in a splint. She will need to follow up with Orthopedics. The patient will need to be non-weightbearing through the left wrist. It is unclear if the patient can perhaps ambulate utilizing a platform walker. PT evaluation has been ordered. If the patient is unable to ambulate successfully without bearing weight through her left wrist, she may need short rehab stay, while the fracture heals. 2. Shortness of breath. at this point, the patient does have crackles on exam. She has minimal lower extremity edema bilaterally. A portable chest x- ray has been ordered as is basic labs including a BNP. The patient appears relatively asymptomatic at this point, however, she is on supplemental oxygen. The patient states that she was supposed to be using supplemental oxygen with sleep for her history of obstructive sleep apnea, but she has not been doing so recently. 3. Hypertension. The patient's blood pressure is under good control. She will continue on lisinopril 10 mg twice daily. Again, the patient is insistent that her list is accurate; however, the date on top of the medication list is from September 2014, the medication list should be reviewed with the patient in the morning and perhaps with her primary care provider. 4. Anxiety/depression. The patient will be maintained on her usual medication regimen. 5. Asthma. We will continue Singulair, albuterol, and Atrovent. 6. DVT prophylaxis. According to the Adult Thrombosis Prophylaxis Risk Factor Assessment Guide, the patient has a total risk factor score of 3, making her the highest risk. Heparin 500 units subcutaneous q.8 hours will be utilized as DVT prophylaxis. 7. Code status is DNR/DNI and her MOLST form has been signed. TIME SPENT: Fifty-five minutes was spent admitting this patient. [id number]/CPS #: [id number] MTDD
[2017-12-01] MEDS: Heparin VIAL(*) 5000 UNITS/ML VIAL (FIVE THOUSAND) SUBCUT SCH ×3 (06:32→21:41)
[2017-12-01] MEDS: Levothyroxine TAB* 75 MCG TAB PO SCH (06:32)
[2017-12-01] MEDS: Montelukast Sodium TAB* 10 MG PO SCH (08:18)
[2017-12-01] MEDS: Sertraline* 50 MG TAB PO SCH (08:18)
[2017-12-01] MEDS: Lisinopril TAB* 10 MG PO SCH ×2 (08:19→21:37)
--- NOTE | 2017-12-01 10:30 | RAD ---
INDICATION: Dyspnea COMPARISON: Most recent comparison chest x-ray is dated August 16, 2017 TECHNIQUE: Single AP portable view of the chest was obtained. FINDINGS: Image quality is compromised due to the relative inferiority of a portable chest x-ray. The heart and mediastinum exhibit normal size and contour. Again seen is mild calcified atherosclerosis overlying the arch of the aorta. There are densities obscuring the bilateral costophrenic angles. The pulmonary vasculature appears mildly engorged and indistinct. There is no large lobar consolidation. Visualized bones are normal for the patient's age. IMPRESSION: In the correct clinical setting chest x-ray findings could be compatible with mild pulmonary edema possibly with small bibasilar pleural effusions.
--- NOTE | 2017-12-01 10:39 | RAD ---
INDICATION: Post reduction of a fractured left radius COMPARISON: Similar radiograph acquired November 30, 2017 at 2331 hours TECHNIQUE: 3 views left wrist at 0106 hours status post reduction and external splint placement. REPORT: Evaluation of the bones is limited in the AP view by the overlying splint. There is a minimally displaced fracture at the distal left radius exhibiting a small amount of dorsal angulation on the lateral view. There has been interval reduction in the amount of displacement relative to the previous wrist radiograph. There is nondisplaced fracture of the ulnar styloid. Again seen is a nondisplaced fracture along the ulnar margin of the distal left ulnar cortex. There is widening of the scapholunate joint measuring 7 mm. Degenerative changes are noted at the left thumb metacarpal trapezium joint. IMPRESSION: 1. Interval reduction in the degree of displacement of the distal left radius fracture as described above status post splint placement. 2. Nondisplaced distal left ulna fractures. 3. Widening of the scapholunate joint of 7 mm indicates rupture of the triangular fibrocartilage complex.
[2017-12-01] MEDS: Albuterol 2.5 MG/3 ML NEB.SOL* (0.083%) INH PRN ×2 (11:40→20:16)
[2017-12-01] MEDS: traMADol TAB* 50 MG PO PRN (12:57)
--- NOTE | 2017-12-01 15:12 | RAD ---
INDICATION: Left wrist pain after a fall COMPARISON: None TECHNIQUE: 3 views left wrist. REPORT: There is a comminuted fracture of the distal left radius extending to the articulating surface of the bone. On the lateral view there is approximately 12 degrees of volar directed angulation. The distal fracture fragment is displaced approximately 5 mm medial and dorsally. There is a nondisplaced fracture of the left ulnar styloid as well as the ulnar aspect of the distal left ulnar metaphysis. There is approximately 7 mm of widening of the scapholunate joint. Advanced degenerative changes are incidentally noted at the left metacarpal trapezium joint. IMPRESSION: Comminuted fracture of the distal left radius and nondisplaced fracture of the distal left ulna as described above. Widening of the scapholunate joint up to 7 mm indicates disruption of the triangular fibrocartilage complex. R1
--- NOTE | 2017-12-01 16:15 | RAD ---
INDICATION: COPD COMPARISON: Most recent comparison chest x-rays dated December 01, 2017 at 0239 hours TECHNIQUE: PA and lateral views of the chest were obtained at 1419 hours. FINDINGS: The heart and mediastinum are normal in size and contour. There is mild calcification overlying the arch of the aorta similar in appearance to the previous chest x-ray. In the AP and lateral views the lungs appear hyperaerated with increased retrosternal airspace. The pulmonary vasculature appears mildly engorged and indistinct. There is bibasilar costophrenic angle blunting similar in appearance to the previous chest x-ray. Visualized bones are normal for the patient's age. There is no radiographic evidence of free air beneath the diaphragm IMPRESSION: 1. APPEARANCE OF THE LUNGS IS CONSISTENT WITH COPD. 2. IN THE CORRECT CLINICAL SETTING FINDINGS COULD BE COMPATIBLE WITH MILD VASCULAR CONGESTION POSSIBLY WITH TRACE BIBASILAR PLEURAL EFFUSIONS.
[2017-12-01] MEDS: Acetaminophen TAB* 325 MG PO PRN (18:18)
[2017-12-01] MEDS: Atorvastatin* 10 MG TAB PO SCH (18:18)
[2017-12-01] MEDS: Prazosin CAP* 1 MG PO SCH (21:37)
[2017-12-01] MEDS: OXcarbazepine TAB(*) 300 MG PO SCH (21:38)
[2017-12-01] MEDS: QUEtiapine TAB* 100 MG PO SCH (21:39)
[2017-12-01] MEDS: ALPRAZolam TAB* 0.25 MG PO PRN (21:39)
[2017-12-02] MEDS: Acetaminophen TAB* 325 MG PO PRN ×3 (05:58→21:07)
[2017-12-02] MEDS: Levothyroxine TAB* 75 MCG TAB PO SCH (05:58)
[2017-12-02] MEDS: Heparin VIAL(*) 5000 UNITS/ML VIAL (FIVE THOUSAND) SUBCUT SCH ×3 (06:00→21:08)
[2017-12-02 06:10] LABS: ABS Basophils 0 10^3/ul (0-0.2); ABS Eosinophils 0.1 10^3/ul (0-0.6); ABS Lymphocytes 1.3 10^3/ul (1.0-4.8); ABS Monocytes 0.7 10^3/ul (0-0.8); ABS Neutrophils 5.3 10^3/ul (1.5-7.7); ABS Nucleated RBC 0 10^3/ul; Eosinophil % 1.7 % (0-6); Hematocrit 33 % (35-47); Hemoglobin 11.2 g/dl (12.0-16.0); Lymphocyte % 17.4 % (25-47); Mean Corpuscular HGB Conc 34 g/dl (31-36); Mean Corpuscular Hemoglobin 31 pg (27-31); Mean Corpuscular Volume 92 fL (80-97); Mean Platelet Volume 9.1 um3 (7.4-10.4); Nucleated Red Blood Cells % 0.1; Platelet Count 188 10^3/ul (150-450); Red Blood Count 3.59 10^6/ul (4.00-5.40); Red Cell Distribution Width 14 % (10.5-15); White Blood Count 7.4 10^3/ul (3.5-10.8)
[2017-12-02] MEDS: Lisinopril TAB* 10 MG PO SCH ×2 (10:24→21:07)
[2017-12-02] MEDS: Sertraline* 50 MG TAB PO SCH (10:24)
[2017-12-02] MEDS: Montelukast Sodium TAB* 10 MG PO SCH (10:24)
[2017-12-02] MEDS: ALPRAZolam TAB* 0.25 MG PO PRN (12:07)
[2017-12-02] MEDS: traMADol TAB* 50 MG PO PRN ×2 (14:23→21:06)
[2017-12-02] MEDS: Albuterol 2.5 MG/3 ML NEB.SOL* (0.083%) INH PRN ×2 (14:31→21:27)
[2017-12-02] MEDS: Atorvastatin* 10 MG TAB PO SCH (17:51)
[2017-12-02] MEDS: Prazosin CAP* 1 MG PO SCH (21:05)
[2017-12-02] MEDS: OXcarbazepine TAB(*) 300 MG PO SCH (21:06)
[2017-12-02] MEDS: QUEtiapine TAB* 100 MG PO SCH (21:07)
[2017-12-03] MEDS: Levothyroxine TAB* 75 MCG TAB PO SCH (06:03)
[2017-12-03] MEDS: Acetaminophen TAB* 325 MG PO PRN (06:05)
[2017-12-03] MEDS: traMADol TAB* 50 MG PO PRN ×2 (06:05→19:27)
[2017-12-03] MEDS: Heparin VIAL(*) 5000 UNITS/ML VIAL (FIVE THOUSAND) SUBCUT SCH ×3 (06:06→21:59)
[2017-12-03] MEDS: Sertraline* 50 MG TAB PO SCH (09:47)
[2017-12-03] MEDS: Montelukast Sodium TAB* 10 MG PO SCH (09:47)
[2017-12-03] MEDS: Lisinopril TAB* 10 MG PO SCH ×2 (09:47→20:24)
[2017-12-03] MEDS: Albuterol 2.5 MG/3 ML NEB.SOL* (0.083%) INH PRN ×2 (10:41→19:14)
[2017-12-03] MEDS: Atorvastatin* 10 MG TAB PO SCH (19:18)
[2017-12-03] MEDS: Prazosin CAP* 1 MG PO SCH (20:25)
[2017-12-03] MEDS: OXcarbazepine TAB(*) 300 MG PO SCH (20:25)
[2017-12-03] MEDS: QUEtiapine TAB* 100 MG PO SCH (20:26)
--- NOTE | 2017-12-03 21:03 | CONS ---
ORTHOPEDIC CONSULT: DATE OF CONSULT: 12/03/17 ATTENDING PHYSICIAN: Dr. Marcella Rain. PRIMARY CARE PROVIDER: Dr. Arielle Carr. CHIEF COMPLAINT: Left wrist injury. HISTORY OF PRESENT ILLNESS: Ms. Rizzo is an 87-year-old female who presented to the emergency room on 11/30/17, with complaints of a left wrist injury that she sustained after a fall. She states that she misjudged where a chair was behind her and went to sit down and missed the chair, she landed directly onto an outstretched arm. She had pain, swelling, and deformity immediately in the left wrist. She was brought to [facility] by ambulance and was found to have a displaced left distal radius fracture. She underwent closed reduction and splinting in the emergency room. Since that time, she has been comfortable in the splint. She has been using a sling as well for support. She has been working with physical therapy to adjust to ambulation with a platform walker. She does not have a history of any injury to the left wrist previously. She does have a history of a right distal radius fracture that was treated nonoperatively. PAST MEDICAL HISTORY: Hypertension, COPD, history of MRSA, osteomyelitis in the left great toe, type 2 diabetes, obstructive sleep apnea, anxiety and depression, GERD, osteoporosis, allergic rhinitis, and RLS. PAST SURGICAL HISTORY: Left foot surgery and subsequent hardware removal, vaginal hysterectomy, bilateral cataract extractions, excision of left arm lipoma, cystoscopy with transurethral collagen injection, nasal polyp excision, and right breast lumpectomy. MEDICATIONS: Current medications are listed in her chart. ALLERGIES: ASPIRIN, BEES, NSAIDs, and PROCHLORPERAZINE. FAMILY HISTORY: Noncontributory. SOCIAL HISTORY: The patient lives alone at [facility]. She quit smoking greater than 20 years ago. She denies any alcohol use. She is a retired and . She has 4 children. REVIEW OF SYSTEMS: A 14-point review of systems was discussed with the patient. All systems were negative, except discussed in the HPI. PHYSICAL EXAM: General: The patient is a well-developed, well-nourished elderly female, sitting up in bed. She is in no acute distress. Vital Signs: Temperature 98.1, pulse is 77, respirations 18, saturation 97% on room air, blood pressure 139/62. The patient is 5 feet 3 inches and 145 pounds. HEENT: Normocephalic, atraumatic. Her hearing and vision are grossly intact. Neck: Her trachea is midline. Respiratory: The patient's breathing is unlabored. Appears to be equal expansion bilateral. Cardiovascular: She has some minimal lower extremity pitting edema. She has good perfusion of her digits. Abdomen is soft and nontender. Extremities: Exam of the left upper extremity, the patient has a short-arm volar splint that extends to the PIP joints. There is moderate edema throughout her fingers. She is able to flex and extend at the PIP and DIP joints of all digits. She has sensation to all nerve distributions and a brisk capillary refill. She is able to fully flex and extend at the elbow. She has no tenderness to palpation about the elbow or shoulder. IMAGING: Post-reduction AP and lateral views of the left wrist were reviewed and discussed with Dr. Rain. It showed a minimally displaced comminuted intraarticular distal radius fracture with slight dorsal angulation on the lateral view. There is widening of the scapholunate joint measuring about 7 mm. There is also a small ulnar styloid fracture that is minimally displaced. IMPRESSION: Left distal radius fracture and widening of the scapholunate ligament. PLAN: The patient will continue in the short-arm splint and follow up upon discharge with Dr. Rain. If the patient is going to be in the hospital more than a couple of days, we should consider changing the splint to allow for more flexion and extension at the MCP joints. She will continue current pain medication as ordered by the hospitalist service. All of her questions were answered. AGA CELAYA [id number]/[facility] #: [id number] MARYLIN
[2017-12-04] MEDS: Heparin VIAL(*) 5000 UNITS/ML VIAL (FIVE THOUSAND) SUBCUT SCH ×3 (05:36→21:08)
[2017-12-04] MEDS: Levothyroxine TAB* 75 MCG TAB PO SCH (05:37)
[2017-12-04] MEDS: Albuterol 2.5 MG/3 ML NEB.SOL* (0.083%) INH PRN ×2 (08:08→19:11)
[2017-12-04] MEDS: Sertraline* 50 MG TAB PO SCH (08:51)
[2017-12-04] MEDS: Lisinopril TAB* 10 MG PO SCH ×2 (08:52→21:06)
[2017-12-04] MEDS: Montelukast Sodium TAB* 10 MG PO SCH (08:52)
[2017-12-04] MEDS: traMADol TAB* 50 MG PO PRN ×2 (08:52→22:47)
--- NOTE | 2017-12-04 16:17 | RAD ---
Indication: RIGHT hip pain. Fall with LEFT wrist fracture. Comparison: August 18, 2014 Technique: AP pelvis. Report: The RIGHT hip is held in internal rotation limiting assessment. No gross radiographic evidence for RIGHT hip fracture. Healed RIGHT pubic ramus fractures without change. No acute pelvic fracture or pelvic joint diastases. Unremarkable soft tissue contours accounting for body habitus. Lumbar sacral spine degenerative spondylosis and facet joint osteoarthritis. IMPRESSION: #. Limited radiographic assessment of the RIGHT hip due to internal rotation without gross evidence for hip fracture. If there is persistent clinical concern a complete RIGHT hip radiographic series or CT would be suggested for further assessment.
[2017-12-04] MEDS: Atorvastatin* 10 MG TAB PO SCH (18:33)
[2017-12-04] MEDS: ALPRAZolam TAB* 0.25 MG PO PRN (20:08)
[2017-12-04] MEDS: Prazosin CAP* 1 MG PO SCH (21:04)
[2017-12-04] MEDS: QUEtiapine TAB* 100 MG PO SCH (21:06)
[2017-12-04] MEDS: OXcarbazepine TAB(*) 300 MG PO SCH (21:07)
[2017-12-05] MEDS: Levothyroxine TAB* 75 MCG TAB PO SCH (05:45)
[2017-12-05] MEDS: Heparin VIAL(*) 5000 UNITS/ML VIAL (FIVE THOUSAND) SUBCUT SCH ×2 (05:46→13:47)
[2017-12-05] MEDS: Montelukast Sodium TAB* 10 MG PO SCH (08:22)
[2017-12-05] MEDS: Sertraline* 50 MG TAB PO SCH (08:22)
[2017-12-05] MEDS: traMADol TAB* 50 MG PO PRN ×2 (08:22→14:12)
[2017-12-05] MEDS: Lisinopril TAB* 10 MG PO SCH (08:22)
[2017-12-05] MEDS: Albuterol 2.5 MG/3 ML NEB.SOL* (0.083%) INH PRN (08:24)
[2017-12-05] MEDS ORDERED: Magnesium Hydroxide LIQ* 30 ML UDC PO PRN (09:03)
[2017-12-05] MEDS ORDERED: Bisacodyl SUPP* 10 MG SUPP PR ONE (12:00)
[2017-12-05 12:24] VITALS: BP 142/56
--- NOTE | 2017-12-06 02:50 | TRS ---
CC: [facility] * TRANSFER SUMMARY: DATE OF ADMISSION: 12/01/17 DATE OF TRANSFER: 12/05/17 TRANSFER DIAGNOSES: 1. Left wrist fracture. 2. Chronic obstructive pulmonary disease. 3. Hypertension. 4. History of anxiety. 5. 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 6. Type 2 diabetes mellitus, diet controlled. 7. History of obstructive sleep apnea. 8. Depression. 9. History of gastroesophageal reflux disease. 10. Osteoporosis. 11. Allergic rhinitis. 12. Restless leg syndrome. 13. Hypothyroidism. 14. Hyperlipidemia. 15. Fall in the home. 16. History of urinary tract infections. 17. History of nightmares. 18. Mild to moderate aortic stenosis. 19. History of diastolic heart failure. HISTORY: Clare Rizzo is an 87-year-old woman admitted with a wrist fracture after falling at home. Please see the dictated admission note for details of the present illness, past medical history, family history, social and personal history, review of systems and physical examination. LABORATORY DATA: CBC on 12/01/17: WBC 12.3, H and H 12/36, MCV 93, PLT 200, 000. CBC on 12/02/17, WBC 7.4, H and H 11.2/33, MCV 92, PLT 188,000. Chemistries on 12/01/17 sodium 137, potassium 4.3, chloride 104, CO2 of 25, BUN 30, creatinine 1.18, glucose 213, calcium 9.5, BNP 98. Chemistries on 12/02/17 , sodium 137, potassium 4.0, chloride 106, CO2 of 25, BUN and creatinine 20/0.8 , glucose 162, calcium 8.5, CRP 55.61. IMAGING: Wrist x-ray on 11/30/17 showed comminuted fracture of the distal left radius with nondisplaced fracture of the distal left ulna, widening of the scapholunate joint up to 7 mm indicating disruption of the triangular fibrocartilage complex. Wrist x-ray 12/01/17 showed interval reduction in the degree of displacement of the distal left radius fracture, nondisplaced distal left ulna fractures, widening of the scapholunate joint. Chest x-ray 12/01/17 portable showed possible mild pulmonary edema with small bibasilar pleural effusions. Repeat chest x-ray on 12/01/17 which was a PA and lateral view showed appearance consistent with COPD, pulmonary vasculature appeared mildly engorged and distinct and there was bibasilar costophrenic angle blunting. Pelvis x-ray on 12/04/17 showed no apparent fracture. The x-rays were somewhat limited by rotation of the hip. HOSPITAL COURSE: The patient was admitted with left distal radius fracture. She uses a walker so had to be nonweightbearing to the left wrist and she was thought that she was not safe to go home and ambulate successfully. She received physical therapy during her hospitalization. She made some improvement , but it was still felt that she was not safe at home and could not manage her ADLs so that she should go to a fdc facility. Her COPD was stable throughout her hospitalization. She used nebulizers as she does at home. Her CRP was noted to be slightly elevated, this was felt likely related to the fall and the hip fracture. She did complain of back pain. On exam, this seemed to be in her rib cage. She refused rib x-rays or T spine x-rays. She did have a pelvic x-ray, this showed no apparent fracture. If she does have a rib fracture or a vertebral fracture, this will heal with time and so I did not feel that it was incumbent on her to go through the x-rays which she refused. Her blood pressure went up and down throughout her hospitalization, this will need to be followed as an outpatient. She was seen by orthopedics in consultation. The recommendation was for her to have a short arm splint and follow up with Dr. Rain upon discharge. She was to have pain medication as ordered. At the time of discharge, she is feeling okay. She is controlling her wrist pain with Tylenol and tramadol. She continues to have back pain. MEDICATIONS AT THE TIME OF DISCHARGE: 1. Albuterol 2.5 mg via nebulizer twice a day routine and every 4 hours as needed for shortness of breath. 2. Flovent 110 inhaled 2 puffs twice a day (q.12h). 3. Montelukast 10 mg p.o. daily. 4. Sertraline 150 mg p.o. daily. 5. Alprazolam 0.25 mg one half pill p.o. b.i.d. 6. Quetiapine 400 mg p.o. q.h.s. 7. Oxcarbazepine 900 mg p.o. q.h.s. 8. Premarin vaginal cream one half applicator vaginally 3 times a week. 9. Simvastatin 20 mg p.o. every evening. 10. Lisinopril 10 mg p.o. b.i.d. 11. Prazosin 3 mg p.o. q.h.s. 12. Levothyroxine 75 mg p.o. daily for 6 days a week and 2 pills daily 1 day a week. 13. Milk of magnesia 30 cc p.o. daily p.r.n. constipation. 14. Acetaminophen 650 mg p.o. q.4 hours p.r.n. mild pain. 15. Tramadol 50 mg p.o. q.4 hours p.r.n. moderate to severe pain. She will have physical and occupational therapies. FOLLOWUP: She is to follow up with me Dr. Arielle Carr after discharge. ALLERGIES: ASPIRIN, NSAIDS, PROCHLORPERAZINE. ACTIVITY: Up with assistance. DIET: Consistent carbohydrate. [id number]/[facility] #: [id number] [facility]
== END 2017-12-05 14:55 | DRG 563 ==
LOC: ED 23:02 → SSU 12-01 02:17 → OBSVTOIN 12-03 15:57
PROVIDERS: ADMIT Hospitalist; ATTEND Internal Medicine Geriatric Medicine
PROC: 2W3DX1Z Immobilization of Left Lower Arm using Splint (ICD-10-PCS; principal; 2017-11-30)
DX: S52.572A Other intraarticular fracture of lower end of left radius, initial encounter for closed fracture (principal); I50.32 Chronic diastolic (congestive) heart failure; S52.615A Nondisplaced fracture of left ulna styloid process, initial encounter for closed fracture; J44.9 Chronic obstructive pulmonary disease, unspecified; G47.33 Obstructive sleep apnea (adult) (pediatric); F32.9 Major depressive disorder, single episode, unspecified; F41.9 Anxiety disorder, unspecified; K21.9 Gastro-esophageal reflux disease without esophagitis; J30.9 Allergic rhinitis, unspecified; M81.0 Age-related osteoporosis without current pathological fracture; G25.81 Restless legs syndrome; W07.XXXA Fall from chair, initial encounter; M85.80 Other specified disorders of bone density and structure, unspecified site; I44.7 Left bundle-branch block, unspecified; I11.0 Hypertensive heart disease with heart failure; I08.0 Rheumatic disorders of both mitral and aortic valves; K58.9 Irritable bowel syndrome, unspecified; E03.9 Hypothyroidism, unspecified; S63.512A Sprain of carpal joint of left wrist, initial encounter; E11.9 Type 2 diabetes mellitus without complications; E78.5 Hyperlipidemia, unspecified; Z66 Do not resuscitate; M54.9 Dorsalgia, unspecified; Z79.52 Long term (current) use of systemic steroids; Z87.01 Personal history of pneumonia (recurrent); Z87.891 Personal history of nicotine dependence; Z80.3 Family history of malignant neoplasm of breast; Z23 Encounter for immunization; Z87.440 Personal history of urinary (tract) infections; Y92.009 Unspecified place in unspecified non-institutional (private) residence as the place of occurrence of the external cause; Z86.14 Personal history of Methicillin resistant Staphylococcus aureus infection; Z90.710 Acquired absence of both cervix and uterus; Z98.42 Cataract extraction status, left eye; Z98.41 Cataract extraction status, right eye; Z85.828 Personal history of other malignant neoplasm of skin; Z88.8 Allergy status to other drugs, medicaments and biological substances; Z88.6 Allergy status to analgesic agent; Z91.030 Bee allergy status; Z91.048 Other nonmedicinal substance allergy status
CPT/HCPCS: 36415; 71045; 71046; 72170; 80048; 83880; 85025; 86140; 90686; 94640; 99283; A9270-GY; G0378; G8978-GP-CJ; G8979-GP-CI; G8987-GO-CK; G8988-GO-CI; J1644

== ENCOUNTER 2017-12-18 10:44 | Day surgery (SDC) | payer MEDICARE, MEDICAID ==
--- NOTE | 2017-12-12 20:55 | HP ---
PREOPERATIVE HISTORY AND PHYSICAL: DATE OF ADMISSION/SURGERY: 12/18/17 [facility] DATE OF OFFICE VISIT/ENCOUNTER: 12/12/17 ATTENDING SURGEON: Marcella Rain MD * (DICTATED BY AGA MAN) PROCEDURE: Open reduction and internal fixation, left wrist. CHIEF COMPLAINT: Left wrist pain after fall. HISTORY OF PRESENT ILLNESS: This is an 87-year-old female who sustained injury to her left wrist on 11/30/17 when she fell at home. She lives at [facility]. She states that she misjudged where a chair was behind her and she went to sit down and missed the chair, landed directly onto a left outstretched arm. She was transported to [facility] via ambulance and x-rays showed a displaced left distal radius fracture. She underwent a closed reduction and splinting in the emergency room and was referred to Dr. Rain for further evaluation and treatment. She was discharged to [facility] after leaving the hospital because she is not able to care for herself with this injury. After review of postreduction x- rays and evaluation by Dr. Rain , it has been recommended that she undergo surgical intervention for this injury and the patient has consented to proceed with an open reduction and internal fixation of left wrist. PAST MEDICAL HISTORY: 1. Asthma. 2. Hypertension. 3. Anxiety/depression. 4. Seasonal allergies. 5. Hypothyroidism. 6. Sleep apnea. 7. GERD. 8. History of left foot osteomyelitis. 9. History of MRSA. PAST SURGICAL HISTORY: 1. Left foot surgery and subsequent hardware removal. 2. Hysterectomy. 3. Bilateral cataract extractions. 4. Excision left arm lipoma. 5. Nasal polyp excision. 6. Right breast lumpectomy. 7. Cystoscopy with transurethral collagen injection. CURRENT MEDICATIONS: 1. Albuterol/ipratropium. 2. Celexa 40 mg daily. 3. Fosamax 70 mg weekly. 4. Hydrochlorothiazide 12.5 mg daily. 5. Lisinopril 10 mg twice daily. 6. Meclizine HCl 25 mg q.6 hours p.r.n. 7. Montelukast sodium 10 mg daily. 8. Prazosin HCl 1 mg 3 tabs q.h.s. 9. Seroquel 200 mg daily. 10. Synthroid 50 mcg daily. 11. Trileptal 900 mg q.h.s. 12. Xanax 0.25 mg p.r.n. 13. Zocor 20 mg q.h.s. 14. Zyrtec Allergy 10 mg daily p.r.n. ALLERGIES: ASPIRIN and NSAIDS cause throat tightening and PROCHLORPERAZINE, reaction unknown. FAMILY MEDICAL HISTORY: Noncontributory. SOCIAL HISTORY: The patient lives alone at [facility]. She quit smoking over 20 years ago. She denies recreational drug use and does not drink alcohol. REVIEW OF SYSTEMS: Negative for cephalic, cardiovascular, respiratory, GI, , other musculoskeletal, integumentary, endocrine, neurologic, and hematologic symptoms. Infectious Disease: Positive for history of MRSA. Negative for hepatitis C, HIV. PHYSICAL EXAMINATION GENERAL: Well-developed, well-nourished 87-year-old female, in no acute distress. VITAL SIGNS: Height 5 feet 3 inches, weight 145 pounds. Pulse rate 74, blood pressure 142/70. HEENT: Normocephalic, atraumatic. Pupils are equal, round, and reactive to light and accommodation. Extraocular movements are intact. Throat is clear. NECK: Supple. No palpable lymph nodes. PULMONARY: Lungs are clear to auscultation bilaterally. No wheezes, rales, or rhonchi. CARDIOVASCULAR: Regular rate and rhythm. S1, S2. No murmurs, rubs, or gallops. No edema. ABDOMEN: Positive bowel sounds. Soft, nontender. NEUROLOGICAL: Alert and oriented x3. Cranial nerves II through XII are intact. Sensation is intact to light touch. MUSCULOSKELETAL: On exam of her left wrist, there is obvious deformity. There is moderate swelling, particularly in her hand and fingers as well as at the wrist. There is also significant scattered ecchymosis along the forearm down into the wrist and hand. Neurovascular function is intact. Skin is intact. She is able to wiggle her fingers. IMAGING STUDIES: X-rays AP, lateral of the left wrist show fracture of the distal radius with apex dorsal angulation and significant displacement and shortening. IMPRESSION: Left distal radius fracture. PLAN: The patient is scheduled to undergo an open reduction and internal fixation of left wrist with Dr. Rain on 12/18/17. She will return to the office 10 days postop for followup and suture removal. Pain medications for postoperative pain management will be prescribed on day of surgery. AGA MAN [id number]/[facility] #: [id number] MARYLIN
[~2017-12-18 10:44] MED LIST changes: -Albuterol/Ipratropium NEB.SOL* Albuterol 2.5 MG/Ipratropium 0.5 MG 3 ML INH ONE; +Buffered Lidocaine 0.9% SYRIN* 5 ML/SYR SYRINGE INTRADERM ONE; +Famotidine IV* 10 MG/ML 2 ML (20 mg) IV ONE; +Famotidine IV* 10 MG/ML 2 ML (20 mg) ONE; +ROPIVACAINE 5 MG/ML 30 ML BTL (0.5%) ONE
[2017-12-18] MEDS ORDERED: ceFAZolin 2 GM in NS PREMIX(*) 2 GM/100 ML BAG IVPB ONE (11:12)
[2017-12-18] MEDS ORDERED: ROPIVACAINE 5 MG/ML 30 ML BTL (0.5%) ONE ×3 (11:43→12:35)
[2017-12-18] MEDS ORDERED: Lidocaine 1% INJ* 10 MG/ML 30 ML SDV ONE (11:43)
[2017-12-18] MEDS ORDERED: Midazolam* 1 MG/ML 5 ML VIAL (5 MG) ONE (11:53)
[2017-12-18] MEDS ORDERED: fentaNYL* 50 MCG/ML 2 ML VIAL (100 MCG VIAL) ONE (11:53)
[2017-12-18] MEDS ORDERED: KETAMINE HCL* 50 MG/ML 10 ML VIAL ONE (12:50)
[2017-12-18] MEDS ORDERED: Ondansetron INJ* 2 MG/ML VIAL ONE (13:33)
[2017-12-18] MEDS ORDERED: Ketorolac INJ* 30 MG/ML 1 ML VIAL ONE (13:33)
[2017-12-18] MEDS ORDERED: Propofol* 10 MG/ML 20 ML BTL IV PUSH ONE (13:33)
[2017-12-18] MEDS ORDERED: Acetaminophen TAB* 325 MG PO PRN (14:20)
[2017-12-18 16:16] VITALS: BP 134/68
--- NOTE | 2017-12-19 05:02 | OP ---
DATE OF OPERATION: 12/18/17 [facility] DATE OF : 32 SURGEON: Marcella Rain MD [employer]: AGA Durbin ANESTHESIA: Block. PRE-OP DIAGNOSIS: Left distal radius fracture. POST-OP DIAGNOSIS: Left distal radius fracture. OPERATIVE PROCEDURE: Open reduction and internal fixation, left distal radius. ESTIMATED BLOOD LOSS: Zero. TOURNIQUET TIME: About 45 minutes. INDICATIONS FOR PROCEDURE: Clare is an 87-year-old female, who suffered a fracture of her left distal radius. Attempt at close reduction was unsuccessful. She has a previous history of fracture and in addition to the current acute fracture, has a malunion of the radius and scapholunate ligament tear. She has obvious deformity of her wrist and presents for ORIF of the left distal radius. I did not intend to correct the scapholunate gap at this point. DESCRIPTION OF PROCEDURE: The patient was brought to the operating room and was given a block anesthetic and placed in the supine position on the operating table with a tourniquet around her left upper arm. The skin of her left upper extremity was prepped and draped in the usual sterile fashion. The upper extremity was exsanguinated and the tourniquet elevated to 250 mmHg. A longitudinal incision was made over the FCR tendon and we dissected sharply through the superficial and deep portion of the FCR tendon sheath. The tendon and the FPL muscle and tendon were retracted with a self retaining retractor. The pronator quadratus was then incised and subperiosteally dissected off of the distal radius fragments. The fracture fragments were reduced with traction and manipulation and then we secured a 3-hole distal radius plate from the [employer]ynthe[employer] distal radius set with 4 distal and 3 proximal screws. The position of the hardware and fracture fragments were much improved compared to preop and the hardware was in good position. The wound was copiously irrigated with saline. The pronator quadratus was repaired over the plate with 2-0 Polysorb suture. The deep portion of the FCR tendon sheath was repaired with 2-0 Vicryl suture. The skin edges were reapproximated with 4-0 nylon suture. The wound was dressed with Xeroform, 4x4, Webril, and a volar splint. The patient tolerated the procedure well and was brought to the recovery room in good condition. [id number]/[facility] #: [id number] [facility]
--- NOTE | 2017-12-19 09:43 | RAD ---
INDICATION: S2 2.572 A COMPARISONS: 12/12/2017 TECHNIQUE: Fluoroscopy was provided for a surgical procedure. Total fluoroscopy time is: 36 seconds FINDINGS: Spot images demonstrate internal fixation of the distal radius IMPRESSION: FLUOROSCOPY WAS PROVIDED FOR A SURGICAL PROCEDURE CPT II Codes: G9500
== END 2017-12-18 16:00 | disposition home or self-care (01) ==
LOC: OREAST 10:44
PROVIDERS: ATTEND Orthopaedic Surgery
DX: S52.502A Unspecified fracture of the lower end of left radius, initial encounter for closed fracture (principal); W18.39XA Other fall on same level, initial encounter; Y92.009 Unspecified place in unspecified non-institutional (private) residence as the place of occurrence of the external cause; J45.909 Unspecified asthma, uncomplicated; I10 Essential (primary) hypertension; F41.8 Other specified anxiety disorders; E03.9 Hypothyroidism, unspecified; K21.9 Gastro-esophageal reflux disease without esophagitis; G47.33 Obstructive sleep apnea (adult) (pediatric); E11.9 Type 2 diabetes mellitus without complications
CPT/HCPCS: 76000; C1713; C1776; J0690; J1885; J2250; J2405; J2704; J2795; J3010

== ENCOUNTER 2018-03-12 16:05 | Inpatient (IN) | payer MEDICARE, MEDICAID ==
--- NOTE | 2018-03-12 16:21 | ED ---
Dizziness - HPI Summary HPI Summary: This patient is a 87 year old F brought in by EMS to [facility] with a chief complaint of weakness that began this morning. States she did not vomit but she did have dried vomit on her mouth and on her shirt. She was found on her apartment floor in the kitchen by EMS. The patient rates the pain 0/10 in severity. Patient reports light headedness ad constipation. Patient denies nausea, cp, LE edema, LE pain, fever, diaphoresis, chills, melena, and ABD pain. She denies trauma and head/neck pain. She does live alone. She states she has not eaten today. Pt reports she stood up to answer the door when she passed out. - History Of Current Complaint Chief Complaint: EDWeakness Stated Complaint: FALL Hx Obtained From: Patient Timing: Constant Severity Initially: Moderate Severity Currently: Moderate Character: Lightheaded - Allergies/Home Medications Allergies/Adverse Reactions: Allergies Allergy/AdvReac Type Severity Reaction Status Date / Time aspirin Allergy Severe Anaphylatic Verified 12/18/17 11:18 Shock bee venom protein (honey bee) Allergy Severe Anaphylatic Verified 12/18/17 11:18 Shock NSAIDS (Non-Steroidal Allergy Severe Anaphylatic Verified 12/18/17 11:18 Anti-Inflamma Shock prochlorperazine Allergy Severe SEIZURE Verified 12/18/17 11:18 DUST AND MOLD Allergy Mild Runny Nose Uncoded 12/18/17 11:18 Home Medications: Home Medications HYDROcodone/ACETAMIN 5-325 MG* [[place] 5-325 TAB*] 1 tab PO Q4H PRN 03/12/18 [ History Confirmed 03/12/18] Meclizine TAB* [Antivert 12.5 TAB*] 12.5 mg PO TID PRN 03/12/18 [History Confirmed 03/12/18] PMH/Surg Hx/FS Hx/Imm Hx Endocrine/Hematology History: Reports: Hx Diabetes - TYPE 2, Hx Thyroid Disease - HYPOTHYROID, Hx Anemia - HX OF, Other Endocrine/Hematological Disorders - osteopenia Denies: Hx Anticoagulant Therapy, Hx Bone Marrow Disease, Hx Sickle Cell Disease Cardiovascular History: Reports: Hx Congestive Heart Failure - HX OF 11/27, Hx Coronary Artery Disease, Hx Hypercholesterolemia, Hx Hypertension, Hx Valvular Heart Disease - aortic stenosis, mitral regurg , Other Cardiovascular Problems/ Disorders - MODERATE AORTIC STENOSIS, HYPERLIPIDEMIA Denies: Hx Pacemaker/ICD Respiratory History: Reports: Hx Asthma - INHALERS, Hx Chronic Bronchitis, Hx Chronic Obstructive Pulmonary Disease (COPD), Hx Pneumonia, Hx Pulmonary Edema - 11/2017 RECENT HOSPITALIZATION, Hx Seasonal Allergies, Hx Sleep Apnea - ? does not wear cpap at night, Other Respiratory Problems/Disorders - HX OF PNEUMONIA, COPD, CHRONIC RHINITIS, SINUSITIS GI History: Reports: Hx Gastroesophageal Reflux Disease, Hx Irritable Bowel, Other GI Disorders - 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 History: Reports: Other Problems/Disorders - HX OF UTI'S Denies: Hx Kidney Stones, Hx Renal Disease Musculoskeletal History: Reports: Hx Arthritis, Hx Orthopedic Injury - 2011 R ankle Fx, 03/19/2012 R ankle Fx, 03/21/2012 L ankle Fx,, Other Musculoskeletal History - Bilateral rotator cuff injuries; osteomyelitis left ankle , left wrist fx Denies: Hx Rheumatoid Arthritis, Hx Osteoporosis Sensory History: Denies: Hx Cataracts, Hx Contacts or Glasses, Hx Glaucoma, Hx Deafness, Hx Hearing Aid Opthamlomology History: Denies: Hx Cataracts, Hx Contacts or Glasses, Hx Glaucoma Neurological History: Reports: Other Neuro Impairments/Disorders - RESTLESS LEG SYNDROME Denies: Hx Dementia, Hx Seizures Psychiatric History: Reports: Hx Anxiety, Hx Depression, Other Psychiatric Issues/Disorders - hx nightmares Denies: Hx Attention Deficit Hyperactivity Disorder, Hx Suicide Attempt, Hx Substance Abuse - Cancer History Hx Chemotherapy: No Hx Radiation Therapy: No - Surgical History Surgery Procedure, Year, and Place: BILATERAL FOREARM FRACTURES, ONE 2011, ONE 2012. LEFT GREAT TOE HAMMER TOE. HYSTERECTOMY 1974. NASAL POLYPS 1977. BILATERAL CATARACTS. RIGHT BREAST LUMPECTOMY. EXCISION OF LIPOMA LEFT ARM. CYSTOSCOPIES. REMOVAL OF HARDWARE LEFT FOOT. OSTEOMYLITIS LEFT HALLUX/MRSA Hx Anesthesia Reactions: No - Immunization History Date of Tetanus Vaccine: Unsure Date of Influenza Vaccine: 2012 Infectious Disease History: No Infectious Disease History: Reports: Hx of Known/Suspected MRSA Denies: Hx Clostridium Difficile, Hx Hepatitis, Hx Human Immunodeficiency Virus (HIV), Hx Shingles, Hx Tuberculosis, Traveled Outside the [place] in Last 30 Days - Family History Known Family History: Positive: Other - neg Breast CA Family History: No FHx of breast cancer. - Social History Alcohol Use: Rare Hx Substance Use: No Substance Use Type: Reports: None Hx Tobacco Use: Yes Smoking Status (MU): Former Smoker Type: Cigarettes Amount Used/How Often: 1ppd Length of Time of Smoking/Using Tobacco: 5-6 years Have You Smoked in the Last Year: No Review of Systems Positive: Other - fall . Negative: Fever, Chills Negative: Erythema Negative: Sore Throat Negative: Chest Pain Negative: Shortness Of Breath, Cough Gastrointestinal: Other - constipation. Negative: Abdominal Pain, Vomiting, Diarrhea, Nausea Negative: dysuria, hematuria Negative: Myalgia, Edema Negative: Rash Neurological: Negative - light headedness Positive: Weakness, Syncope - possible All Other Systems Reviewed And Are Negative: Yes Physical Exam - Summary Physical Exam Summary: Constitutional: Well-developed, Well-nourished, Alert. (-) Distressed Skin: Warm, Dry HENT: dry oral mucosa and tongue is brown. Eyes: Conjunctiva normal Neck: Musculoskeletal ROM normal neck. (-) JVD, (-) Stridor, (-) Tracheal deviation Cardio: Rhythm regular, rate normal, Heart sounds normal; Intact distal pulses; The pedal pulses are 2+ and symmetric. Radial pulses are 2+ and symmetric. (-) Murmur Pulmonary/Chest wall: Effort normal. (-) Respiratory distress, (-) Wheezes, (-) Rales Abd: ABD distension Musculoskeletal: (-) Edema Lymph: (-) Cervical adenopathy Neuro: Alert, Oriented x3 Psych: Mood and affect Normal Triage Information Reviewed: Yes Vital Signs On Initial Exam: Initial Vitals Temp Pulse Resp BP Pulse Ox 97.2 F 76 16 118/68 98 03/12/18 16:12 03/12/18 16:12 03/12/18 16:12 03/12/18 16:12 03/12/18 16:12 Vital Signs Reviewed: Yes Diagnostics - Vital Signs Vital Signs Temp Pulse Resp BP Pulse Ox 03/12/18 16:12 97.2 F 76 16 118/68 98 - Laboratory Result Diagrams: 03/17/18 10:56 03/17/18 10:56 Lab Statement: Any lab studies that have been ordered have been reviewed, and results considered in the medical decision making process. - EKG 1641 Cardiac Rate: NL EKG Rhythm: Sinus Rhythm - at 71 BPM Summary of EKG Findings: NO STEMI Dizzy Course/Dx - Course Assessment/Plan: This patient is a 87 year old F brought in by EMS to [facility] with a chief complaint of weakness that began this morning. States she did not vomit but she did have dried vomit on her mouth and on her shirt. She was on her apartment floor in the kitchen by EMS. The patient rates the pain 0/10 in severity. Patient reports light headedness ad constipation. Patient denies nausea, cp, LE edema, LE pain, fever, diaphoresis, chills, melena, and ABD pain. She denies trauma and head/neck pain. She does live alone. She states she has not eaten today. Pt reports she stood up to answer the door when she passed out. An EKG reveals NSR. There is an intermediate concern for SBO. Bloodwork obtained. In the ED course the patient was given zofran. I discussed the case with the patientss PCP Dr. Carr and she states there is a corner for medication non compliance at home. We discussed patient care with Dr. Abdi as she has admitted the patient. Patient will be admitted. The patient is agreeable with this plan. - Diagnoses Provider Diagnoses: Dehydration, Vomiting, Syncope - Provider Notifications Discussed Care Of Patient With: Patience Abdi Time Discussed With Above Provider: 18:44 Instructed by Provider To: Admit As Inpatient Discharge - Sign-Out/Discharge Documenting (check all that apply): Patient Departure - admitted - Discharge Plan Condition: Fair Disposition: ADMITTED TO [facility] - Billing Disposition and Condition Condition: FAIR Disposition: Admitted to [facility] - Attestation Statements Document Initiated by Cesilia: Yes Documenting Scribe: Chacho Valentine Provider For Whom Cesilia is Documenting (Include Credential): Manuel Angeles MD Scribe Attestation: Chacho Puentes , scribed for Manuel Angeles MD on 03/18/18 at 0734. Scribe Documentation Reviewed: Yes Provider Attestation: The documentation as recorded by the Chacho mcnamara accurately reflects the service I personally performed and the decisions made by Manuel byrne MD Status of Scribe Document: Viewed
[2018-03-12] MEDS ORDERED: Ondansetron INJ* 2 MG/ML VIAL IV ONE (16:22)
[2018-03-12] MEDS ORDERED: NS 0.9% 1000 ML* 1,000 ML IV ONE (16:22)
[2018-03-12 17:36] LABS: ABS Basophils 0 10^3/ul (0-0.2); ABS Eosinophils 0.1 10^3/ul (0-0.6); ABS Lymphocytes 0.8 10^3/ul (1.0-4.8); ABS Monocytes 0.5 10^3/ul (0-0.8); ABS Neutrophils 6.5 10^3/ul (1.5-7.7); ABS Nucleated RBC 0 10^3/ul; Eosinophil % 0.9 %; Hematocrit 35 % (35-47); Hemoglobin 11.4 g/dl (12.0-16.0); Lymphocyte % 9.7 %; Mean Corpuscular HGB Conc 33 g/dl (31-36); Mean Corpuscular Hemoglobin 30 pg (27-31); Mean Corpuscular Volume 90 fL (80-97); Mean Platelet Volume 8.5 fL (7.4-10.4); Nucleated Red Blood Cells % 0; Platelet Count 278 10^3/ul (150-450); Red Blood Count 3.88 10^6/ul (4.00-5.40); Red Cell Distribution Width 15 % (10.5-15)
[2018-03-12 17:53] LABS: ALT 9 U/L (7-52); AST 11 U/L (13-39); Albumin 3.6 g/dL (3.2-5.2); Albumin/Globulin Ratio 1.2 (1-3); Alkaline Phosphatase 80 U/L (34-104); Anion Gap 6 mmol/L (2-11); BUN/Creatinine Ratio 22.1 (8-20); Blood Urea Nitrogen 23 mg/dL (6-24); C Reactive Protein 58.01 mg/L (<8.01); CO2 Carbon Dioxide 26 mmol/L (22-32); Calcium 8.3 mg/dL (8.6-10.3); Chloride 103 mmol/L (101-111); Creatine Kinase 33 U/L (10-223); EGFR Non-African American 50.2 (>60); Glucose 174 mg/dL (70-100); Potassium 4.3 mmol/L (3.5-5.0); Sodium 135 mmol/L (135-145); Total Protein 6.6 g/dL (6.4-8.9)
[2018-03-12] MEDS ORDERED: Iodixanol* (CONTRAST) 320 MG/ML 100 ML SDV IV ONE (18:29)
[2018-03-12] MEDS ORDERED: Iodixanol 320 (CONTRAST) 100 ML SDV IV ONE (20:01)
[2018-03-12] MEDS ORDERED: Acetaminophen TAB* 325 MG PO PRN (20:08)
[2018-03-12] MEDS ORDERED: Albuterol HFA INHALER* 8 gm MDI INH PRN (20:16)
[2018-03-12] MEDS ORDERED: Albuterol 2.5 MG/3 ML NEB.SOL* (0.083%) INH PRN (20:16)
[2018-03-12 21:25] LABS: Urine Appearance Cloudy; Urine Bacteria 1+ (Absent); Urine Bilirubin Negative (Negative); Urine Blood Negative (Negative); Urine Color Yellow; Urine Glucose Negative (Negative); Urine Ketones Negative (Negative); Urine Nitrite Positive (Negative); Urine Protein Negative (Negative); Urine Red Blood Cell Absent (Absent); Urine Specific Gravity 1.053 (1.010-1.030); Urine Urobilinogen Negative (Negative); Urine White Blood Cell 3+(>20/hpf) (Absent)
[2018-03-12] MEDS: Mometasone 220 MCG MDI INH SCH (23:00)
[2018-03-13] MEDS: QUEtiapine TAB* 100 MG PO SCH ×2 (00:46→21:11)
[2018-03-13] MEDS: OXcarbazepine TAB(*) 300 MG PO SCH ×2 (00:46→21:11)
[2018-03-13] MEDS: Prazosin CAP* 1 MG PO SCH ×2 (00:46→21:11)
[2018-03-13] MEDS: Amoxicillin/Clavulanate TAB* 875 MG PO SCH ×3 (00:46→21:11)
[2018-03-13] MEDS: Heparin VIAL(*) 5000 UNITS/ML VIAL (FIVE THOUSAND) SUBCUT SCH ×4 (00:46→21:10)
--- NOTE | 2018-03-13 03:00 | HP ---
CC: Dr. Arielle Carr * HISTORY AND PHYSICAL: DATE OF ADMISSION: 03/12/18 PROVIDER: Mary Garcia NP. PRIMARY CARE PROVIDER: Dr. Arielle Carr. ATTENDING PHYSICIAN WHILE IN THE HOSPITAL: Dr. Estela Dallas * (dictated by Mary Garcia NP). CHIEF COMPLAINT: 1. Weakness. 2. Possible syncopal episode. HISTORY OF PRESENT ILLNESS: Ms. Rizzo is an 87-year-old female with a past medical history significant for hypertension, COPD, history of MRSA osteomyelitis of the left hallux, type 2 diabetes that is diet controlled, obstructive sleep apnea who is supposed to utilize supplemental oxygen with sleep, but does not, depression, anxiety, GERD, osteoporosis, allergic rhinitis , and RLS who presented to the emergency room with a complaint of generalized weakness. The patient reports that she got up this morning at approximately 9: 00 a.m. At that time, she was feeling weak and wobbly and having difficulty ambulating. She is confused about how the events occurred during the day, but she did report that she was sitting in her chair, she was feeling okay, and coughed and then vomited. She states then she went to walk to unlock her door so the man who brings her dinner would be able to get in, and on her way walking to the door, she again felt her gait was unsteady, she was wobbly. She does report that she was leaning to the right into the wall to stay steady, but her gait remained staggering. She reports that when she got to the kitchen she collapsed to the floor and was unable to get up, so she sat against the wall and pushed her button for help. She does report that then she did lie on the floor for approximately 20 minutes due to inability to stand. According to the emergency room report, she was found by EMS on her kitchen floor. Due to her symptoms of weakness, we were asked to see and evaluate her for admission. During her exam, she was found to be confused about events of the day. She was oriented to place and time as well as name, but does seen somewhat confused to how the events occurred today. PAST MEDICAL HISTORY: 1. Hypertension. 2. COPD. 3. History of MRSA osteomyelitis of the left hallux. 4. Diabetes type 2, diet controlled. 5. Obstructive sleep apnea. The patient does not utilize oxygen for sleep. 6. Anxiety with depression. 7. GERD. 8. Osteoporosis. 9. Allergic rhinitis. 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 PAST SURGICAL HISTORY: 1. Left foot surgery with hardware removal. 2. Vaginal hysterectomy. 3. Bilateral cataract extractions. 4. Incision of a left arm lipoma. 5. Cystoscopies with transurethral collagen injection. 6. Nasal polyp excision. 7. Right breast lumpectomy. HOME MEDICATIONS: 1. Albuterol 2.5 q.4 hours as needed for shortness of breath. 2. Meclizine 12.5 mg p.o. t.i.d. p.r.n. 3. Hydrocodone/acetaminophen 5/325 one tablet p.o. q.4 hours as needed. 4. Fosamax 10 mg p.o. 5. Albuterol 2 puffs inhale q.4 hours p.r.n. 6. Acetaminophen 650 mg p.o. daily p.r.n. 7. Alprazolam 0.25 mg p.o. b.i.d. 8. Trileptal 900 mg p.o. at bedtime. 9. Lisinopril 10 mg p.o. b.i.d. 10. Levothyroxine 75 mcg p.o. at 5:00 a.m. 11. Flovent 2 puffs inhale b.i.d. 12. Simvastatin 20 mg p.o. q.p.m. 13. Sertraline 150 mg. 14. Seroquel 400 mg p.o. at bedtime. 15. Minipress 3 mg p.o. at bedtime. 16. Singulair 10 mg p.o. q.p.m. ALLERGIES: To ASPIRIN, BEE VENOM, NSAIDS, PROCHLORPERAZINE, MOLD, and DUST. FAMILY HISTORY: Mother at the age of 95 of old age. The dad at the age of 75; his health was unknown. No reported history of diabetes in the family. She does not report any history of cancer. She does report that her brother had a history of coronary artery disease. SOCIAL HISTORY: The patient is currently a nonsmoker, but she was a former smoker, quit approximately 20 years ago. She denies any alcohol or illicit drug use. She lives alone. Surrogate decision maker in the event she is unable to make her own decisions is her daughter. The patient is unable to determine whether she would like to be resuscitated or not. REVIEW OF SYSTEMS: There has been no documented fever; no unintended weight loss. She denies any chest pain or edema. Denies any cough, hemoptysis, or shortness of breath. She does report 1 episode of vomiting this morning. Denies any diarrhea or abdominal pain. She denies any gross hematuria or dysuria. She denies any frequency or pain with urination. She does report generalized weakness and having to walk leaning against the wall on her right side. She denies any dizziness or changes in her vision. Denies any trouble swallowing, arthralgias, myalgias, rashes, lesions, psychosis, or anxiety. PHYSICAL EXAMINATION GENERAL: At this time, Ms. Rizzo is an 87-year-old female. She appears to be mildly confused about events of the day. She is oriented to name, place, and time. She does not appear to be in any acute distress. VITAL SIGNS: Blood pressure 134/71, heart rate is 81, respirations are 21, O2 saturation 96% on room air, temperature was 97.2. HEENT: Head is atraumatic and normocephalic. Eyes: EOMs are intact. Sclerae anicteric and not pale. Oral mucosa appears to be moist. NECK: Supple. LUNGS: With expiratory wheezes and scattered rhonchi throughout bilaterally. CARDIAC: S1 and S2. Regular rate and rhythm. No murmurs, rubs, or gallops. ABDOMEN: Soft and nontender. Bowel sounds are present x4 and hypoactive. EXTREMITIES: Pulses are +2 bilaterally. NEUROLOGIC: She is able to move all 4 extremities with 5/5 strength. Her handgrips are equal. Arm strength is equal bilaterally. Smile is equal. Tongue is midline. [id number] is intact. Shoulder shrug is intact. Heel- to-pollard is intact. There are no gross focal deficits noted. SKIN: Intact. DIAGNOSTIC STUDIES AND LABORATORY DATA: WBCs are 8.0, RBCs 3.88, hemoglobin 11.4, hematocrit was 35, platelet count was 278. Sodium 135, potassium 4.3, chloride 103, carbon dioxide was 26, anion gap was 6, BUN was 23, creatinine 1.04. Lactic acid was 1.5 and 1.0, calcium was 8.3. ASTs were 11, ALTs were 9 , C-reactive protein was 58.01, lipase was less than 10. Urine color was yellow , cloudy, pH was 5.0, specific gravity was 1.053, urine protein was negative, ketones were negative, blood was negative, urine nitrites were positive, urine bilirubin was negative. Urobilinogen was negative. Urine leukocyte esterase was 3+, wbc's were 3+, rbc's were absent. Squamous epithelial cells were present. Bacteria was 1+, hyaline cast was present. Urine glucose is negative. The patient had a chest x-ray that appears suspicious for right pneumonitis. She did have a CT of the abdomen and pelvis which showed: 1. Moderate amount of stool without obstruction or large distal stool ball. 2. A 1 cm indeterminate hypodense nodule in the spleen, benign in etiology. 3. Old right pelvic fracture, chronic compression fracture of superior endplate L1, and subacute or chronic compression fracture of superior endplate L2. No other acute disease was seen. The patient did have a CT of the brain, which showed no acute intracranial pathology, age-related atrophy, and chronic white matter ischemic changes. She had a CTA of the head and neck. Limited atherosclerosis without dissection, aneurysm, or flow-limiting lesions in the axial cranial carotid system or vertebral arteries. She had an electrocardiogram, which showed sinus rhythm at a rate of 75. ASSESSMENT AND PLAN: Ms. Rizzo is an 87-year-old female who presented to the emergency room after collapsing at home due to weakness, unsteady and staggering gait, in which she reports she was leaning to her right side against the wall to prevent falling because she was so weak, but does eventually report that she did collapse to the floor and lie on the floor until EMS arrived to her house to bring her to the emergency room. She will be admitted inpatient for: 1. Weakness. I suspect that her weakness is most likely related to right pneumonitis as well as urinary tract infection. This also could have been contributing to her unsteady and wobbly gait as well as staggering gait at home. She does also have a bit of confusion about the events of the day. At this time, the patient is afebrile, she does not have a white count, but due to her confusion and weakness, I will place her on Augmentin for a possible aspiration pneumonitis as she did vomit at home today. It also does appear that she could have a urinary tract infection. Again, I will cover this with Augmentin pending urine culture and sensitivity. Her symptoms also could be related to TIA as the patient is unclear if she had a syncope or just collapsed to the floor. The patient does report that she does remember collapsing due to the weakness. She denies any head or neck injury. She denies any neck pain, but within the differential is TIA. She did have a CTA of the head and neck and a CTA of the brain which showed no acute disease or large-vessel occlusions. At this time, we will continue with neuro checks q.2 hours x2 and then q.4 hours. If the patient continues to have concerns that this is a TIA, I would recommend considering MRI, but again I feel likely that her generalized body weakness is related to possible UTI and right pneumonitis. 2. Chronic obstructive pulmonary disease. I will continue the patient on albuterol inhaler, Flovent inhaler, and Singulair. 3. Anxiety and depression. She will continue Seroquel, Trileptal. 4. Hyperlipidemia. She will continue Zocor. 5. DVT prophylaxis. I will place her on heparin subcu. 6. Code status. She does have a MOLST form on file that indicates she would want to be a DNR. This needs to be confirmed and updated. 7. Fluid, electrolytes, and nutrition. She can have a heart-healthy, decaf- okay diet. TIME SPENT: Time spent on this admission was 60 minutes, greater than half that time was spent [id number] with the patient obtaining my history and physical. The other half of the time was spent going over my plan of care and implementing my plan of care. I have discussed with my attending, Dr. Estela Dallas; she is in agreement with my plan. MARY GARCIA, KANG [id number]/[facility] #: [id number] MARYLIN
[2018-03-13] MEDS: Levothyroxine TAB* 75 MCG TAB PO SCH (05:15)
[2018-03-13 06:11] LABS: ABS Basophils 0 10^3/ul (0-0.2); ABS Eosinophils 0.2 10^3/ul (0-0.6); ABS Lymphocytes 1.2 10^3/ul (1.0-4.8); ABS Monocytes 0.5 10^3/ul (0-0.8); ABS Neutrophils 6.9 10^3/ul (1.5-7.7); ABS Nucleated RBC 0 10^3/ul; Eosinophil % 1.9 %; Hematocrit 33 % (35-47); Hemoglobin 10.7 g/dl (12.0-16.0); Lymphocyte % 13.1 %; Mean Corpuscular HGB Conc 33 g/dl (31-36); Mean Corpuscular Hemoglobin 29 pg (27-31); Mean Corpuscular Volume 89 fL (80-97); Mean Platelet Volume 9.1 fL (7.4-10.4); Nucleated Red Blood Cells % 0; Platelet Count 263 10^3/ul (150-450); Red Blood Count 3.65 10^6/ul (4.00-5.40); Red Cell Distribution Width 15 % (10.5-15); White Blood Count 8.9 10^3/ul (3.5-10.8)
[2018-03-13] MEDS: Lisinopril TAB* 10 MG PO SCH (07:47)
[2018-03-13] MEDS: Sertraline* 50 MG TAB PO SCH (07:47)
[2018-03-13 07:50] LABS: Calcium 8.3 mg/dL (8.6-10.3); Potassium 4.1 mmol/L (3.5-5.0)
[2018-03-13 07:55] LABS: BUN/Creatinine Ratio 20.5 (8-20)
[2018-03-13 10:58] LABS: Phosphorus 3.1 mg/dL (2.5-5.0)
[2018-03-13] MEDS: Albuterol 2.5 MG/3 ML NEB.SOL* (0.083%) INH PRN (12:21)
[2018-03-13] MEDS: Montelukast Sodium TAB* 10 MG PO SCH (17:02)
[2018-03-13] MEDS: Atorvastatin* 10 MG TAB PO SCH (17:02)
[2018-03-13] MEDS: Mometasone 220 MCG MDI INH SCH (19:42)
[2018-03-14] MEDS: Heparin VIAL(*) 5000 UNITS/ML VIAL (FIVE THOUSAND) SUBCUT SCH ×3 (05:04→20:50)
[2018-03-14] MEDS: Levothyroxine TAB* 75 MCG TAB PO SCH (05:04)
[2018-03-14 07:20] LABS: ABS Basophils 0.1 10^3/ul (0-0.2); ABS Eosinophils 0.3 10^3/ul (0-0.6); ABS Lymphocytes 1.1 10^3/ul (1.0-4.8); ABS Monocytes 0.6 10^3/ul (0-0.8); ABS Neutrophils 4.1 10^3/ul (1.5-7.7); ABS Nucleated RBC 0 10^3/ul; Eosinophil % 4.7 %; Hematocrit 31 % (35-47); Hemoglobin 10.4 g/dl (12.0-16.0); Lymphocyte % 17.1 %; Mean Corpuscular HGB Conc 33 g/dl (31-36); Mean Corpuscular Hemoglobin 30 pg (27-31); Mean Corpuscular Volume 88 fL (80-97); Mean Platelet Volume 9.3 fL (7.4-10.4); Nucleated Red Blood Cells % 0; Platelet Count 243 10^3/ul (150-450); Red Blood Count 3.52 10^6/ul (4.00-5.40); Red Cell Distribution Width 14 % (10.5-15); White Blood Count 6.2 10^3/ul (3.5-10.8)
[2018-03-14 07:44] LABS: Albumin 3.4 g/dL (3.2-5.2); Albumin/Globulin Ratio 1.2 (1-3); BUN/Creatinine Ratio 11.4 (8-20); C Reactive Protein 63.08 mg/L (<8.01); Calcium 8.4 mg/dL (8.6-10.3); EGFR Non-African American 79.3 (>60); Globulin 2.8 g/dL (2-4); Total Bilirubin 0.4 mg/dL (0.2-1.0); Total Protein 6.2 g/dL (6.4-8.9)
[2018-03-14] MEDS: Amoxicillin/Clavulanate TAB* 875 MG PO SCH (07:52)
[2018-03-14] MEDS: Lisinopril TAB* 10 MG PO SCH (07:52)
[2018-03-14] MEDS: Sertraline* 50 MG TAB PO SCH (07:52)
[2018-03-14] MEDS: cefTRIAXone(*) 1 GM in NS 0.9% 50 ML* 50 ML IVPB SCH (12:19)
[2018-03-14] MEDS: Montelukast Sodium TAB* 10 MG PO SCH (16:55)
[2018-03-14] MEDS: Atorvastatin* 10 MG TAB PO SCH (16:57)
[2018-03-14] MEDS: Mometasone 220 MCG MDI INH SCH (20:40)
[2018-03-14] MEDS: OXcarbazepine TAB(*) 300 MG PO SCH (20:50)
[2018-03-14] MEDS: QUEtiapine TAB* 100 MG PO SCH (20:50)
[2018-03-14] MEDS: Prazosin CAP* 1 MG PO SCH (20:50)
[2018-03-14] MEDS: DOXYcycline CAP(*) 100 MG PO SCH (20:50)
[2018-03-15] MEDS: Levothyroxine TAB* 75 MCG TAB PO SCH (05:32)
[2018-03-15] MEDS: Heparin VIAL(*) 5000 UNITS/ML VIAL (FIVE THOUSAND) SUBCUT SCH ×3 (05:33→21:40)
[2018-03-15] MEDS: DOXYcycline CAP(*) 100 MG PO SCH ×2 (09:00→21:39)
[2018-03-15] MEDS: Sertraline* 50 MG TAB PO SCH (09:00)
[2018-03-15] MEDS: Lisinopril TAB* 10 MG PO SCH (09:00)
[2018-03-15] MEDS: cefTRIAXone(*) 1 GM in NS 0.9% 50 ML* 50 ML IVPB SCH (12:35)
[2018-03-15] MEDS: Atorvastatin* 10 MG TAB PO SCH (18:11)
[2018-03-15] MEDS: Montelukast Sodium TAB* 10 MG PO SCH (18:11)
[2018-03-15] MEDS: Mometasone 220 MCG MDI INH SCH (19:25)
[2018-03-15] MEDS: OXcarbazepine TAB(*) 300 MG PO SCH (21:39)
[2018-03-15] MEDS: Prazosin CAP* 1 MG PO SCH (21:40)
[2018-03-15] MEDS: QUEtiapine TAB* 100 MG PO SCH (21:40)
[2018-03-16] MEDS: Heparin VIAL(*) 5000 UNITS/ML VIAL (FIVE THOUSAND) SUBCUT SCH ×3 (05:20→22:16)
[2018-03-16] MEDS: Levothyroxine TAB* 75 MCG TAB PO SCH (05:20)
[2018-03-16] MEDS: Lisinopril TAB* 10 MG PO SCH (07:54)
[2018-03-16] MEDS: DOXYcycline CAP(*) 100 MG PO SCH ×2 (07:54→20:10)
[2018-03-16] MEDS: Sertraline* 50 MG TAB PO SCH (07:55)
[2018-03-16] MEDS: cefTRIAXone(*) 1 GM in NS 0.9% 50 ML* 50 ML IVPB SCH (12:13)
[2018-03-16] MEDS: Montelukast Sodium TAB* 10 MG PO SCH (17:43)
[2018-03-16] MEDS: Atorvastatin* 10 MG TAB PO SCH (17:43)
[2018-03-16] MEDS: QUEtiapine TAB* 100 MG PO SCH (20:10)
[2018-03-16] MEDS: Prazosin CAP* 1 MG PO SCH (20:10)
[2018-03-16] MEDS: OXcarbazepine TAB(*) 300 MG PO SCH (20:10)
[2018-03-16] MEDS: Mometasone 220 MCG MDI INH SCH (20:40)
[2018-03-16] MEDS: Albuterol 2.5 MG/3 ML NEB.SOL* (0.083%) INH PRN (20:40)
[2018-03-16] MEDS: ALPRAZolam TAB* 0.25 MG PO SCH (22:16)
[2018-03-17] MEDS: Levothyroxine TAB* 75 MCG TAB PO SCH (05:10)
[2018-03-17] MEDS: Heparin VIAL(*) 5000 UNITS/ML VIAL (FIVE THOUSAND) SUBCUT SCH ×3 (05:10→20:57)
[2018-03-17] MEDS: Sertraline* 50 MG TAB PO SCH (10:16)
[2018-03-17] MEDS: Lisinopril TAB* 10 MG PO SCH (10:16)
[2018-03-17] MEDS: ALPRAZolam TAB* 0.25 MG PO SCH ×2 (10:16→20:51)
[2018-03-17] MEDS: DOXYcycline CAP(*) 100 MG PO SCH ×2 (10:16→20:52)
[2018-03-17 11:17] LABS: ABS Basophils 0 10^3/ul (0-0.2); ABS Eosinophils 0.2 10^3/ul (0-0.6); ABS Lymphocytes 1.1 10^3/ul (1.0-4.8); ABS Monocytes 0.7 10^3/ul (0-0.8); ABS Neutrophils 7.2 10^3/ul (1.5-7.7); ABS Nucleated RBC 0 10^3/ul; Eosinophil % 2.5 %; Hematocrit 36 % (35-47); Mean Corpuscular HGB Conc 34 g/dl (31-36); Mean Corpuscular Hemoglobin 30 pg (27-31); Mean Corpuscular Volume 89 fL (80-97); Mean Platelet Volume 8.9 fL (7.4-10.4); Nucleated Red Blood Cells % 0; Platelet Count 304 10^3/ul (150-450); Red Blood Count 4.03 10^6/ul (4.00-5.40); Red Cell Distribution Width 14 % (10.5-15); White Blood Count 9.3 10^3/ul (3.5-10.8)
[2018-03-17 11:35] LABS: BUN/Creatinine Ratio 23.3 (8-20); C Reactive Protein 46.24 mg/L (<8.01); Calcium 9.2 mg/dL (8.6-10.3); EGFR Non-African American 75.6 (>60)
[2018-03-17] MEDS: cefTRIAXone(*) 1 GM in NS 0.9% 50 ML* 50 ML IVPB SCH (12:51)
[2018-03-17 14:14] LABS: Urine Appearance Clear; Urine Bilirubin Negative (Negative); Urine Blood Negative (Negative); Urine Color Yellow; Urine Glucose Negative (Negative); Urine Ketones Negative (Negative); Urine Nitrite Negative (Negative); Urine Protein Negative (Negative); Urine Specific Gravity 1.013 (1.010-1.030); Urine Urobilinogen Negative (Negative)
[2018-03-17] MEDS: Atorvastatin* 10 MG TAB PO SCH (16:59)
[2018-03-17] MEDS: Montelukast Sodium TAB* 10 MG PO SCH (16:59)
[2018-03-17] MEDS ORDERED: Lisinopril TAB* 10 MG PO ONE (18:30)
[2018-03-17] MEDS: Albuterol 2.5 MG/3 ML NEB.SOL* (0.083%) INH SCH (20:33)
[2018-03-17] MEDS: Mometasone 220 MCG MDI INH SCH (20:34)
[2018-03-17] MEDS: QUEtiapine TAB* 100 MG PO SCH (20:51)
[2018-03-17] MEDS: OXcarbazepine TAB(*) 300 MG PO SCH (20:52)
[2018-03-17] MEDS: Prazosin CAP* 1 MG PO SCH (20:52)
[2018-03-18] MEDS: Heparin VIAL(*) 5000 UNITS/ML VIAL (FIVE THOUSAND) SUBCUT SCH ×3 (05:01→21:25)
[2018-03-18] MEDS: Levothyroxine TAB* 75 MCG TAB PO SCH (05:01)
[2018-03-18] MEDS: Albuterol 2.5 MG/3 ML NEB.SOL* (0.083%) INH SCH ×2 (07:59→20:04)
[2018-03-18] MEDS: ALPRAZolam TAB* 0.25 MG PO SCH ×2 (08:20→20:22)
[2018-03-18] MEDS: DOXYcycline CAP(*) 100 MG PO SCH ×2 (08:20→20:23)
[2018-03-18] MEDS: Sertraline* 50 MG TAB PO SCH (08:21)
[2018-03-18] MEDS: Lisinopril TAB* 10 MG PO SCH (08:21)
[2018-03-18] MEDS: cefTRIAXone(*) 1 GM in NS 0.9% 50 ML* 50 ML IVPB SCH (12:40)
[2018-03-18] MEDS: Montelukast Sodium TAB* 10 MG PO SCH (18:07)
[2018-03-18] MEDS: Atorvastatin* 10 MG TAB PO SCH (18:07)
[2018-03-18] MEDS: Mometasone 220 MCG MDI INH SCH (20:04)
[2018-03-18] MEDS: Prazosin CAP* 1 MG PO SCH (20:22)
[2018-03-18] MEDS: QUEtiapine TAB* 100 MG PO SCH (20:23)
[2018-03-18] MEDS: OXcarbazepine TAB(*) 300 MG PO SCH (20:31)
--- NOTE | 2018-03-19 04:42 | PN ---
PROGRESS NOTE: DATE OF SERVICE: 03/18/18 HISTORY: The patient had high blood pressure last evening which she attributes to being quite nervous about her son traveling back to [place], after he visited her. She did not hear from him and she thinks her blood pressure was high until she heard that he had gotten home safely. Her blood pressure went up as high as 184/71 at 1952 hours yesterday evening and I gave her an additional dose of lisinopril 10 mg. When it was remeasured at 2359 hours, her blood pressure was 138/57. In general, she is feeling well, but not up to going home to her apartment. She does want to get back to her apartment. She states she has sorting of books that she wants to do. She does want to go back to [facility], however, to recuperate from the present illness. PHYSICAL EXAMINATION: Vital Signs: Blood pressure this morning is 151/98, pulse 82, respirations 18, temperature 98.3, and O2 sat 96% on room air. She has been afebrile. She is sitting on a chair. She is in no acute distress. Chest is clear. Heart: Normal S1 and S2. Grade 2/6 systolic murmur. Extremities are without edema. I's and O's are 2015/1500. IMPRESSION: 1. Urinary tract infection, being treated with antibiotics. 2. Possible pneumonia, on antibiotics. 3. Disposition: To go to [facility] where she has a bed, probably tomorrow. 4. Hypertension, she had been on lisinopril 10 mg bid before admission. 5. Anxiety- as before. This is day 5 of her antibiotics and we will discontinue them tomorrow prior to her transfer to the halfway. [id number]/[facility] #: [id number] MARYLIN
[2018-03-19] MEDS: Levothyroxine TAB* 75 MCG TAB PO SCH (05:13)
[2018-03-19] MEDS: Heparin VIAL(*) 5000 UNITS/ML VIAL (FIVE THOUSAND) SUBCUT SCH (05:13)
[2018-03-19] MEDS: Albuterol 2.5 MG/3 ML NEB.SOL* (0.083%) INH SCH (08:01)
[2018-03-19] MEDS: Sertraline* 50 MG TAB PO SCH (09:16)
[2018-03-19] MEDS: Lisinopril TAB* 10 MG PO SCH (09:17)
[2018-03-19] MEDS: ALPRAZolam TAB* 0.25 MG PO SCH (09:17)
[2018-03-19] MEDS: DOXYcycline CAP(*) 100 MG PO SCH (09:18)
--- NOTE | 2018-03-19 10:57 | TRS ---
cc: [facility]* TRANSFER SUMMARY: DATE OF ADMISSION: 03/12/18 DATE OF TRANSFER: 03/19/18 TRANSFER DIAGNOSES: 1. Urinary tract infection. 2. Possible pneumonia. 3. Hypertension. 4. History of anxiety. 5. Probable osteoporosis. 6. Hypothyroidism, treated. 7. History of methicillin-resistant Staphylococcus aureus osteomyelitis of the left hallux, resolved. 8. Type 2 diabetes mellitus, diet controlled. 9. History of obstructive sleep apnea. 10. History of depression. 11. History of gastroesophageal reflux disease. 12. Osteoporosis. 13. Allergic rhinitis. 14. Restless leg syndrome. 15. Hyperlipidemia, treated. 16. Fall in the home. 17. History of nightmares. 18. [id number] aortic stenosis. 19. History of diastolic heart failure. HISTORY OF PRESENT ILLNESS: Clare Rizzo is an 87-year-old woman admitted after having fallen at home, found to have urinary tract infection and possible pneumonia. Please see the dictated admission note for details of the present illness, past medical history, family history, social and personal history, review of systems, and physical examination. LABORATORY DATA: CBC on admission: WBC 8, H and H 11.4/35, MCV 90, PLT 278K. CBC on 03/17/18, WBC 9.3, H and H 12/36, MCV 89, PLT 304K. Chemistries on admission: Sodium 135, potassium 4.3, chloride 103, CO2 of 26, BUN and creatinine 23/1.04, glucose 174, calcium 8.3, AST 11, ALT 9, lipase less than 10. Rest of the comprehensive metabolic panel was normal. Phosphorus and magnesium were normal. C- reactive protein was 58.01, went up to 64.33 on 08/13, and was 46.24 on 03/17/18, coming down. Total CK was 33. Urinalysis: Yellow, cloudy, specific gravity 1.053, pH 5. Dipsticks positive for nitrites, 3+ esterase, wbc's 3+, squamous epithelial cells present, bacteria 1+ hyaline cast present. UA on 03/17/18 was negative. Microbiology on 03/12/18, urine culture grew Staphylococcus lugdunensis sensitive to all antibiotics tested. C. diff stool was negative. Stool lactoferrin was negative. Urine for Legionella and Staph pneumonia antigens were negative. IMAGING: Abdominal pelvis CT 03/12/18, moderate amount of stool, benign- appearing lesion in the spleen 1.3 cm, old right pelvic fracture, chronic compression fracture superior end plate of L1, subacute chronic compression fracture superior end plate of L2. No other acute disease seen. Brain CT showed no acute findings. Chest x-ray was read as showing no acute disease. There was a questionable infiltrate in the right. Head CTA on 03/12/18, showed limited atherosclerosis without dissection, aneurysm or flow-limiting lesion. Brain CT showed no acute findings. Chest x-ray 03/14/18 was unchanged. Brain MRI on 03/14/18 showed no findings of an acute stroke. Chronic white matter ischemic changes were noted. EKG 03/12/18, showed sinus or ectopic atrial rhythm , incomplete left bundle branch block, prolonged QTC, QRS duration and QT intervals were longer, otherwise no significant change from 09/22/17 EKG. Repeat EKG on 03/12/18 showed a slightly shorter QT interval, otherwise no significant change. HOSPITAL COURSE: Patient was admitted after collapsing at home due to weakness , unsteadiness and staggering gait. She was found to have a probable urinary tract infection, which was treated and she improved. Workup for neurological cause of her fall was negative. It was felt she might also have a pneumonia. The antibiotics she was treated with itself would treat both urinary tract infection and possible pneumonia. She received ceftriaxone and doxycycline. Her other medications were continued as per usual. She improved throughout the course of her hospitalization. She had some anxiety. She was reported as having a black stool. Stool guaiac was ordered, but not obtained. Her H and H remained stable, however. She was seen by Physical Therapy and Occupational Therapy. She was able to ambulate. Discussions were held with her daughter, who felt that she needs more help at home. She did have some recuperation in the [facility] prior to going back to her apartment. DISCHARGE MEDICATIONS: At the time of discharge, she is to be on the following medications: 1. Levothyroxine 75 mcg daily. 2. Lisinopril 10 mg twice daily. 3. Acetaminophen 650 every 4 hours p.r.n. pain. 4. Albuterol 2 puffs via HFA or 2.5 mg via nebulizer every 4 hours as needed and 2.5 mg via nebulizer twice daily. 5. Alprazolam 0.25 mg 3 times a day. 6. Simvastatin 20 mg daily. 7. Flovent 110 two puffs twice a day. 8. Montelukast 10 mg daily. 9. Trileptal 900 mg at bedtime. 10. Prazosin 3 mg at bedtime. 11. Seroquel 400 mg at bedtime. 12. Sertraline 150 mg daily. 13. Alendronate 70 mg weekly. DIET: Regular. She should get physical therapy and occupational therapy. The hope is that she can get back to her apartment with more help or to get into assisted living. She is to be on a regular diet. I will be following her in the community once she is discharged from [facility]. [id number]/[facility] #: [id number] MARYLIN
[2018-03-19 11:40] VITALS: BP 143/49
== END 2018-03-19 11:29 | DRG 689 ==
LOC: ED 16:05 → MEDTELE 21:33
PROVIDERS: ADMIT Pediatrics; ATTEND Internal Medicine Geriatric Medicine
DX: N39.0 Urinary tract infection, site not specified (principal); J18.9 Pneumonia, unspecified organism; I50.30 Unspecified diastolic (congestive) heart failure; M48.56XA Collapsed vertebra, not elsewhere classified, lumbar region, initial encounter for fracture; J44.0 Chronic obstructive pulmonary disease with (acute) lower respiratory infection; G47.33 Obstructive sleep apnea (adult) (pediatric); F32.9 Major depressive disorder, single episode, unspecified; K21.9 Gastro-esophageal reflux disease without esophagitis; F41.9 Anxiety disorder, unspecified; M81.0 Age-related osteoporosis without current pathological fracture; J30.9 Allergic rhinitis, unspecified; E78.5 Hyperlipidemia, unspecified; E03.9 Hypothyroidism, unspecified; M85.80 Other specified disorders of bone density and structure, unspecified site; I25.10 Atherosclerotic heart disease of native coronary artery without angina pectoris; E86.0 Dehydration; M19.90 Unspecified osteoarthritis, unspecified site; G25.81 Restless legs syndrome; R41.0 Disorientation, unspecified; E11.9 Type 2 diabetes mellitus without complications; I11.0 Hypertensive heart disease with heart failure; K58.1 Irritable bowel syndrome with constipation; B95.8 Unspecified staphylococcus as the cause of diseases classified elsewhere; I44.7 Left bundle-branch block, unspecified; Z66 Do not resuscitate; I08.0 Rheumatic disorders of both mitral and aortic valves; Z87.01 Personal history of pneumonia (recurrent); Z80.3 Family history of malignant neoplasm of breast; Z79.51 Long term (current) use of inhaled steroids; Z86.14 Personal history of Methicillin resistant Staphylococcus aureus infection; Z90.710 Acquired absence of both cervix and uterus; Z98.42 Cataract extraction status, left eye; Z98.41 Cataract extraction status, right eye; Z88.6 Allergy status to analgesic agent; Z91.030 Bee allergy status; Z88.8 Allergy status to other drugs, medicaments and biological substances; Z91.048 Other nonmedicinal substance allergy status; Z87.891 Personal history of nicotine dependence
CPT/HCPCS: 36415; 70450; 70496; 70498; 70551; 71046; 74177; 80048; 80053; 81003; 81015; 82550; 83605; 83630; 83690; 83735; 84100; 85025; 86140; 87040; 87077; 87086; 87186; 87493; 87899; 93005; 94640; 99284; A9270-GY; G8978-GP-CJ; G8979-GP-CH; G8987-GO-CJ; G8988-GO-CI; J0696; J1644; J2405; Q9967

== ENCOUNTER 2018-05-24 05:18 | Inpatient (IN) | payer MEDICARE, MEDICAID ==
[2018-05-24] MEDS ORDERED: Lisinopril TAB* 10 MG PO ONE (05:45)
--- NOTE | 2018-05-24 06:59 | ED ---
Back Pain - HPI Summary HPI Summary: Patient is an 87-year-old female coming from [facility] after a fall this morning. She states she is unsure how the fall occurred, and does not recall any of the fall. She states she believes she fell onto her left side and is endorsing low back pain only. A recent fall and AMS history with a few visits to the ED over the past several months. She was previously living at home, currently living at [facility] due to her multiple falls and weakness. She also recently had a left wrist ORIF. She also has a small skin tear to the left elbow. - History of Current Complaint Chief Complaint: EDBackInjuryPain Stated Complaint: FALL PER EMS Time Seen by Provider: 05/24/18 05:35 Hx Obtained From: Patient Onset/Duration: Sudden Onset Onset/Duration: Started Hours Ago Timing: Constant Severity Initially: Moderate Severity Currently: Moderate Pain Intensity: 10 Pain Scale Used: 0-10 Numeric Character: Sharp Aggravating Symptom(s): Movement, Lifting, Bending Alleviating Symptom(s): Rest, Position Associated Signs And Symptoms: Positive: Redness - skin shana to the l rib, Bruising. Negative: Swelling - Risk Factors AAA Risk Factors: Negative TAD Risk Factors: Negative Cauda Equina Risk Factors: Negative Epidural Abscess Risk Factors: Negative - Allergies/Home Medications Allergies/Adverse Reactions: Allergies Allergy/AdvReac Type Severity Reaction Status Date / Time aspirin Allergy Severe Anaphylatic Verified 12/18/17 11:18 Shock bee venom protein (honey bee) Allergy Severe Anaphylatic Verified 12/18/17 11:18 Shock NSAIDS (Non-Steroidal Allergy Severe Anaphylatic Verified 12/18/17 11:18 Anti-Inflamma Shock prochlorperazine Allergy Severe SEIZURE Verified 12/18/17 11:18 DUST AND MOLD Allergy Mild Runny Nose Uncoded 12/18/17 11:18 Home Medications: Home Medications ALPRAZolam [Alprazolam] 0.25 mg PO TID 05/24/18 [History Confirmed 05/24/18] PMH/Surg Hx/FS Hx/Imm Hx Previously Healthy: Yes - I Endocrine/Hematology History: Reports: Hx Diabetes - TYPE 2, Hx Thyroid Disease - HYPOTHYROID, Hx Anemia - HX OF, Other Endocrine/Hematological Disorders - osteopenia Denies: Hx Anticoagulant Therapy, Hx Bone Marrow Disease, Hx Sickle Cell Disease Cardiovascular History: Reports: Hx Congestive Heart Failure - HX OF 11/27, Hx Coronary Artery Disease, Hx Hypercholesterolemia, Hx Hypertension, Hx Valvular Heart Disease - aortic stenosis, mitral regurg , Other Cardiovascular Problems/ Disorders - MODERATE AORTIC STENOSIS, HYPERLIPIDEMIA Denies: Hx Pacemaker/ICD Respiratory History: Reports: Hx Asthma - INHALERS, Hx Chronic Bronchitis, Hx Chronic Obstructive Pulmonary Disease (COPD), Hx Pneumonia, Hx Pulmonary Edema - 11/2017 RECENT HOSPITALIZATION, Hx Seasonal Allergies, Hx Sleep Apnea - ? does not wear cpap at night, Other Respiratory Problems/Disorders - HX OF PNEUMONIA, COPD, CHRONIC RHINITIS, SINUSITIS GI History: Reports: Hx Gastroesophageal Reflux Disease, Hx Irritable Bowel, Other GI Disorders - 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 History: Reports: Other Problems/Disorders - HX OF UTI'S Denies: Hx Kidney Stones, Hx Renal Disease Musculoskeletal History: Reports: Hx Arthritis, Hx Orthopedic Injury - 2011 R ankle Fx, 03/19/2012 R ankle Fx, 03/21/2012 L ankle Fx,, Other Musculoskeletal History - Bilateral rotator cuff injuries; osteomyelitis left ankle , left wrist fx Denies: Hx Rheumatoid Arthritis, Hx Osteoporosis Sensory History: Denies: Hx Cataracts, Hx Contacts or Glasses, Hx Glaucoma, Hx Deafness, Hx Hearing Aid Opthamlomology History: Denies: Hx Cataracts, Hx Contacts or Glasses, Hx Glaucoma Neurological History: Reports: Other Neuro Impairments/Disorders - RESTLESS LEG SYNDROME Denies: Hx Dementia, Hx Seizures Psychiatric History: Reports: Hx Anxiety, Hx Depression, Other Psychiatric Issues/Disorders - hx nightmares Denies: Hx Attention Deficit Hyperactivity Disorder, Hx Panic Disorder, Hx Suicide Attempt, Hx Substance Abuse - Cancer History Hx Chemotherapy: No Hx Radiation Therapy: No - Surgical History Surgery Procedure, Year, and Place: BILATERAL FOREARM FRACTURES, ONE 2011, ONE 2012. LEFT GREAT TOE HAMMER TOE. HYSTERECTOMY 1974. NASAL POLYPS 1977. BILATERAL CATARACTS. RIGHT BREAST LUMPECTOMY. EXCISION OF LIPOMA LEFT ARM. CYSTOSCOPIES. REMOVAL OF HARDWARE LEFT FOOT. OSTEOMYLITIS LEFT HALLUX/MRSA Hx Anesthesia Reactions: No - Immunization History Date of Tetanus Vaccine: UTD Date of Influenza Vaccine: UTD Hx Pertussis Vaccination: No Immunizations Up to Date: Yes Infectious Disease History: No Infectious Disease History: Reports: Hx of Known/Suspected MRSA Denies: Hx Clostridium Difficile, Hx Hepatitis, Hx Human Immunodeficiency Virus (HIV), Hx Shingles, Hx Tuberculosis, Traveled Outside the [place] in Last 30 Days - Family History Known Family History: Positive: Other - neg Breast CA Family History: No FHx of breast cancer. - Social History Occupation: Unemployed Lives: At [facility] Alcohol Use: Rare Hx Substance Use: No Substance Use Type: Reports: None Hx Tobacco Use: Yes Smoking Status (MU): Former Smoker Type: Cigarettes Amount Used/How Often: 1ppd Length of Time of Smoking/Using Tobacco: 5-6 years Have You Smoked in the Last Year: No Review of Systems Constitutional: Negative Negative: Fever, Chills, Fatigue, Skin Diaphoresis Negative: Palpitations, Chest Pain Negative: Shortness Of Breath, Cough Genitourinary: Negative Positive: no symptoms reported, see HPI Positive: Arthralgia - lumbar spine, Myalgia Positive: Other - skin tear to the L elbow Neurological: Negative All Other Systems Reviewed And Are Negative: Yes Physical Exam Triage Information Reviewed: Yes Vital Signs On Initial Exam: Initial Vitals Temp Pulse Resp BP Pulse Ox 97 F 76 20 194/100 95 05/24/18 05:20 05/24/18 05:20 05/24/18 05:20 05/24/18 05:20 05/24/18 05:20 Vital Signs Reviewed: Yes Appearance: Positive: Thin, Cachectic, Signs of Trauma - left elbow skin tear Head/Face: Positive: Normal Head/Face Inspection Eyes: Positive: EOMI, Conjunctiva Clear Neck: Positive: No Lymphadenopathy Respiratory/Lung Sounds: Positive: Clear to Auscultation, Breath Sounds Present Cardiovascular: Positive: RRR, Pulses are Symmetrical in both Upper and Lower Extremities Musculoskeletal: Positive: Pain @ - lumbar spine pain - denies other Neurological: Positive: Sensory/Motor Intact, Other - oriented to person and place, not to time Diagnostics - Vital Signs Vital Signs Temp Pulse Resp BP Pulse Ox 05/24/18 05:20 97 F 76 20 194/100 95 - Laboratory Result Diagrams: 05/24/18 07:22 05/24/18 07:22 Lab Statement: Any lab studies that have been ordered have been reviewed, and results considered in the medical decision making process. - Radiology RIBS Radiology Interpretation Completed By: Radiologist - IMPRESSION: FRACTURES OF THE LATERAL ASPECTS OF THE LEFT SEVENTH AND EIGHTH RIBS. THE POSTERIOR FRACTURES NOTED ON CT ARE NOT WELL VISUALIZED ON THE CURRENT EXAMINATION. THERE IS NO APPRECIABLE PNEUMOTHORAX. Left wrist Radiology Interpretation Completed By: Radiologist - IMPRESSION: 1. OSTEOPENIA. 2. OSTEOARTHRITIS. 3. POSTSURGICAL CHANGE. 4. EVIDENCE OF REMOTE TRAUMA. 5. NO ACUTE OSSEOUS INJURY. THE DEGREE OF OSTEOPENIA MAY MAKE A NONDISPLACED FRACTURE RADIOGRAPHICALLY OCCULT. IF SYMPTOMS PERSIST, RECOMMEND REPEAT IMAGING. . - CT CT spine CT Interpretation Completed By: Radiologist - IMPRESSION: 1. No acute fracture. Minimal anterolisthesis of C2 on C3, likely chronic in nature. 2. Multilevel degenerative spondylosis, greatest at C4-C5 level with mild central spinal canal stenosis. Moderate left neural foraminal narrowing at C5-C6. IMPRESSION: 1. Age indeterminate compression fracture of L2 vertebral body with mild retropulsion. 2. Chronic compression fracture of L1 vertebral body. No spondylolisthesis. 3. Partially visualized acute left posterior 9th through 11th rib fractures. 4. Multilevel degenerative spondylosis, greatest at L3-L4 level with severe central spinal canal stenosis. Multilevel bilateral neural foraminal narrowing. 5. 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 IMPRESSION: 1. No acute fracture or spondylolisthesis in the thoracic spine. 2. Acute fractures in the left 9th, 10th and 11th posterior ribs. 3. Chronic compression fracture of L1 vertebral body. CT brain CT Interpretation Completed By: Radiologist - IMPRESSION: 1. No acute intracranial abnormality. 2. Age indeterminate right nasal bone fracture. 3. Sinus mucosal disease. Back Pain Course/Dx - Course Course Of Treatment: During the course of treatment, the patient is evaluated for trauma secondary to fall. Patient appears well, with no obvious signs of trauma other than a small skin tear to the left elbow. She also has some soft tissue swelling with a small amount of ecchymosis to the left buttocks. She is only endorsing pain to the lumbar spine without pain to the elbow with movement. No obvious signs of trauma to the head, no tenderness to the cervical or thoracic spine. Tenderness to the lumbar spine over L2 to L4. Tenderness to the left buttocks. Overall patient without tenderness to the bilateral hips. Flexion and extension of the bilateral shoulders, elbows and wrists without discomfort. Flexion and extension the knee and ankle joints without discomfort. Pulses +2 intact bilaterally, femoral, posterior tibial and pedal. Lungs CTA, RRR. Patient is in no acute distress. BP is noted to be high on arrival 194/100. She is given her morning dose of lisinopril. On recheck 1 hour later, her BP 10 continues to be high at 202/79, she was subsequently given hydralazine PO. Her pain was addressed with PO tylenol. Skin tear was cleansed and bandaged. Patient was able to stand with help and ambulate to commode. On re-examination she is only endorsing pain to the L elbow skin tear. CT brain, cervical, thoracic, lumbar and pelvic obtained. ( see above). Spoke with daughter, Leah, who is comfortable with admission d/ t rib fractures and UTI. She will be started on fluids and Cipro for UTI. Discussed with Dr. Henderson who agrees to admit for further observation. Tylenol did not seem to help with the pain and patient was given tramadol and her usual dose of xanax. She was also given 500ml bolus of NS in the ED. She appears dehydrated and hyponatremic at 127. This is slighlty down from her baseline. Repeat L rib series shows rib fx at 7 and 8 - this was discussed with Eleonora Lott NP. Called Dr. Carr at 12n to make aware of patient. - Diagnoses Differential Diagnosis/HQI/PQRI: Positive: Strain, Sprain Provider Diagnoses: Rib fractures, Hyponatremia, Leukocytosis, Fall - Provider Notifications Discussed Care Of Patient With: Dominique Henderson - Also spoke with Dr. Carr ( PCP) Instructed by Provider To: Admit As Inpatient - Critical Care Time Critical Care Time: 30-74 min Discharge - Sign-Out/Discharge Documenting (check all that apply): Patient Departure Patient Received Moderate/Deep Sedation with Procedure: No - Discharge Plan Condition: Fair Disposition: ADMITTED TO [facility] Referrals: Arielle Carr MD [Primary Care Provider] - - Billing Disposition and Condition Condition: FAIR Disposition: Admitted to [facility]
[2018-05-24 07:42] LABS: Urine Appearance Cloudy; Urine Bacteria Absent (Absent); Urine Bilirubin Negative (Negative); Urine Blood Negative (Negative); Urine Color Yellow; Urine Glucose Negative (Negative); Urine Ketones Negative (Negative); Urine Nitrite Negative (Negative); Urine Protein Negative (Negative); Urine Red Blood Cell 1+(3-5/hpf) (Absent); Urine Urobilinogen Negative (Negative); Urine White Blood Cell 3+(>20/hpf) (Absent)
[2018-05-24 07:49] LABS: Albumin 3.9 g/dL (3.2-5.2); Albumin/Globulin Ratio 1.5 (1-3); BUN/Creatinine Ratio 22.6 (8-20); Calcium 9.1 mg/dL (8.6-10.3); EGFR African American 77.8 (>60); EGFR Non-African American 64.3 (>60); Globulin 2.6 g/dL (2-4); Potassium 4.4 mmol/L (3.5-5.0); Total Bilirubin 0.3 mg/dL (0.2-1.0); Total Protein 6.5 g/dL (6.4-8.9)
[2018-05-24 07:55] LABS: ABS Basophils 0.1 10^3/ul (0-0.2); ABS Eosinophils 0.2 10^3/ul (0-0.6); ABS Lymphocytes 1.3 10^3/ul (1.0-4.8); ABS Monocytes 0.9 10^3/ul (0-0.8); ABS Neutrophils 12.7 10^3/ul (1.5-7.7); ABS Nucleated RBC 0 10^3/ul; Eosinophil % 1.1 %; Hematocrit 37 % (33-41); Hemoglobin 12.3 g/dL (12.0-16.0); Lymphocyte % 8.4 %; Mean Corpuscular HGB Conc 33 g/dL (31-36); Mean Corpuscular Hemoglobin 29 pg (27-31); Mean Corpuscular Volume 88 fL (80-97); Mean Platelet Volume 8.1 fL (7.4-10.4); Nucleated Red Blood Cells % 0; Platelet Count 321 10^3/uL (150-450); Red Blood Count 4.19 10^6 /uL (3.70-4.87); Red Cell Distribution Width 15 % (10.5-15); White Blood Count 15.1 10^3/uL (3.5-10.8)
[2018-05-24] MEDS ORDERED: hydrALAZINE TAB* 25 MG PO ONE (07:57)
[2018-05-24] MEDS ORDERED: Acetaminophen TAB* 325 MG PO ONE (08:17)
[2018-05-24] MEDS ORDERED: ALPRAZolam TAB* 0.25 MG PO ONE (10:33)
[2018-05-24] MEDS ORDERED: traMADol TAB* 50 MG PO ONE (10:33)
[2018-05-24] MEDS ORDERED: NS 0.9% 500 ML* 500 ML IV ONE (12:00)
[2018-05-24] MEDS ORDERED: Meclizine TAB* 12.5 MG PO PRN (12:03)
[2018-05-24] MEDS ORDERED: Albuterol HFA INHALER* 8 gm MDI INH PRN (12:03)
[2018-05-24] MEDS: traMADol TAB* 50 MG PO PRN (14:37)
[2018-05-24] MEDS: Heparin VIAL(*) 5000 UNITS/ML VIAL (FIVE THOUSAND) SUBCUT SCH ×2 (14:37→20:31)
[2018-05-24] MEDS: ALPRAZolam TAB* 0.25 MG PO SCH ×2 (14:37→20:27)
[2018-05-24] MEDS: hydrALAZINE IV* 20 MG/ML VIAL IV SLOW PU PRN (14:37)
--- NOTE | 2018-05-24 14:56 | HP ---
AMENDED REPORT NOW INCLUDES DESIGNATED COSIGNER CC: Dr. Arielle Carr * ADMISSION HISTORY AND PHYSICAL: DATE OF ADMISSION: 05/24/18 CHIEF COMPLAINT: Fall with rib pain. PRIMARY CARE PROVIDER: Dr. Arielle Carr. ATTENDING FOR THIS ADMISSION: Dr. Dominique Hanson.* (DICTATED BY VANESA HAYDEN NP) HISTORY OF PRESENT ILLNESS: This is an 87-year-old female patient with past medical history consisting of hypertension, COPD, MRSA, osteomyelitis of the left hallux, diabetes mellitus type 2, obstructive sleep apnea, depression and anxiety, GERD, osteoporosis, allergic rhinitis, and restless leg syndrome. The patient is a resident at [facility] since her last admission in March. She was brought to the emergency department today after a fall. Approximately 5 o' clock this morning, she arrived in the emergency department after being found on the floor. The patient states that she does not have any recollection of the fall, no precipitating factors. She does endorse that she believes she fell on her left side and is presently complaining of some low back pain and left rib pain. Per the patient's history, it appears she has had multiple falls in the past. She used to live independently and has been in [facility] since her last admission in March. Imaging in the emergency department revealed multiple fractures. CT of the brain was negative for any intracranial abnormalities, looks like results of an old right nasal bone fracture. Imaging of the left wrist shows osteopenia, osteoarthritis, postsurgical changes, evidence of remote trauma. No acute osseous injury. The degree of osteopenia may make a nondisplaced fracture radiographically occult; if symptoms persist, recommend repeat imaging. Radiology of the ribs, fractures of the lateral aspects of the left seventh and eight ribs, posterior fractures noted on CT are not well visualized. On the current examination, there is no appreciable pneumothorax. CT of the spine, impression is age-indeterminate compression fracture of L2 vertebral body with mild retropulsion, chronic compression fracture of L1 vertebral body. No spondylolisthesis. Partially visualized, acute left posterior ninth through eleventh rib fractures, multilevel degenerative spondylosis, greatest at L3-4 with severe central canal spine stenosis. Multilevel bilateral neural foraminal narrowing, focal aneurysmal dilatation of the abdominal aorta measuring up to 2.2 cm in transverse diameter. Overall impression is no acute fracture or spondylolisthesis of the thoracic spine. There are acute fractures in the left ninth, tenth, and eleventh posterior ribs, and a chronic compression fracture of the L1 vertebral body. For these reasons, we were asked to evaluate the patient for inpatient admission. PAST MEDICAL HISTORY: As stated above. PAST SURGICAL HISTORY: Significant for left foot surgery with hardware removal , hysterectomy, bilateral cataract, excision of left arm lipoma, multiple cystoscopies, nasal polyp excision, and right breast lumpectomy. MEDICATIONS: Home medications include: 1. Alprazolam 0.25 mg p.o. t.i.d. 2. Minipress 3 mg p.o. at 2100. 3. Seroquel 400 mg at bedtime. 4. Trileptal 900 mg at bedtime. 5. Zoloft 150 mg in the morning. 6. Meclizine 25 mg p.o. q.6 hours as needed. 7. Lisinopril 10 mg p.o. b.i.d. 8. Levothyroxine sodium 75 mcg p.o. at 0500. 9. Flovent 2 puffs inhale b.i.d. 10. Ventolin 2 puffs inhale q.4 hours as needed. 11. Albuterol nebulizer 2.5 mg q.4 hours as needed. 12. Tylenol 650 mg q.6 hours as needed. ALLERGIES: To ASPIRIN, BEE VENOM, NSAIDS, PROCHLORPERAZINE, MOLD, and DUST. FAMILY HISTORY: Noncontributory. SOCIAL HISTORY: She does not smoke. She does have a remote history of smoking , quit approximately 20 years prior. She denies any alcohol use. She lives at [facility]. Her surrogate decision maker is her daughter, who is not currently at bedside but is aware of her admission. REVIEW OF SYSTEMS: The patient is markedly confused. She can make her needs known. She does need quite a bit of redirection. Her only complaint at this time is endorsing some left rib pain. Denies any shortness of breath. No chest pain, no abdominal pain, no headaches, no blurry vision, and no further constitutional complaints. PHYSICAL EXAMINATION GENERAL: Reveals a frail, elderly woman, in no acute distress. VITAL SIGNS: Blood pressure 174/97, heart rate 80, respiratory rate 22, O2 saturation 95% on room air with a temperature of 97.0. HEENT: The patient is atraumatic, normocephalic. PERRLA with nonicteric sclerae. Oral mucosa is dry. Tongue is midline. NECK: Supple, nontender. No JVD noted. No carotid bruit auscultated. SPINE: Her palpation over the paraspinal muscles of the cervical spine shows minimal amount of tenderness. CHEST: Benign. Left rib cage, however, is very tender to palpation. LUNGS: Clear bilaterally to auscultation with no wheezing, rhonchi, or rales. CARDIOVASCULAR: S1, S2 present. Rate and rhythm are regular. No gallops or rubs noted. ABDOMEN: Soft, nontender, nondistended. Positive bowel sounds in all 4 quadrants. : Deferred. MUSCULOSKELETAL: There is no clubbing, no cyanosis, and no edema. She does have +2 pedal pulses. Full range of motion. She is tender bilaterally over the anterior thighs and in particular around the right knee and patella. She does have some bruising to the left buttocks and some mild edema. NEUROLOGIC: She is confused at baseline, but pleasant. She is alert to name only. DIAGNOSTIC STUDIES/LAB DATA: Laboratories: WBCs 15.1, RBCs 4.19, hemoglobin 12.3, hematocrit 37, platelets 321. Sodium 127, potassium 4.4, chloride 93. BUN 19, creatinine 0.84. Glucose 142. Lactic acid 0.9. Calcium 9.1. Bilirubin 0.30. AST 15, ALT 11, alk phos 76, protein 6.5, albumin 3.9, globulin 2.6. Albumin- globulin ratio 1.5. Urinalysis reveals yellow cloudy urine, pH of 7, specific gravity of 1.01. Negative for protein, ketones, blood, nitrites , bilirubin, and urobilinogen. She has 3+ leukocyte esterase, 3+ wbc's, 1+ rbc' s, negative for bacteria, negative for glucose. Recent microbiology urine culture on 05/20/18 is showing Aerococcus urinae, colonies greater than 100,000. Imaging: As stated in HPI above. IMPRESSION: This is a very pleasant 87-year-old female patient with recent history of several months of falls and gait dysfunction, who now presents with urinary tract infection, accelerated hypertension, and multiple rib fractures. PLAN: The patient has been admitted to inpatient service. DIAGNOSES: 1. Fall with rib fractures posteriorly on the left at 9, 10, and 11. At this point, the patient has received some tramadol from which she is more comfortable now. Because her fractures are nondisplaced, there is not going to be an emergent intervention required. We will continue pain control as needed with the bowel regimen. She can be evaluated by Physical Therapy and Occupational Therapy to determine if she has any further needs. She will be placed on Tylenol and tramadol as needed. 2. History of chronic pulmonary obstructive disease. We will continue her inhalers and albuterol as needed. 3. Urinary tract infection with aerococcus. We will place her on Amoxicillin 500 mg 3 times a day. 4. Hyponatremia. Upon evaluating her labs over the last several weeks, she has had a progressive drop in sodium. She does appear to be volume depleted and very dry. We will give her small bolus of normal saline 500 mL in the emergency department and place her on normal saline at maintenance. Recommend checking BMP and CBC in the morning. 5. Leukocytosis. WBC count is 15.1. This is likely in the setting of urinary tract infection and acute inflammation. Continue to monitor laboratories. 6. History of anxiety and depression. She is currently on Xanax 3 times a day and Seroquel at night which will be continued. 7. Hypertension with accelerated hypertension in the ED. The patient's blood pressure is elevated. She has received hydralazine tab 25 mg once in the ED, 10 mg of lisinopril as well as Xanax and a tramadol. Some of these maybe related to her pain and stress. At this time, we will continue her home antihypertensive. We also placed her on hydralazine 5 mg IV q.6 hours as needed with parameters for systolic blood pressure greater than 170 or diastolic greater than 90. 8. History of hypothyroidism. Her Synthroid will be continued. 9. DVT prophylaxis. She will be placed on heparin 5000 units subcu. 10. Code status. The patient is a DNR. 11. Fluids, electrolytes, and nutrition: Normal saline as stated above. She can have a diabetic diet as tolerated. 12. Ambulation with assistance and physical therapy. The rest of the patient's course will be determined by further diagnostics, laboratories and any other input from other providers as warranted during this admission. TIME SPENT: Approximately 65 minutes interviewing the patient and developing plan of care. This plan of care has been discussed with Dr. Dominique Hanson, the admitting attending, and she is in agreement with the plan. The ED has notified patient's PCP Dr. Carr of admission and she will see the patient tomorrow. VANESA HAYDEN, SAFETY AND SECURITY OFFICER [id number]/[facility] #: [id number] [place]
[2018-05-24] MEDS: Amoxicillin PO (*) 500 MG CAP PO SCH ×2 (16:12→20:28)
[2018-05-24] MEDS: oxyCODONE TAB* 5 MG TAB PO PRN (16:29)
[2018-05-24] MEDS: Acetaminophen TAB* 325 MG PO PRN (17:51)
[2018-05-24] MEDS: Mometasone 220 MCG MDI INH SCH (17:53)
[2018-05-24] MEDS: QUEtiapine TAB* 100 MG PO SCH (20:26)
[2018-05-24] MEDS: Lisinopril TAB* 10 MG PO SCH (20:27)
[2018-05-24] MEDS: Prazosin CAP* 1 MG PO SCH (20:28)
[2018-05-24] MEDS: OXcarbazepine TAB(*) 300 MG PO SCH (20:29)
[2018-05-24] MEDS: Docusate CAP* 100 MG PO SCH (20:30)
[2018-05-24] MEDS: NS 0.9% 1000 ML** 1,000 ML IV SCH (20:46)
[2018-05-25] MEDS: Heparin VIAL(*) 5000 UNITS/ML VIAL (FIVE THOUSAND) SUBCUT SCH ×3 (06:08→21:08)
[2018-05-25] MEDS: Levothyroxine TAB* 75 MCG TAB PO SCH (06:08)
[2018-05-25 06:54] LABS: ABS Basophils 0.1 10^3/ul (0-0.2); ABS Eosinophils 0.2 10^3/ul (0-0.6); ABS Lymphocytes 1.6 10^3/ul (1.0-4.8); ABS Monocytes 0.9 10^3/ul (0-0.8); ABS Neutrophils 6.2 10^3/ul (1.5-7.7); ABS Nucleated RBC 0 10^3/ul; Eosinophil % 1.9 %; Hematocrit 36 % (33-41); Lymphocyte % 17.5 %; Mean Corpuscular HGB Conc 34 g/dL (31-36); Mean Corpuscular Hemoglobin 29 pg (27-31); Mean Corpuscular Volume 88 fL (80-97); Mean Platelet Volume 8.1 fL (7.4-10.4); Nucleated Red Blood Cells % 0; Platelet Count 274 10^3/uL (150-450); Red Blood Count 4.08 10^6 /uL (3.70-4.87); Red Cell Distribution Width 15 % (10.5-15); White Blood Count 8.9 10^3/uL (3.5-10.8)
[2018-05-25 07:16] LABS: Albumin 3.5 g/dL (3.2-5.2); Albumin/Globulin Ratio 1.5 (1-3); BUN/Creatinine Ratio 21.7 (8-20); Calcium 8.5 mg/dL (8.6-10.3); EGFR African American 97.6 (>60); EGFR Non-African American 80.7 (>60); Globulin 2.3 g/dL (2-4); Potassium 3.9 mmol/L (3.5-5.0); Total Bilirubin 0.4 mg/dL (0.2-1.0); Total Protein 5.8 g/dL (6.4-8.9)
[2018-05-25] MEDS: Lisinopril TAB* 10 MG PO SCH ×2 (07:57→21:06)
[2018-05-25] MEDS: oxyCODONE TAB* 5 MG TAB PO PRN ×2 (07:57→14:50)
[2018-05-25] MEDS: Docusate CAP* 100 MG PO SCH ×2 (07:58→21:05)
[2018-05-25] MEDS: traMADol TAB* 50 MG PO PRN ×2 (07:58→18:57)
[2018-05-25] MEDS: ALPRAZolam TAB* 0.25 MG PO SCH ×4 (07:58→19:29)
[2018-05-25] MEDS: Amoxicillin PO (*) 500 MG CAP PO SCH ×3 (08:00→21:05)
[2018-05-25] MEDS: Sertraline* 50 MG TAB PO SCH (08:00)
[2018-05-25] MEDS: NS 0.9% 1000 ML** 1,000 ML IV SCH ×2 (09:01→23:33)
[2018-05-25 09:24] LABS: C Reactive Protein 13.39 mg/L (<8.01)
[2018-05-25] MEDS: Acetaminophen TAB* 325 MG PO PRN (12:34)
[2018-05-25] MEDS: Mometasone 220 MCG MDI INH SCH (19:40)
[2018-05-25] MEDS: OXcarbazepine TAB(*) 300 MG PO SCH (21:03)
[2018-05-25] MEDS: QUEtiapine TAB* 100 MG PO SCH (21:06)
[2018-05-25] MEDS: Prazosin CAP* 1 MG PO SCH (21:07)
[2018-05-26] MEDS: oxyCODONE TAB* 5 MG TAB PO PRN ×3 (03:26→15:28)
[2018-05-26] MEDS: Levothyroxine TAB* 75 MCG TAB PO SCH (04:52)
[2018-05-26] MEDS: Heparin VIAL(*) 5000 UNITS/ML VIAL (FIVE THOUSAND) SUBCUT SCH ×3 (04:52→22:10)
[2018-05-26 06:35] LABS: ABS Basophils 0.1 10^3/ul (0-0.2); ABS Eosinophils 0.1 10^3/ul (0-0.6); ABS Lymphocytes 1.3 10^3/ul (1.0-4.8); ABS Monocytes 0.6 10^3/ul (0-0.8); ABS Neutrophils 6.1 10^3/ul (1.5-7.7); ABS Nucleated RBC 0 10^3/ul; Eosinophil % 1.5 %; Hematocrit 36 % (33-41); Mean Corpuscular HGB Conc 34 g/dL (31-36); Mean Corpuscular Hemoglobin 30 pg (27-31); Mean Corpuscular Volume 88 fL (80-97); Mean Platelet Volume 7.7 fL (7.4-10.4); Nucleated Red Blood Cells % 0; Platelet Count 278 10^3/uL (150-450); Red Blood Count 4.04 10^6 /uL (3.70-4.87); Red Cell Distribution Width 15 % (10.5-15); White Blood Count 8.3 10^3/uL (3.5-10.8)
[2018-05-26 06:51] LABS: BUN/Creatinine Ratio 22.4 (8-20); C Reactive Protein 36.31 mg/L (<8.01); Calcium 8.5 mg/dL (8.6-10.3); EGFR Non-African American 83.5 (>60); Potassium 4.3 mmol/L (3.5-5.0)
[2018-05-26] MEDS: Amoxicillin PO (*) 500 MG CAP PO SCH ×3 (07:58→20:19)
[2018-05-26] MEDS: Lisinopril TAB* 10 MG PO SCH ×2 (07:59→20:20)
[2018-05-26] MEDS: ALPRAZolam TAB* 0.25 MG PO SCH ×3 (07:59→20:19)
[2018-05-26] MEDS: Sertraline* 50 MG TAB PO SCH (08:06)
[2018-05-26] MEDS: Docusate CAP* 100 MG PO SCH ×2 (08:06→20:20)
[2018-05-26] MEDS: Acetaminophen TAB* 325 MG PO PRN (12:29)
[2018-05-26] MEDS: Mometasone 220 MCG MDI INH SCH (19:29)
[2018-05-26] MEDS: Conjugated Estrogens VAG CM* 42.5 gm TUBE VAGINAL SCH (20:10)
[2018-05-26] MEDS: OXcarbazepine TAB(*) 300 MG PO SCH (20:19)
[2018-05-26] MEDS: Prazosin CAP* 1 MG PO SCH (20:19)
[2018-05-26] MEDS: QUEtiapine TAB* 100 MG PO SCH (20:20)
[2018-05-27] MEDS: oxyCODONE TAB* 5 MG TAB PO PRN ×3 (03:38→23:39)
[2018-05-27] MEDS: hydrALAZINE IV* 20 MG/ML VIAL IV SLOW PU PRN (03:38)
[2018-05-27] MEDS: Levothyroxine TAB* 75 MCG TAB PO SCH (05:30)
[2018-05-27] MEDS: Heparin VIAL(*) 5000 UNITS/ML VIAL (FIVE THOUSAND) SUBCUT SCH ×3 (05:30→20:40)
[2018-05-27 06:44] LABS: ABS Basophils 0.1 10^3/ul (0-0.2); ABS Eosinophils 0.1 10^3/ul (0-0.6); ABS Lymphocytes 1.1 10^3/ul (1.0-4.8); ABS Monocytes 0.7 10^3/ul (0-0.8); ABS Nucleated RBC 0 10^3/ul; Eosinophil % 1.5 %; Hematocrit 34 % (33-41); Hemoglobin 11.5 g/dL (12.0-16.0); Lymphocyte % 13.9 %; Mean Corpuscular HGB Conc 34 g/dL (31-36); Mean Corpuscular Hemoglobin 30 pg (27-31); Mean Corpuscular Volume 87 fL (80-97); Nucleated Red Blood Cells % 0; Platelet Count 269 10^3/uL (150-450); Red Blood Count 3.89 10^6 /uL (3.70-4.87); Red Cell Distribution Width 15 % (10.5-15); White Blood Count 7.9 10^3/uL (3.5-10.8)
[2018-05-27 07:01] LABS: BUN/Creatinine Ratio 17.5 (8-20); C Reactive Protein 40.65 mg/L (<8.01); Calcium 8.5 mg/dL (8.6-10.3); EGFR African American 108.4 (>60); EGFR Non-African American 89.6 (>60); Potassium 3.8 mmol/L (3.5-5.0)
[2018-05-27] MEDS: Docusate CAP* 100 MG PO SCH ×2 (08:58→19:49)
[2018-05-27] MEDS: ALPRAZolam TAB* 0.25 MG PO SCH ×3 (08:58→19:48)
[2018-05-27] MEDS: Amoxicillin PO (*) 500 MG CAP PO SCH ×3 (08:58→19:48)
[2018-05-27] MEDS: Lisinopril TAB* 10 MG PO SCH ×2 (08:59→19:48)
[2018-05-27] MEDS: Acetaminophen TAB* 325 MG PO PRN (08:59)
[2018-05-27] MEDS: Sertraline* 50 MG TAB PO SCH (09:00)
[2018-05-27] MEDS: Mometasone 220 MCG MDI INH SCH (19:20)
[2018-05-27] MEDS: QUEtiapine TAB* 100 MG PO SCH (19:45)
[2018-05-27] MEDS: Prazosin CAP* 1 MG PO SCH (19:46)
[2018-05-27] MEDS: OXcarbazepine TAB(*) 300 MG PO SCH (19:49)
[2018-05-27] MEDS: traMADol TAB* 50 MG PO PRN (20:40)
[2018-05-28 01:03] LABS: Urine Appearance Cloudy; Urine Bacteria Absent (Absent); Urine Bilirubin Negative (Negative); Urine Blood 1+ (Negative); Urine Color Yellow; Urine Glucose Negative (Negative); Urine Ketones Negative (Negative); Urine Nitrite Negative (Negative); Urine Protein Negative (Negative); Urine Red Blood Cell 2+(6-10/hpf) (Absent); Urine Specific Gravity 1.014 (1.010-1.030); Urine Squamous Epithelial Cell Present (Absent); Urine Urobilinogen Negative (Negative); Urine White Blood Cell 3+(>20/hpf) (Absent)
[2018-05-28] MEDS: oxyCODONE TAB* 5 MG TAB PO PRN ×3 (06:00→21:24)
[2018-05-28] MEDS: Heparin VIAL(*) 5000 UNITS/ML VIAL (FIVE THOUSAND) SUBCUT SCH ×3 (06:00→21:26)
[2018-05-28] MEDS: Levothyroxine TAB* 75 MCG TAB PO SCH (06:01)
[2018-05-28] MEDS: Acetaminophen TAB* 325 MG PO PRN ×2 (08:22→13:10)
[2018-05-28] MEDS: Docusate CAP* 100 MG PO SCH ×2 (08:23→21:24)
[2018-05-28] MEDS: Lisinopril TAB* 10 MG PO SCH ×2 (08:23→21:23)
[2018-05-28] MEDS: Magnesium Hydroxide LIQ* 30 ML UDC PO PRN (08:23)
[2018-05-28] MEDS: Amoxicillin PO (*) 500 MG CAP PO SCH (08:23)
[2018-05-28] MEDS: Sertraline* 50 MG TAB PO SCH (08:23)
[2018-05-28] MEDS: traMADol TAB* 50 MG PO PRN ×2 (08:23→17:40)
[2018-05-28] MEDS: ALPRAZolam TAB* 0.25 MG PO SCH ×3 (08:24→21:24)
[2018-05-28] MEDS ORDERED: Piperacillin/Tazobac ADVAN(*) 3.375 GM in NS 0.9% 100 ML* 100 ML IVPB ONE (11:52)
[2018-05-28] MEDS ORDERED: Zosyn per Pharmacy* NOTE FOLLOW UP SCH (12:00)
[2018-05-28 12:26] LABS: ABS Basophils 0.1 10^3/ul (0-0.2); ABS Eosinophils 0.1 10^3/ul (0-0.6); ABS Lymphocytes 1.4 10^3/ul (1.0-4.8); ABS Monocytes 0.6 10^3/ul (0-0.8); ABS Neutrophils 6.6 10^3/ul (1.5-7.7); ABS Nucleated RBC 0 10^3/ul; Eosinophil % 1.2 %; Hematocrit 38 % (33-41); Hemoglobin 12.8 g/dL (12.0-16.0); Mean Corpuscular HGB Conc 33 g/dL (31-36); Mean Corpuscular Hemoglobin 30 pg (27-31); Mean Corpuscular Volume 89 fL (80-97); Mean Platelet Volume 8.2 fL (7.4-10.4); Nucleated Red Blood Cells % 0; Platelet Count 301 10^3/uL (150-450); Red Blood Count 4.32 10^6 /uL (3.70-4.87); Red Cell Distribution Width 15 % (10.5-15); White Blood Count 8.8 10^3/uL (3.5-10.8)
[2018-05-28 12:44] LABS: BUN/Creatinine Ratio 21.4 (8-20); C Reactive Protein 39.8 mg/L (<8.01); Calcium 9.1 mg/dL (8.6-10.3); EGFR Non-African American 79.3 (>60); Potassium 4.3 mmol/L (3.5-5.0)
[2018-05-28] MEDS: ZOSYN 3.375 GM Q8H per EXTENDED INFUSION IVPB SCH ×2 (17:40)
[2018-05-28] MEDS: Mometasone 220 MCG MDI INH SCH (19:29)
[2018-05-28] MEDS: OXcarbazepine TAB(*) 300 MG PO SCH (21:22)
[2018-05-28] MEDS: QUEtiapine TAB* 100 MG PO SCH (21:23)
[2018-05-28] MEDS: Prazosin CAP* 1 MG PO SCH (21:23)
[2018-05-28] MEDS: Conjugated Estrogens VAG CM* 42.5 gm TUBE VAGINAL SCH (21:25)
[2018-05-28] MEDS: hydrALAZINE IV* 20 MG/ML VIAL IV SLOW PU PRN (21:25)
[2018-05-29] MEDS: ZOSYN 3.375 GM Q8H per EXTENDED INFUSION IVPB SCH ×6 (01:20→18:03)
[2018-05-29] MEDS: Levothyroxine TAB* 75 MCG TAB PO SCH (06:15)
[2018-05-29] MEDS: traMADol TAB* 50 MG PO PRN (06:15)
[2018-05-29] MEDS: Heparin VIAL(*) 5000 UNITS/ML VIAL (FIVE THOUSAND) SUBCUT SCH ×3 (06:17→20:55)
[2018-05-29] MEDS: Sertraline* 50 MG TAB PO SCH (09:31)
[2018-05-29] MEDS: Lisinopril TAB* 10 MG PO SCH ×2 (09:31→20:54)
[2018-05-29] MEDS: ALPRAZolam TAB* 0.25 MG PO SCH ×3 (09:31→20:52)
[2018-05-29] MEDS: Docusate CAP* 100 MG PO SCH ×2 (09:31→20:53)
[2018-05-29] MEDS: Acetaminophen TAB* 325 MG PO PRN (09:36)
[2018-05-29] MEDS: Acetaminophen ADULT LIQ* 650 MG/20.3 ML UDC PO SCH ×2 (14:36→20:51)
[2018-05-29] MEDS: Albuterol 2.5 MG/3 ML NEB.SOL* (0.083%) INH PRN ×2 (15:25→21:05)
[2018-05-29] MEDS: Mometasone 220 MCG MDI INH SCH (19:38)
[2018-05-29] MEDS: OXcarbazepine TAB(*) 300 MG PO SCH (20:52)
[2018-05-29] MEDS: Prazosin CAP* 1 MG PO SCH (20:52)
[2018-05-29] MEDS: QUEtiapine TAB* 100 MG PO SCH (20:55)
[2018-05-30] MEDS: ZOSYN 3.375 GM Q8H per EXTENDED INFUSION IVPB SCH ×4 (01:05→09:05)
[2018-05-30] MEDS: Magnesium Hydroxide LIQ* 30 ML UDC PO PRN ×2 (03:35→12:43)
[2018-05-30] MEDS: traMADol TAB* 50 MG PO PRN (03:36)
[2018-05-30] MEDS: Levothyroxine TAB* 75 MCG TAB PO SCH (05:24)
[2018-05-30] MEDS: Heparin VIAL(*) 5000 UNITS/ML VIAL (FIVE THOUSAND) SUBCUT SCH (05:24)
[2018-05-30] MEDS: oxyCODONE TAB* 5 MG TAB PO PRN (05:27)
[2018-05-30 07:53] VITALS: BP 179/64
[2018-05-30] MEDS: Acetaminophen ADULT LIQ* 650 MG/20.3 ML UDC PO SCH (08:01)
[2018-05-30] MEDS: Sertraline* 50 MG TAB PO SCH (08:03)
[2018-05-30] MEDS: Docusate CAP* 100 MG PO SCH (08:03)
[2018-05-30] MEDS: ALPRAZolam TAB* 0.25 MG PO SCH (08:03)
[2018-05-30] MEDS: Lisinopril TAB* 10 MG PO SCH (08:03)
--- NOTE | 2018-05-30 10:36 | TRS ---
CC: Ortiz * DISCHARGE SUMMARY: DATE OF ADMISSION: 05/24/18 DATE OF DISCHARGE: 05/30/18 DISCHARGE DIAGNOSES: 1. Urinary tract infection. 2. Hyponatremia. 3. Rib fractures. 4. Hypertension. 5. History of anxiety. 6. Probable osteoporosis. 7. Hypothyroidism, treated. 8. 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 9. Type 2 diabetes mellitus, diet controlled. 10. History of obstructive sleep apnea. 11. History of depression. 12. History of gastroesophageal reflux disease. 13. Osteoporosis. 14. Allergic rhinitis. 15. Restless leg syndrome. 16. Hyperlipidemia, treated. 17. Fall in longterm. 18. History of nightmares. 19. [id number] aortic stenosis. 20. History of diastolic heart failure. HISTORY: Clare Rizzo is an 87-year-old woman admitted after having falling at the longterm, found to have a urinary tract infection, and rib fractures. Please see the dictated admission note for details of the present illness, past medical history, family history, social and personal history, review of systems, and physical examination. LABORATORY DATA: CBC: WBC 15.1, H and H 12.3/37, MCV 88, PLT 321,000; H and H came down to 7.9 on 05/27/18, was 8.8 on 05/28/18; H and H remained stable. Chemistry: Sodium 127, potassium 4.4, chloride 93, CO2 28, BUN/creatinine 29/0.84, glucose 142. Rest of her comprehensive metabolic panel was within normal limits. CRP was 13.39 on 05/25/18, was as high as 40.65 on 05/27/18, was 39.80 on 05/28/18. Blood sugars ranged from 108 to 142. Lactic acid was 0.9 on admission, normal. Procalcitonin was less than 0.10. Urinalysis yellow, cloudy, specific gravity 1.010, pH 7, dipsticks positive for 3+ esterase, 3+ wbc's, rbc's 1+, essentially unchanged on 05/28/18. Urine culture on admission showed Aerococcus urinae. HOSPITAL COURSE: The patient was patient was admitted. She was initially treated with amoxicillin, subsequently switched to Zosyn for her urinary tract infection. She was continued on inhalers and albuterol as needed for her history of COPD. She received normal saline bolus and normal saline after admission. Sodium came up. White count came down. She continued on her usual medications for anxiety and depression. Her blood pressure remained high at times and it was felt to be due to pain and stress. She continued on Synthroid for hypothyroidism. She received DVT prophylaxis with heparin 5000 units subcu. She was DNR. Her delirium gradually improved. She did remain somewhat confused at times. She received symptomatic treatment for her rib fractures with oxycodone and routine Tylenol. At the time of discharge, she felt improved enough to go back to [facility]. She was started on topical estrogen for recurrent urinary tract infections. She had had several urinary tract infections over the last year with different organisms. MEDICATIONS AT THE TIME OF DISCHARGE: 1. Alprazolam 0.25 mg 3 times a day. 2. Albuterol 2 puffs q.4 h p.r.n. shortness of breath. 3. Albuterol via nebulizer q.4 h p.r.n. 4. Acetaminophen 1000 mg t.i.d. 5. Docusate sodium 100 mg b.i.d. 6. Premarin vaginal cream 3 times a week half an applicator. 7. Levothyroxine 75 mcg daily. 8. Lisinopril 10 mg twice a day. 9. Oxycodone 5 mg q.6 h p.r.n. pain. 10. Sertraline 150 mg daily. 11. Quetiapine 400 mg at bedtime. 12. Prazosin 3 mg at h.s. 13. Oxcarbazepine 900 mg at h.s. 14. Meclizine 25 mg q.6 hours p.r.n. dizziness. 15. Fluticasone 2 puffs twice a day. 16. Amoxicillin 500 mg 3 times a day for 5 days.. ACTIVITY: As tolerated, up with assistance. She is to get physical therapy. DIET: Regular. ADVANCE DIRECTIVES: She is DNR. [id number]/[facility] #: [id number] [place]
== END 2018-05-30 13:27 | DRG 184 ==
LOC: ED 05:18 → MED 11:57
PROVIDERS: ADMIT Internal Medicine; ATTEND Internal Medicine Geriatric Medicine
DX: S22.42XA Multiple fractures of ribs, left side, initial encounter for closed fracture (principal); N39.0 Urinary tract infection, site not specified; E87.1 Hypo-osmolality and hyponatremia; I50.30 Unspecified diastolic (congestive) heart failure; I11.0 Hypertensive heart disease with heart failure; Z66 Do not resuscitate; I35.0 Nonrheumatic aortic (valve) stenosis; E11.9 Type 2 diabetes mellitus without complications; B96.89 Other specified bacterial agents as the cause of diseases classified elsewhere; F41.9 Anxiety disorder, unspecified; M81.0 Age-related osteoporosis without current pathological fracture; E03.9 Hypothyroidism, unspecified; G47.33 Obstructive sleep apnea (adult) (pediatric); F32.9 Major depressive disorder, single episode, unspecified; K21.9 Gastro-esophageal reflux disease without esophagitis; J30.9 Allergic rhinitis, unspecified; G25.81 Restless legs syndrome; E78.5 Hyperlipidemia, unspecified; W19.XXXA Unspecified fall, initial encounter; J44.9 Chronic obstructive pulmonary disease, unspecified; M85.832 Other specified disorders of bone density and structure, left forearm; M19.032 Primary osteoarthritis, left wrist; R41.0 Disorientation, unspecified; E87.5 Hyperkalemia; E86.0 Dehydration; G31.89 Other specified degenerative diseases of nervous system; Y92.129 Unspecified place in nursing home as the place of occurrence of the external cause; Z86.14 Personal history of Methicillin resistant Staphylococcus aureus infection; Z79.1 Long term (current) use of non-steroidal anti-inflammatories (NSAID); Z79.51 Long term (current) use of inhaled steroids; Z79.899 Other long term (current) drug therapy; Z88.6 Allergy status to analgesic agent; Z91.030 Bee allergy status; Z88.8 Allergy status to other drugs, medicaments and biological substances; Z91.048 Other nonmedicinal substance allergy status; Z87.891 Personal history of nicotine dependence; Z91.81 History of falling
CPT/HCPCS: 36415; 70450; 72125; 72128; 72131; 72192; 80048; 80053; 81003; 81015; 83605; 84145; 85025; 86140; 87086; 87088; 87641; 94640; 99285; A9270-GY; G8978-GP-CJ; G8979-GP-CH; G8987-GO-CL; G8988-GO-CJ; J0360; J1644; J2543